=== PATIENT | male | born 1955 | race Caucasian/White ===

== ENCOUNTER 2023-12-18 16:01 | Outpatient (OUT) | payer BC, SELFPAY ==
[2023-12-18 16:22] LABS: Basophils Absolute Auto 0.1 10^3/uL (0.0-0.1); Basophils Percent Auto 0.7 % (0.2-2.0); Eosinophils Absolute Auto 0.1 10^3/uL (0.0-0.7); Eosinophils Percent Auto 1.1 % (0.9-7.0); Hemoglobin 14.2 g/dL (14.0-18.0); Immature Granulocytes Abs Auto 0.03 10^3/uL (0.00-0.03); Immature Granulocytes Pct Auto 0.4 % (0.0-0.5); Lymphocytes Absolute Auto 1.8 10^3/uL (1.2-3.8); Lymphocytes Percent Auto 23.7 % (20.5-60.0); Mean Corpuscular HGB Conc 34.6 g/dL (29.9-35.2); Mean Corpuscular Hemoglobin 31.9 pg (25.9-34.0); Mean Corpuscular Volume 92.1 fL (80.0-94.0); Mean Platelet Volume 8.9 fL (9.5-13.5); Monocytes Absolute Auto 0.9 10^3/uL (0.3-0.8); Monocytes Percent Auto 11.3 % (1.7-12.0); Neutrophils Absolute Auto 4.7 10^3/uL (1.4-6.5); Neutrophils Percent Auto 62.8 % (43.0-75.0); Platelet Count 289 10^3/uL (150-450); Red Blood Count 4.45 10^6/uL (4.70-6.10); Red Cell Distribution Width 12.4 % (11.0-15.0); White Blood Count 7.5 10^3/uL (4.0-11.0)
[2023-12-18 16:54] LABS: Alanine Aminotransferase 43 U/L (16-63); Albumin Globulin Ratio 0.9; Albumin Level 3.9 g/dL (3.4-5.0); Alkaline Phosphatase 53 U/L (46-116); Anion Gap 14.4; Aspartate Amino Transferase 36 U/L (15-37); BUN Creatinine Ratio 13.2; Bilirubin Total 0.5 mg/dL (0.2-1.0); Calcium 9.7 mg/dL (8.5-10.1); Carbon Dioxide 27.1 mmol/L (21.0-32.0); Chloride 95 mmol/L (98-107); Chol HDL Ratio 3.8; Cholesterol 258 mg/dL (<=200); Estimated GFR (African America >60 (>=60); Estimated GFR (Non-African Ame 56 (>=60); Globulin 4.2 g/dL; Glucose 115 mg/dL (74-106); HDL Cholesterol 68 mg/dL (40-60); Potassium 4.5 mmol/L (3.5-5.1); Sodium 132 mmol/L (136-145); Thyroid Stimulating Hormone 20.225 uIU/mL (0.358-3.740); Total Protein 8.1 g/dL (6.4-8.2); Triglycerides 80 mg/dL (<=150)
[2023-12-18 17:01] LABS: Prostate Specific Antigen Scrn 6.78 ng/mL (<=4.00)
== END 2023-12-18 16:02 | disposition home or self-care (01) ==
LOC: LAB 16:03
PROVIDERS: PCP Internal Medicine; Visit Provider Internal Medicine
DX: Z00.00 Encounter for general adult medical examination without abnormal findings (principal)
CPT/HCPCS: 36415; 80053; 80061; 84443; 85025; G0103

== ENCOUNTER 2024-07-08 15:40 | Outpatient (OUT) | payer MEDICARE, SELFPAY ==
--- NOTE | 2024-07-08 16:19 | US_ITS ---
The [address] [address] Patient Name: ROSY TAYLOR MRN: [id number] date: 1955 Sex: M Assigned Patient Location: [place] Current Patient Location: US Accession/Order Number: [id number] Exam Date: 07/08/2024 16:25 Report Date: 07/09/2024 09:54 At the request of: KEISHA BOTELLO Procedure: US carotid duplex BI DUPLEX ULTRASOUND EXAMINATION OF THE CAROTID ARTERIES. COMPARISON: None. HISTORY / INDICATIONS: Visual deficit. TECHNIQUE: Bilateral common carotid arteries, extracranial internal and external carotid arteries are evaluated with perez-scale imaging, color Doppler, and spectral analysis according to a standard protocol. ICA-CCA ratios are calculated with customer success representative peak-systolic velocities and recorded. Vertebral arteries are evaluated in one segment to evaluate for patency and character of flow. Comparison with previous evaluation is performed when available. Unless otherwise specified, all velocities are measured in cm/sec. Carotid stenosis is reported according to validated velocity parameters, similar to NASCET criteria. FINDINGS: Right Carotid: Plaque was noted. Velocity measurements as follows: Internal Carotid Artery 111/34 and 54/22. ICA to CCA ratio: 0.6. Left Carotid: Plaque was noted. Velocity measurements as follows: Internal Carotid Artery 69/20 and 67/22. ICA to CCA ratio: 2. Antegrade flow was seen in both vertebral arteries. CONCLUSION: 1. Less than 50% stenosis of the right ICA. 2. Less than 50% stenosis of the left ICA. 3. Vertebral arteries are patent and demonstrate antegrade flow. Electronically authenticated by: Jc MARTIN Date: 07/09/2024 09:54
[2024-07-08 17:26] LABS: Estimated Average Glucose 108 mg/dL; Glycohemoglobin A1C 5.4 % (4.5-6.2)
[2024-07-10 04:07] LABS: PSA, Free 0.91 ng/mL; Prostate Specific Ag 6.6 ng/mL (0.0-4.0)
== END 2024-07-08 15:41 | disposition home or self-care (01) ==
PROVIDERS: PCP Internal Medicine; Visit Provider Internal Medicine
DX: G45.3 Amaurosis fugax (principal); R97.20 Elevated prostate specific antigen [PSA]; R73.01 Impaired fasting glucose
CPT/HCPCS: 36415; 83036; 84153; 84154; 93880

== ENCOUNTER 2024-07-29 14:41 | Outpatient (OUT) | payer MEDICARE, SELFPAY ==
--- NOTE | 2024-07-29 14:48 | ECG_ITS ---
The [facility] Test Date: 2024-07-29 Pat Name: ROSY TAYLOR Department: Room: - Gender: Male [employer]: : 1955 Requested By: KEISHA BOTELLO Order Number: [id number] Reading MD: KEISHA BOTELLO Measurements Intervals [place] Rate: 83 P: 75 OK: 167 QRS: 152 QRSD: 141 T: 67 QT: 386 QTc: 454 Interpretive Statements SINUS RHYTHM INDETERMINATE AXIS RIGHT BUNDLE BRANCH BLOCK [120+ ms QRS DURATION, UPRIGHT V1, 40+ ms S IN I/aVL/V4/V5/V6] No previous ECG available for comparison Electronically Signed On 07-29-2024 22:59:30 EST by KEISHA BOTELLO
--- OUTSIDE RECORDS SUMMARY | 2024-07-29 15:10 | XMS_ITS | CCD ---
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 Name Role Phone REGAN BOTELLO Admitting Unavailable REGAN BOTELLO Attending Unavailable Regan Botello Unavailable Jeyson MEDINA Attending Unavailable REGAN BOTELLO Referring Unavailable Medications Current Medications Medication Drug Class(es) Dates Sig (Normalized) Sig (Original) amLODIPine 5 mg oral tablet (9 sources) Dihydropyridine Calcium Channel Milli Start: 07-15-2024 take 1 tablet by mouth once daily Amlodipine 5 mg tablet Active 5 MG PO Daily July 15, 2024 3:44pm Start: 03-28-2024 End: 07-15-2024 Amlodipine 5 mg tablet Disco ntinued 0 .ROUTE .COMPLEX March 28, 2024 7:38am July 15, 2024 3:45pm TAKE 1 TABLET EVERY DAY Start: 01-26-2024 End: 03-28-2024 take 1 tablet by mouth once daily Amlodipine 5 mg tablet Discontinued 0 .ROUTE .COMPLEX January 26, 2024 7:37am March 28, 2024 7:39am TAKE 1 TABLET BY MOUTH EVERY DAY Start: 12-24-2023 End: 01-26-2024 take 1 tablet by mouth once daily Amlodipine 5 mg tablet Discontinued 5 MG PO Daily January 14, 2024 7:33am January 26, 2024 7:37am baclofen 20 mg oral tablet (11 sources) gamma-Aminobutyric Acid-ergic Agonist Start: 07-15-2024 take 1 tablet by mouth once daily Baclofen 20 mg tablet Active 20 MG PO Daily July 15, 2024 3:44pm Start: 01-24-2024 End: 07-15-2024 Baclofen 20 mg tablet Discon tinued 0 .ROUTE .COMPLEX June 11, 2024 5:57am July 15, 2024 3:45pm TAKE 1 TABLET AT BEDTIME Start: 10-28-2023 End: 01-24-2024 take 1 tablet by mouth once daily at bedtime Baclofen 20 mg tablet Discontinued 20 MG PO Daily at bedtime January 15, 2024 7:31am January 24, 2024 12:16pm take 1 tablet by deborah th twice daily at mealtime as needed Baclofen 20 MG 1 tablet Administer without regards to meals as needed Orally Twice a day Active benazepril hydrochloride 20 mg oral tablet (8 sources) Angiotensin Converting Enzyme Inhibitor Start: 07-15-2024 take 1 tablet by mouth once daily Benazepril 20 mg tablet Active 20 MG PO Daily July 15, 2024 3:44pm Start: 03-28-2024 End: 07-15-2024 Benazepril 20 mg tablet Disc ontinued 0 .ROUTE .COMPLEX March 28, 2024 7:38am July 15, 2024 3:45pm TAKE 1 TABLET EVERY DAY Start: 12-24-2023 End: 03-28-2024 take 1 tablet by mouth once daily Benazepril 20 mg tablet Discontinued 20 MG PO Daily January 14, 2024 7:33am March 28, 2024 7:39am doxycycline hyclate 100 mg oral capsule (2 sources) Tetracycline-class Drug Start: 10-01-2023 take 1 capsule by mouth twice daily Doxycycline Hyclate 100 MG 1 capsule Orally twice daily for 5 days Sep, Active levothyroxine sodium 0.1 mg oral tablet (8 sources) l-Thyroxine Start: 07-15-2024 take 1 tablet by mouth once daily Levothyroxine 100 mcg tablet Active 100 MCG PO Daily July 15, 2024 3:45pm Start: 03-28-2024 End: 07-15-2024 Levothyroxine 100 mcg tablet Discontinued 0 .ROUTE .COMPLEX March 28, 2024 7:39am July 15, 2024 3:45pm TAKE 1 TABLET EVERY DAY Start: 12-24-2023 End: 03-28-2024 take 1 tablet by mouth once daily Levothyroxine 100 mcg tablet Discontinued 100 MCG PO Daily January 14, 2024 7:33am March 28, 2024 7:39am take 1 tablet by deborah th once daily in the morning Levothyroxine Sodium 100 MCG 1 tablet in the morning on an empty stomach Orally Once a day Active Completed/Discontinued Medications Medication Drug Class(es) Dates Sig (Normalized) Sig (Original) levoFLOXacin 500 mg oral tablet (1 source) Quinolone Antimicrobial Start: 12-27-2023 End: 07-15-2024 take 1 tablet by mouth once daily Levofloxacin 500 mg tablet Discontinued 500 MG PO Daily December 26, 2023 11:00pm July 15, 2024 3:39pm Problems Active Problems Problem Classification Problem Date Documented Da te Episodic/Chronic Chronic kidney disease (2 sources) Chronic kidney disease stage 3; Translations: [Chronic kidney disease, stage 3 unspecified] Onset: 03-20-2019 Chronic Chronic obstructive pulmonary disease and bronchiectasis (14 sources) Mucopurulent chronic bronchitis; Translations: [Mucopurulent chronic bronchitis] Chronic Diabetes mellitus without complication (2 sources) Impaired fasting glycemia; Translations: [Impaired fasting glucose] 12-27-2023 Episodic Disorders of lipid metabolism (15 sources) Hypercholesterolemi a; Translations: [Pure hypercholesterolemi a, unspecified] Onset: 03-20-2019 Chronic Essential hypertension (13 sources) Essential hypertension; Translations: [Essential (primary) hypertension] Chronic Hyperplasia of prostate (10 sources) Lower urinary tract symptoms due to benign prostatic hypertrophy; Translations: [Benign prostatic hyperplasia with lower urinary tract symptoms] Onset: 12-16-2013 12-26-2023 Chronic Hypertension with complications and secondary hypertension (2 sources) Benign hypertensive renal disease; Translations: [Hypertensive chronic kidney disease, benign, with chronic kidney disease stage I through stage IV, or unspecified] Onset: 04-10-2019 Chronic Other nutritional; endocrine; and metabolic disorders (2 sources) Overweight; Translations: [Overweight] Episodic Other screening for suspected conditions (not mental disorders or infectious disease) (9 sources) Screening for malignant neoplasm of respiratory tract; Translations: [Encounter for screening for malignant neoplasm of respiratory organs] 12-26-2023 Episodic Comment on above: PSA: 2.29 - 04/2019, 6.78 - 11/2023, 6.6 - 06/2024 Residual codes; unclassified (5 sources) Tobacco user; Translations: [Tobacco use] Episodic Spondylosis; intervertebral disc disorders; other back problems (11 sources) Lumbar spondylosis with myelopathy; Translations: [Other spondylosis with myelopathy, lumbar region] Onset: 03-20-2019 Chronic Substance-related disorders (14 sources) Nicotine dependence; Translations: [Nicotine dependence, cigarettes, uncomplicated] Onset: 12-02-2015 Chronic Comment on above: Age started 20, PPD1 , Age stopped 68 Systemic lupus erythematosus and connective tissue disorders (2 sources) Autoimmune disease; Translations: [Autoimmune disease, not elsewhere classified] Onset: 03-20-2019 Chronic Thyroid disorders (15 sources) Autoimmune hypothyroidism; Translations: [Hypothyroidism, unspecified] Chronic Transient cerebral ischemia (1 source) Amaurosis fugax of left eye; Translations: [Amaurosis fugax] 12-27-2023 Chronic Past or Other Problems Problem Classification Problem Date Documented Date Episodic/Chronic Acute bronchitis (3 sources) Acute bronchitis; Translations: [Acute bronchitis, unspecified] Onset: 12-16-2013 Episodic Allergic reactions (2 sources) Contact dermatitis; Translations: [Contact dermatitis and other eczema, due to unspecified cause] Onset: 02-07-2016 Episodic Malaise and fatigue (2 sources) Malaise and fatigue; Translations: [Other malaise and fatigue] Onset: 03-20-2019 Episodic Noninfectious gastroenteritis (2 sources) Non-infective enteritis and colitis; Translations: [Noninfective gastroenteritis and colitis, unspecified] Onset: 09-08-2014 Episodic Spondylosis; intervertebral disc disorders; other back problems (2 sources) Low back pain; Translations: [Lumbago] Onset: 01-21-2014 Episodic Viral infection (2 sources) Viremia; Translations: [Unspecified viremia] Onset: 09-08-2014 Episodic Results Test Name Value Interpretation Reference Range Facility Glucose mean value [Mass/vol ume] in Blood Estimated from glycated hemoglobinon 07-08-2024 Average glucose Estimated from glycated hemoglobin (Bld) [Mass/Vol] Glucose mean value [Mass/volume] in Blood Estimated from glycated hemoglobin [facility] - Hematology and Cell countson 07-08-2024 HbA1c (Bld) [Mass fraction] 5.4 % 4.5-6.2 [facility] Comment on above: ADA RECOMMENDED LIMI T 4.0 - 6.0ADA THERAPEUTIC TARGET < 7.0ACTION SUGGESTED> 7.0 No Panel Informationon 07-08 Free Prostate Specific Antigen 0.91 ng/mL N/A [facility] Comment on above: Diane ECLIA methodol ogy. Prostate Specific Antigen Total 6.6 ng/mL Abnormal 0.0-4.0 [facility] Comment on above: Diane ECLIA methodol ogy.According to the [place] [employer], Serum PSAshould decrease and remain at undetectable levels afterradical prostatectomy. The AUA defines biochemicalrecurrence as an initial PSA value 0.2 ng/mL or greaterfollowed by a subsequent confirmatory PSA value 0.2 ng/mLor greater. Values obtained with different assay methods orkits cannot be used interchangeably. Results cannot beinterpreted as absolute evidence of the presence or absenceof malignant disease. Serum or plasma free prostat e specific antigen (PSA)/total PSA ratioon 07-08-2024 Free PSA/Total PSA [Mass fraction] Serum or plasma free prostate specific antigen (PSA)/total PSA ratio . [facility] Comment on above: The table below list s the probability of prostate cancer formen with non-suspicious RAYMOND results and total PSA between4 and 10 ng/mL, by patient age (Baljit et al, ALLY 1998,[id number]:1542). % Free PSA 50-64 yr 65-75 yr 0.00-10.00% 56% 55% 10.01-15.00% 24% 35% 15.01-20.00% 17% 23% 20.01-25.00% 10% 20% >25.00% 5% 9%Please note: Baljit et al did not make specific recommendations regarding the use of percent free PSA for any other population of men.Performed at: [facility] [id number] Director: Warren Combs PhD, Phone: [phone] Basophils Auto (Bld) [#/Vol] on 12-18-2023 Basophils (Bld) [#/Vol] 0.1 10 3/uL 0.0-0.1 [facility] Basophils/100 WBC Auto (Bld) on 12-18-2023 Basophils/100 WBC (Bld) 0.7 % 0.2-2.0 [facility] Cholesterol in LDL Calc [Mas s/Vol]on 12-18-2023 Cholesterol in LDL [Mass/Vol] 174.0 mg/dL [facility] Comment on above: <100 mg/dl [id number] 0-129 mg/dl NEAR OR ABOVE [id number] mg/dl BORDERLINE [id number] mg/dl HIGH>190 mg/dl VERY HIGH Cholesterol in VLDL Calc [Ma ss/Vol]on 12-18-2023 Cholesterol in VLDL [Mass/Vol] 16.0 mg/dL [facility] Eosinophils/100 WBC Auto (Bl d)on 12-18-2023 Eosinophils/100 WBC (Bld) 1.1 % 0.9-7.0 [facility] Erythrocyte distribution wid th Auto (RBC) [Ratio]on 12-18-2023 Erythrocyte distribution width (RBC) [Ratio] 12.4 % 11.0-15.0 [facility] Estimated glomerular filtrat ion rate (GFR) non- Americanon 12-18-2023 GFR/1.73 sq M.predicted among non-blacks MDRD (S/P/Bld) [Vol rate/Area] 56 mL/min/{1.73_m2} >=60 [facility] Globulin Calc (S) [Mass/Vol] on 12-18-2023 Globulin (S) [Mass/Vol] 4.2 g/dL [facility] Hematocrit Auto (Bld) [Volum e fraction]on 12-18-2023 Hematocrit (Bld) [Volume fraction] 41.0 % 42.0-54.0 [facility] Hemoglobin [Mass/volume] in Bloodon 12-18-2023 Hemoglobin (Bld) [Mass/Vol] 14.2 g/dL 14.0-18.0 [facility] Laboratory - Chemistry and C hemistry - challengeon 12-18-2023 Albumin [Mass/Vol] 3.9 g/dL 3.4-5.0 [facility] ALP [Catalytic activity/Vol] 53 U/L 46-116 [facility] ALT [Catalytic activity/Vol] 43 U/L 16-63 [facility] AST [Catalytic activity/Vol] 36 U/L 15-37 [facility] Bilirubin [Mass/Vol] 0.5 mg/dL 0.2-1.0 [facility] Calcium [Mass/Vol] 9.7 mg/dL 8.5-10.1 [facility] Chloride [Moles/Vol] 95 mmol/L 98-107 [facility] Cholesterol [Mass/Vol] 258 mg/dL <=200 [facility] Cholesterol in HDL [Mass/Vol] 68 mg/dL 40-60 [facility] Comment on above: > or =60 mg/dl - LOW CARDIOVASCULAR RISK<40 mg/dl - HIGH CARDIOVASCULAR RISK CO2 [Moles/Vol] 27.1 mmol/L 21.0-32.0 [facility] Creatinine [Mass/Vol] 1.29 mg/dL 0.70-1.30 [facility] GFR/1.73 sq M.predicted MDRD (S/P/Bld) [Vol rate/Area] mL/min/{1.73_m2} >=60 [facility] Glucose [Mass/Vol] 115 mg/dL 74-106 [facility] Potassium [Moles/Vol] 4.5 mmol/L 3.5-5.1 [facility] Protein [Mass/Vol] 8.1 g/dL 6.4-8.2 [facility] Sodium [Moles/Vol] 132 mmol/L 136-145 [facility] Triglyceride [Mass/Vol] 80 mg/dL <=150 [facility] TSH Qn 20.225 m[IU]/L 0.358-3.740 [facility] Urea nitrogen [Mass/Vol] 17.0 mg/dL 7.0-18.0 [facility] Urea nitrogen/Creatinine [Mass ratio] 13.2 mg/mg [facility] - Hematology and Cell countson 12-18-2023 Immature granulocytes/100 WBC (Bld) 0.4 % 0.0-0.5 [facility] Leukocytes [#/volume] correc gilbert for nucleated erythrocytes in Blood by Automated counon 12-18-2023 WBC corrected for nucl RBC Auto (Bld) [#/Vol] 7.5 10 3/uL 4.0-11.0 [facility] Lymphocytes Auto (Bld) [#/Vo l]on 12-18-2023 Lymphocytes (Bld) [#/Vol] 1.8 10 3/uL 1.2-3.8 [facility] Lymphocytes/100 WBC Auto (Bl d)on 12-18-2023 Lymphocytes/100 WBC (Bld) 23.7 % 20.5-60.0 [facility] MCH Auto (RBC) [Entitic mass ]on 12-18-2023 MCH (RBC) [Entitic mass] 31.9 pg 25.9-34.0 [facility] MCHC Auto (RBC) [Mass/Vol]on 12-18-2023 MCHC (RBC) [Mass/Vol] 34.6 g/dL 29.9-35.2 [facility] MCV Auto (RBC) [Entitic vol] on 12-18-2023 MCV (RBC) [Entitic vol] 92.1 fL 80.0-94.0 [facility] Monocytes Auto (Bld) [#/Vol] on 12-18-2023 Monocytes (Bld) [#/Vol] 0.9 10 3/uL 0.3-0.8 [facility] Monocytes/100 WBC Auto (Bld) on 12-18-2023 Monocytes/100 WBC (Bld) 11.3 % 1.7-12.0 [facility] Neutrophils Auto (Bld) [#/Vo l]on 12-18-2023 Neutrophils (Bld) [#/Vol] 4.7 10 3/uL 1.4-6.5 [facility] Neutrophils/100 WBC Auto (Bl d)on 12-18-2023 Neutrophils/100 WBC (Bld) 62.8 % 43.0-75.0 [facility] No Panel Informationon 12-17 Eosinophils # (Auto) 0.1 10 3/uL 0.0-0.7 [facility] Immature Granulocyte # (Auto) 0.03 10 3/uL 0.00-0.03 [facility] Prostate Specific Antigen Screen 6.78 ng/mL <=4.00 [facility] Platelet mean volume Auto (B ld) [Entitic vol]on 12-18-2023 Platelet mean volume (Bld) [Entitic vol] 8.9 fL 9.5-13.5 [facility] Platelets Auto (Bld) [#/Vol] on 12-18-2023 Platelets (Bld) [#/Vol] 289 10 3/uL 150-450 [facility] RBC Auto (Bld) [#/Vol]on RBC (Bld) [#/Vol] 4.45 10 6/uL 4.70-6.10 [facility] Serum or plasma albumin/glob ulin mass ratioon 12-18-2023 Albumin/Globulin [Mass ratio] 0.9 {ratio} [facility] Serum or plasma anion gap de terminationon 12-18-2023 Anion gap [Moles/Vol] 14.4 mmol/L [facility] Serum or plasma total choles terol/high density lipoprotein (HDL) cholesterol mass lien 12-18-2023 Cholesterol.total/C holesterol in HDL [Mass ratio] 3.8 {ratio} [facility] Comment on above: 3.3 - 4.4 LOW RISK4. 4 - 7.1 AVERAGE RISK7.1 - 11.0 MODERATE RISK>11.0 HIGH RISK Vital Signs Date Time Vital Sign Value Performing Clinician Facility 07-15-2024 15:22-0500 Body height 172.72 cm [facility] 07-15-2024 15:22-0500 Body mass index (BMI) [Ratio] 33 kg/m2 [facility] 07-15-2024 15:22-0500 Body weight 98.65 kg [facility] 07-15-2024 15:22-0500 Diastolic blood pressure 81 mm[Hg] [facility] 07-15-2024 15:22-0500 Heart rate 106 /min [facility] 07-15-2024 15:22-0500 Respiratory rate 12 /min [facility] 07-15-2024 15:22-0500 Systolic blood pressure 155 mm[Hg] [facility] 12-27-2023 13:48-0400 Body height 172.72 cm [facility] 12-27-2023 13:48-0400 Body mass index (BMI) [Ratio] 31.5 kg/m2 [facility] 12-27-2023 13:48-0400 Body weight 94 kg [facility] 12-27-2023 13:48-0400 Diastolic blood pressure 75 mm[Hg] [facility] 12-27-2023 13:48-0400 Heart rate 86 /min [facility] 12-27-2023 13:48-0400 Respiratory rate 12 /min [facility] 12-27-2023 13:48-0400 Systolic blood pressure 159 mm[Hg] [facility] 02-27-2023 15:15-0400 Body height 172.72 cm Regan Miki Other [facility] 02-27-2023 15:15-0400 Body mass index (BMI) [Ratio] 29.43 kg/m2 Regan Miki Other [facility] 02-27-2023 15:15-0400 Body weight 87.82 kg Regan Miki Other [facility] 02-27-2023 15:15-0400 Diastolic blood pressure 75 mm[Hg] Regan Miki Other [facility] 02-27-2023 15:15-0400 Respiratory rate 12 /min Regan Miki Other [facility] 02-27-2023 15:15-0400 Systolic blood pressure 135 mm[Hg] Regan Miki Other [facility] Other Encounters Encounter Date Encounter Type Care Provider Facility Start: 08-17-2024 ambulatory [facility] Start: 07-16-2024 ambulatory Jeyson MEDINA Facility :[facility] Start: 07-15-2024 End: 07-15-2024 Patient encounter procedure [facility] Work Phone: Start: 07-15-2024 End: 07-15-2024 ambulatory [facility] Work Phone: Start: 07-15-2024 Telephone encounter Regan ROSS [facility] Start: 07-08-2024 Non-patient / Non-visit [facility] Work Phone: Start: 12-27-2023 End: 12-27-2023 ambulatory [facility] Work Phone: Start: 12-27-2023 End: 12-27-2023 Encounter for general adult medical examination without abnormal findings [facility] Start: 12-27-2023 End: 12-27-2023 Patient encounter procedure [facility] Work Phone: Start: 12-18-2023 Non-patient / Non-visit [facility] Work Phone: Start: 10-28-2023 Non-patient / Non-visit [facility] Work Phone: Start: 10-01-2023 End: 10-01-2023 ambulatory Regan Botello Other [facility] Other Start: 10-01-2023 Office outpatient vi sit 15 minutes Regan Botello [facility] Start: 02-27-2023 End: 02-27-2023 ambulatory Regan Botello Other [facility] Other Start: 02-27-2023 Encounter for genera l adult medical examination without abnormal findings Regan Botello [facility] Start: 02-27-2023 Periodic preventive med est patient 65yrs& older Regan Botello [facility] Start: 06-26-2021 Adult health examination Regan Botello Other [facility] Start: 05-06-2020 Patient encounter procedure REGAN BOTELLO Facility:[facility] Procedures Date Procedure Procedure Detail Performing Clinician Start: 03-20-2019 Screening for malign ant neoplasm of colon Regan Botello Other Start: 03-20-2019 Screening for malign ant neoplasm of prostate Regan Botello Other Start: 12-02-2015 General examination of patient Regan Botello Other Depression screening Shan Botello Other Plan of Treatment Date Care Activity Detail Author [facility] Immunizations Immunization Date Immunization Notes Care Provider Preethi phillip 06-15-2022 influenza, high dose seasonal, preservative-free Regan Botello Other [facility] 06-15-2022 COVID-19 Pfizer (bivalent) Regan Botello Other [facility] 06-15-2022 influenza virus vaccine, unspecified formulation [facility] 12-03-2021 COVID-19 Pfizer Regan Kaminski reena Other [facility] 06-07-2021 influenza virus vaccine, split virus (incl. purified surface antigen) Regan Botello Other [facility] [address] Other 06-07-2021 influenza virus vaccine, unspecified formulation [facility] 05-31-2021 COVID-19 Vaccine Pfi zer - Documentation Purposes Only Regan Miki Other [facility] 11-29-2020 COVID-19 Vaccine Pfi zer - Documentation Purposes Only Regan Miki Other [facility] 11-07-2020 COVID-19 Vaccine Pfi zer - Documentation Purposes Only Regan Miki Other [facility] Payers Date Payer Category Payer Medicare [id number] 1957 Unknown [id number] 1955 Unknown [id number] 1955 Unknown [id number] 1955 Unknown [id number] Medicare A[employer] Medicare Advantage PFFS [id number] Social History Date Type Detail Facility Sex Assigned At [facility] Other Start: 1955 Sex Assigned At Male F [facility] Tobacco smoking stat NHIS Unknown if ever smoked [facility] Work Phone: Start: 07-15-2024 Sex Male (finding) [facility] Evaluation note 10-01-2023 Note Date & Type Note Facility 10-01-2023 Evaluation note Encounter Date Diagnosis Assessment Notes Sep, Acute bronchitis due to other specified organisms (ICD-10 - J20.8) Instructed to use Robitussin or Mucinex for cough, saline or Flonase NS for congestion, Tylenol for pain and fever. Sep, Chronic obstructive pulmonary disease with (acute) exacerbation (ICD-10 - J44.1) Mucolytics and push fluids ER for CP or worsening dyspnea. Call for IP OV if not improving over the next several days as expected. [facility] Other Evaluation note 02-27-2023 Note Date & Type Note Facility 02-27-2023 Evaluation note Encounter Date Diagnosis Assessment Notes Feb, Primary hypertension (ICD-10 - I10) This patient is instructed to consume a healthy, low-fat, low-salt diet. They are also encouraged to continue exercise to achieve/maintain a normal BMI. Feb, Wellness examination (ICD-10 - Z00.00) Healthy diet and exercise. Reviewed age-appropriate preventive testing recommended. Feb, Cigarette nicotine dependence without complication (ICD-10 - F17.210) This patient has been encouraged to quit tobacco use immediately. They are aware of the hazards associated with tobacco use, including but not limited to respiratory infections, vascular disease and cancers. Feb, Elevated cholesterol (ICD-10 - E78.00) Instructed on diet and exercise with continued statin therapy.Discussed the beneficial effects of lowering cholesterol in reducing the risk for cerebrovascular and cardiovascular disease. Feb, Simple chronic bronchitis (ICD-10 - J41.0) Smoking cessation discussed. No ER visits for AECOPD No use of inhalers for symptoms Feb, Other specified hypothyroidism (ICD-10 - E03.8) Euthyroid, yearly TSH Feb, Autoimmune thyroiditis (ICD-10 - E06.3) Feb, Lumbar spondylosis (ICD-10 - M47.816) The patient is instructed to avoid bending, twisting or lifting. They are to use intermittent heat and ice as needed. They may schedule a massage or gentle manipulation. They may safely use Tylenol as needed. [facility] Other Evaluation note Note Date & Type Note Facility Evaluation note Diagnosis Onset Date Benign prostatic hyperplasia with lower urinary tract symptoms acute Cigarette nicotine dependenc e without complication acute Elevated PSA acute Essential (primary) hypertension acute Hypercholesterolemia acute Hypothyroid acute Mucopurulent chronic bronchitis acute Wellness examination noneact [place] [facility] Work Phone: Evaluation note Note Date & Type Note Facility Evaluation note Diagnosis Onset Date Resolution Cigarette nicotine dependence without complication acute July 15, 2024 3:09pm Elevated PSA acute June 3:09pm Essential (primary) hypertension acute July 15, 2024 3:09pm Hypercholesterolemia acute Nov2023 3:09pm Hypothyroid acute June 3:09pm IFG (impaired fasting glucose) acute July 15, 2024 3:09pm Mucopurulent chronic bronchitis acute July 15, 2024 3:09pm [facility] Work Phone: Evaluation note Note Date & Type Note Facility Evaluation note No Information [facility] Other History general Narrative - Reported Note Date & Type Note Facility History general Narrative - Reported Type Medical History Hyperlipidemia type II Medical History Mucopurulent chronic bronchitis Medical History Cigarette nicotine d ependence without complication Medical History Tobacco user Medical History Hypertension Medical History Benign prostatic hyp erplasia with lower urinary tract symptoms Medical History Autoimmune hypothyroidism Medical History Lumbar spondylosis with myelopat hy [facility] Other History general Narrative - Reported Note Date & Type Note Facility History general Narrative - Reported Type Medical History Hyperlipidemia type II Medical History Mucopurulent chronic bronchitis Medical History Cigarette nicotine d ependence without complication Medical History Tobacco user Medical History Hypertension Medical History Benign prostatic hyp erplasia with lower urinary tract symptoms Medical History Autoimmune hypothyroidism Medical History Lumbar spondylosis with myelopat hy Surgical History Problem Title : Non- Contributory Past Surgical History, Problem Status : Active, Surgical History Problem Title : past surgical history reviewed, Problem Description : past surgical history reviewed, Problem Comment : reviewed - no changes required, Problem Status : Resolved, Spime Other Summary Purpose Family History No Family History Records Found Relationship Condition Age at Onset Recorded Date/T mati Not Specified Dementia Unknown Relationship Condition Age at Onset Recorded Date/T mati mother Dementia Unknown Advance Directives No Advanced Directives Records Found Advance Directive Response Recorded Date/ Time Advance Directives No December 27, 2023 1:40pm Advance Directive Response Recorded Date/ Time Advance Directives No December 27, 2023 12:40pm Chief Complaint and Reason for Visit Chief Complaint Amb Documentation wellness Reason for Visit Benign prostatic hyp erplasia with lower urinary tract symptoms Cigarette nicotine dependence without complication Elevated PSA Essential (primary) hypertension Hypercholesterolemia Hypothyroid Mucopurulent chronic bronchitis Wellness examination Chief Complaint Admit Date discuss recent testing results July 15, 2024 3:09pm Reason for Visit Admit Date Cigarette nicotine dependence without co mplication July 15, 2024 3:09pm Elevated PSA July 15, 2024 3:09pm Essential (primary) hypertension Novembe 2023 3:09pm Hypercholesterolemia July 15, 2024 3:09pm Hypothyroid July 15, 2024 3:09pm IFG (impaired fasting glucose) July 15, 2024 3:09pm Mucopurulent chronic bronchitis July 15, 2024 3:09pm Additional Source Comments (unrecognized sect ion and content) No Status Records FoundNo Status Records Found INFORMATION SOURCE (unrecogn ized section and content) DATE CREATED AUTHOR 05/06/2020 [facility] DATE CREATED AUTHOR AUTHOR'S ORGANIZ ATION 07/23/2024 [facility] REASON FOR VISIT (unrecogniz ed section and content) Medications-Check Uppossible sinus infection, testing for covid [id number] Information Care Teams (unrecognized sec tion and content) Team Status: Active Member Role Status Dates Regan Botello DO Primary Care Provider Active Team Status: Active Member Role Status Dates Regan Botello DO Primary Care Provider Active Start: October 28, 2023 LUIS Grover Attending Provider Active Start : October 28, 2023 Team Status: Active Member Role Status Dates Regan Ball , DO Primary Care Provide r, Attending Provider Active Start: December 18, 2023 Team Status: Inactive Member Role Status Dates Regan Botello , DO Primary Care Provide r, Attending Provider Active Start: December 27, 2023 End: December 27, 2023 Team Status: Active Member Role Status Dates Regan Botello , DO Primary Care Provide r, Attending Provider Active Start: July 08, 2024 Team Status: Inactive Member Role Status Dates Regan Botello , DO Primary Care Provide r, Attending Provider Active Start: July 15, 2024 End: July 15, 2024 Goals (unrecognized section and content) Goals may be documented in a n alternate section FOR RECORDS PERTAINING TO PATIENTS WHO ARE OR HAVE BEEN ENROLLED IN A CHEMICAL DEPENDENCY/SUBSTANCEABUSE PROGRAM, SOME INFORMATION MAY BE OMITTED. This clinical summary was aggregated from multiple sources. Caution should be exercised in using it in the provision of clinical care. This summary normalizes information from multiple sources, and as a consequence, information in this document may materially change the coding, format and clinical context of patient data. In addition, data may be omitted in some cases. CLINICAL DECISIONS SHOULD BE BASED ON THE PRIMARY CLINICAL RECORDS. [facility] provides no warranty or guarantee of the accuracy or completeness of information in this document.
[2024-07-29 16:03] LABS: Thyroid Stimulating Hormone 13.234 uIU/mL (0.358-3.740)
== END 2024-07-29 14:42 | disposition home or self-care (01) ==
PROVIDERS: PCP Internal Medicine; Visit Provider Internal Medicine
DX: R00.0 Tachycardia, unspecified (principal); E03.8 Other specified hypothyroidism; E06.3 Autoimmune thyroiditis
CPT/HCPCS: 36415; 84443; 93005

== ENCOUNTER 2024-11-13 14:51 | Outpatient (OUT) | payer MEDICARE, SELFPAY ==
--- NOTE | 2024-11-13 | CT_ITS ---
The [address] [address] Patient Name: ROSY TAYLOR MRN: [id number] date: 1955 Sex: M Assigned Patient Location: CT Current Patient Location: CT Accession/Order Number: [id number] Exam Date: 11/13/2024 15:43 Report Date: 11/13/2024 15:46 At the request of: KEISHA BOTELLO DO Procedure: CT lung screening low-dose CT CHEST WITHOUT CONTRAST, LOW DOSE SCREENING: CLINICAL DATA: A 69-year old former smoker with 48pack year history. COMPARISON: None TECHNIQUE: Noncontrast axial CT scan images of the chest were obtained under the low dose screening CT protocol. Coronal and sagittal reconstructed images were also submitted. FINDINGS: Mediastinum : Suboptimal evaluation due to low-dose technique. Thoracic aorta appears normal in caliber. Pulmonary trunk appears nondilated. No pericardial effusion. No lymphadenopathy. The esophagus is grossly unremarkable. Lungs: No focal consolidation, pneumothorax or pleural effusion. Trachea and distal airways appear patent. Diffuse bronchial wall thickening. No suspicious noncalcified pulmonary nodule or mass. Upper abdomen: No acute findings. Bony thorax and chest wall: Soft tissues surrounding the chest wall demonstrate no acute findings. Osseous structures demonstrate degenerative change. CT/CT lung screening low-dose IMPRESSION: NO SUSPICIOUS PULMONARY NODULE. LUNG - RADS Version 1.0 Assessment: Category 1, Negative (No nodules and definitely benign nodules). Management: Continue annual lung screening with LDCT in 12 months. Impression dictated by: Omkar Brown Jr., D.O.11/13/2024 3:46 PM Dictation Location: [place] [address] Electronically authenticated by: [id number] Y Date: 11/13/2024 15:46
== END 2024-11-13 14:52 | disposition home or self-care (01) ==
LOC: CT 14:51
PROVIDERS: PCP Internal Medicine; Visit Provider Internal Medicine
DX: Z87.891 Personal history of nicotine dependence (principal)
CPT/HCPCS: 71271

== ENCOUNTER 2025-01-07 13:03 | Outpatient (OUT) | payer MEDICARE, SELFPAY ==
[2025-01-07 14:31] LABS: Sodium Urine Random 73 mmol/L (30-90)
[2025-01-08 23:07] LABS: Osmolality, Urine 238 mOsmol/kg (.)
== END 2025-01-07 13:04 | disposition home or self-care (01) ==
LOC: LAB 13:05
PROVIDERS: PCP Internal Medicine; Visit Provider Internal Medicine
DX: E87.1 Hypo-osmolality and hyponatremia (principal); R53.83 Other fatigue
CPT/HCPCS: 36415; 82533; 83930; 83935; 84300; 84550

== ENCOUNTER 2025-01-14 15:41 | Outpatient (OUT) | payer MEDICARE, SELFPAY ==
--- OUTSIDE RECORDS SUMMARY | 2025-01-04 14:48 | XMS_ITS ---
Author Name Auto Generated Organization OH[facility] Care Team Providers Care Head Porter Baggage Name Role Phone NKANSAH-AMANKRA, RENATA Attending Unavail able ARTEAGA, Jeyson Orantes Attending Unavailable ARTEAGA, Jeyson Orantes Attending Unavailable ARTEAGA, Jeyson Orantes Attending Unavailable BALL, REGAN Referring Unavailable ARTEAGA, Jeyson Orantes Attending Unavailable ARTEAGA, Jeyson Orantes Admitting Unavailable ARTEAGA, Jeyson Orantes Attending Unavailable NKANSAH-AMANKRA, RENATA Admitting Unavail able NKANSAH-AMANKRA, RENATA Attending Unavail able NKANSAH-AMANKRA, RENATA Referring Unavail able NKANSAH-AMANKRA, RENATA Admitting Unavail able NKANSAH-AMANKRA, RENATA Attending Unavail able NKANSAH-AMANKRA, RENATA Referring Unavail able Regan [facility] Unavailable Arteaga, Jeyson Attending Unavailable Arteaga, Jeyson Admitting Unavailable PROBLEMS DATE TYPE CONDITION / CODE ATTENDING STATUS [facility] 10/06/2024 Unknown Elevated prostat e specific antigen [PSA] / R97.20(ICD-10) Jeyson Arteaga Active [facility] PROCEDURES No Procedure Records Found RESULTS TSH Collected: 01/04/2025 3:24 PM Status: F Source[facility] TYPE CODE TESTS RESULT OUT OF RANGE REFERENCE UNITS LAB 3016-3(LOINC) THYROTROPIN:A CNC:PT:SER/PL :QN: 14.21 High 0.34-5.60 mcIU/mL Performed By: #### [id number] # ### [facility] [address] [place] [address] EGFR Collected: 3:24 PM Status: F [facility] TYPE CODE TESTS RESULT OUT OF RANGE REFERENCE UNITS LAB 67280978(LOINC) eGFR 73 Normal >=59 mL/min/1 .7 3 m2 Performed By: #### [id number] #### [facility] [address] [place] [address] CBC W/ AUTO DIFF Collected: 01/04/2025 3:24 PM Statu s: F Source[facility] TYPE CODE TESTS RESULT OUT OF RANGE REFERENCE UNITS LAB 59486-4([facility]) LEUKOCYTES^^CO RRECTED FOR NUCLEATED ERYTHROCYTES:N CNC:PT:BLD:QN: AUTOMATED COUNT 5.7 Normal 4.0-11.0 E9/L LAB 789-8([facility]) ERYTHROCYTES:N CNC:PT:BLD:QN: AUTOMATED COUNT 4.5 Normal 4.3-5.9 E12/L LAB 718-7([facility]) HEMOGLOBIN:MCN C:PT:BLD:QN: 14.0 Normal 13.5-17.5 gm/dL LAB 4544-3([facility]) ERYTHROCYTE/BL OOD:VFR:PT:BLD :QN:AUTOMATED COUNT 40.4 Normal 37.7-49.0 % LAB 788-0([facility]) OBSERVATION:DI STWIDTH:PT:RBC :QN:AUTOMATED COUNT 13.2 Normal 10.9-14.2 % LAB 785-6([facility]) HEMOGLOBIN:ENT MASS:PT:RBC:QN :AUTOMATED COUNT 31.4 Normal 27.0-34.0 pg LAB 786-4([facility]) HEMOGLOBIN:ENT MCNC:PT:RBC:QN :AUTOMATED COUNT 34.7 Normal 31.4-36.0 gm/dL LAB 787-2([facility]) OBSERVATION:EN TMEANVOL:PT:RB C:QN:AUTOMATED COUNT 90.5 Normal 80.0-100.0 fL LAB 99109-3([facility]) PLATELET:ENTME ANVOL:PT:BLD:Q N:AUTOMATED COUNT 6.6 Normal 6.4-10.8 fL LAB 777-3([facility]) PLATELETS:NCNC :PT:BLD:QN:AUT OMATED COUNT 338.0 Normal 150.0-500.0 E9/L LAB 54583-7([facility]) NEUTROPHILS/LE UKOCYTES:NFR:P T:BLD:QN: 65.1 Normal 36.0-75.0 % LAB 731-0(LOINC) LYMPHOCYTES:NC NC:PT:BLD:QN:A UTOMATED COUNT 19.8 Normal 14.0-50.0 % LAB 742-7(LOINC) MONOCYTES:NCNC :PT:BLD:QN:AUT OMATED COUNT 0.7 Normal 0.2-1.0 E9/L LAB 713-8(INC) EOSINOPHILS/LE UKOCYTES:NFR:P T:BLD:QN:AUTOM ATED COUNT 2.0 Normal 0.0-8.0 % LAB 704-7(INC) BASOPHILS:NCNC :PT:BLD:QN:AUT OMATED COUNT 1.1 Normal 0.0-2.0 % LAB 751-8(INC) NEUTROPHILS:NC NC:PT:BLD:QN:A UTOMATED COUNT 3.7 Normal 2.0-7.5 E9/L LAB 56889-7([facility]) LYMPHOCYTES:NC NC:PT:BLD:QN: 1.1 Normal 1.0-4.0 E9/L LAB 98676-9([facility]) EOSINOPHILS:NC NC:PT:BLD:QN: 0.1 Normal 0.0-0.5 E9/L LAB 93751-9([facility]) BASOPHILS/LEUK OCYTES:NFR.DF: PT:BLD:QN:AUTO MATED COUNT 0.1 Normal 0.0-0.2 E9/L Performed By: #### [id number] # ### [facility] [address] [place] [address] PT & PTT Collected: 5 3:24 PM Status: F Source[facility] TYPE CODE TESTS RESULT OUT OF RANGE REFERENCE UNITS LAB 5902-2([facility]) COAGULATION TISSUE FACTOR INDUCED:TIME:P T:PPP:QN:COAG 10.5 Normal 9.4-12.5 second(s ) Result Comment: 15 days - 4 weeks 1 - 5 months 6 -11 months 1 ??? 5 years 6 ??? 10 years 11 -17 years Mean: 11.2 (9.5 ??? 12.6) Mean: 11.0 (9.7 ??? 12.8) Mean: 11.0 (9.8 ??? 13.0) Mean: 11.3 (9.9 ??? 13.4) Mean: 11.7 (10.0 ??? 14.6) Mean: 11.8 (10.0 - 14.1) Pediatric Reference ranges were obtained from a study by Jermaine Ramirez et al. prepared from 1437 samples obtained at 7 different centers using the same coagulation reagent and instrumentation as [facility]. Currently there are no coagulation studies available worldwide for children to 14 days, and no normal ranges. LAB 38846-5([facility]) COAGULATION SURFACE INDUCED:TIME:P T:PPP:QN:COAG 32.4 Normal 25.1-36.5 second(s ) Result Comment: Parameter 15 days - 4 weeks 1 - 5 months 6 - 11 months 1 - 5 years 6 - 10 years 11 - 17 years PTT Mean: 35.4 (27.6-45.6) Mean: 33.5 (24.8-40.7) Mean: 32.4 (25.1-40.7) Mean: 31.6 (24.0-39.2) Mean: 31.6 (26.9-38.7) Mean: 31.0 (24.6-38.4) Pediatric Reference ranges were obtained from a study by Jermaine Ramirez et al. prepared from 1437 samples obtained at 7 different centers using the same coagulation reagent and instrumentation as [facility]. Currently there are no coagulation studies available worldwide for children to 14 days, and no normal ranges. Heparin therapeutic range (represented by Anti-Factor Xa activity of 0.2 - 0.4 U/mL) corresponds to PTT of 56.6 - 109.0 sec. LAB 6301-6([facility]) COAGULATION TISSUE FACTOR INDUCED.INR:RE LTIME:PT:PPP:Q N:COAG 0.94 Unknown Result Comment: INR results are specifically intended to assess patients stabilized on long-term Anticoagulation therapy suggested INR???s ???Less Intensive Anticoagulation??? 2.0 ??? 3.0 Conventional Range 3.0 ??? 4.5 Performed By: #### [id number] #### [facility] [address] [place] [address] [facility] Collected: 5 3:24 PM Status: F Source: [facility] TYPE CODE TESTS RESULT OUT OF RANGE REFERENCE UNITS LAB 2345-7([facility]) GLUCOSE:MCNC :PT:SER/PLAS :QN: 122 Normal 55-199 mg/dL LAB 3094-0([facility]) UREA NITROGEN:MCN C:PT:SER/KYLAH S:QN: 9 Normal 5-21 mg/dL LAB 2160-0([facility]) CREATININE:M CNC:PT:SER/P LAS:QN: 1.1 Normal 0.5-1.3 mg/dL LAB 3097-3([facility]) UREA NITROGEN/CRE ATININE:MRTO :PT:SER/PLAS :QN: 8 Low 10-20 No Units LAB 54187-7([facility]) CALCIUM:MCNC :PT:SER/PLAS :QN: 9.4 Normal 8.9-11.1 mg/dL LAB 2951-2([facility]) SODIUM:SCNC: PT:SER/PLAS: QN: 123 Low 135-145 mmol/L LAB 2823-3([facility]) POTASSIUM:SC NC:PT:SER/PL :QN: 4.4 Normal 3.5-5.3 mmol/L LAB 2075-0([facility]) CHLORIDE:SCN C:PT:SER/KYLAH S:QN: 90 Low 101-111 mmol/L LAB 2028-9([facility]) CARBON DIOXIDE:SCNC :PT:SER/PLAS :QN: 26 Normal 21-31 mmol/L LAB 05107-8([facility]) ANION GAP:SCNC:PT: SER/PLAS:QN: CALCULATED 11 Normal 6-16 mEq/L Performed By: #### [id number] # ### [facility] [address] [place] [address] UA WITH CULT RFLX Collected: 5 3:24 PM Status: F Source: [facility] TYPE CODE TESTS RESULT OUT OF RANGE REFERENCE UNITS LAB 9194-2([facility]) CLASS:TYPE:PT :URINE COLLECTION METHOD:NOM:* Clean Catch Normal LAB 89875-6([facility]) OBSERVATION:C OLOR:PT:URINE :NOM:AUTOMATE D Colorless Abnormal Yellow Result Comment: Microscopic readings are only performed on those samples that meet specific criteria set forth by [facility]. LAB 75133-9([facility]) CLARITY:TYPE: PT:URINE:NOM: Clear Normal Clear LAB 5811-5([facility]) OBSERVATION:S PGRAV:PT:URIN E:SEMIQN:TEST STRIP 1.004 Unknown 1.005-1.030 LAB 5803-2([facility]) PH:LSCNC:PT:U RINE:SEMIQN:T EST STRIP 6.5 Unknown 5.0-9.0 LAB 18205-1([facility]) PROTEIN:PRTHR :PT:URINE:ORD :TEST STRIP Negative Normal Negative mg/dL LAB 80527-5([facility]) GLUCOSE:PRTHR :PT:URINE:ORD :TEST STRIP Negative Normal Negative mg/dL LAB 49623-2([facility]) KETONES:PRTHR :PT:URINE:ORD :TEST STRIP.AUTOMAT ED Negative Normal Negative mg/dL LAB 69516-4([facility]) BILIRUBIN:PRT HR:PT:URINE:O RD:TEST STRIP.AUTOMAT ED Negative Normal Negative mg/dL LAB 90622-1([facility]) HEMOGLOBIN:MC NC:PT:URINE:S EMIQN:TEST STRIP.AUTOMAT ED Negative Normal Negative mg/dL LAB 25628-8([facility]) NITRITE:PRTHR :PT:URINE:ORD :TEST STRIP.AUTOMAT ED Negative Normal Negative mg/dL LAB 02751-0([facility]) UROBILINOGEN: MCNC:PT:URINE :SEMIQN:TEST STRIP Negative Normal Negative mg/dL LAB 40974-7([facility]) LEUKOCYTE ESTERASE:PRTH R:PT:URINE:OR D:TEST STRIP.AUTOMAT ED Negative Normal Negative CD:[id number] Performed By: #### [id number] #### [facility] [address] [place] [address] ABO/RH RETYPE Collected: 01/04/2025 3:24 PM Status: F Source: [facility] TYPE CODE TESTS RESULT OUT OF RANGE REFERENCE UNITS LAB 86831941([facility]) ABO/Rh Retype Interp A POS Unknown Performed By: #### [id number] #### [facility] [address] [place] [address] PATIENT EDUCATION Observed: 12/17/2024 2:15 PM Status: F Source: [facility] Patient Education Urology Robot-Assisted Laparoscopic Radical Prostatectomy Robot-assisted laparoscopic radical prostatectomy is surgery done to remove the entire prostate and nearby tissue. This includes the seminal vesicles, which are near the bladder and the prostate. This procedure is done to treat prostate cancer that has not spread (metastasized) to other parts of the body. The goal of the surgery is to remove all cancer cells to help keep the cancer from metastasizing. During this procedure, the surgeon makes several incisions in the abdomen instead of one large incision. A long, thin, lighted tube with a tiny camera on the end (laparoscope) is put into one of the incisions. This allows the surgeon to see inside the abdomen. Other surgical tools are put in through the other incisions and used to take out the prostate and nearby tissues. The surgeon uses robotic arms to control these tools while sitting at a computer near the operating table. Lymph nodes in the pelvis may also be removed. Lymph nodes are part of the body's disease-fighting system (immune system). When prostate cancer spreads, it tends to go to the lymph nodes in the pelvis first. If the pelvic lymph nodes are removed, they will be checked for cancer cells. Tell a health care provider about: ??? Any allergies you have. ??? All medicines you are taking, including vitamins, herbs, eye drops, creams, and ohvc-wpk-nfpbehw medicines. ??? Any problems you or family members have had with anesthetic medicines. ??? Any bleeding problems you have. ??? Any surgeries you have had. ??? Any medical conditions you have. ??? Any prostate infections you have had. What are the risks? Generally, this is a safe procedure. Still, problems may occur, including: ??? Infection. ??? Bleeding. ??? Allergic reactions to medicines. ??? Damage to nearby structures or organs, such as the rectum, ureters, urethra, bladder, or small intestine. ??? Blockage (obstruction) of the large or small intestines. ??? Problems that affect urination or sexual function. These may include: ? Narrowing or scarring of the urethra (stricture), which may block the flow of urine. ? Inability to control when you urinate (incontinence). ? Inability to get or keep an erection (erectile dysfunction). ? Dry ejaculation. This is when no semen comes out during orgasm. ??? The formation of a sac (cyst) in the pelvis that is filled with fluid from the lymph glands (lymphocele). ??? Blood clots in the legs. What happens before the procedure? Staying hydrated Follow instructions from your health care provider about hydration, which may include: ??? Up to 2 hours before the procedure ? you may continue to drink clear liquids, such as water, clear fruit juice, black coffee, and plain tea. Eating and drinking restrictions Follow instructions from your health care provider about eating and drinking, which may include: ??? 8 hours before the procedure ? stop eating heavy meals or foods, such as meat, fried foods, or fatty foods. ??? 6 hours before the procedure ? stop eating light meals or foods, such as toast or cereal. ??? 6 hours before the procedure ? stop drinking milk or drinks that contain milk. ??? 2 hours before the procedure ? stop drinking clear liquids. Medicines ??? Ask your health care provider about: ? Changing or stopping your regular medicines. This is especially important if you are taking diabetes medicines or blood thinners. ? Taking medicines such as aspirin and ibuprofen. These medicines can thin your blood. Do not take these medicines unless your health care provider tells you to take them. ? Taking bqmz-vei-smfitnw medicines, vitamins, herbs, and supplements. ??? Follow your health care provider's instructions about cleaning out your bowels. Surgery safety Ask your health care provider: ??? How your surgery site will be marked. ??? What steps will be taken to help prevent infection. These steps may include: ? Removing hair at the surgery site. ? Washing skin with a germ-killing soap. ? Taking antibiotic medicine. General instructions ??? Do not use any products that contain nicotine or tobacco for at least 4 weeks before the procedure. These products include cigarettes, chewing tobacco, and vaping devices, such as e-cigarettes. If you need help quitting, ask your health care provider. ??? Plan to have a responsible adult take you home from the hospital or clinic. ??? Plan to have a responsible adult care for you for the time you are told after you leave the hospital or clinic. ??? You may have an exam or testing. This may include blood or urine samples, or imaging tests such as a CT scan or an MRI. What happens during the procedure? An IV will be put into a vein in your hand or arm. ??? You may be given: ? A medicine to help you relax (sedative). ? A medicine to make you fall asleep (general anesthetic). ??? A thin, flexible tube (Moore catheter) will be put into your penis through your urethra and into your bladder to drain your urine. ??? Small incisions will be made in your abdomen and near your belly button. ??? The laparoscope and other surgical instruments will be put through the incisions. The surgical tools will be used to cut and remove your prostate, seminal vesicles, and maybe your pelvic lymph nodes. Your surgeon will use a computer and robotic arms to control the surgical instruments. ??? Your urethra will be cut and from your bladder to take out the prostate. Your urethra will then be reconnected to your bladder neck. This is the group of muscles that help push urine through your urethra. ??? A small tube (drain) may be put in one or more of your incisions to help drain extra fluid from your surgical site after surgery. ??? The laparoscope and other surgical instruments will be removed. ??? Your incisions will be closed with stitches (sutures), skin glue, or adhesive strips. ??? Medicine may be applied and bandages (dressings) will be placed over your incisions. The procedure may vary among health care providers and hospitals. What happens after the procedure? Your blood pressure, heart rate, breathing rate, and blood oxygen level will be monitored until you leave the hospital or clinic. ??? You may get fluids and medicines through your IV. You may be given antibiotics and medicines to help relieve pain or nausea. ??? You will be encouraged to walk as soon as possible. You will also use a device or do breathing exercises to keep your lungs clear. ??? The catheter will stay in to drain urine from your bladder. You will be taught how to care for it at home. ??? The drain may stay in to drain fluid from the surgical site. If so, you will be taught how to care for it at home. ??? You may need to wear compression stockings until you are able to get up and walk around. These stockings help prevent blood clots and reduce swelling in your legs. ??? If you were given a sedative during the procedure, it can affect you for several hours. Do not drive or operate machinery until your health care provider says that it is safe. Summary ??? Robot-assisted laparoscopic radical prostatectomy is a surgical procedure to remove the entire prostate and the seminal vesicles. ??? Follow instructions from your health care provider about eating and drinking before your surgery. ??? After your procedure, you may be given fluids and medicines through an IV. You may get antibiotics and medicines to help relieve pain or nausea. ??? After your surgery, you will continue to have a small, thin tube (Moore catheter) draining your urine. You will be taught how to care for it at home. This information is not intended to replace advice given to you by your health care provider. Make sure you discuss any questions you have with your health care provider. Document Revised: 11/08/2021 Document Reviewed: 11/08/2021 [employer] Patient Education ? 2023 [employer] AMBULATORY VISIT SUMMARY Observed: 12/17 1:53 PM Status: F Source: [facility] Ambulatory Visit Summary LENNY TAYLOR :1955 Visit Date:12/17/2024 Ambulatory Visit Instructions Your Diagnosis Prostate cancer BPH with urinary obstruction Your Care Team Attending Physician - RENATA DAVIDSON MD Primary Care Physician - REGAN LIVINGSTON DO This Is Your Medications List Contact prescribing physician if questions or concerns amlodipine aspirin baclofen benazepril levothyroxine Procedures Performed Transrectal biopsy of prostate using ultrasound (US) guidance (11/17/2024). Discharge Vitals Heart Rate (Peripheral) 92 Blood Pressure 171/74 Height 170 cm Height 67 in Weight 100.24 kg Weight 220.991 lb BMI 34.69 What to do next Scheduled Follow-Up Appointments Saturday. 2024 3:30 PM EDT Where: [facility] Saturday 12:15 PM EDT Where: [facility] You Need to Schedule the Following Appointments Follow Up with RENATA DAVIDSON MD, URL When: Where: Medications What How Much When Instructions Unchanged amlodipine 5 Milligram By Mouth Every day Contact prescribing physician if questions or concerns Unchanged aspirin 81 Milligram By Mouth Every day Contact prescribing physician if questions or concerns Unchanged baclofen 20 Milligram Contact prescribing physician if questions or concerns Unchanged benazepril 20 Milligram By Mouth Every day Contact prescribing physician if questions or concerns Unchanged levothyroxine 100 Microgram By Mouth Every day Contact prescribing physician if questions or concerns Allergies No Known Allergies Problems Ongoing - Any problem that you are currently receiving treatment for. At risk for falls BPH with urinary obstruction Elevated PSA Hyperlipidemia Hypertension Hypothyroid Prostate cancer Patient Survey You may receive a survey via text or e-mail asking about your office visit. Please share your experience with us by completing your survey. We appreciate your feedback and thank you for choosing us for your care. Education Materials Robot-Assisted Laparoscopic Radical Prostatectomy Robot-assisted laparoscopic radical prostatectomy is surgery done to remove the entire prostate and nearby tissue. This includes the seminal vesicles, which are near the bladder and the prostate. This procedure is done to treat prostate cancer that has not spread (metastasized) to other parts of the body. The goal of the surgery is to remove all cancer cells to help keep the cancer from metastasizing. During this procedure, the surgeon makes several incisions in the abdomen instead of one large incision. A long, thin, lighted tube with a tiny camera on the end (laparoscope) is put into one of the incisions. This allows the surgeon to see inside the abdomen. Other surgical tools are put in through the other incisions and used to take out the prostate and nearby tissues. The surgeon uses robotic arms to control these tools while sitting at a computer near the operating table. Lymph nodes in the pelvis may also be removed. Lymph nodes are part of the body's disease-fighting system (immune system). When prostate cancer spreads, it tends to go to the lymph nodes in the pelvis first. If the pelvic lymph nodes are removed, they will be checked for cancer cells. Tell a health care provider about: ??? Any allergies you have. ??? All medicines you are taking, including vitamins, herbs, eye drops, creams, and bbwj-rsr-wskyffo medicines. ??? Any problems you or family members have had with anesthetic medicines. ??? Any bleeding problems you have. ??? Any surgeries you have had. ??? Any medical conditions you have. ??? Any prostate infections you have had. What are the risks? Generally, this is a safe procedure. Still, problems may occur, including: ??? Infection. ??? Bleeding. ??? Allergic reactions to medicines. ??? Damage to nearby structures or organs, such as the rectum, ureters, urethra, bladder, or small intestine. ??? Blockage (obstruction) of the large or small intestines. ??? Problems that affect urination or sexual function. These may include: ? Narrowing or scarring of the urethra (stricture), which may block the flow of urine. ? Inability to control when you urinate (incontinence). ? Inability to get or keep an erection (erectile dysfunction). ? Dry ejaculation. This is when no semen comes out during orgasm. ??? The formation of a sac (cyst) in the pelvis that is filled with fluid from the lymph glands (lymphocele). ??? Blood clots in the legs. What happens before the procedure? Staying hydrated Follow instructions from your health care provider about hydration, which may include: ??? Up to 2 hours before the procedure ??? you may continue to drink clear liquids, such as water, clear fruit juice, black coffee, and plain tea. Eating and drinking restrictions Follow instructions from your health care provider about eating and drinking, which may include: ??? 8 hours before the procedure ??? stop eating heavy meals or foods, such as meat, fried foods, or fatty foods. ??? 6 hours before the procedure ??? stop eating light meals or foods, such as toast or cereal. ??? 6 hours before the procedure ??? stop drinking milk or drinks that contain milk. ??? 2 hours before the procedure ??? stop drinking clear liquids. Medicines ??? Ask your health care provider about: ? Changing or stopping your regular medicines. This is especially important if you are taking diabetes medicines or blood thinners. ? Taking medicines such as aspirin and ibuprofen. These medicines can thin your blood. Do not take these medicines unless your health care provider tells you to take them. ? Taking lonf-nwi-pbgzeqb medicines, vitamins, herbs, and supplements. ??? Follow your health care provider's instructions about cleaning out your bowels. Surgery safety Ask your health care provider: ??? How your surgery site will be marked. ??? What steps will be taken to help prevent infection. These steps may include: ? Removing hair at the surgery site. ? Washing skin with a germ-killing soap. ? Taking antibiotic medicine. General instructions ??? Do not use any products that contain nicotine or tobacco for at least 4 weeks before the procedure. These products include cigarettes, chewing tobacco, and vaping devices, such as e-cigarettes. If you need help quitting, ask your health care provider. ??? Plan to have a responsible adult take you home from the hospital or clinic. ??? Plan to have a responsible adult care for you for the time you are told after you leave the hospital or clinic. ??? You may have an exam or testing. This may include blood or urine samples, or imaging tests such as a CT scan or an MRI. What happens during the procedure? An IV will be put into a vein in your hand or arm. ??? You may be given: ? A medicine to help you relax (sedative). ? A medicine to make you fall asleep (general anesthetic). ??? A thin, flexible tube (Moore catheter) will be put into your penis through your urethra and into your bladder to drain your urine. ??? Small incisions will be made in your abdomen and near your belly button. ??? The laparoscope and other surgical instruments will be put through the incisions. The surgical tools will be used to cut and remove your prostate, seminal vesicles, and maybe your pelvic lymph nodes. Your surgeon will use a computer and robotic arms to control the surgical instruments. ??? Your urethra will be cut and from your bladder to take out the prostate. Your urethra will then be reconnected to your bladder neck. This is the group of muscles that help push urine through your urethra. ??? A small tube (drain) may be put in one or more of your incisions to help drain extra fluid from your surgical site after surgery. ??? The laparoscope and other surgical instruments will be removed. ??? Your incisions will be closed with stitches (sutures), skin glue, or adhesive strips. ??? Medicine may be applied and bandages (dressings) will be placed over your incisions. The procedure may vary among health care providers and hospitals. What happens after the procedure? Your blood pressure, heart rate, breathing rate, and blood oxygen level will be monitored until you leave the hospital or clinic. ??? You may get fluids and medicines through your IV. You may be given antibiotics and medicines to help relieve pain or nausea. ??? You will be encouraged to walk as soon as possible. You will also use a device or do breathing exercises to keep your lungs clear. ??? The catheter will stay in to drain urine from your bladder. You will be taught how to care for it at home. ??? The drain may stay in to drain fluid from the surgical site. If so, you will be taught how to care for it at home. ??? You may need to wear compression stockings until you are able to get up and walk around. These stockings help prevent blood clots and reduce swelling in your legs. ??? If you were given a sedative during the procedure, it can affect you for several hours. Do not drive or operate machinery until your health care provider says that it is safe. Summary ??? Robot-assisted laparoscopic radical prostatectomy is a surgical procedure to remove the entire prostate and the seminal vesicles. ??? Follow instructions from your health care provider about eating and drinking before your surgery. ??? After your procedure, you may be given fluids and medicines through an IV. You may get antibiotics and medicines to help relieve pain or nausea. ??? After your surgery, you will continue to have a small, thin tube (Moore catheter) draining your urine. You will be taught how to care for it at home. This information is not intended to replace advice given to you by your health care provider. Make sure you discuss any questions you have with your health care provider. Document Revised: 11/08/2021 Document Reviewed: 11/08/2021 [employer] Patient Education ??? 2023 [employer]. UROLOGY OFFICE/CLINIC NOTE Observed: 1:53 PM Status: F Source: [facility] Urology Office/Clinic Note Chief Complaint Discuss prostatectomy HPI Staff 69 year old male here to discuss prostatectomy Previous DX: prostate cancer and BPH w/LUTS S/P TRUS/BX 11/17/24 IPSS 15 Pt. denies having pain with urination Pt. had some blood leak out last week Pt. denies having abd pain or flank pain History of Present Illness Tests reviewed: reviewed UA I have reviewed the previous health record information and history for this patient from Dr. Arteaga I have reviewed and verified the staff HPI to be accurate for this encounter. There have been no associated fever, chills, flank pain, or blood in the urine. Denies any urinary infections since last encounter. Review of Systems PHQ Score Initial Depression Screen Score: 0 SCORE ROS - Provider Constitutional: denies weight loss, denies hot flashes. Eyes: denies eye problems. Gastrointestinal: denies nausea, denies vomiting. Cardiovascular: denies chest pain or angina. Integumentary: no dryness Musculoskeletal: denies musculoskeletal symptoms. ENMT: denies otolaryngeal symptoms. Respiratory: no shortness of breath. Heme/Lymph: denies easy bleeding tendency, denies easy bruising tendency. Psychiatric: no confusion, no anxiety. Genitourinary: See HPI. Physical Exam Vitals & Measurements HR: 92(Peripheral) BP: 171/74 HT: 67 in HT: 170 cm WT: 100.24 kg WT: 220.991 lb BMI: 34.69 General Appearance: alert, no distress, well nourished, well developed male. Assessment/Plan Dr. Arteaga pt internally referred to discuss RALP. Pt accompanied by son and D-I-L today. Denies ID/stents or CVA. Not on AC. Denies hx of diabetes. DINESH 4 - no current treatment. Portions of this record may have been created with voice recognition artificial intelligence software, specifically [employer], [employer] and or the [employer]. Substitutions may have occurred due to the inherent limitations of voice recognition and artificial intelligence software. 1. Prostate cancer (C61: Malignant neoplasm of prostate) PSA 03/20/19 - 2.29 12/18/23 - 6.78 07/08/24 - 6.60 & 13.8% No fam hx of prostate cancer. RAYMOND 08/17/24 - distant prostate. Prostate MRI 10/06/24 - Neg. Suggestive of prior prostatitis. Prostate volume 53 cc. S/p TRUS/bx 11/17/24 - Leesburg 7 (3+4), GG2 x2 cores. [place] 6 (3+3) x4 cores. 2 ANA cores and 1 suspicious core. Highest percent involvement 37%. Favorable intermediate risk. I discussed the options for treatment of prostate cancer with the patient that include: active surveillance, radiation therapy (both external beam and seed implant), cryotherapy, HIFU and radical prostatectomy (both traditional and robotic). We discussed each treatment and it's appropriateness to his condition. The short-term and long-term outcome, risk, and complications were discussed. Active surveillance involves monitoring the disease with the intention of curative intervention in the future if more concerning findings are seen. This involves PSAs and rectal exams every 6-12 months and surveillance prostate biopsies at regular intervals. He understands the uncertainties with this approach including the risk of understaging, undergrading and therefore under-treatment. However, this option is associated with preserved quality of life due to its avoidance of most treatment related side effects. I discussed radical prostatectomy including robot-assisted laparoscopic and open approaches. I discussed the procedure in detail with the patient, including how the [employer]ov[employer] system operates, setup and positioning, docking, extirpation of the prostate, both seminal vesicles, and regional lymph nodes. We discussed in details the levels of nerve sparing, continence preservation, and the short-term and long-term outcomes for recovery of stress urinary incontinence, and sexual impotency. Other risks of the procedure were discussed, including but not limited to, bleeding requiring transfusion, infection, bowel/rectal injury, DVT/PE, ID, CVA, hernia, lymphocele requiring drainage, positional injury, anastomotic leak and stricture, ileus, positive surgical margin, potential need for secondary therapy in high risk pathology and potential for . We discussed different forms of radiation for prostate cancer including external beam radiation therapy (e.g. conformal radiation, intensity modulated radiation, Cyberknife and Proton therapies) along with brachytherapy (permanent seeds and temporary high-dose brachy). He understood the risks of radiation therapy include but are not limited to bleeding including delayed bleeding (radiation cystitis or radiation proctitis), need for transfusion, pain, infection, injury to the bladder, ureter, urethra, urinary sphincter, surrounding tissues, injury to the bowels, permanent erectile dysfunction, urethral stricture, urinary retention, secondary malignancies (bladder and rectum), need for further treatments and need for further surgeries. Does share that his legs have been weak lately. Upon presentation, pt does lean to the side when he walks. 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 Stressed the importance of walking after surgery. Pt does not like the possible side effects of RT. He understands the risks of RALP however wishes to proceed with surgical treatment. -Will schedule RALP under general anes. Risks as above 2. BPH with urinary obstruction (N40.1: Benign prostatic hyperplasia with lower urinary tract symptoms) No urine sample given today. IPSS 15. Not taking any BPH meds. C/o stream intermittency, weak stream and nocturia. Patient is a 69-year-old male presenting with favorable intermediate prostate adenocarcinoma. We did discuss radiation versus robotic radical prostatectomy and he opted for robotic radical prostatectomy. Risk, benefits, alternatives were discussed in extensive detail with him and he would like to proceed as such. He will follow-up for the aforementioned procedure. I did discuss with him the risk of stress urinary incontinence, erectile dysfunction and, persistent urinary leakage, bladder neck contracture, bowel dysfunction, etc. He communicated full understanding and he will follow-up for the procedure. Follow-up With When Contact Information LETY RICHMOND, AVIS YANEZ Additional Instructions: Schedule RALP Patient Education Robot-Assisted Laparoscopic Radical Prostatectomy IWhit, personally scribed for Dr. Cruz on 12/17/2024 14:30:28. . Documentation recorded by the scribe, Whit Tomas, accurately reflects the services(s) I performed and decisions made by me. Authenticated by Dr. Davidson on 12/17/2024 14:51:05. Problem List/Past Medical History Ongoing At risk for falls BPH with urinary obstruction Elevated PSA Hyperlipidemia Hypertension Hypothyroid Prostate cancer Historical No qualifying data Procedure/Surgical History Transrectal biopsy of prostate using ultrasound (US) guidance (11/17/2024). Medications amlodipine, 5 mg, Oral, Daily aspirin, 81 mg, Oral, Daily baclofen, 20 mg benazepril, 20 mg, Oral, Daily levothyroxine, 100 mcg, Oral, Daily Allergies No Known Allergies Social History Alcohol Never., 08/17/2024 Substance Abuse Never., 08/17/2024 Tobacco Never (less than 100 in lifetime) Tobacco Use:. Never Smokeless Tobacco Use:., 12/17/2024 Family History Dementia: Mother. Immunizations Vaccine Date Status Comments influenza virus vaccine, inactivated 05/28/2024 Recorded influenza virus vaccine, inactivated 07/27/2023 Recorded influenza virus vaccine, inactivated 06/15/2022 Recorded SARS-CoV-2 (COVID-19) [id number] 06/15/2022 Recorded SARSCoV2 mRNA(kcbpjmfnh-jjyf-pdfhiy) vac 12/03/2021 Recorded influenza virus vaccine, inactivated 05/31/2021 Recorded SARS-CoV-2 (COVID-19) mRNA BNT-162b2 vax 05/31/2021 Recorded 2024-08-17: [id number] SARS-CoV-2 (COVID-19) mRNA BNT-162b2 vax 11/29/2020 Recorded SARS-CoV-2 (COVID-19) mRNA BNT-162b2 vax 11/07/2020 Recorded Result Comment: Electronical ly Signed By: RENATA DAVIDSON MD\.br\Date and Time Signed: 12/17/24 14:52 EDT\.br\Electronically Co-Signed By: Whit Tomas\.br\Date and Time Co-Signed: 12/17/24 14:30 EDT PATIENT EDUCATION Observed: 12/07/2024 3:46 PM Status: F Source: [facility] Patient Education Oncology Prostate Cancer The prostate is a small gland that produces fluid that makes up semen (seminal fluid). It is located below the bladder in men, in front of the rectum. Prostate cancer is the abnormal growth of cells in the prostate gland. What are the causes? The exact cause of this condition is not known. What increases the risk? You are more likely to develop this condition if: ??? You are 65 years of age or older. ??? You have a family history of prostate cancer. ??? You have a family history of breast and ovarian cancer. ??? You have genes that are passed from parent to child (inherited), such as BRCA1 and BRCA2. ??? You have Wayne syndrome. men and men of descent are diagnosed with prostate cancer at higher rates than other men. The reasons for this are not well understood and are likely due to a combination of genetic and environmental factors. What are the signs or symptoms? Symptoms of this condition include: ??? Problems with urination. This may include: ? A weak or interrupted flow of urine. ? Trouble starting or stopping urination. ? Trouble emptying the bladder all the way. ? The need to urinate more often, especially at night. ??? Blood in urine or semen. ??? Persistent pain or discomfort in the lower back, lower abdomen, or hips. ??? Trouble getting an erection. ??? Weakness or numbness in the legs or feet. How is this diagnosed? This condition can be diagnosed with: ??? A digital rectal exam. For this exam, a health care provider inserts a gloved finger into the rectum to feel the prostate gland. ??? A blood test called a prostate-specific antigen (PSA) test. ??? A procedure in which a sample of tissue is taken from the prostate and checked under a microscope (prostate biopsy). ??? An imaging test called transrectal ultrasonography. Once the condition is diagnosed, tests will be done to determine how far the cancer has spread. This is called staging the cancer. Staging may involve imaging tests, such as a bone scan, CT scan, PET scan, or MRI. Stages of prostate cancer The stages of prostate cancer are as follows: ??? Stage 1 (I). At this stage, the cancer is found in the prostate only. The cancer is not visible on imaging tests, and it is usually found by accident, such as during prostate surgery. ??? Stage 2 (II). At this stage, the cancer is more advanced than it is in stage 1, but the cancer has not spread outside the prostate. ??? Stage 3 (III). At this stage, the cancer has spread beyond the outer layer of the prostate to nearby tissues. The cancer may be found in the seminal vesicles, which are near the bladder and the prostate. ??? Stage 4 (IV). At this stage, the cancer has spread to other parts of the body, such as the lymph nodes, bones, bladder, rectum, liver, or lungs. Prostate cancer grading Prostate cancer is also graded according to how the cancer cells look under a microscope. This is called the Leesburg score and the total score can range from 6?10, indicating how likely it is that the cancer will spread (metastasize) to other parts of the body. The higher the score, the greater the likelihood that the cancer will spread. ??? [place] 6 or lower: This indicates that the cancer cells look similar to normal prostate cells (well differentiated). ??? [place] 7: This indicates that the cancer cells look somewhat similar to normal prostate cells (moderately differentiated). ??? Dieter 8, 9, or 10: This indicates that the cancer cells look very different than normal prostate cells (poorly differentiated). How is this treated? Treatment for this condition depends on several factors, including the stage of the cancer, your age, personal preferences, and your overall health. Talk with your health care provider about treatment options that are recommended for you. Common treatments include: ??? Observation for early stage prostate cancer (active surveillance). This involves having exams, blood tests, and in some cases, more biopsies. For some men, this is the only treatment needed. ??? Surgery. Types of surgeries include: ? Open surgery (radical prostatectomy). In this surgery, a larger incision is made to remove the prostate. ? A laparoscopic radical prostatectomy. This is a surgery to remove the prostate and lymph nodes through several small incisions. It is often referred to as a minimally invasive surgery. ? A robotic radical prostatectomy. This is laparoscopic surgery to remove the prostate and lymph nodes with the help of robotic arms that are controlled by the surgeon. ? Cryoablation. This is surgery to freeze and destroy cancer cells. ??? Radiation treatment. Types of radiation treatment include: ? External beam radiation. This type aims beams of radiation from outside the body at the prostate to destroy cancerous cells. ? Brachytherapy. This type uses radioactive needles, seeds, wires, or tubes that are implanted into the prostate gland. Like external beam radiation, brachytherapy destroys cancerous cells. An advantage is that this type of radiation limits the damage to surrounding tissue and has fewer side effects. ??? Chemotherapy. This treatment kills cancer cells or stops them from multiplying. It kills both cancer cells and normal cells. ??? Targeted therapy. This treatment uses medicines to kill cancer cells without damaging normal cells. ??? Hormone treatment. This treatment involves taking medicines that act on testosterone, one of the male hormones, by: ? Stopping your body from producing testosterone. ? Blocking testosterone from reaching cancer cells. Follow these instructions at home: Lifestyle ??? Do not use any products that contain nicotine or tobacco. These products include cigarettes, chewing tobacco, and vaping devices, such as e-cigarettes. If you need help quitting, ask your health care provider. ??? Eat a healthy diet. To do this: ? Eat foods that are high in fiber. These include beans, whole grains, and fresh fruits and vegetables. ? Limit foods that are high in fat and sugar. These include fried or sweet foods. ??? Treatment for prostate cancer may affect sexual function. If you have a partner, continue to have intimate moments. This may include touching, holding, hugging, and caressing your partner. ??? Get plenty of sleep. ??? Consider joining a support group for men who have prostate cancer. Meeting with a support group may help you learn to manage the stress of having cancer. General instructions ??? Take jogk-qrx-lesumav and prescription medicines only as told by your health care provider. ??? If you have to go to the hospital, notify your cancer specialist (oncologist). ??? Keep all follow-up visits. This is important. Where to find more information ??? [place] [employer]: www.cancer.org ??? [place] [employer] Clinical Oncology: www.cancer.net ??? National Cancer [place]: www.cancer.gov Contact a health care provider if: ??? You have new or increasing trouble urinating. ??? You have new or increasing blood in your urine. ??? You have new or increasing pain in your hips, back, or chest. Get help right away if: ??? You have weakness or numbness in your legs. ??? You cannot control urination or your bowel movements (incontinence). ??? You have chills or a fever. Summary ??? The prostate is a small gland that is involved in the production of semen. It is located below a man's bladder, in front of the rectum. ??? Prostate cancer is the abnormal growth of cells in the prostate gland. ??? Treatment for this condition depends on the stage of the cancer, your age, personal preferences, and your overall health. Talk with your health care provider about treatment options that are recommended for you. ??? Consider joining a support group for men who have prostate cancer. Meeting with a support group may help you learn to manage the stress of having cancer. This information is not intended to replace advice given to you by your health care provider. Make sure you discuss any questions you have with your health care provider. Document Revised: 11/08/2021 Document Reviewed: 11/08/2021 [employer] Patient Education ? 2023 [employer]. AMBULATORY VISIT SUMMARY Observed: 12/07 2:29 PM Status: F Source: [facility] Ambulatory Visit Summary LENNY TAYLOR :1955 Visit Date:12/07/2024 Ambulatory Visit Instructions Your Diagnosis Prostate cancer BPH with urinary obstruction Your Care Team Attending Physician - CAROL RICHMOND, Jeyson Orantes Primary Care Physician - REGAN LIVINGSTON DO This Is Your Medications List Contact prescribing physician if questions or concerns amlodipine aspirin baclofen benazepril levothyroxine Procedures Performed Transrectal biopsy of prostate using ultrasound (US) guidance (11/17/2024). Discharge Vitals Respiratory Rate 16 Blood Pressure 106/70 Height 170 cm Height 67 in Weight 100.2 kg Weight 220.903 lb BMI 34.67 What to do next Scheduled Follow-Up Appointments 2024 2:00 PM EDT With: RENATA DAVIDSON MD Where: [facility] [address], [address] [place] [address]- You Need to Schedule the Following Appointments Follow Up with LETY RICHMOND, RENATA, URL When: Comments: discuss prostatectomy Where: Medications What How Much When Instructions Unchanged amlodipine 5 Milligram By Mouth Every day Contact prescribing physician if questions or concerns Unchanged aspirin 81 Milligram By Mouth Every day Contact prescribing physician if questions or concerns Unchanged baclofen 20 Milligram Contact prescribing physician if questions or concerns Unchanged benazepril 20 Milligram By Mouth Every day Contact prescribing physician if questions or concerns Unchanged levothyroxine 100 Microgram By Mouth Every day Contact prescribing physician if questions or concerns Allergies No Known Allergies Problems Ongoing - Any problem that you are currently receiving treatment for. At risk for falls BPH with urinary obstruction Elevated PSA Hyperlipidemia Hypertension Hypothyroid Prostate cancer Patient Survey You may receive a survey via text or e-mail asking about your office visit. Please share your experience with us by completing your survey. We appreciate your feedback and thank you for choosing us for your care. Education Materials Prostate Cancer The prostate is a small gland that produces fluid that makes up semen (seminal fluid). It is located below the bladder in men, in front of the rectum. Prostate cancer is the abnormal growth of cells in the prostate gland. What are the causes? The exact cause of this condition is not known. What increases the risk? You are more likely to develop this condition if: ??? You are 65 years of age or older. ??? You have a family history of prostate cancer. ??? You have a family history of breast and ovarian cancer. ??? You have genes that are passed from parent to child (inherited), such as BRCA1 and BRCA2. ??? You have Wayne syndrome. men and men of descent are diagnosed with prostate cancer at higher rates than other men. The reasons for this are not well understood and are likely due to a combination of genetic and environmental factors. What are the signs or symptoms? Symptoms of this condition include: ??? Problems with urination. This may include: ? A weak or interrupted flow of urine. ? Trouble starting or stopping urination. ? Trouble emptying the bladder all the way. ? The need to urinate more often, especially at night. ??? Blood in urine or semen. ??? Persistent pain or discomfort in the lower back, lower abdomen, or hips. ??? Trouble getting an erection. ??? Weakness or numbness in the legs or feet. How is this diagnosed? This condition can be diagnosed with: ??? A digital rectal exam. For this exam, a health care provider inserts a gloved finger into the rectum to feel the prostate gland. ??? A blood test called a prostate-specific antigen (PSA) test. ??? A procedure in which a sample of tissue is taken from the prostate and checked under a microscope (prostate biopsy). ??? An imaging test called transrectal ultrasonography. Once the condition is diagnosed, tests will be done to determine how far the cancer has spread. This is called staging the cancer. Staging may involve imaging tests, such as a bone scan, CT scan, PET scan, or MRI. Stages of prostate cancer The stages of prostate cancer are as follows: ??? Stage 1 (I). At this stage, the cancer is found in the prostate only. The cancer is not visible on imaging tests, and it is usually found by accident, such as during prostate surgery. ??? Stage 2 (II). At this stage, the cancer is more advanced than it is in stage 1, but the cancer has not spread outside the prostate. ??? Stage 3 (III). At this stage, the cancer has spread beyond the outer layer of the prostate to nearby tissues. The cancer may be found in the seminal vesicles, which are near the bladder and the prostate. ??? Stage 4 (IV). At this stage, the cancer has spread to other parts of the body, such as the lymph nodes, bones, bladder, rectum, liver, or lungs. Prostate cancer grading Prostate cancer is also graded according to how the cancer cells look under a microscope. This is called the Dieter score and the total score can range from 6???10, indicating how likely it is that the cancer will spread (metastasize) to other parts of the body. The higher the score, the greater the likelihood that the cancer will spread. ??? Dieter 6 or lower: This indicates that the cancer cells look similar to normal prostate cells (well differentiated). ??? [place] 7: This indicates that the cancer cells look somewhat similar to normal prostate cells (moderately differentiated). ??? Dieter 8, 9, or 10: This indicates that the cancer cells look very different than normal prostate cells (poorly differentiated). How is this treated? Treatment for this condition depends on several factors, including the stage of the cancer, your age, personal preferences, and your overall health. Talk with your health care provider about treatment options that are recommended for you. Common treatments include: ??? Observation for early stage prostate cancer (active surveillance). This involves having exams, blood tests, and in some cases, more biopsies. For some men, this is the only treatment needed. ??? Surgery. Types of surgeries include: ? Open surgery (radical prostatectomy). In this surgery, a larger incision is made to remove the prostate. ? A laparoscopic radical prostatectomy. This is a surgery to remove the prostate and lymph nodes through several small incisions. It is often referred to as a minimally invasive surgery. ? A robotic radical prostatectomy. This is laparoscopic surgery to remove the prostate and lymph nodes with the help of robotic arms that are controlled by the surgeon. ? Cryoablation. This is surgery to freeze and destroy cancer cells. ??? Radiation treatment. Types of radiation treatment include: ? External beam radiation. This type aims beams of radiation from outside the body at the prostate to destroy cancerous cells. ? Brachytherapy. This type uses radioactive needles, seeds, wires, or tubes that are implanted into the prostate gland. Like external beam radiation, brachytherapy destroys cancerous cells. An advantage is that this type of radiation limits the damage to surrounding tissue and has fewer side effects. ??? Chemotherapy. This treatment kills cancer cells or stops them from multiplying. It kills both cancer cells and normal cells. ??? Targeted therapy. This treatment uses medicines to kill cancer cells without damaging normal cells. ??? Hormone treatment. This treatment involves taking medicines that act on testosterone, one of the male hormones, by: ? Stopping your body from producing testosterone. ? Blocking testosterone from reaching cancer cells. Follow these instructions at home: Lifestyle ??? Do not use any products that contain nicotine or tobacco. These products include cigarettes, chewing tobacco, and vaping devices, such as e-cigarettes. If you need help quitting, ask your health care provider. ??? Eat a healthy diet. To do this: ? Eat foods that are high in fiber. These include beans, whole grains, and fresh fruits and vegetables. ? Limit foods that are high in fat and sugar. These include fried or sweet foods. ??? Treatment for prostate cancer may affect sexual function. If you have a partner, continue to have intimate moments. This may include touching, holding, hugging, and caressing your partner. ??? Get plenty of sleep. ??? Consider joining a support group for men who have prostate cancer. Meeting with a support group may help you learn to manage the stress of having cancer. General instructions ??? Take bpwn-ift-onntkvr and prescription medicines only as told by your health care provider. ??? If you have to go to the hospital, notify your cancer specialist (oncologist). ??? Keep all follow-up visits. This is important. Where to find more information ??? [place] [employer]: www.cancer.org ??? [place] Society of Clinical Oncology: www.cancer.net ??? National Cancer [place]: www.cancer.gov Contact a health care provider if: ??? You have new or increasing trouble urinating. ??? You have new or increasing blood in your urine. ??? You have new or increasing pain in your hips, back, or chest. Get help right away if: ??? You have weakness or numbness in your legs. ??? You cannot control urination or your bowel movements (incontinence). ??? You have chills or a fever. Summary ??? The prostate is a small gland that is involved in the production of semen. It is located below a man's bladder, in front of the rectum. ??? Prostate cancer is the abnormal growth of cells in the prostate gland. ??? Treatment for this condition depends on the stage of the cancer, your age, personal preferences, and your overall health. Talk with your health care provider about treatment options that are recommended for you. ??? Consider joining a support group for men who have prostate cancer. Meeting with a support group may help you learn to manage the stress of having cancer. This information is not intended to replace advice given to you by your health care provider. Make sure you discuss any questions you have with your health care provider. Document Revised: 11/08/2021 Document Reviewed: 11/08/2021 [employer] Patient Education ??? 2023 [email or web address]. AMBULATORY VISIT SUMMARY Observed: 12/07 2:29 PM Status: F Source: [facility] Ambulatory Visit Summary LENNY TAYLOR :1955 Visit Date:12/07/2024 Ambulatory Visit Instructions Your Diagnosis Prostate cancer BPH with urinary obstruction Your Care Team Attending Physician - Jeyson ARTEAGA MD Primary Care Physician - REGAN LIVINGSTON DO This Is Your Medications List Contact prescribing physician if questions or concerns amlodipine aspirin baclofen benazepril levothyroxine Procedures Performed Transrectal biopsy of prostate using ultrasound (US) guidance (11/17/2024). Discharge Vitals Respiratory Rate 16 Blood Pressure 106/70 Height 170 cm Height 67 in Weight 100.2 kg Weight 220.903 lb BMI 34.67 What to do next Scheduled Follow-Up Appointments 2024 2:00 PM EDT With: RENATA DAVIDSON MD Where: [facility] [address], [address] [place] [address]- You Need to Schedule the Following Appointments Follow Up with RENATA DAVIDSON MD, URL When: Comments: discuss prostatectomy Where: Medications What How Much When Instructions Unchanged amlodipine 5 Milligram By Mouth Every day Contact prescribing physician if questions or concerns Unchanged aspirin 81 Milligram By Mouth Every day Contact prescribing physician if questions or concerns Unchanged baclofen 20 Milligram Contact prescribing physician if questions or concerns Unchanged benazepril 20 Milligram By Mouth Every day Contact prescribing physician if questions or concerns Unchanged levothyroxine 100 Microgram By Mouth Every day Contact prescribing physician if questions or concerns Allergies No Known Allergies Problems Ongoing - Any problem that you are currently receiving treatment for. At risk for falls BPH with urinary obstruction Elevated PSA Hyperlipidemia Hypertension Hypothyroid Prostate cancer Patient Survey You may receive a survey via text or e-mail asking about your office visit. Please share your experience with us by completing your survey. We appreciate your feedback and thank you for choosing us for your care. Education Materials Prostate Cancer The prostate is a small gland that produces fluid that makes up semen (seminal fluid). It is located below the bladder in men, in front of the rectum. Prostate cancer is the abnormal growth of cells in the prostate gland. What are the causes? The exact cause of this condition is not known. What increases the risk? You are more likely to develop this condition if: ??? You are 65 years of age or older. ??? You have a family history of prostate cancer. ??? You have a family history of breast and ovarian cancer. ??? You have genes that are passed from parent to child (inherited), such as BRCA1 and BRCA2. ??? You have Wayne syndrome. men and men of descent are diagnosed with prostate cancer at higher rates than other men. The reasons for this are not well understood and are likely due to a combination of genetic and environmental factors. What are the signs or symptoms? Symptoms of this condition include: ??? Problems with urination. This may include: ? A weak or interrupted flow of urine. ? Trouble starting or stopping urination. ? Trouble emptying the bladder all the way. ? The need to urinate more often, especially at night. ??? Blood in urine or semen. ??? Persistent pain or discomfort in the lower back, lower abdomen, or hips. ??? Trouble getting an erection. ??? Weakness or numbness in the legs or feet. How is this diagnosed? This condition can be diagnosed with: ??? A digital rectal exam. For this exam, a health care provider inserts a gloved finger into the rectum to feel the prostate gland. ??? A blood test called a prostate-specific antigen (PSA) test. ??? A procedure in which a sample of tissue is taken from the prostate and checked under a microscope (prostate biopsy). ??? An imaging test called transrectal ultrasonography. Once the condition is diagnosed, tests will be done to determine how far the cancer has spread. This is called staging the cancer. Staging may involve imaging tests, such as a bone scan, CT scan, PET scan, or MRI. Stages of prostate cancer The stages of prostate cancer are as follows: ??? Stage 1 (I). At this stage, the cancer is found in the prostate only. The cancer is not visible on imaging tests, and it is usually found by accident, such as during prostate surgery. ??? Stage 2 (II). At this stage, the cancer is more advanced than it is in stage 1, but the cancer has not spread outside the prostate. ??? Stage 3 (III). At this stage, the cancer has spread beyond the outer layer of the prostate to nearby tissues. The cancer may be found in the seminal vesicles, which are near the bladder and the prostate. ??? Stage 4 (IV). At this stage, the cancer has spread to other parts of the body, such as the lymph nodes, bones, bladder, rectum, liver, or lungs. Prostate cancer grading Prostate cancer is also graded according to how the cancer cells look under a microscope. This is called the [place] score and the total score can range from 6???10, indicating how likely it is that the cancer will spread (metastasize) to other parts of the body. The higher the score, the greater the likelihood that the cancer will spread. ??? [place] 6 or lower: This indicates that the cancer cells look similar to normal prostate cells (well differentiated). ??? Dieter 7: This indicates that the cancer cells look somewhat similar to normal prostate cells (moderately differentiated). ??? [place] 8, 9, or 10: This indicates that the cancer cells look very different than normal prostate cells (poorly differentiated). How is this treated? Treatment for this condition depends on several factors, including the stage of the cancer, your age, personal preferences, and your overall health. Talk with your health care provider about treatment options that are recommended for you. Common treatments include: ??? Observation for early stage prostate cancer (active surveillance). This involves having exams, blood tests, and in some cases, more biopsies. For some men, this is the only treatment needed. ??? Surgery. Types of surgeries include: ? Open surgery (radical prostatectomy). In this surgery, a larger incision is made to remove the prostate. ? A laparoscopic radical prostatectomy. This is a surgery to remove the prostate and lymph nodes through several small incisions. It is often referred to as a minimally invasive surgery. ? A robotic radical prostatectomy. This is laparoscopic surgery to remove the prostate and lymph nodes with the help of robotic arms that are controlled by the surgeon. ? Cryoablation. This is surgery to freeze and destroy cancer cells. ??? Radiation treatment. Types of radiation treatment include: ? External beam radiation. This type aims beams of radiation from outside the body at the prostate to destroy cancerous cells. ? Brachytherapy. This type uses radioactive needles, seeds, wires, or tubes that are implanted into the prostate gland. Like external beam radiation, brachytherapy destroys cancerous cells. An advantage is that this type of radiation limits the damage to surrounding tissue and has fewer side effects. ??? Chemotherapy. This treatment kills cancer cells or stops them from multiplying. It kills both cancer cells and normal cells. ??? Targeted therapy. This treatment uses medicines to kill cancer cells without damaging normal cells. ??? Hormone treatment. This treatment involves taking medicines that act on testosterone, one of the male hormones, by: ? Stopping your body from producing testosterone. ? Blocking testosterone from reaching cancer cells. Follow these instructions at home: Lifestyle ??? Do not use any products that contain nicotine or tobacco. These products include cigarettes, chewing tobacco, and vaping devices, such as e-cigarettes. If you need help quitting, ask your health care provider. ??? Eat a healthy diet. To do this: ? Eat foods that are high in fiber. These include beans, whole grains, and fresh fruits and vegetables. ? Limit foods that are high in fat and sugar. These include fried or sweet foods. ??? Treatment for prostate cancer may affect sexual function. If you have a partner, continue to have intimate moments. This may include touching, holding, hugging, and caressing your partner. ??? Get plenty of sleep. ??? Consider joining a support group for men who have prostate cancer. Meeting with a support group may help you learn to manage the stress of having cancer. General instructions ??? Take rbkt-olf-aeyyudd and prescription medicines only as told by your health care provider. ??? If you have to go to the hospital, notify your cancer specialist (oncologist). ??? Keep all follow-up visits. This is important. Where to find more information ??? [place] Cancer [employer]: www.cancer.org ??? [place] Society of Clinical Oncology: www.cancer.net ??? National Cancer [place]: www.cancer.gov Contact a health care provider if: ??? You have new or increasing trouble urinating. ??? You have new or increasing blood in your urine. ??? You have new or increasing pain in your hips, back, or chest. Get help right away if: ??? You have weakness or numbness in your legs. ??? You cannot control urination or your bowel movements (incontinence). ??? You have chills or a fever. Summary ??? The prostate is a small gland that is involved in the production of semen. It is located below a man's bladder, in front of the rectum. ??? Prostate cancer is the abnormal growth of cells in the prostate gland. ??? Treatment for this condition depends on the stage of the cancer, your age, personal preferences, and your overall health. Talk with your health care provider about treatment options that are recommended for you. ??? Consider joining a support group for men who have prostate cancer. Meeting with a support group may help you learn to manage the stress of having cancer. This information is not intended to replace advice given to you by your health care provider. Make sure you discuss any questions you have with your health care provider. Document Revised: 11/08/2021 Document Reviewed: 11/08/2021 [employer] Patient Education ??? 2023 [employer]. UROLOGY OFFICE/CLINIC NOTE Observed: 2:29 PM Status: F Source: [facility] Urology Office/Clinic Note Chief Complaint Discuss path HPI Staff F/u to TRUS Bx done 11/17/24 to review pathology. Dx: elevated PSA and BPH with urinary obstruction Denies any urological issues. 10 days after the procedure pt had sexual intercourse. Semen a lot of blood in it. History of Present Illness Tests reviewed: reviewed UA, operative note, path report I have reviewed the previous health record information and history for this patient from Dr. Arteaga. I have reviewed and verified the staff HPI to be accurate for this encounter. Review of Systems PHQ Score Initial Depression Screen Score: 0 SCORE ROS - Provider Constitutional: denies weight loss, denies hot flashes. Eyes: denies eye problems. Gastrointestinal: denies nausea, denies vomiting. Cardiovascular: denies chest pain or angina. Integumentary: no dryness Musculoskeletal: denies musculoskeletal symptoms. ENMT: denies otolaryngeal symptoms. Respiratory: no shortness of breath. Heme/Lymph: denies easy bleeding tendency, denies easy bruising tendency. Psychiatric: no confusion, no anxiety. Genitourinary: See HPI. Physical Exam Vitals & Measurements RR: 16 BP: 106/70 HT: 170 cm HT: 67 in WT: 100.2 kg WT: 220.903 lb BMI: 34.67 General Appearance: alert, no distress, well nourished, well developed male. Assessment/Plan 1. Prostate cancer (C61: Malignant neoplasm of prostate) PSA: 03/20/19 - 2.29 12/18/23 - 6.78 07/08/24 - 6.60 & 13.8% No fam hx of prostate cancer. RAYMOND 08/17/24 - distant prostate. Prostate MRI 10/06/24 - Neg. Suggestive of prior prostatitis. Prostate volume 53 cc. TRUS/bx 11/17/24 - [place] 7 (3+4), GG2 x2 cores. [place] 6 (3+3) x4 cores. 2 ANA cores and 1 suspicious core. Highest percent involvement 37%. The pathology report, which shows the presence of prostate cancer, was disclosed to the patient in detail today. I discussed with the patient all the treatment options, including prostatectomy, brachytherapy, EBRT, SBRT, ADT, combination of therapy options. I went over the pros and cons of each therapy today, and the [place] prostate cancer book was provided. Advised pt he to proceed with treatment. Recommended prostatectomy given longer life expectancy. Explained possible SEs of prostatectomy vs radiation. Discussed possible referral to [facility] to discuss treatment options. Pt does not feel he would able to accommodate traveling to [place]. Prefers to stay local if possible. -F/u w/ [facility] to discuss prostatectomy 2. BPH with urinary obstruction (N40.1: Benign prostatic hyperplasia with lower urinary tract symptoms) No BPH meds. UA today shows trace-intact blood (clinically neg), neg for infection. Follow-up With When Contact Information LETY RICHMOND, AVIS YANEZ Additional Instructions: discuss prostatectomy Patient Education Prostate Cancer I, Wanda Archuleta, personally scribed for Dr. Arteaga on 12/07/2024 15:56:29. . Documentation recorded by the scribe, Wanda Archuleta, accurately reflects the services(s) I performed and decisions made by me. Authenticated by Dr. Arteaga on 12/07/2024 16:12:28. Problem List/Past Medical History Ongoing At risk for falls BPH with urinary obstruction Elevated PSA Hyperlipidemia Hypertension Hypothyroid Prostate cancer Historical No qualifying data Procedure/Surgical History Transrectal biopsy of prostate using ultrasound (US) guidance (11/17/2024). Medications amlodipine, 5 mg, Oral, Daily aspirin, 81 mg, Oral, Daily baclofen, 20 mg benazepril, 20 mg, Oral, Daily levothyroxine, 100 mcg, Oral, Daily Allergies No Known Allergies Social History Alcohol Never., 08/17/2024 Substance Abuse Never., 08/17/2024 Tobacco Never (less than 100 in lifetime) Tobacco Use:. Never Smokeless Tobacco Use:., 12/07/2024 Family History Dementia: Mother. Immunizations Vaccine Date Status Comments influenza virus vaccine, inactivated 05/28/2024 Recorded influenza virus vaccine, inactivated 07/27/2023 Recorded influenza virus vaccine, inactivated 06/15/2022 Recorded SARS-CoV-2 (COVID-19) [id number].[id number] 06/15/2022 Recorded SARSCoV2 mRNA(wcnflvshz-thns-yszams) vac 12/03/2021 Recorded influenza virus vaccine, inactivated 05/31/2021 Recorded SARS-CoV-2 (COVID-19) mRNA BNT-162b2 vax 05/31/2021 Recorded 2024-08-17: [id number] SARS-CoV-2 (COVID-19) mRNA BNT-162b2 vax 11/29/2020 Recorded SARS-CoV-2 (COVID-19) mRNA BNT-162b2 vax 11/07/2020 Recorded Lab Results Ambulatory Point of Care Results Bilirubin Urine Dipstick: Negative (12/07/24 14:51:00) Blood Urine Dipstick: Trace-intact (12/07/24 14:51:00) Glucose Urine Dipstick: Negative (12/07/24 14:51:00) Ketones Urine Dipstick: Negative (12/07/24 14:51:00) Leukocytes Urine Dipstick: Negative (12/07/24 14:51:00) Nitrite Urine Dipstick: Negative (12/07/24 14:51:00) Protein Urine Dipstick: Negative (12/07/24 14:51:00) Specific [place] Urine Dipstick: <=1.005 (12/07/24 14:51:00) Urine Appearance Urine Dipstick: Clear (12/07/24 14:51:00) Urine Color Urine Dipstick: Yellow (12/07/24 14:51:00) Urobilinogen Urine Dipstick: Normal 0.2-1 EU/dl (12/07/24 14:51:00) pH Urine Dipstick: 5.5 (12/07/24 14:51:00) Result Comment: Electronical ly Signed By: Jeyson ARTEAGA MD\.br\Date and Time Signed: 12/07/24 16:12 EDT\.br\Electronically Co-Signed By: Wanda Archuleta\.br\Date and Time Co-Signed: 12/07/24 15:57 EDT PROSTATE HISTOLOGY ([facility] LAB[facility]) Collected: 11/17/2024 4:19 PM Status: F Source: [facility] TYPE CODE TESTS RESULT OUT OF RANGE REFERENCE UNITS LAB CD:[id number]( [facility]) Prostate Histology Diagnosis Info Unknown Result Comment: A :Prostate, Left Lateral Base:Needle Biopsy Interpretation - - Acinar adenocarcinoma of prostate; [place] score 6(3+3); Tumor measures 0.32 cm in length; 26% of the core involved by tumor; 1 of 1 core involved. MicroScopic Description - A :Prostate,Left Base:Needle Biopsy Interpretation - - Acinar adenocarcinoma of prostate; Dieter score 6(3+3); Tumor measures 0.5 cm in length; 28% of the core involved by tumor; 1 of 1 core involved. MicroScopic Description - A :Prostate,Left Lateral Mid:Needle Biopsy Interpretation - - Acinar adenocarcinoma of prostate; [place] score 6(3+3); Tumor measures 0.83 cm in length; 37% of the core involved by tumor; 1 of 1 core involved. MicroScopic Description - A :Prostate,Left Mid:Needle Biopsy Interpretation - - Acinar adenocarcinoma of prostate; Dieter score 7(3+4); Tumor measures 0.55 cm in length; 26% of the core involved by tumor; 1 of 1 core involved. MicroScopic Description - A :Prostate,Left Lateral [place]:Needle Biopsy Interpretation - - Atypical glands suspicious but not diagnostic for adenocarcinoma. MicroScopic Description - A :Prostate,Left [place]:Needle Biopsy Interpretation - - Atypical small acinar glands. MicroScopic Description - A :Prostate,Right Base:Needle Biopsy Interpretation - - Benign prostatic tissue. MicroScopic Description - A :Prostate,Right Lateral Base:Needle Biopsy Interpretation - - Benign prostatic tissue. MicroScopic Description - A :Prostate,Right Mid:Needle Biopsy Interpretation - - Atypical small acinar glands. MicroScopic Description - A :Prostate,Right Lateral Mid:Needle Biopsy Interpretation - - Benign prostatic tissue. MicroScopic Description - A :Prostate,Right [place]:Needle Biopsy Interpretation - - Acinar adenocarcinoma of prostate; [place] score 7(3+4); Tumor measures 0.62 cm in length; 30% of the core involved by tumor; 1 of 1 core involved. MicroScopic Description - A :Prostate,Right Lateral [place]:Needle Biopsy Interpretation - - Acinar adenocarcinoma of prostate; [place] score 6(3+3); Tumor measures 0.5 cm in length; 25% of the core involved by tumor; 1 of 1 core involved. MicroScopic Description - Gross Description Site ID:A color becerra-white fixative Formalin cores 1 units cm Received in raoul 1 of 6 of formalin biopsy board with the patient???s name labeled Left Lateral Base consists of a cylindrical fragment of becerra-white soft tissue measuring 1.22 cm. Totally submitted in Left Bx Chip raoul 1 from the arrow outward in alphabetical order.. Site ID:B color becerra-white fixative Formalin cores 1 units cm Received in raoul 2 of 6 of formalin biopsy board with the patient???s name labeled Left Base consists of a cylindrical fragment of becerra-white soft tissue measuring 1.77 cm. Totally submitted in Left Bx Chip raoul 2 from the arrow outward in alphabetical order.. Site ID:C color becerra-white fixative Formalin cores 1 units cm Received in raoul 3 of 6 of formalin biopsy board with the patient???s name labeled Left Lateral Mid consists of a cylindrical fragment of becerra-white soft tissue measuring 2.22 cm. Totally submitted in Left Bx Chip raoul 3 from the arrow outward in alphabetical order.. Site ID:D color becerra-white fixative Formalin cores 1 units cm Received in raoul 4 of 6 of formalin biopsy board with the patient???s name labeled Left Mid consists of a cylindrical fragment of becerra-white soft tissue measuring 2.07 cm. Totally submitted in Left Bx Chip raoul 4 from the arrow outward in alphabetical order.. Site ID:E color becerra-white fixative Formalin cores 1 units cm Received in raoul 5 of 6 of formalin biopsy board with the patient???s name labeled Left Lateral [place] consists of a cylindrical fragment of becerra-white soft tissue measuring 1.35 cm. Totally submitted in Left Bx Chip raoul 5 from the arrow outward in alphabetical order.. Site ID:F color becerra-white fixative Formalin cores 1 units cm Received in raoul 6 of 6 of formalin biopsy board with the patient???s name labeled Left [place] consists of a cylindrical fragment of becerra-white soft tissue measuring 1.43 cm. Totally submitted in Left Bx Chip raoul 6 from the arrow outward in alphabetical order.. Site ID:G color becerra-white fixative Formalin cores 1 units cm Received in raoul 1 of 6 of formalin biopsy board with the patient???s name labeled Right Base consists of a cylindrical fragment of becerra-white soft tissue measuring 1.34 cm. Totally submitted in Right Bx Chip raoul 1 from the arrow outward in alphabetical order.. Site ID:H color becerra-white fixative Formalin cores 1 units cm Received in raoul 2 of 6 of formalin biopsy board with the patient???s name labeled Right Lateral Base consists of a cylindrical fragment of becerra-white soft tissue measuring 1.4 cm. Totally submitted in Right Bx Chip raoul 2 from the arrow outward in alphabetical order.. Site ID:I color becerra-white fixative Formalin cores 1 units cm Received in raoul 3 of 6 of formalin biopsy board with the patient???s name labeled Right Mid consists of a cylindrical fragment of becerra-white soft tissue measuring 1.75 cm. Totally submitted in Right Bx Chip raoul 3 from the arrow outward in alphabetical order.. Site ID:J color becerra-white fixative Formalin cores 1 units cm Received in raoul 4 of 6 of formalin biopsy board with the patient???s name labeled Right Lateral Mid consists of a cylindrical fragment of becerra-white soft tissue measuring 1.43 cm. Totally submitted in Right Bx Chip raoul 4 from the arrow outward in alphabetical order.. Site ID:K color becerra-white fixative Formalin cores 1 units cm Received in raoul 5 of 6 of formalin biopsy board with the patient???s name labeled Right [place] consists of a cylindrical fragment of becerra-white soft tissue measuring 2.05 cm. Totally submitted in Right Bx Chip raoul 5 from the arrow outward in alphabetical order.. Site ID:L color becerra-white fixative Formalin cores 1 units cm Received in raoul 6 of 6 of formalin biopsy board with the patient???s name labeled Right Lateral [place] consists of a cylindrical fragment of becerra-white soft tissue measuring 1.93 cm. Totally submitted in Right Bx Chip raoul 6 from the arrow outward in alphabetical order.. Highest grade group: Dieter score 3+4=7, grade group 2. Highest percentage of core involvement: 37% Cribriform pattern 4: Not identified Highest percentage of Dieter pattern 4: Approximately <5% CPT: 62821 x 12 Electronically signed by : on: 11/25/2024 13:03:31 LAB CD:[id number]( [facility]) PH Type of Service Technical Only Normal LAB CD:[id number]( [facility]) PH Method of Extraction Needle Biopsy Normal LAB CD:[id number]( [facility]) PH Number of Jars 2 Unknown LAB CD:[id number]( [facility]) PH Specimen 1 R Base Prostate Normal LAB CD:[id number]( [facility]) PH Specimen 2 R Lat Bse Prost Normal LAB CD:[id number]( [facility]) PH Specimen 3 R Mid Prostate Normal LAB CD:[id number]( [facility]) PH Specimen 4 R Lat Mid Prost Normal LAB CD:[id number]( [facility]) PH Specimen 5 R Apx Prostate Normal LAB CD:[id number]( [facility]) PH Specimen 6 R Lat Apx Prost Normal LAB CD:[id number]( [facility]) PH Specimen 7 L Base Prostate Normal LAB CD:[id number]( [facility]) PH Specimen 8 L Lat Bse Prost Normal LAB CD:[id number]( [facility]) PH Specimen 9 L Mid Prostate Normal LAB CD:[id number]( [facility]) PH Specimen 10 L Lat Mid Prost Normal LAB CD:[id number]( [facility]) PH Specimen 11 L Apx Prostate Normal LAB CD:[id number]( [facility]) PH Specimen 12 L Lat Apx Prost Normal Performed By: #### [id number] #### [facility] [address] [place] [address] PATIENT EDUCATION Observed: 11/17/2024 3:21 PM Status: F [facility] Patient Education Oncology Transrectal Ultrasound-Guided Prostate Biopsy, Care After The following information offers guidance on how to care for yourself after your procedure. Your health care provider may also give you more specific instructions. If you have problems or questions, contact your health care provider. What can I expect after the procedure? After the procedure, it is common to have: ??? Pain and discomfort near your rectum, especially while sitting. ??? Frederickson-colored urine due to small amounts of blood in your urine. ??? A burning feeling while urinating. ??? Blood in your stool (feces) or bleeding from your rectum. ??? Blood in your semen. Follow these instructions at home: Medicines ??? Take znzw-van-slfactz and prescription medicines only as told by your health care provider. ??? If you were given a sedative during your procedure, it can affect you for several hours. Do not drive or operate machinery until your health care provider says that it is safe. ??? If you were prescribed an antibiotic medicine, take it as told by your health care provider. Do not stop using the antibiotic even if you start to feel better. Activity ??? Return to your normal activities as told by your health care provider. Ask your health care provider what activities are safe for you. ??? Ask your health care provider when it is okay for you to resume sexual activity. ??? You may have to avoid lifting. Ask your health care provider how much you can safely lift. General instructions ??? Drink enough fluid to keep your urine pale yellow. ??? Watch your urine, stool, and semen for new or increased bleeding. ??? Keep all follow-up visits. This is important. Contact a health care provider if: ??? You have any of the following: ? Blood clots in your urine or stool. ? Blood in your urine more than 2 weeks after the procedure. ? Blood in your semen more than 2 months after the procedure. ? New or increased bleeding in your urine, stool, or semen. ? Severe pain in your abdomen. ??? Your urine smells bad or unusual. ??? You have trouble urinating. ??? Your lower abdomen feels firm. ??? You have problems getting an erection. ??? You have nausea or you vomit. Get help right away if: ??? You have a fever or chills. This could be a sign of infection. ??? You have bright red urine. ??? You have severe pain that does not get better with medicine. ??? You cannot urinate. Summary ??? After this procedure, it is common to have pain and discomfort around your rectum, especially while sitting. ??? You may have blood in your urine and stool after the procedure. ??? It is common to have blood in your semen after this procedure. ??? Get help right away if you have a fever or chills. This could be a sign of infection. This information is not intended to replace advice given to you by your health care provider. Make sure you discuss any questions you have with your health care provider. Document Revised: 02/05/2022 Document Reviewed: 02/05/2022 [employer] Patient Education ? 2023 [employer]. UROLOGY OFFICE/CLINIC NOTE Observed: 1:42 PM Status: F [facility] Urology Office/Clinic Note Chief Complaint TRUS/BX HPI Staff Trus/bx ABX TAKEN History of Present Illness Tests reviewed: MRI I have reviewed the previous health record information and history for this patient from Dr. Arteaga. I have reviewed and verified the staff HPI to be accurate for this encounter. Review of Systems PHQ Score Initial Depression Screen Score: 0 SCORE ROS - Provider Constitutional: denies weight loss, denies hot flashes. Eyes: denies eye problems. Gastrointestinal: denies nausea, denies vomiting. Cardiovascular: denies chest pain or angina. Integumentary: no dryness Musculoskeletal: denies musculoskeletal symptoms. ENMT: denies otolaryngeal symptoms. Respiratory: no shortness of breath. Heme/Lymph: denies easy bleeding tendency, denies easy bruising tendency. Psychiatric: no confusion, no anxiety. Genitourinary: See HPI. Physical Exam Vitals & Measurements HT: 170 cm HT: 67 in WT: 100.2 kg WT: 220.903 lb BMI: 34.67 General Appearance: alert, no distress, well nourished, well developed male. Procedure Operative Information Anesthesia Type: Local Procedure: Transrectal Ultrasound and Transrectal Ultrasound-Guided Biopsy of the Prostate Complications: None Surgical risks, benefits, details of the procedure have been explained to the patient. Full informed consent has been obtained. Intraoperative Information Prepped: The patient was brought into the office suite and placed in the modified left lateral Kramer position. The patient was draped appropriately. 80 mg Gentamicin IM injection administered. Procedure: Then 2% Xylocaine jelly was used for intrarectal anesthesia. After waiting several minutes, a well lubricated ultrasound probe was introduced per rectum. The prostate was carefully evaluated in the AP and Sagittal views. Specimens Removed: A total of 12 mapped biopsies were taken, 6 from each side, and sent to pathology. Radiology Report Procedure: Transrectal US guided needle biopsy of the prostate Narrative: Ultrasound probe is introduced and performed in the longitudinal and transverse plains. The prostatic capsule and seminal vesicles appear to be within normal limits. Ultrasound guidance was then utilized to obtain 12 biopsies. These were sent to pathology for evaluation. The gland measures: _ mm length, _ mm Width (transverse), _ mm depth (AP), with a calculated volume of _ cc. The peripheral zone demonstrates: No abnormalities Rest of the prostate demonstrates: No abnormalities Postoperative Information The patient tolerated the procedure well and was discharged home in satisfactory condition. The patient was instructed to finish antibiotics, avoid strenuous activity, and go to the emergency room for gross bleeding, fever, or chills. Assessment/Plan 1. Elevated PSA (R97.20: Elevated prostate specific antigen [PSA]) PSA: 03/20/19 - 2.29 12/18/23 - 6.78 07/08/24 - 6.60 & 13.8% No fam hx of prostate cancer. RAYMOND 08/17/24 - distant prostate. Prostate MRI 10/06/24 - Neg. Suggestive of prior prostatitis. Prostate volume 53 cc. Pt had IO TRUS/bx today wo complications. Follow up as scheduled to review path or sooner if needed. Pt understands and agrees with plan. 2. BPH with urinary obstruction (N40.1: Benign prostatic hyperplasia with lower urinary tract symptoms) No BPH meds. Follow-up With When Contact Information CAROL RICHMOND, Jeyson Orantes, URL [facility] [address], [place] [address]- Additional Instructions: Follow up as scheduled to review path Patient Education Transrectal Ultrasound-Guided Prostate Biopsy, Care After I, Eneida Reyes, personally scribed for Dr. Arteaga on 11/17/2024 15:26:54. . Documentation recorded by the scribe, Eneida Reyes, accurately reflects the services(s) I performed and decisions made by me. Authenticated by Dr. Arteaga on 11/17/2024 15:43:56. Problem List/Past Medical History Ongoing At risk for falls BPH with urinary obstruction Elevated PSA Hyperlipidemia Hypertension Hypothyroid Historical No qualifying data Procedure/Surgical History Transrectal biopsy of prostate using ultrasound (US) guidance (11/17/2024). Medications amlodipine, 5 mg, Oral, Daily aspirin, 81 mg, Oral, Daily baclofen, 20 mg, Not taking benazepril, 20 mg, Oral, Daily levothyroxine, 100 mcg, Oral, Daily Allergies No Known Allergies Social History Alcohol Never., 08/17/2024 Substance Abuse Never., 08/17/2024 Tobacco Never (less than 100 in lifetime) Tobacco Use:. Never Smokeless Tobacco Use:., 11/17/2024 Family History Dementia: Mother. Immunizations Vaccine Date Status Comments influenza virus vaccine, inactivated 05/28/2024 Recorded influenza virus vaccine, inactivated 07/27/2023 Recorded influenza virus vaccine, inactivated 06/15/2022 Recorded SARS-CoV-2 (COVID-19) mRNAMUL.[id number] 06/15/2022 Recorded SARSCoV2 mRNA(bswzmrszc-itng-xzwgdt) vac 12/03/2021 Recorded influenza virus vaccine, inactivated 05/31/2021 Recorded SARS-CoV-2 (COVID-19) mRNA BNT-162b2 vax 05/31/2021 Recorded 2024-08-17: [id number] SARS-CoV-2 (COVID-19) mRNA BNT-162b2 vax 11/29/2020 Recorded SARS-CoV-2 (COVID-19) mRNA BNT-162b2 vax 11/07/2020 Recorded Result Comment: Electronical ly Signed By: Jeyson ARTEAGA MD\.br\Date and Time Signed: 11/17/24 15:44 EDT\.br\Electronically Co-Signed By: Eneida Reyes\.br\Date and Time Co-Signed: 11/17/24 15:42 EDT AMBULATORY VISIT SUMMARY Observed: 11/17 1:42 PM Status: F [facility] Ambulatory Visit Summary LENNY TAYLOR :1955 Visit Date:11/17/2024 Ambulatory Visit Instructions Your Diagnosis Elevated PSA BPH with urinary obstruction Your Care Team Attending Physician - Jeyson ARTEAGA MD Primary Care Physician - REGAN LIVINGSTON DO This Is Your Medications List Contact prescribing physician if questions or concerns amlodipine aspirin baclofen benazepril levothyroxine Procedures Performed Transrectal biopsy of prostate using ultrasound (US) guidance (11/17/2024). Discharge Vitals Height 170 cm Height 67 in Weight 100.2 kg Weight 220.903 lb BMI 34.67 What to do next Scheduled Follow-Up Appointments Saturday 2:45 PM EDT With: Jeyson ARTEAGA MD Where: [facility] [address] [address]- You Need to Schedule the Following Appointments Follow Up with Jeyson ARTEAGA MD, URL When: Where: [facility] [address] [place] [address]- Medications What How Much When Instructions Unchanged amlodipine 5 Milligram By Mouth Every day Contact prescribing physician if questions or concerns Unchanged aspirin 81 Milligram By Mouth Every day Contact prescribing physician if questions or concerns Unchanged baclofen 20 Milligram Contact prescribing physician if questions or concerns Unchanged benazepril 20 Milligram By Mouth Every day Contact prescribing physician if questions or concerns Unchanged levothyroxine 100 Microgram By Mouth Every day Contact prescribing physician if questions or concerns Medications and Immunizations Administered Given gentamicin 40 mg/mL Inj, 80 mg, IntraMuscular. For: Elevated PSA lidocaine 2% Inj 20 mL, 10 mL, Misc. For: Elevated PSA lidocaine Top 2% Gel w/Appl 11 mL, 22 mL, Topical. For: Elevated PSA Allergies No Known Allergies Problems Ongoing - Any problem that you are currently receiving treatment for. At risk for falls BPH with urinary obstruction Elevated PSA Hyperlipidemia Hypertension Hypothyroid Patient Survey You may receive a survey via text or e-mail asking about your office visit. Please share your experience with us by completing your survey. We appreciate your feedback and thank you for choosing us for your care. Education Materials Transrectal Ultrasound-Guided Prostate Biopsy, Care After The following information offers guidance on how to care for yourself after your procedure. Your health care provider may also give you more specific instructions. If you have problems or questions, contact your health care provider. What can I expect after the procedure? After the procedure, it is common to have: ??? Pain and discomfort near your rectum, especially while sitting. ??? Frederickson-colored urine due to small amounts of blood in your urine. ??? A burning feeling while urinating. ??? Blood in your stool (feces) or bleeding from your rectum. ??? Blood in your semen. Follow these instructions at home: Medicines ??? Take lsqs-rxh-ptdlaso and prescription medicines only as told by your health care provider. ??? If you were given a sedative during your procedure, it can affect you for several hours. Do not drive or operate machinery until your health care provider says that it is safe. ??? If you were prescribed an antibiotic medicine, take it as told by your health care provider. Do not stop using the antibiotic even if you start to feel better. Activity ??? Return to your normal activities as told by your health care provider. Ask your health care provider what activities are safe for you. ??? Ask your health care provider when it is okay for you to resume sexual activity. ??? You may have to avoid lifting. Ask your health care provider how much you can safely lift. General instructions ??? Drink enough fluid to keep your urine pale yellow. ??? Watch your urine, stool, and semen for new or increased bleeding. ??? Keep all follow-up visits. This is important. Contact a health care provider if: ??? You have any of the following: ? Blood clots in your urine or stool. ? Blood in your urine more than 2 weeks after the procedure. ? Blood in your semen more than 2 months after the procedure. ? New or increased bleeding in your urine, stool, or semen. ? Severe pain in your abdomen. ??? Your urine smells bad or unusual. ??? You have trouble urinating. ??? Your lower abdomen feels firm. ??? You have problems getting an erection. ??? You have nausea or you vomit. Get help right away if: ??? You have a fever or chills. This could be a sign of infection. ??? You have bright red urine. ??? You have severe pain that does not get better with medicine. ??? You cannot urinate. Summary ??? After this procedure, it is common to have pain and discomfort around your rectum, especially while sitting. ??? You may have blood in your urine and stool after the procedure. ??? It is common to have blood in your semen after this procedure. ??? Get help right away if you have a fever or chills. This could be a sign of infection. This information is not intended to replace advice given to you by your health care provider. Make sure you discuss any questions you have with your health care provider. Document Revised: 02/05/2022 Document Reviewed: 02/05/2022 [employer] Patient Education ??? 2023 [employer]. PROSTATE WO/W CON Observed: 5 9:44 AM Status: COMPLETED Source: [facility] [place] [address] MRI Report Signed Patient: Lenny Taylor MR#: [id number] : 1955 Acct:[id number] Age/Sex: 69 / M ADM Date: 09/16/24 Loc: MR Room: Type: PRE CLI Attending Dr: Jeyson Arteaga MD Copies to: Jeyson Arteaga MD Ordering Provider: Jeyson Arteaga MD Date of Service: 10/06/24 MR/MR prostate wo/w con: R97.20 EXAMINATION: MR prostate wo/w con HISTORY: Elevated PSA COMPARISON: NONE TECHNIQUE: Multiparametric imaging of the prostate gland was performed with IV contrast. FINDINGS: Prostate Dimensions: 5.1 x 4.4 x 4.5 cm Prostate Volume: 53 mL Peripheral Zone: Diffusely T2 hypointense without focal abnormality. Central/Transitional Zone: BPH changes. Seminal Vesicles: Unremarkable Neurovascular bundles: Unremarkable. Lymphadenopathy: No evidence of lymphadenopathy. Bladder: No focal lesion. Bowel: The visualized bowel is without acute abnormality. Peritoneal Cavity: No free fluid. Bones: No suspicious bony lesion. MR/MR prostate wo/w con IMPRESSION: 1. No MRI evidence of clinically significant prostate cancer. 2. The peripheral zone is diffusely T2 hypointense likely related to prostatitis. 3. BPH changes. Impression dictated by: Omkar Brown Jr., D.O.10/07/2024 9:46 AM Dictation Location: [place] [address] Transcribed By: [facility] 10/07/24945 Dictated By: Omkar Brown Jr, DO 10/07/2444 Signed By: <Electronically signed by Omkar Brown Jr, DO in OV> 10/07/24945 ISTAT XRAY CRE Collected: 10/06/2024 5:34 PM Status: F Source: [facility] TYPE CODE TESTS RESULT OUT OF RANGE REFERENCE UNITS LAB ISCREAT ISTAT Creatinine Level 1.4 High 0.6-1.3 mg/dL Result Comment: ER/ESD physi adriana is notified/shown all ISTAT results. Critical values may be confirmed by laboratory testing if deemed necessary by ER attending doctor. LAB ISTATGFRNR ISTAT GFR 55.088 Result Comment: PERFORMED BY : [place] [address] PATHOLOGIST [employer]IST ABEL SAM M.D. Performed By: #### ISCRE ### [address] AMBULATORY VISIT SUMMARY Observed: 08/17 3:48 PM Status: F Source: [facility] Ambulatory Visit Summary LENNY TAYLOR :1955 Visit Date:08/17/2024 Ambulatory Visit Instructions Your Diagnosis Elevated PSA BPH with urinary obstruction Tests Performed MRI Pelvis (Soft Tissue) w/ + w/o contrast -- Results Pending -- Please visit your patient portal for your results or contact your primary care physician. Your Care Team Attending Physician - Jeyson ARTEAGA MD Primary Care Physician - REGAN LIVINGSTON DO Referring Physician - REGAN LIVINGSTON DO This Is Your Medications List Contact prescribing physician if questions or concerns amlodipine aspirin baclofen benazepril levothyroxine Discharge Vitals Temperature (Oral) 37 ???C Heart Rate (Peripheral) 87 Respiratory Rate 18 Blood Pressure 138/84 Height 170 cm Height 67 in Weight 100.2 kg Weight 220.903 lb BMI 34.67 What to do next You Need to Schedule the Following Appointments Follow Up with Jeyson ARTEAGA MD, URL When: Where: [facility] [address] [place] [phone] Medications What How Much When Instructions Unchanged amlodipine 5 Milligram By Mouth Every day Contact prescribing physician if questions or concerns Unchanged aspirin 81 Milligram By Mouth Every day Contact prescribing physician if questions or concerns Unchanged baclofen 20 Milligram Contact prescribing physician if questions or concerns Unchanged benazepril 20 Milligram By Mouth Every day Contact prescribing physician if questions or concerns Unchanged levothyroxine 100 Microgram By Mouth Every day Contact prescribing physician if questions or concerns Allergies No Known Allergies Problems Ongoing - Any problem that you are currently receiving treatment for. BPH with urinary obstruction Elevated PSA Hyperlipidemia Hypertension Hypothyroid Patient Survey You may receive a survey via text or e-mail asking about your office visit. Please share your experience with us by completing your survey. We appreciate your feedback and thank you for choosing us for your care. Education Materials Transrectal Ultrasound-Guided Prostate Biopsy A transrectal ultrasound-guided prostate biopsy is a procedure to remove samples of prostate tissue for testing. The prostate is a walnut-sized gland that is located below the bladder and in front of the rectum. During this procedure, a small device (probe) is lubricated and put inside the rectum. The probe sends out sound waves that make a picture of the prostate and surrounding tissues (transrectal ultrasound). The images are used to help guide the process of removing the samples. The samples are taken to a lab to be checked for prostate cancer. This procedure is usually done to evaluate the prostate gland of men who have raised (elevated) levels of prostate-specific antigen (PSA), which can be a sign of prostate cancer or prostate enlargement related to aging (benign prostatic hyperplasia, or BPH). Tell a health care provider about: ??? Any allergies you have. ??? All medicines you are taking, including vitamins, herbs, eye drops, creams, and moad-xks-rearpaz medicines. ??? Any problems you or family members have had with anesthetic medicines. ??? Any bleeding problems you have. ??? Any surgeries you have had. ??? Any medical conditions you have. ??? Any prostate infections you have had. What are the risks? Generally, this is a safe procedure. However, problems may occur, including: ??? Prostate infection. ??? Bleeding from the rectum. ??? Blood in the urine. ??? Allergic reactions to medicines. ??? Damage to surrounding structures such as blood vessels, organs, or muscles. ??? Difficulty passing urine. ??? Nerve damage. This is usually temporary. What happens before the procedure? Medicines Ask your health care provider about: ??? Changing or stopping your regular medicines. This is especially important if you are taking diabetes medicines or blood thinners. ??? Taking medicines such as aspirin and ibuprofen. These medicines can thin your blood. Do not take these medicines unless your health care provider tells you to take them. ??? Taking ovlq-sbi-hlqghnv medicines, vitamins, herbs, and supplements. General instructions ??? Follow instructions from your health care provider about eating and drinking. In most instances, you will not need to stop eating and drinking completely before the procedure. ??? You will be given an enema. During an enema, a liquid is injected into your rectum to clear out waste. ??? You may have a blood or urine sample taken. ??? Ask your health care provider what steps will be taken to help prevent infection. These steps may include: ? Washing skin with a germ-killing soap. ? Taking antibiotic medicine. ??? If you will be going home right after the procedure, plan to have a responsible adult: ? Take you home from the hospital or clinic. You will not be allowed to drive. ? Care for you for the time you are told. What happens during the procedure? An IV will be inserted into one of your veins. ??? You will be given one or both of the following: ? A medicine to help you relax (sedative). ? A medicine to numb the area (local anesthetic). ??? You will be placed on your left side, and your knees will be bent toward your chest. ??? A probe with lubricated gel will be placed into your rectum, and images will be taken of your prostate and surrounding structures. ??? Numbing medicine will be injected into your prostate. ??? A biopsy needle will be inserted through your rectum or perineum and guided to your prostate using the ultrasound images. ??? Prostate tissue samples will be removed, and the needle and probe will then be removed. ??? The biopsy samples will be sent to a lab to be tested. The procedure may vary among health care providers and hospitals. What happens after the procedure? Your blood pressure, heart rate, breathing rate, and blood oxygen level will be monitored until you leave the hospital or clinic. ??? You may have some discomfort in the rectal area. You will be given pain medicine as needed. ??? If you were given a sedative during the procedure, it can affect you for several hours. Do not drive or operate machinery until your health care provider says that it is safe. ??? It is up to you to get the results of your procedure. Ask your health care provider, or the department that is doing the procedure, when your results will be ready. ??? Keep all follow-up visits. This is important. Summary ??? A transrectal ultrasound-guided biopsy removes samples of tissue from your prostate using ultrasound-guided sound waves to help guide the process. ??? This procedure is usually done to evaluate the prostate gland of men who have raised (elevated) levels of prostate-specific antigen (PSA), which can be a sign of prostate cancer or prostate enlargement related to aging. ??? After your procedure, you may feel some discomfort in the rectal area. ??? Plan to have a responsible adult take you home from the hospital or clinic, and follow up with your health care provider for your results. This information is not intended to replace advice given to you by your health care provider. Make sure you discuss any questions you have with your health care provider. Document Revised: 02/05/2022 Document Reviewed: 02/05/2022 [employer] Patient Education ??? 2023 [employer]. Prostate Cancer Screening Prostate cancer screening is testing that is done to check for the presence of prostate cancer in men. The prostate gland is a walnut-sized gland that is located below the bladder and in front of the rectum in males. The function of the prostate is to add fluid to semen during ejaculation. Prostate cancer is one of the most common types of cancer in men. Who should have prostate cancer screening? Screening recommendations vary based on age and other risk factors, as well as between the professional organizations who make the recommendations. In general, screening is recommended if: ??? You are age 50 to 70 and have an average risk for prostate cancer. You should talk with your health care provider about your need for screening and how often screening should be done. Because most prostate cancers are slow growing and will not cause , screening in this age group is generally reserved for men who have a 10- to 15-year life expectancy. ??? You are younger than age 50, and you have these risk factors: ? Having a father, brother, or uncle who has been diagnosed with prostate cancer. The risk is higher if your family member's cancer occurred at an early age or if you have multiple family members with prostate cancer at an early age. ? Being a male who is Black or is of [place] or sub-Saharan descent. In general, screening is not recommended if: ??? You are younger than age 40. ??? You are between the ages of 40 and 49 and you have no risk factors. ??? You are 70 years of age or older. At this age, the risks that screening can cause are greater than the benefits that it may provide. If you are at high risk for prostate cancer, your health care provider may recommend that you have screenings more often or that you start screening at a younger age. How is screening for prostate cancer done? The recommended prostate cancer screening test is a blood test called the prostate-specific antigen (PSA) test. PSA is a protein that is made in the prostate. As you age, your prostate naturally produces more PSA. Abnormally high PSA levels may be caused by: ??? Prostate cancer. ??? An enlarged prostate that is not caused by cancer (benign prostatic hyperplasia, or BPH). This condition is very common in older men. ??? A prostate gland infection (prostatitis) or urinary tract infection. ??? Certain medicines such as male hormones (like testosterone) or other medicines that raise testosterone levels. A rectal exam may be done as part of prostate cancer screening to help provide information about the size of your prostate gland. When a rectal exam is performed, it should be done after the PSA level is drawn to avoid any effect on the results. Depending on the PSA results, you may need more tests, such as: ??? A physical exam to check the size of your prostate gland, if not done as part of screening. ??? Blood and imaging tests. ??? A procedure to remove tissue samples from your prostate gland for testing (biopsy). This is the only way to know for certain if you have prostate cancer. What are the benefits of prostate cancer screening? Screening can help to identify cancer at an early stage, before symptoms start and when the cancer can be treated more easily. ??? There is a small chance that screening may lower your risk of dying from prostate cancer. The chance is small because prostate cancer is a slow-growing cancer, and most men with prostate cancer from a different cause. What are the risks of prostate cancer screening? The main risk of prostate cancer screening is diagnosing and treating prostate cancer that would never have caused any symptoms or problems. This is called overdiagnosisand overtreatment. PSA screening cannot tell you if your PSA is high due to cancer or a different cause. A prostate biopsy is the only procedure to diagnose prostate cancer. Even the results of a biopsy may not tell you if your cancer needs to be treated. Slow-growing prostate cancer may not need any treatment other than monitoring, so diagnosing and treating it may cause unnecessary stress or other side effects. Questions to ask your health care provider ??? When should I start prostate cancer screening? What is my risk for prostate cancer? How often do I need screening? What type of screening tests do I need? How do I get my test results? What do my results mean? Do I need treatment? Where to find more information ??? [employer] [place] [employer]: www.cancer.org ??? [place] [employer]: www.auanet.org Contact a health care provider if: ??? You have difficulty urinating. ??? You have pain when you urinate or ejaculate. ??? You have blood in your urine or semen. ??? You have pain in your back or in the area of your prostate. Summary ??? Prostate cancer is a common type of cancer in men. The prostate gland is located below the bladder and in front of the rectum. This gland adds fluid to semen during ejaculation. ??? Prostate cancer screening may identify cancer at an early stage, when the cancer can be treated more easily and is less likely to have spread to other areas of the body. ??? The prostate-specific antigen (PSA) test is the recommended screening test for prostate cancer, but it has associated risks. ??? Discuss the risks and benefits of prostate cancer screening with your health care provider. If you are age 70 or older, the risks that screening can cause are greater than the benefits that it may provide. This information is not intended to replace advice given to you by your health care provider. Make sure you discuss any questions you have with your health care provider. Document Revised: 02/05/2022 Document Reviewed: 02/05/2022 [employer] Patient Education ??? 2023 [email or web address]. UROLOGY OFFICE/CLINIC NOTE Observed: 3:46 PM Status: F Source: [facility] Urology Office/Clinic Note Chief Complaint referral HPI Staff Referral for elevated PSA. No immediate concerns today. PSA: 02/2019 - 2.29 11/2023 - 6.78 06/2024 - 6.6 & 13.8% Dysuria: denies Incomplete bladder emptying: rarely Hematuria: denies Frequency: about every 2-3hrs Urgency: denies Nocturia: 2-3x per night Stream: varies - sometimes good, sometimes weak Leaking: denies Post void dripping: sometimes, not often Wearing pads/ Depends: denies Urge incontinence: denies Stress incontinence: denies Incontinence without Sensory Awareness: denies Abdominal pain: denies Flank pain: denies Sexual complaints: denies History of Present Illness Tests reviewed: reviewed UA, referral records, PSAs I have reviewed the previous health record information and history for this patient from external providers. I have reviewed and verified the staff HPI to be accurate for this encounter. Review of Systems PHQ Score Initial Depression Screen Score: 0 SCORE ROS - Provider Constitutional: denies weight loss, denies hot flashes. Eyes: denies eye problems. Gastrointestinal: denies nausea, denies vomiting. Cardiovascular: denies chest pain or angina. Integumentary: no dryness Musculoskeletal: denies musculoskeletal symptoms. ENMT: denies otolaryngeal symptoms. Respiratory: no shortness of breath. Heme/Lymph: denies easy bleeding tendency, denies easy bruising tendency. Psychiatric: no confusion, no anxiety. Genitourinary: See HPI. Physical Exam Vitals & Measurements T: 37 ???C(Oral) HR: 87(Peripheral) RR: 18 BP: 138/84 HT: 67 in HT: 170 cm WT: 100.2 kg WT: 220.903 lb BMI: 34.67 General Appearance: alert, no distress, well nourished, well developed male. Head: normocephalic . Eyes: normal orbit and globe. ENMT: normal examination of external ears. Chest: Lungs CTA, respirations non labored. Cardiovascular: regular rate and rhythm. Abdomen: soft, non distended, no tenderness, no mass or organomegaly, no hernia. Genitourinary: normal scrotum, normal testes, normal urethra, normal epididymis, normal vas deferens/spermatic cord. Flank Pain: none. Bladder: nonpalpable. Penis: normal shaft, normal glans. Prostate: distant prostate. Lymph Nodes: unremarkable palpation of the cervical area. Skin: warm, dry, no bruising. Psychiatric: cooperative, affect appropriate for age, normal judgement, euthymic mood. Assessment/Plan Lenny is a 69 yo male new pt referred by Dr. Regan Livingston for elevated PSA. DINESH 3. 1. Elevated PSA (R97.20: Elevated prostate specific antigen [PSA]) PSA: 03/20/19 - 2.29 12/18/23 - 6.78 07/08/24 - 6.6 & 13.8% RAYMOND: distant prostate Denies hx of UTIs. Denies discomfort with urination. UA today negative for blood and infection. No fam hx of prostate cancer. Advised pt an elevated PSA could indicate prostate cancer, prostate infection, prostate inflammation without infection, prostate manipulation, or benign prostate enlargement (BPH). Discussed the importance of the rate of PSA rise. The options for management have been discussed, including close monitoring of the PSA over time vs prostate MRI and a biopsy vs prostate biopsy. Pt wishes to proceed with MRI and biopsy. -Schedule prostate MRI -Will schedule TRUS/bx +/- MRI fusion. Risks of the procedure were discussed to include but not be limited to bleeding, pain, infection, difficulties with urination, injury to the urethra, prostate or bladder or surrounding tissues, injury from positioning on the table, swelling and bruising of the skin, and need for further procedures. Will order Local anesthesia. 2. 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 Not taking any prostate meds. Reports he sits to void so urine does not splash out of toilet. Feels he empties. Admits stream has weakened with age, as expected. Educated pt on pathophysiology of BPH. -Cont sx monitoring Follow-up With When Contact Information CAROL RICHMOND, Jeyson Orantes, [facility] [address], [place] [address]- [phone] Additional Instructions: sched MRI and TRUS/bx Patient Education Transrectal Ultrasound-Guided Prostate Biopsy Prostate Cancer Screening I, Wanda Archuleta, personally scribed for Dr. Arteaga on 08/17/2024 15:47:12. . Documentation recorded by the scribe, Wanda Archuleta, accurately reflects the services(s) I performed and decisions made by me. Authenticated by Dr. Arteaga on 08/17/2024 15:49:23. Problem List/Past Medical History Ongoing BPH with urinary obstruction Elevated PSA Hyperlipidemia Hypertension Hypothyroid Historical No qualifying data Medications amlodipine, 5 mg, Oral, Daily aspirin, 81 mg, Oral, Daily baclofen, 20 mg, Not taking benazepril, 20 mg, Oral, Daily levothyroxine, 100 mcg, Oral, Daily Allergies No Known Allergies Social History Alcohol Never., 08/17/2024 Substance Abuse Never., 08/17/2024 Tobacco Never (less than 100 in lifetime) Tobacco Use:. Never Smokeless Tobacco Use:., 08/17/2024 Family History Dementia: Mother. Immunizations Vaccine Date Status Comments influenza virus vaccine, inactivated 05/28/2024 Recorded influenza virus vaccine, inactivated 07/27/2023 Recorded influenza virus vaccine, inactivated 06/15/2022 Recorded SARS-CoV-2 (COVID-19) [id number] 06/15/2022 Recorded SARSCoV2 mRNA(uqfelnsfz-tsdc-xmgrln) vac 12/03/2021 Recorded influenza virus vaccine, inactivated 05/31/2021 Recorded SARS-CoV-2 (COVID-19) mRNA BNT-162b2 vax 05/31/2021 Recorded 2024-08-17: [id number] SARS-CoV-2 (COVID-19) mRNA BNT-162b2 vax 11/29/2020 Recorded SARS-CoV-2 (COVID-19) mRNA BNT-162b2 vax 11/07/2020 Recorded Lab Results Ambulatory Point of Care Results Bilirubin Urine Dipstick: Negative (08/17/24 14:30:00) Blood Urine Dipstick: Negative (08/17/24 14:30:00) Glucose Urine Dipstick: Negative (08/17/24 14:30:00) Ketones Urine Dipstick: Negative (08/17/24 14:30:00) Leukocytes Urine Dipstick: Negative (08/17/24 14:30:00) Nitrite Urine Dipstick: Negative (08/17/24 14:30:00) Protein Urine Dipstick: Negative (08/17/24 14:30:00) Specific [place] Urine Dipstick: <=1.005 (08/17/24 14:30:00) Urine Appearance Urine Dipstick: Clear (08/17/24 14:30:00) Urine Color Urine Dipstick: Light yellow (08/17/24 14:30:00) Urobilinogen Urine Dipstick: Normal 0.2-1 EU/dl (08/17/24 14:30:00) pH Urine Dipstick: 6 (08/17/24 14:30:00) Result Comment: Electronical ly Signed By: Jeyson ARTEAGA MD\.br\Date and Time Signed: 08/17/24 15:49 EST\.br\Electronically Co-Signed By: Wanda Archuleta\.br\Date and Time Co-Signed: 08/17/24 15:47 EST PATIENT EDUCATION Observed: 08/17/2024 3:45 PM Status: C Source: [facility] Patient Education Oncology Transrectal Ultrasound-Guided Prostate Biopsy A transrectal ultrasound-guided prostate biopsy is a procedure to remove samples of prostate tissue for testing. The prostate is a walnut-sized gland that is located below the bladder and in front of the rectum. During this procedure, a small device (probe) is lubricated and put inside the rectum. The probe sends out sound waves that make a picture of the prostate and surrounding tissues (transrectal ultrasound). The images are used to help guide the process of removing the samples. The samples are taken to a lab to be checked for prostate cancer. This procedure is usually done to evaluate the prostate gland of men who have raised (elevated) levels of prostate-specific antigen (PSA), which can be a sign of prostate cancer or prostate enlargement related to aging (benign prostatic hyperplasia, or BPH). Tell a health care provider about: ??? Any allergies you have. ??? All medicines you are taking, including vitamins, herbs, eye drops, creams, and aqwd-blj-qwxqgfl medicines. ??? Any problems you or family members have had with anesthetic medicines. ??? Any bleeding problems you have. ??? Any surgeries you have had. ??? Any medical conditions you have. ??? Any prostate infections you have had. What are the risks? Generally, this is a safe procedure. However, problems may occur, including: ??? Prostate infection. ??? Bleeding from the rectum. ??? Blood in the urine. ??? Allergic reactions to medicines. ??? Damage to surrounding structures such as blood vessels, organs, or muscles. ??? Difficulty passing urine. ??? Nerve damage. This is usually temporary. What happens before the procedure? Medicines Ask your health care provider about: ??? Changing or stopping your regular medicines. This is especially important if you are taking diabetes medicines or blood thinners. ??? Taking medicines such as aspirin and ibuprofen. These medicines can thin your blood. Do not take these medicines unless your health care provider tells you to take them. ??? Taking gxpf-llk-mznzizz medicines, vitamins, herbs, and supplements. General instructions ??? Follow instructions from your health care provider about eating and drinking. In most instances, you will not need to stop eating and drinking completely before the procedure. ??? You will be given an enema. During an enema, a liquid is injected into your rectum to clear out waste. ??? You may have a blood or urine sample taken. ??? Ask your health care provider what steps will be taken to help prevent infection. These steps may include: ? Washing skin with a germ-killing soap. ? Taking antibiotic medicine. ??? If you will be going home right after the procedure, plan to have a responsible adult: ? Take you home from the hospital or clinic. You will not be allowed to drive. ? Care for you for the time you are told. What happens during the procedure? An IV will be inserted into one of your veins. ??? You will be given one or both of the following: ? A medicine to help you relax (sedative). ? A medicine to numb the area (local anesthetic). ??? You will be placed on your left side, and your knees will be bent toward your chest. ??? A probe with lubricated gel will be placed into your rectum, and images will be taken of your prostate and surrounding structures. ??? Numbing medicine will be injected into your prostate. ??? A biopsy needle will be inserted through your rectum or perineum and guided to your prostate using the ultrasound images. ??? Prostate tissue samples will be removed, and the needle and probe will then be removed. ??? The biopsy samples will be sent to a lab to be tested. The procedure may vary among health care providers and hospitals. What happens after the procedure? Your blood pressure, heart rate, breathing rate, and blood oxygen level will be monitored until you leave the hospital or clinic. ??? You may have some discomfort in the rectal area. You will be given pain medicine as needed. ??? If you were given a sedative during the procedure, it can affect you for several hours. Do not drive or operate machinery until your health care provider says that it is safe. ??? It is up to you to get the results of your procedure. Ask your health care provider, or the department that is doing the procedure, when your results will be ready. ??? Keep all follow-up visits. This is important. Summary ??? A transrectal ultrasound-guided biopsy removes samples of tissue from your prostate using ultrasound-guided sound waves to help guide the process. ??? This procedure is usually done to evaluate the prostate gland of men who have raised (elevated) levels of prostate-specific antigen (PSA), which can be a sign of prostate cancer or prostate enlargement related to aging. ??? After your procedure, you may feel some discomfort in the rectal area. ??? Plan to have a responsible adult take you home from the hospital or clinic, and follow up with your health care provider for your results. This information is not intended to replace advice given to you by your health care provider. Make sure you discuss any questions you have with your health care provider. Document Revised: 02/05/2022 Document Reviewed: 02/05/2022 [employer] Patient Education ? 2023 [employer].Prostate Cancer Screening Prostate cancer screening is testing that is done to check for the presence of prostate cancer in men. The prostate gland is a walnut-sized gland that is located below the bladder and in front of the rectum in males. The function of the prostate is to add fluid to semen during ejaculation. Prostate cancer is one of the most common types of cancer in men. Who should have prostate cancer screening? Screening recommendations vary based on age and other risk factors, as well as between the professional organizations who make the recommendations. In general, screening is recommended if: ??? You are age 50 to 70 and have an average risk for prostate cancer. You should talk with your health care provider about your need for screening and how often screening should be done. Because most prostate cancers are slow growing and will not cause , screening in this age group is generally reserved for men who have a 10- to 15-year life expectancy. ??? You are younger than age 50, and you have these risk factors: ? Having a father, brother, or uncle who has been diagnosed with prostate cancer. The risk is higher if your family member's cancer occurred at an early age or if you have multiple family members with prostate cancer at an early age. ? Being a male who is Black or is of [place] or sub-Saharan descent. In general, screening is not recommended if: ??? You are younger than age 40. ??? You are between the ages of 40 and 49 and you have no risk factors. ??? You are 70 years of age or older. At this age, the risks that screening can cause are greater than the benefits that it may provide. If you are at high risk for prostate cancer, your health care provider may recommend that you have screenings more often or that you start screening at a younger age. How is screening for prostate cancer done? The recommended prostate cancer screening test is a blood test called the prostate-specific antigen (PSA) test. PSA is a protein that is made in the prostate. As you age, your prostate naturally produces more PSA. Abnormally high PSA levels may be caused by: ??? Prostate cancer. ??? An enlarged prostate that is not caused by cancer (benign prostatic hyperplasia, or BPH). This condition is very common in older men. ??? A prostate gland infection (prostatitis) or urinary tract infection. ??? Certain medicines such as male hormones (like testosterone) or other medicines that raise testosterone levels. A rectal exam may be done as part of prostate cancer screening to help provide information about the size of your prostate gland. When a rectal exam is performed, it should be done after the PSA level is drawn to avoid any effect on the results. Depending on the PSA results, you may need more tests, such as: ??? A physical exam to check the size of your prostate gland, if not done as part of screening. ??? Blood and imaging tests. ??? A procedure to remove tissue samples from your prostate gland for testing (biopsy). This is the only way to know for certain if you have prostate cancer. What are the benefits of prostate cancer screening? Screening can help to identify cancer at an early stage, before symptoms start and when the cancer can be treated more easily. ??? There is a small chance that screening may lower your risk of dying from prostate cancer. The chance is small because prostate cancer is a slow-growing cancer, and most men with prostate cancer from a different cause. What are the risks of prostate cancer screening? The main risk of prostate cancer screening is diagnosing and treating prostate cancer that would never have caused any symptoms or problems. This is called overdiagnosisand overtreatment. PSA screening cannot tell you if your PSA is high due to cancer or a different cause. A prostate biopsy is the only procedure to diagnose prostate cancer. Even the results of a biopsy may not tell you if your cancer needs to be treated. Slow-growing prostate cancer may not need any treatment other than monitoring, so diagnosing and treating it may cause unnecessary stress or other side effects. Questions to ask your health care provider ??? When should I start prostate cancer screening? What is my risk for prostate cancer? How often do I need screening? What type of screening tests do I need? How do I get my test results? What do my results mean? Do I need treatment? Where to find more information ??? The [place] [employer]: www.cancer.org ??? [place] [employer]: www.auanet.org Contact a health care provider if: ??? You have difficulty urinating. ??? You have pain when you urinate or ejaculate. ??? You have blood in your urine or semen. ??? You have pain in your back or in the area of your prostate. Summary ??? Prostate cancer is a common type of cancer in men. The prostate gland is located below the bladder and in front of the rectum. This gland adds fluid to semen during ejaculation. ??? Prostate cancer screening may identify cancer at an early stage, when the cancer can be treated more easily and is less likely to have spread to other areas of the body. ??? The prostate-specific antigen (PSA) test is the recommended screening test for prostate cancer, but it has associated risks. ??? Discuss the risks and benefits of prostate cancer screening with your health care provider. If you are age 70 or older, the risks that screening can cause are greater than the benefits that it may provide. This information is not intended to replace advice given to you by your health care provider. Make sure you discuss any questions you have with your health care provider. Document Revised: 02/05/2022 Document Reviewed: 02/05/2022 [employer] Patient Education ? 2023 [employer] ALLERGIES DATE TYPE / CODE NAME / CODE REACTION SEVERITY SOURCE 07/15/2024 Drug Allergy/24716529 2(SNOMED CT) No Known Allergies/L523931842 (RXNORM) [facility] /517298050(SNO MED CT) No Known Allergies [facility] ENCOUNTERS ADMIT/DISCHARGE ACCOUNT NUMBER ADMITTING ENCOUNTER CLASS LOCATION SOURCE 01/04/2025 [id number] RENATA CLEMENS RA Ambulatory FTBuilding: [facility] 01/04/2025/01/05/20 [id number] RENATA CLEMENS RA Ambulatory FTBuilding: [facility] 12/17/2024/12/18/19 [id number] [place] Exam 3 [facility] 12/07/2024/12/08/19 [id number] [place] 1 [facility] 11/17/2024/11/19/19 [id number] Jeyson ARTEAGA Ambulatory FTMCBuilding: FT LAB [facility] 11/17/2024/11/18/19 [id number] [place] Ex[place] 2 [facility] 11/03/2024 [id number] [place] [facility] 10/06/2024/10/06/19 [id number] [facility] 08/17/2024/08/17/20 [id number] [place] Exam 1 [facility] 07/16/2024 [id number] [place]ulatory [place] [facility] PAYERS ENCOUNTER GUARANTOR PAYER SUBSCRIBER SOURCE 01/04/2025 LENNY DENNISITEDOB: [id number] CRD 34Tel: ~ ~(41 (HP) Primary Insurance:MEDICAREPo licy Number: [id number] Date:4490-90-60RL [address] [address], [place] [address]QJ: [facility] 01/04/2025 Secondary Insurance:AARPPolicy Number: [id number] Date:2956-31-06WS [address], [place] [address]SU: [facility] 12/17/2024 LENNY DENNISITEDOB: [id number] CRD 34Tel: ~ ~(41 (HP) Primary Insurance:MEDICAREPo licy Number: [id number] Date:4801-16-82HS [address] [address] [address]UM: LENNY [facility] 12/17/2024 Secondary Insurance:AARPPolicy Number: [id number] Date:2362-06-70GT [address], [place] [address]FX: LENNY [facility] 12/07/2024 LENNY DENNISITEDOB: [id number] CRD 34Tel: ~ ~(41 (HP) Primary Insurance:MEDICAREPo licy Number: [id number] Date:6149-80-06PQ [address] [address] [address]LH: LENNY [facility] 12/07/2024 Secondary Insurance:AARPPolicy Number: [id number] Date:9994-79-14TH [address] [address]DV: LENNY [facility] 11/17/2024 LENNY GOODSITEDOB: [id number] [facility] 34Tel: (HP) Primary Insurance:MEDICAREPo licy Number: [id number] Date:9909-69-50QV [address] [address] [address]OE: LENNY [facility] 11/17/2024 Secondary Insurance:AARPPolicy Number: [id number] Date:3914-01-10PR [address] [place] [address]RY: [facility] 11/17/2024 LENNY GOODSITEDOB: [id number] [facility] 34Tel: (HP) Primary Insurance:MEDICAREPo licy Number: [id number] Date:3276-42-42MJ [address] [address] [address]OV: [facility] Secondary Insurance:AARPPolicy Number: [id number] Date:3051-95-93MQ[address] [address]US: [facility]/2024 LENNY DENNISITEDOB: [id number] [facility] 34Tel: ~~(41 (HP) Primary Insurance:MEDICAREPo licy Number: [id number] Date:4637-76-07PK [address] [place] [address]XV: LENNY [facility] 11/03/2024 Secondary Insurance:AARPPolicy Number: [id number] Date:2691-49-31DE [address] [address]UZ: [facility] 10/06/[address] [place], [place] [address]36Tel: (HP) Primary Insurance:MedicarePo licy Number: [id number] Date:2024-08-27 Lenny DennisiteDOB: [id number] [place] [id number]: (HP) [facility] 10/06/2024 Secondary Insurance:AARP Health ClaimsPolicy Number: [id number] Date:2024-08-27 Lenny DennisiteDOB: [id number] [place] [id number]: (HP) [facility] 10/06/2024 Tertiary Insurance:Self PayPolicy Number: Effective Date:2024-09-16 [facility]/2024 LENNY DENNISITEDOB: [id number] [facility] 34Tel: ~~(41 (HP) Primary Insurance:HUMANAPoli cy Number: [id number] Date:9971-86-22DE [address] [address]DD[place]GQXSS, [place] [address]PR: [facility] 08/17/2024 Secondary Insurance:AARPPolicy Number: [id number] Date:6806-74-66GP [address], [place] [address]CC: [facility] 07/16/2024 [facility]: [id number] COUNTS INCLUDE [address] [facility] 34Tel: () Primary Insurance:MEDICAREPo licy Number: [id number] Date:2023-08-26 [facility]
--- OUTSIDE RECORDS SUMMARY | 2025-01-04 23:59 | XMS_ITS | Continuity of Care Document ---
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 Role Phone KEISHA BOTELLO Primary Care Physician [phone] Encounter FT_FIN [id number] Date(s): 01/04/25 - 01/04/[address] [place], [place] [address] Discharge Disposition: Home (Routine DC) Attending Physician: RENATA DAVIDSON MD Admitting Physician: RENATA DAVIDSON MD Referring Physician: RENATA DAVIDSON MD Encounter Type: Outpatient Allergies, Adverse Reactions, Alerts No Known Allergies Assessment and Plan Future Appointments Appointment Date:01/12/2025 12:15:00 PM Scheduled Provider: Location:[facility] Surgical Services Appointment Type:Surgery FT Functional Status 01/04/25 Hx of Positive TB Skin Test No MRSA/VRE/Other Active-Hx No C-Diff Active/Hx No Symptomatic After Exposure to Contagion No Symptomatic After Travel High-Risk Area No Droplet, Contact Isolation Verification N/A Airborne,Contact Isolation Verification N/A Immunizations Given and Recorded Vaccine Date Status Refusal Reason influenza virus vaccine, inactivated 05/28/24 Vadim rded influenza virus vaccine, inactivated 07/27/23 Vadim rded influenza virus vaccine, inactivated 06/15/22 Vadim rded influenza virus vaccine, inactivated 05/31/21 Vadim rded SARS-CoV-2 (COVID-19) [id number] 06/15/22 Recorded SARSCoV2 mRNA(eezvlwvlm-jjtm-ijgfmn) vac 12/03/21 Recorded SARS-CoV-2 (COVID-19) mRNA BNT-162b2 vax 1 05/31/21 Recorded SARS-CoV-2 (COVID-19) mRNA BNT-162b2 vax 11/29/20 Recorded SARS-CoV-2 (COVID-19) mRNA BNT-162b2 vax 11/07/20 Recorded 1Result Comment: 2024-08-17: [id number] Medications amlodipine 5 mg, Oral, Daily, Refills(s) 0 Start Date: 08/17/24 Status: Ordered Repeat number: 1 aspirin 81 mg, Oral, Bedtime, Refills(s) 0 Start Date: 08/17/24 Status: Ordered Repeat number: 1 benazepril 20 mg, Oral, Daily, Refills(s) 0 Start Date: 08/17/24 Status: Ordered Repeat number: 1 levothyroxine 100 mcg, Oral, Bedtime, Refills(s) 0 Start Date: 08/17/24 Status: Ordered Repeat number: 1 Problem List Condition Confirmation Course Effective Dates Status H ealth Status Informant BPH with urinary obstruction Confirmed Active Hyperlipidemia Confirmed Active Hypertension Confirmed Active Hypothyroid Confirmed Active Prostate cancer Confirmed Active Elevated PSA Confirmed Active Procedures Procedure Date Related Diagnosis Body Site Status Transrectal biopsy of prosta te using ultrasound (US) guidance 11/17/24 [facility] ed LASIK - laser assisted in si tu keratomileusis Completed Results Laboratory List Name Date ABO/Rh Retype (Type Verification) 5 Basic Metabolic Panel (BMP) 01/04/25 CBC w/ Auto Diff 01/04/25 PT & PTT 01/04/25 Thyroid Stimulating Hormone 01/04/25 UA with Cult Rflx 01/04/25 eGFR 01/04/25 Most recent to oldest [Reference Range]: 1 ABO/Rh Retype Interp A POS *Unknown* (01/04/25 3:24 PM) UA Bili [Negative mg/dL] Negative mg/dL (01/04/25 3:24 PM) UA Color [Yellow] Colorless 1 *ABN* (01/04/25 3:24 PM) UA Glucose [Negative mg/dL] Negative mg/ dL (01/04/25 3:24 PM) UA Ketones [Negative mg/dL] Negative mg/ dL (01/04/25 3:24 PM) UA Leuk Est [Negative Clover/uL] Negative L eu/uL (01/04/25 3:24 PM) UA Nitrite [Negative mg/dL] Negative mg/ dL (01/04/25 3:24 PM) UA Protein [Negative mg/dL] Negative mg/ dL (01/04/25 3:24 PM) UA Urobilinogen [Negative mg/dL] Negativ e mg/dL (01/04/25 3:24 PM) UA Spec Desc Clean Catch (01/04/25 3:24 PM) UA Blood [Negative mg/dL] Negative mg/dL (01/04/25 3:24 PM) UA Clarity [Clear] Clear (01/04/25 3:24 PM) INR 0.94 2 *NA* (01/04/25 3:24 PM) BUN/Creat Ratio [10-20] 8 *LOW* (01/04/25 3:24 PM) AGAP [6-16 mEq/L] 11 mEq/L (01/04/25 3:24 PM) Basophil Auto [0.0-2.0 %] 1.1 % (01/04/25 3:24 PM) CO2 [21-31 mmol/L] 26 mmol/L (01/04/25 3:24 PM) Eos Auto [0.0-8.0 %] 2.0 % (01/04/25 3:24 PM) Glucose Lvl [55-199 mg/dL] 122 mg/dL (01/04/25 3:24 PM) Hct [37.7-49.0 %] 40.4 % (01/04/25 3:24 PM) Hgb [13.5-17.5 gm/dL] 14.0 gm/dL (01/04/25 3:24 PM) Lymph Auto [14.0-50.0 %] 19.8 % (01/04/25 3:24 PM) PT [9.4-12.5 second(s)] 10.5 second(s) 3 (01/04/25 3:24 PM) PTT [25.1-36.5 second(s)] 32.4 second(s) 4 (01/04/25 3:24 PM) RBC [4.3-5.9 E12/L] 4.5 E12/L (01/04/25 3:24 PM) RDW [10.9-14.2 %] 13.2 % (01/04/25 3:24 PM) Sodium Lvl [135-145 mmol/L] 123 mmol/L *LOW* (01/04/25 3:24 PM) TSH [0.34-5.60 mcIU/mL] 14.21 mcIU/mL *HI* (01/04/25 3:24 PM) MCH [27.0-34.0 pg] 31.4 pg (01/04/25 3:24 PM) MCHC [31.4-36.0 gm/dL] 34.7 gm/dL (01/04/25 3:24 PM) MCV [80.0-100.0 fL] 90.5 fL (01/04/25 3:24 PM) Liberty Auto [4.0-14.0 %] 12.0 % (01/04/25 3:24 PM) MPV [6.4-10.8 fL] 6.6 fL (01/04/25 3:24 PM) Neutro Auto [36.0-75.0 %] 65.1 % (01/04/25 3:24 PM) UA pH [5.0-9.0] 6.5 *NA* (01/04/25 3:24 PM) BUN [5-21 mg/dL] 9 mg/dL (01/04/25 3:24 PM) Calcium Lvl [8.9-11.1 mg/dL] 9.4 mg/dL (01/04/25 3:24 PM) Platelet [150.0-500.0 E9/L] 338.0 E9/L (01/04/25 3:24 PM) Potassium Lvl [3.5-5.3 mmol/L] 4.4 mmol/ L (01/04/25 3:24 PM) UA Spec Grav [1.005-1.030] 1.004 *NA* (01/04/25 3:24 PM) WBC [4.0-11.0 E9/L] 5.7 E9/L (01/04/25 3:24 PM) Chloride [101-111 mmol/L] 90 mmol/L *LOW* (01/04/25 3:24 PM) Liberty Absolute [0.2-1.0 E9/L] 0.7 E9/L (01/04/25 3:24 PM) Eos Absolute [0.0-0.5 E9/L] 0.1 E9/L (01/04/25 3:24 PM) Basophil Absolute [0.0-0.2 E9/L] 0.1 E9/ L (01/04/25 3:24 PM) Neutro Absolute [2.0-7.5 E9/L] 3.7 E9/L (01/04/25 3:24 PM) Lymph Absolute [1.0-4.0 E9/L] 1.1 E9/L (01/04/25 3:24 PM) eGFR [>=59 mL/min/1.73 m2] 73 mL/min/1.7 3 m2 (01/04/25 3:24 PM) Creatinine [0.5-1.3 mg/dL] 1.1 mg/dL (01/04/25 3:24 PM) 1Interpretive Data: Microscopic readings are only performed on those samples that meet specific criteria set forth by [facility]. 2Interpretive Data: INR results are specifically intended to assess patients stabilized on long-term Anticoagulation therapy suggested INR???s ???Less Intensive Anticoagulation?? 2.0 ??? 3.0 Conventional Range 3.0 ??? 4.5 3Interpretive Data: 15 days - 4 weeks 1 - 5 months 6 -11 months 1 ??? 5 years 6 ??? 10 years 11 -17 years Mean: 11.2?? (9.5 ??? 12.6) Mean: 11.0?? (9.7 ??? 12.8) Mean: 11.0 (9.8 ??? 13.0) Mean: 11.3 (9.9 ??? 13.4) Mean: 11.7 (10.0 ??? 14.6) Mean: 11.8? (10.0 - 14.1) Pediatric Reference ranges were obtained from a study by Jermaine Ramirez et al. prepared from 1437 samples obtained at 7 different centers using the same coagulation reagent and instrumentation as [facility]. Currently there are no coagulation studies available worldwide for children to 14 days, andno normal ranges. 4Interpretive Data: Parameter 15 days -? 4 weeks 1 - 5 months 6 [...] the same coagulation reagent and instrumentation as [facility]. Currently there are no coagulation studies available worldwide for children to 14 days, andno normal ranges. Heparin therapeutic range (represented by Anti-Factor Xa activity of 0.2 - 0.4 U/mL) corresponds to PTT of 56.6 - 109.0 sec. Vital Signs Most recent to oldest [Reference Range]: 1 2 Heart Rate Monitored [60-100 bpm] 82 bpm (01/04/25 3:20 PM) 83 bpm (01/04/25 3:19 PM) Blood Pressure [89-139/59-89 mmHg] 148/7 6mmHg *HI* (01/04/25 3:20 PM) 150/67mmHg *HI* (01/04/25 3:19 PM) Mean Arterial Pressure, Monitered 100 mm Hg (01/04/25 3:20 PM) 95 mmHg (01/04/25 3:19 PM) SpO2 [89 %] 95 % (01/04/25 3:19 PM) Social History Social History Type Response Smoking Status Never (less than 100 in lifetime);Never entered on: 12/17/24 Sex Male Sex Representation Male (finding) Patient Care team information Care Team Personnel Name: KEISHA BOTELLO DO Position: FT Physician Member Role: Primary Care Physician Address: [address] [place] [address] Telecom: Care Team Related Persons Name: JENNY TAYLOR Name: JENNY TAYLOR Name: JENNY TAYLOR Insurance Providers Guarantor name: ROSY [employer]os[employer] Health Plan Information #: 1 Payer: MEDICARE Member Number: [id number] Policy Number: NA Group Number: [employer] Plan Information #: 2 Payer: [facility] Member Number: [id number] Policy Number: NA Group Number: MARIBELL Rodriguez
--- OUTSIDE RECORDS SUMMARY | 2025-01-09 04:21 | XMS_ITS | Continuity of Care Document ---
Author Organization [facility] Address [address] [place] [address] Phone Support Name Relationship Address Phone Génesis Negro Emergency Contact Unknown Regan Livingston DO Personal Relationship [address] [place] [address] Care Teams Patient Care Team Team Status: Active Member Role Status Ezequiel Livingston DO Primary Care Provider Active Patient Care Team Team Status: Active Member Role Status Ezequiel Livingston DO Primary Care Provide r, Attending Provider Active Start: January 04, 2025 Patient Care Team Team Status: Inactive Member Role Status Dates Regan Livingston DO Primary Care Provide r, Attending Provider Active Start: January 05, 2025 End: January 05, 2025 Chief Complaint and Reason for Visit Chief Complaint Admit Date pre surgical clearance January 05, 2025 2: 11pm Reason for Visit Admit Date Essential (primary) hypertension December 2:11pm Hypercholesterolemia January 05, 2025 2:11 pm IFG (impaired fasting glucose) January 05, 2025 2:11pm Mucopurulent chronic bronchitis December 2:11pm Nicotine addiction January 05, 2025 2:11p m Prostate cancer January 05, 2025 2:11p m Preop exam for internal medicine December 2:11pm Allergies, Adverse Reactions, Alerts No known allergies Social History Smoking Status Unknown if ever smoked Observation Status Observation Response Date of Response Patient Sex Male January 05, 2025 3 :07pm Assigned Sex Male January 28 Family History Relationship Condition Age at Onset Recorded Date/T mati mother Dementia Unknown Problems Active Problems Medical Problem Onset Date Status Comments Nicotine addiction Active Age start ed 20, PPD1, Age stopped 68.LDCT: w/o suspicious nodules - 10/2024 Screening PSA (prostate spec ific antigen) Active PSA: 2.29 - 04/2019, 6.78 - 11/2023, 6.6 - 06/2024 Screening for colon cancer Active Mucopurulent chronic bronchitis Active Prostate cancer Active MRI: no nodu les - 09/2024,TRUS/bx: [place] 3+4, grp II - 10/2024,Prostatectomy: Hypercholesterolemia Active Hyponatremia Active Hypothyroid Active IFG (impaired fasting glucose) Active Essential (primary) hypertension Active Carotid US: <50% B/L - 06/2024 Benign prostatic hyperplasia with lower urinary tract symptoms Active Medications Medication Status Dose Units Route Directions Qty Days St art Date Stop Date End Date Instructions Amlodipine 5 mg tablet Discont inued 5 MG PO Daily January 14, 2024 8:33am January 26, 2024 8:37a m Benazepril 20 mg tablet Discont inued 20 MG PO Daily January 14, 2024 8:33am 2023 8:39a m Levothyroxin e 100 mcg tablet Discont inued 100 MCG PO Daily January 14, 2024 8:33am 2023 8:39a m Baclofen 20 mg tablet Discont inued 20 MG PO Daily at bedtime January 15, 2024 8:31am January 24, 2024 1:16p m Baclofen 20 mg tablet Discont inued 0 .ROUTE .COMPLEX January 24, 2024 1:16pm Octob er 2023 6:57a m TAKE 1 TABLET BY MOUTH EVERYDAY AT BEDTIME Amlodipine 5 mg tablet Discont inued 0 .ROUTE .COMPLEX January 26, 2024 8:37am 2023 8:39a m TAKE 1 TABLET BY MOUTH EVERY DAY Amlodipine 5 mg tablet Discont inued 0 .ROUTE .COMPLEX March 28, 2024 8:38am 2023 4:45p m TAKE 1 TABLET EVERY DAY Benazepril 20 mg tablet Discont inued 0 .ROUTE .COMPLEX March 28, 2024 8:38am 2023 4:45p m TAKE 1 TABLET EVERY DAY Levothyroxin e 100 mcg tablet Discont inued 0 .ROUTE .COMPLEX March 28, 2024 8:39am 2023 4:45p m TAKE 1 TABLET EVERY DAY Baclofen 20 mg tablet Discont inued 0 .ROUTE .COMPLEX 90 Octobe r 2023 6:57am Novem lisa 2023 4:45p m TAKE 1 TABLET AT BEDTIME Levothyroxin e 112 mcg tablet Discont inued 112 MCG PO Daily 90 90 Decemb er 2023 3:15pm Decem lisa 2023 10:23 am Levothyroxin e 112 mcg tablet Discont inued 112 MCG PO Daily 90 90 Decemb er 2023 10:22a m Febru kelly 2024 12:09 am Benazepril 20 mg tablet Discont inued 20 MG PO Daily 90 Decemb er 2023 1:40pm Febru kelly 2024 12:09 am Benazepril 20 mg tablet Discont inued 20 MG PO Daily 90 90 Februa ry 2024 12:07a m January 05, 2025 2:42p m Levothyroxin e 112 mcg tablet Discont inued 112 MCG PO Daily Februa ry 2024 12:08a m January 05, 2025 2:42p m Amlodipine 5 mg tablet Discont inued 5 MG PO Daily Februa ry 2024 12:08a m January 05, 2025 2:42p m Baclofen 20 mg tablet Discont inued 20 MG PO Daily at bedtime October 28, 2023 1:00am October 28, 2023 2:05p m Baclofen 20 mg tablet Discont inued 20 MG PO Daily at bedtime 90 90 October 28, 2023 2:04pm January 15, 2024 8:31a m Amlodipine 5 mg tablet Discont inued 5 MG PO Daily December 24, 2023 12:00a m January 14, 2024 8:34a m Benazepril 20 mg tablet Discont inued 20 MG PO Daily December 24, 2023 12:00a m January 14, 2024 8:34a m Levothyroxin e 100 mcg tablet Discont inued 100 MCG PO Daily December 24, 2023 12:00a m January 14, 2024 8:34a m Levofloxacin 500 mg tablet Discont inued 500 MG PO Daily December 27, 2023 12:00a m Novem lisa 2023 4:39p m Amlodipine 5 mg tablet Discont inued 5 MG PO Daily Novemb er 2023 4:44pm Febru kelly 2024 12:09 am Baclofen 20 mg tablet Active 20 MG PO Daily Novemb er 2023 4:44pm Benazepril 20 mg tablet Discont inued 20 MG PO Daily Novemb er 2023 4:44pm Decem lisa 2023 1:40p m Levothyroxin e 100 mcg tablet Discont inued 100 MCG PO Daily Novemb er 2023 4:45pm Decem lisa 2023 3:15p m Amlodipine 5 mg tablet Discont inued 5 MG PO Daily January 05, 2025 2:40pm January 05, 2025 3:03p m Benazepril 20 mg tablet Discont inued 20 MG PO Daily 90 January 05, 2025 2:41pm January 05, 2025 3:03p m Levothyroxin e 125 mcg tablet Discont inued 125 MCG PO Daily January 05, 2025 2:41pm January 05, 2025 3:03p m Amlodipine 5 mg tablet Active 5 MG PO Daily 90 January 05, 2025 2:44pm Benazepril 20 mg tablet Active 20 MG PO Daily January 05, 2025 2:44pm Levothyroxin e 125 mcg tablet Active 125 MCG PO Daily 90 January 05, 2025 2:45pm Immunizations Immunization Event Date Not Given Reason Dose Number [employer] Lot Number Vaccine Information Statement (VIS) Detail COVID-19 mRNA, Comirnaty ([employer]) November 07, 2020 COVID-19 mRNA, Comirnaty ([employer]) November 29, 2020 COVID-19 mRNA, Comirnaty ([employer]) May 31, 2021 COVID-19 Comirnaty ([employer]) Tri-Sucrose + December 03, 2021 COVID-19 mRNA Bivalent Booster ([employer]) June 15, 2022 influenza, unspecified formulation June 07, 2021 influenza, unspecified formulation June 15, 2022 Relevant Diagnostic Tests and/or Laboratory Data Laboratory Results Test Date/Time Result Interpretation Reference Range Result Comment Performing Site Thyroid Stimulating Hormone January 04, 2025 3:24pm 14.21 mcIU/mL Above high normal 0.34-5.60 Vital Signs Vital Reading Result Reference Range Collection Date/Time Height 67 [in_i] January 05, 2025 2:17pm Weight 123.37 kg January 05, 2025 2:17pm Heart Rate 86 /min 60-100 January 05, 2025 2:17pm Respiratory rate 12 /min 12-24 January 05, 2 025 2:17pm BP Systolic 142 mm[Hg] 100-140 January 05, 2025 2:17pm BP Diastolic 78 mm[Hg] 60-100 January 05, 2025 2:17pm BMI (Body Mass Index) 42.5 kg/m2 January 052024 2:17pm Advance Directives Advance Directive Response Recorded Date/ Time Advance Directives No December 27, 2023 1:40pm Insurance Providers Guarantor Lenny Negro Address [address] [place] [address] Contact Info. Home Phone: Payer Policy Id Coverage Id Subscriber's Name Subscriber Id Effective Date Expiration Date Magdalene ROONEY [id number] Lenny Sonnyjuan carlos [id number] Medicare [id number] Lenny Goodsite [id number] [employer] [facility] PFFS [id number] Lenny Goodsite [id number] [facility] Medicare Advantage PFFS [id number] Lenny Dennisite [id number] [facility] Health Claims [id number] Lenny Sonnyite [id number] Encounters Encounter Location(s) Arrival/Admit Date Discharge/Depart Date Provider(s) Non[facility] January 04, 2025 3:24pm Regan Livingston DO Departed Physician/Prov ider Office [facility] January 05, 2025 2:11pm January 05, 2025 3:07pm Regan Livingston DO Recent Diagnosis Onset Date Admit Date Essential (primary) hypertension January 05, 2025 2:11pm Hypercholesterolemia January 05, 2 025 2:11pm IFG (impaired fasting glucose) M ay 2024 2:11pm Mucopurulent chronic bronchitis January 05, 2025 2:11pm Nicotine addiction January 05 2:11pm Prostate cancer January 05, 2025 2 :11pm Preop exam for internal medicine January 05, 2025 2:11pm Assessments Diagnosis Onset Date Resolution Status Admit Date Essential (primary) hypertension acu te January 05, 2025 2:11pm Hypercholesterolemia acute January 05, 2025 2:11pm IFG (impaired fasting glucose) acute January 05, 2025 2:11pm Mucopurulent chronic bronchitis acut e January 05, 2025 2:11pm Nicotine addiction acute January 052024 2:11pm Prostate cancer acute January 05, 2025 2:11pm Preop exam for internal medicine non eactive January 05, 2025 2:11pm Plan of Treatment Author Regan Livingston [facility] Authored January 05, 2025 2:54p m Planned radical prostatectom y Quit tobacco use last year. age started 20 ppd 1 1/2 age quit 67 Instructed on IS and cough/deep breathing exercises Stable, continue healthy diet Stable, continue low fat diet Stable, continue Benazepril and Amlodipine w/o interruption Stable, quit tobacco use last year. Instructed on IS and cough/deep breathing exercises I have seen and examined Mr. Negro for his preoperative evaluation. I have reviewed his perioperative medication management. - instructed to avoid ASA or any NSAIDs 7 days prior to surgery - instructed to continue Benazepril, despite increased risk of perioperative hypotension Future Tests Future scheduled test information is unavailable Pending Tests Pending diagnostic test information is unavailable Future Visits Future appointment information is unavailable Referrals to Other Providers Referral information is unavailable Future Procedures Procedure Name Ordered Date Scheduled Date Cortisol January 05, 2025 3:01pm Osmolality January 05, 2025 2:57pm Uric Acid January 05, 2025 2:57pm Osmolality, Urine January 05, 2025 2:57pm Future Medications Future medication information is unavailable Patient Instructions Patient instructions are unavailable
[2025-01-14 16:26] LABS: Anion Gap 13.7; BUN Creatinine Ratio 7.7; Calcium 9.2 mg/dL (8.5-10.1); Carbon Dioxide 25.7 mmol/L (21.0-32.0); Chloride 98 mmol/L (98-107); Estimated GFR (African America >60 (>=60 mL/min/1.73m^2); Estimated GFR (Non-African Ame >60 (>=60 mL/min/1.73m^2); Glucose 103 mg/dL (74-106); Potassium 4.4 mmol/L (3.5-5.1); Sodium 133 mmol/L (136-145)
== END 2025-01-14 15:42 | disposition home or self-care (01) ==
LOC: LAB 15:42
PROVIDERS: PCP Internal Medicine; Visit Provider Internal Medicine
DX: E87.1 Hypo-osmolality and hyponatremia (principal)
CPT/HCPCS: 36415; 80048

== ENCOUNTER 2025-01-28 15:07 | Outpatient (OUT) | payer MEDICARE, SELFPAY ==
[2025-01-28 16:13] LABS: Anion Gap 11.9; BUN Creatinine Ratio 8.4; Calcium 9.5 mg/dL (8.5-10.1); Carbon Dioxide 26.7 mmol/L (21.0-32.0); Chloride 95 mmol/L (98-107); Estimated GFR (African America >60 (>=60 mL/min/1.73m^2); Estimated GFR (Non-African Ame >60 (>=60 mL/min/1.73m^2); Glucose 121 mg/dL (74-106); Potassium 4.6 mmol/L (3.5-5.1); Sodium 129 mmol/L (136-145); Thyroid Stimulating Hormone 4.413 uIU/mL (0.358-3.740)
== END 2025-01-28 15:08 | disposition home or self-care (01) ==
LOC: LAB 15:11
PROVIDERS: PCP Internal Medicine; Visit Provider Internal Medicine
DX: E87.1 Hypo-osmolality and hyponatremia (principal); E03.8 Other specified hypothyroidism; E06.3 Autoimmune thyroiditis
CPT/HCPCS: 36415; 80048; 84443

== ENCOUNTER 2025-03-17 15:12 | Outpatient (OUT) | payer MEDICARE, SELFPAY ==
[2025-03-17 15:30] LABS: Hematocrit 40.5 % (42.0-54.0); Hemoglobin 13.9 g/dL (14.0-18.0); Immature Granulocytes Abs Auto 0.03 10^3/uL (0.00-0.03); Immature Granulocytes Pct Auto 0.5 % (0.0-0.5); Lymphocytes Absolute Auto 1.8 10^3/uL (1.2-3.8); Mean Corpuscular HGB Conc 34.3 g/dL (29.9-35.2); Mean Corpuscular Hemoglobin 31.1 pg (25.9-34.0); Mean Corpuscular Volume 90.6 fL (80.0-94.0); Platelet Count 354 10^3/uL (150-450); Red Blood Count 4.47 10^6/uL (4.70-6.10); White Blood Count 6.3 10^3/uL (4.0-11.0)
[2025-03-17 15:57] LABS: Anion Gap 16.3; Blood Urea Nitrogen 16.0 mg/dL (7.0-18.0); Calcium 9.3 mg/dL (8.5-10.1); Carbon Dioxide 23.4 mmol/L (21.0-32.0); Chloride 97 mmol/L (98-107); Estimated GFR (African America >60 (>=60 mL/min/1.73m^2); Estimated GFR (Non-African Ame 50 (>=60 mL/min/1.73m^2); Glucose 103 mg/dL (74-106); Potassium 4.7 mmol/L (3.5-5.1); Sodium 132 mmol/L (136-145); Thyroid Stimulating Hormone 5.736 uIU/mL (0.358-3.740)
== END 2025-03-17 15:13 | disposition home or self-care (01) ==
LOC: LAB 15:14
PROVIDERS: PCP Internal Medicine; Visit Provider Internal Medicine
DX: D62 Acute posthemorrhagic anemia (principal); E03.8 Other specified hypothyroidism; E06.3 Autoimmune thyroiditis; E87.1 Hypo-osmolality and hyponatremia
CPT/HCPCS: 36415; 80048; 84443; 85025

== ENCOUNTER 2025-06-23 15:44 | Outpatient (OUT) | payer MEDICARE, SELFPAY ==
--- OUTSIDE RECORDS SUMMARY | 2025-06-23 15:50 | XMS_ITS | CCD ---
Author Organization [facility] Care Team Providers Care Biomass Facilitator Name Role Phone REGAN BOTELLO Admitting Unavailable REGAN BOTELLO Attending Unavailable Regan Botello Unavailable REGAN BOTELLO Primary Care Physician Jeyson MEDINA Attending Unavailable REGAN BOTELLO Referring Unavailable Regan Botello DO Primary Care Provider Jeyson Medina MD Attending Provider Jeyson MEDINA Admitting Unavailable Jeyson MEDINA Attending Unavailable Jeyson MEDINA Attending Unavailable Jeyson MEDINA Attending Unavailable Jeyson MEDINA Attending Unavailable MD RENATA HAMILTON Attending Unav ailable MD RENATA HAMILTON Referring Unav ailable MD RENATA HAMILTON Admitting Unav ailable MD RENATA HAMILTON Attending Unav ailable JEYSONAMRENATA LOPEZ Referring Unavail able RENATA HAMILTON Attending Unavail able RENATA HAMILTON Admitting Unavail able MD RENATA HAMILTON Referring Unav ailable MD RENATA HAMILTON Attending Unav ailable SY-MD RENATA ORELLANA Admitting Unav ailable Ita Vera Attending Unavailable NKANSSUREKHA-AMANK, RENATA Referring Unavail able NKANSAH-AMANKRA, RENATA Admitting Unavail able NKANSSUREKHA-AMANK, RENATA Attending Unavail able NKZAYDA-AMRENATA LOPEZ Attending Unavail able Regan Botello Primary Care Unavailable Jeyson Medina Admitting Unavailable Jeyson Medina Attending Unavailable Regan Botello Primary Care Unavailable Nkzayda-AmankRenata kang Admitting Unavail Renata Khan Attending Unavail able Regan Botello DO Primary Care Provider [phone] Regan Botello DO Attending Provider Caterina Fajardo CMA Attending Provider Renata Smith MD Attending Provider MD RENATA HAMILTON Attending Unav ailable MD RENATA HAMILTON Attending Unav ailable MD RENATA HAMILTON Admitting Unav ailable MD RENATA HAMILTON Referring Unav ailable MD RENATA HAMILTON Attending Unav ailable MD RENATA HAMILTON Attending Unav ailable Medications Current Medications MedicationDrug Class(es)DatesSig (Normalized)Sig (Original)amLODIPine 5 mg oral tablet (20 sources)Dihydropyridine Calcium Channel BlockerStart: 07-15-2024 End: 30-93-4014lvtg 5 mg by mouth once dailyamlodipine 5 mg, Oral, Daily, Refills(s) 0 Start Date: 08/17/24 Status: Ordered Repeat number: 1Start: 03-28-2024 End: 36-61-9905Fbxxucndfy 5 mg tablet Discontinued 0 .ROUTE .COMPLEX March 28, 2024 8:38am July 15, 2024 4:45pm TAKE 1 TABLET EVERY DAYStart: 03-28-2024 End: 57-61-2083Zaciwgjdci 5 mg tablet Discontinued 0 .ROUTE .COMPLEX March 28, 2024 7:38am July 15, 2024 3:45pm TAKE 1 TABLET EVERY DAYStart: 01-26-2024 End: 54-47-3056Yrvosqmpca 5 mg tablet Discontinued 0 .ROUTE .COMPLEX March 28, 2024 8:38am July 15, 2024 4:45pm TAKE 1 TABLET EVERY DAYStart: 12-24-2023 End: 37-74-6813qxvj 1 tablet by mouth once dailyAmlodipine 5 mg tablet Discontinued 5 MG PO Daily January 14, 2024 8:33am January 26, 2024 8:37am aspirin 81 mg oral tablet (10 sources)Platelet Aggregation Inhibitor, Nonsteroidal Anti-inflammatory Drug Start: 00-75-5912pfmw 81 mg by mouth at bedtimeaspirin 81 mg, Oral, Bedtime, Refills(s) 0 Start Date: 08/17/24 Status: Ordered Repeat number: 1Baclofen (20 sources)gamma-Aminobutyric Acid-ergic AgonistStart: 19-48-2583eebhqbcz 20 mg, Refills(s) 0 Start Date: 08/17/24 Status: Ordered Repeat number: 1Start: 33-78-7806nbxtoaos 20 mg, Refills(s) 0 Start Date: 08/17/24 Status: Ordered Start: 46-47-3008cxar 1 tablet by mouth once dailyBaclofen 20 mg tablet Active 20 MG PO Daily July 15, 2024 4:44pm Complies with drug therapyStart: 01-24-2024 End: 47-53-1614Neuzfvbo 20 mg tablet Discontinued 0 .ROUTE .COMPLEX June 11, 2024 6:57am July 15, 2024 4:45pm TAKE 1 TABLET AT BEDTIMEStart: 10-28-2023 End: 65-78-9359cths 1 tablet by mouth once daily at bedtimeBaclofen 20 mg tablet Discontinued 20 MG PO Daily at bedtime October 28, 2023 2:04pm January 15, 2024 8:31amtake 1 tablet by mouth twice daily at mealtime as neededBaclofen 20 MG 1 tablet Administer without regards to meals as needed Orally Twice a day Activebenazepril hydrochloride 20 mg oral tablet (20 sources)Angiotensin Converting Enzyme InhibitorStart: 07-15-2024 End: 35-91-4993cnec 20 mg by mouth once dailybenazepril 20 mg, Oral, Daily, Refills(s) 0 Start Date: 08/17/24 Status: Ordered Repeat number: 1Start: 03-28-2024 End: 49-47-7785Nsyfftsafq 20 mg tablet Discontinued 0 .ROUTE .COMPLEX March 28, 2024 8:38am July 15, 2024 4:45pm TAKE 1 TABLET EVERY DAYStart: 12-24-2023 End: 58-29-2555ztbv 1 tablet by mouth once dailyBenazepril 20 mg tablet Discontinued 20 MG PO Daily January 14, 2024 8:33am [place] 3rd, 2024 8:39am cephalexin 500 mg oral capsule (5 sources)Cephalosporin AntibacterialStart: 61-68-1908vjgb 1 capsule by mouth once dailyKeflex 500 mg Cap 500 mg = 1 cap(s), Oral, Daily, # 7 cap(s), Refills(s) 0, Pharmacy: [facility]/pharmacy #[id number], 170, cm, 02/16/25 10:37:00 EDT, Height/Length Dosing, 90.3, kg, 02/16/25 10:37:00 EDT, WeightDosing Start Date: 02/16/25 Status: Ordered Quantity: 7.0 Unit: cap(s) Repeat number: 1Start: 02-04-2025 End: 01-17-0665qkax 1 capsule by mouth twice dailyCephalexin 500 mg capsule Active 500 MG PO Twice daily February 10, 2025 12:00am Complies with drug therapy ciprofloxacin 500 mg oral tablet (1 source)Quinolone AntimicrobialStart: 08-17-2024 End: 37-06-6456Eoxcs 500 mg Tab 500 mg = 1 tab(s), Oral, BID, start 3 days prior to procedure, X 7 day(s), # 14 tab(s), Refills(s) 0, Pharmacy: [facility]/pharmacy #[id number], 170, cm, 08/17/24 14:45:00 EST, Height/Length Dosing, 100.2, kg, 08/17/24 14:45:00 EST, Weight Dosing Start Date: 08/17/24 Stop Date: 08/24/24 Status: Ordereddocusate sodium 100 mg oral capsule (5 sources)Start: 56-05-6997jftc 1 capsule by mouth twice daily as needed Docusate Sodium 100 mg capsule Active 100 MG PO Twice daily as needed February 10, 2025 12:00am Complies with drug therapydoxycycline hyclate 100 mg oral capsule (2 sources)Tetracycline-class DrugStart: 46-12-1465audz 1 capsule by mouth twice dailyDoxycycline Hyclate 100 MG 1 capsule Orally twice daily for 5 days Sep, Activehyoscyamine sulfate 0.125 mg oral tablet (3 sources)Start: 88-39-4113Fgzmgqhgjci Sulfate 0.125 mg tablet Active 0.125 MG PO 2-4 TIMES PER DAY as needed February 10, 2025 12:00am Complies with drug therapyStart: 19-73-1303vptp 1 tablet by mouth twice daily as needed for muscle spasmsLevsin 0.125 mg SL Tab 0.125 mg = 1 tab(s), Oral, BID, PRN for spasm, # 40 tab(s), Refills(s) 0, Pharmacy: [facility]/pharmacy #[id number], 170, cm, 01/27/25 8:15:00 EDT, Height/Length Dosing, 97, kg, 01/27/25 8:15:00 EDT, Weight Dosing Start Date: 02/04/25 Status: Ordered Quantity: 40.0 Unit: tab(s) Repeat number: 1 levothyroxine sodium 0.125 mg oral tablet (20 sources)l-ThyroxineStart: 03-18-2025 End: 82-67-1220xfvo 1 tablet by mouth once dailyLevothyroxine 125 mcg tablet Active 125 MCG PO Daily 90 90 March 23, 2025 2:48pm Complies with drug therapy Start: 02-10-2025 End: 31-27-7726Pttanbutcjetw 125 mcg tablet Discontinued 100 MCG PO Daily February 10, 2025 3:08pm March 18, 2025 4:39pmStart: 01-05-2025 End: 08-08-8357cjvo 1 tablet by mouth once dailyLevothyroxine 125 mcg tablet Discontinued 125 MCG PO Daily 90 90 January 05, 2025 3:08pm February 10, 2025 3:11pm Start: 96-51-4727cdjv 100 ug by mouth at bedtimelevothyroxine 100 mcg, Oral, Bedtime, Refills(s) 0 Start Date: 08/17/24 Status: Ordered Repeat number: 1 Start: 03-96-0975thau 100 ug by mouth once dailylevothyroxine 100 mcg, Oral, Daily, Refills(s) 0 Start Date: 08/17/24 Status: Ordered Repeat number: 1Start: 41-98-4065nhpt 100 ug by mouth once dailylevothyroxine 100 mcg, Oral, Daily, Refills(s) 0 Start Date: 08/17/24 Status: OrderedStart: 07-30-2024 End: 78-78-9043bwas 1 tablet by mouth once dailyLevothyroxine 112 mcg tablet Discontinued 112 MCG PO Daily October 13, 2024 12:08am January 05, 2025 2:42pmStart: 07-15-2024 End: 11-09-9240bxvl 1 tablet by mouth once dailyLevothyroxine 100 mcg tablet Discontinued 100 MCG PO Daily July 15, 2024 4:45pm July 3:15pmStart: 03-28-2024 End: 48-02-8956Whwwnydvfshup 100 mcg tablet Discontinued 0 .ROUTE .COMPLEX March 28, 2024 8:39am July 15, 2024 4:45pm TAKE 1 TABLET EVERY DAYStart: 12-24-2023 End: 88-30-2999fsnp 1 tablet by mouth once dailyLevothyroxine 100 mcg tablet Discontinued 100 MCG PO Daily January 14, 2024 8:33am March 28, 2024 8:39amtake 1 tablet by mouth once daily in the morningLevothyroxine Sodium 100 MCG 1 tablet in the morning on an empty stomach Orally Once a day ActiveSodium Chloride (9 sources)Start: 66-30-8963pyfq 1 tablet by mouth once dailySodium Chloride 1 g oral tablet 1 tab, Oral, Daily, Refills(s) 0 Start Date: 02/03/25 Status: Ordered Repeat number: 1Start: 96-29-4213iebp 1 tablet by mouth once dailySodium Chloride 1,000 mg tablet,soluble Active 1000 MG PO Daily January 29, 2025 2:43pm Complies with drug therapyStart: 01-10-2025 End: 93-21-5224Niufhr Chloride 1,000 mg tablet,soluble Discontinued 1000 MG PO 1 to 4 times daily as needed for electrolyte replenishment January 15, 2025 12:29pm January 29, 2025 2:43pmtadalafil 10 mg oral tablet (1 source)Phosphodiesterase 5 InhibitorStart: 54-76-0860Comedz 10 mg Tab 10 mg = 1 tab(s), Oral, As Directed, PRN for erectile dysfunction, Do not exceed 20 mg within 24 hours., # 30 tab(s), Refills(s) 3, Pharmacy: [facility]/pharmacy #[id number], 170, cm, 03/25/25 14:19:00 EDT, Height/Length Dosing, 91.3, kg, 03/25/25 14:19:00 EDT, Weight Dosing Start Date: 03/25/25Status: Ordered Quantity: 30.0 Unit: tab(s) Repeat number: 4 Completed/Discontinued Medications MedicationDrug Class(es)DatesSig (Normalized)Sig (Original)levoFLOXacin 500 mg oral tablet (4 sources)Quinolone AntimicrobialStart: 12-27-2023 End: 42-59-0114pdxe 1 tablet by mouth once dailyLevofloxacin 500 mg tablet Discontinued 500 MG PO Daily December 27, 2023 12:00am July 15, 2024 4:39pmoxyCODONE hydrochloride 5 mg oral capsule (3 sources)Opioid AgonistStart: 02-04-2025 End: 63-45-9886bxmt 1 capsule by mouth every six hours as neededOxycodone 5 mg capsule Discontinued 5 MG PO Every 6 hours as needed February 10, 2025 12:00am February 10, 2025 3:45pm Problems Active Problems Problem ClassificationProblemDateDocumented DateEpisodic/ChronicAcute posthemorrhagic anemia (1 source)Acute posthemorrhagic anemia; Translations: [Acute posthemorrhagic anemia]08-95-9999JkknzugcThgzsk of prostate (17 sources)Malignant tumor of prostate; Translations: [Malignant neoplasm of prostate]Onset: [id number] on above:MRI: no nodules - 09/2024,TRUS/bx: [place] 3+4, grp II - 10/2024,Prostatectomy:MRI: no nodules - 09/2024,TRUS/bx: [place] 3+4, grp II - 10/2024,Prostatectomy: 02/03/25Cardiac dysrhythmias (1 source)Tachycardia; Translations: [Tachycardia, unspecified]07-15-2024 EpisodicChronic kidney disease (2 sources)Chronic kidney disease stage 3; Translations: [Chronic kidney disease, stage 3 unspecified]Onset: 72-13-2990ExvhwvwZgvdezh obstructive pulmonary disease and bronchiectasis (20 sources)Mucopurulent chronic bronchitis; Translations: [Mucopurulent chronic bronchitis]ChronicComplications of surgical procedures or medical care (1 source)Postoperative complication; Translations: [Other postprocedural complications of skin and subcutaneous tissue]Onset: 94-14-4877GplbuozlKtylzfsh mellitus without complication (10 sources)Impaired fasting glycemia; Translations: [Impaired fasting glucose] 51-56-3418GukxtbfuXbscwrkln of lipid metabolism (20 sources)Hypercholesterolemia; Translations: [Pure hypercholesterolemia, unspecified]Onset: 41-01-0627MqdbcbeHakhbfbun hypertension (20 sources)Essential hypertension; Translations: [Essential (primary) hypertension]Onset: 18-37-9543BxrmbogJwmitmu on above:Carotid US: <50% B/L - 06/2024Fluid and electrolyte disorders (6 sources)Hyponatremia; Translations: [Hypo-osmolality and hyponatremia]Onset: 767647-22-2465UgwdjxvkUlfmbqgstudvw symptoms and ill-defined conditions (1 source)Blood in urine; Translations: [Hematuria, unspecified]Onset: 64-67-9722JpyunqfuEdxaovycvtk of prostate (20 sources)Lower urinary tract symptoms due to benign prostatic hypertrophy; Translations: [Benign prostatic hyperplasia with lower urinary tract symptoms] Onset: 924640-18-0391UjlvzrhLaepgkrlavwv with complications and secondary hypertension (2 sources)Benign hypertensive renal disease; Translations: [Hypertensive chronic kidney disease, benign, withchronic kidney disease stage I through stage IV, or unspecified]Onset: 12-98-7687YspxcitHutqf male genital disorders (2 sources)Male erectile dysfunction, unspecified; Translations: [Erectile dysfunction]Onset: 61-23-0299SkglzptQvagk nutritional; endocrine; and metabolic disorders (1 source)Obesity; Translations: [Obesity, unspecified]Onset: 24-98-1855Lrnoffw Other nutritional; endocrine; and metabolic disorders (2 sources)Overweight; Translations: [Overweight]EpisodicOther screening for suspected conditions (not mental disorders or infectious disease) (20 sources)Screening for malignant neoplasm of respiratory tract; Translations: [Encounter for screening for malignant neoplasm of respiratory organs]Onset: [id number] on above:PSA: 2.29 - 04/2019, 6.78 - 11/2023, 6.6 - 4Residual codes; unclassified (5 sources)Tobacco user; Translations: [Tobacco use]EpisodicResidual codes; unclassified (1 source)Pelvic organ finding; Translations: [Acquired absence of other genital organ(s)]Onset: 12-19-3904JvfzyeyoXichewqg codes; unclassified (1 source)Acquired absence of other genital organ(s); Translations: [Acquired absence of other genital organ(s)]Onset: 69-11-8320SktrxzruQjhhnmdp codes; unclassified (2 sources)Urinary catheter in situ; Translations: [Presence of other specified devices]09-52-9293WqnjlsuaHosivoie codes; unclassified (1 source)Localized edema; Translations: [Localized edema]Onset: 03-25-2025 EpisodicResidual codes; unclassified (1 source)Edema of lower uakvyimaq03-95-2028CuksxlpcKjpmcnqzonk; intervertebral disc disorders; other back problems (11 sources)Lumbar spondylosis with myelopathy; Translations: [Other spondylosis with myelopathy, lumbar region]Onset: 79-94-7627CzxhoimPdrhbfojy-related disorders (20 sources)Nicotine dependence; Translations: [Nicotine dependence, cigarettes, uncomplicated]Onset: 82-13-0546QcqskbfCaoxtcl on above:Age started 20, PPD1, Age stopped 68Age started 20, PPD1, Age stopped 68.LDCT: w/o suspicious nodules 10/2024Systemic lupus erythematosus and connective tissue disorders (2 sources)Autoimmune disease; Translations: [Autoimmune disease, not elsewhere classified]Onset: 25-06-5503NmpuqubSgwlmpx disorders (20 sources)Autoimmune hypothyroidism; Translations: [Hypothyroidism, unspecified]Onset: 69-14-0872RihoukcXwpipqkmx cerebral ischemia (1 source)Amaurosis fugax of left eye; Translations: [Amaurosis fugax]12-27-2023 Chronic Past or Other Problems Problem ClassificationProblemDateDocumented DateEpisodic/ChronicAcute bronchitis (3 sources)Acute bronchitis; Translations: [Acute bronchitis, unspecified]Onset: 75-33-9392JeibducvLuycvsoe reactions (2 sources)Contact dermatitis; Translations: [Contact dermatitis and other eczema, due to unspecified cause]Onset: 00-76-0280BdmtpaijKuwtgrr and fatigue (2 sources)Malaise and fatigue; Translations: [Other malaise and fatigue]Onset: 17-67-0365BzpliaadZnclajbqjzddf gastroenteritis (2 sources)Non-infective enteritis and colitis; Translations: [Noninfective gastroenteritis and colitis, unspecified]Onset: 49-75-0228QqhgqubxBwxwgzjierx; intervertebral disc disorders; other back problems (2 sources)Low back pain; Translations: [Lumbago]Onset: 99-59-1847GtkomuleUjzud infection (2 sources)Viremia; Translations: [Unspecified viremia]Onset: 82-87-3721Epqgvmzj Results Test NameValueInterpretationReference RangeFacilityAmbulatory Visit Summaryon 82-37-2755Feizignjdc Visit SummaryAmbulatory Visit Summary ROSY TAYLOR :1955 Visit Date:03/25/2025 Ambulatory Visit Instructions Your Diagnosis Prostate cancer Lower extremity edema Erectile dysfunction Your Care Team Attending Physician - RENATA HAMILTON MD Primary Care Physician - REGAN BOTELLO DO This Is Your Medications List tadalafil (Cialis 10 mg Tab) Contact prescribing physician if questions or concerns amlodipine aspirin benazepril levothyroxine sodium chloride (Sodium Chloride 1 g oral tablet) [Image Removed: STOP]Stop taking these medications cephalexin (Keflex 500 mg Cap) docusate (Colace 100 mg Cap) Procedures Performed Prostatectomy (02/03/2025), Transrectal biopsy of prostate using ultrasound (US) guidance (11/17/2024), LASIK - laser assisted in situ keratomileusis. Discharge Vitals Heart Rate (Peripheral) 84 Blood Pressure 120/92 Height 170 cm Height 67 in Weight 91.3 kg Weight 201.282 lb BMI 31.59 What to do next Scheduled Follow-Up Appointments Saturday 10:15 AM EDT With: RENATA HAMILTON MD Where: [facility] [address] [address]- You Need to Schedule the Following Appointments Follow Up with RENATA HAMILTON MD, AV[place] When: Where: Medications What How Much When Instructions New tadalafil (Cialis 10 mg Tab) 1 Tablets By Mouth As Directed as needed for for erectile dysfunction Refills: 3 Do not exceed 20 mg within 24 hours. Pickup at [facility]/pharmacy #[id number] Unchanged amlodipine 5 Milligram By Mouth Every day Contact prescribing physician if questions or concerns Unchanged aspirin 81 Milligram By Mouth At bedtime Contact prescribing physician if questions or concerns Unchanged benazepril 20 Milligram By Mouth Every day Contact prescribing physician if questions or concerns Unchanged levothyroxine 100 Microgram By Mouth At bedtime Contact prescribing physician if questions or concerns Unchanged sodium chloride (Sodium Chloride 1 g oral tablet) 1 tab By Mouth Every day Contact prescribing physician if questions or concerns Pharmacy Information [facility]/pharmacy #[id number]: [address], [place] [id number] [phone] What How Much When Comments Stop Taking cephalexin (Keflex 500 mg Cap) 1 Capsules By Mouth Every day Stop Taking docusate (Colace 100 mg Cap) 1 Capsules By Mouth 2 times a day as needed for for constipation Allergies No Known Allergies Problems Ongoing - Any problem that you are currently receiving treatment for. At risk for falls BPH with urinary obstruction Elevated PSA Erectile dysfunction Hyperlipidemia Hypertension Hypothyroid Lower extremity edema Prostate cancer Patient Survey You may receive a survey via text or e-mail asking about your office visit. Please share your experience with us by completing your survey. We appreciate your feedback and thank you for choosing us for your care. Education Materials Edema Edema is an abnormal buildup of fluids in the body tissues and under the skin. Swelling of the legs, feet, and ankles is a common symptom that becomes more likely as you get older. Swelling is also common in looser tissues, such as around the eyes. Pressing on the area may make a temporary dent in your skin (pitting edema). This fluid may also accumulate in your lungs (pulmonary edema). There are many possible causes of edema. Eating too much salt (sodium) and being on your feet or sitting for a long time can cause edema in your legs, feet, and ankles. Common causes of edema include: ??? Certain medical conditions, such as heart failure, liver or kidney disease, and cancer. ??? Weak leg blood vessels. ??? An injury. ??? . ??? Medicines. ??? Being obese. ??? Low protein levels in the blood. Hot weather may make edema worse. Edema is usually painless. Your skin may look swollen or shiny. Follow these instructions at home: Medicines ??? Take jaib-vrh-tlqftyq and prescription medicines only as told by your health care provider. ??? Your health care provider may prescribe a medicine to help your body get rid of extra water (diuretic). Take this medicine if you are told to take it. Eating and drinking ??? Eat a low-salt (low-sodium) diet to reduce fluid as told by your health care provider. Sometimes, eating less salt may reduce swelling. ??? Depending on the cause of your swelling, you may need to limit how much fluid you drink (fluid restriction). General instructions ??? Raise (elevate) the injured area above the level of your heart while you are sitting or lying down. ??? Do not sit still or stand for long periods of time. ??? Do not wear tight clothing. Do not wear garters on your upper legs. ??? Exercise your legs to get your circulation going. This helps to move the fluid back into y (more content not included)...[facility]rem[facility] Duplex Bilateralon [id number] Lower Extremity Venous Duplex BilateralExam Date/Time: 03/25/2025 15:42 EDT Reason for Exam: Lower extremity edema, s/p prostatectomy;Edema Report IMPRESSION: NO DVT OF EITHER LOWER EXTREMITY IDENTIFIED. 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 EXAM: US Lower Extremity Venous Duplex Bilateral DATE: 03/25/2025 3:03 PM CLINICAL HISTORY: Edema, Lower extremity edema, s/p prostatectomy. Technologist Comments: Bilat leg pain. Pt complains of severe claudication COMPARISON: None available. TECHNIQUE: Rosenthal scale, compression, color and waveform Doppler analysis of the deep and superficial venous systems of both lower extremities was performed with augmentation. Spectral Doppler waveforms were evaluated for spontaneity, phasicity and appropriate augmentation. FINDINGS: There is no venous thrombus, abnormal masses, organized fluid collections, or other findings of concern identified within either lower extremity. Moderately extensive atherosclerotic disease with occlusion of the right superficial femoral artery is noted, with parvus tardus reconstitution of the right popliteal artery. Ordering Provider: RENATA HAMILTON FINAL REPORT Dictated: 03/25/2025 3:46 pm Alvarez Mcclendon MD Signed (Electronic Signature): 03/25/2025 3:46 pm Signed by: Alvarez Mcclendon MD Transcribed by: JULIET Technologist: [facility]/Clinic Noteon [id number] Office/Clinic NoteUrology Office/Clinic Note Chief Complaint fu HPI Staff 70 year old male here for 1 month F/U Previous DX: prostate cancer, BPH w/LUTS S/p RALP, PLND 02/03/25. Patient denies any dysuria or gross hematuria. Denies any flank or abdomen pain. burning, leaking alittle bit History of Present Illness Tests reviewed: reviewed UA. I have reviewed the previous health record information and history for this patient from Dr. Cruz I have reviewed and verified the staff [...] HPI. Physical Exam Vitals & Measurements HR: 84(Peripheral) BP: 120/92 HT: 170 cm HT: 67 in WT: 91.3 kg WT: 201.282 lb BMI: 31.59 General Appearance: alert, no distress, well nourished, well developed male. Assessment/Plan Prior Dr. Medina pt internally referred to discuss RALP here for f/up to RALP. Denies MT/stents or CVA. Not on AC. Denies hx of diabetes. Portions of this record may have been created with voice recognition artificial intelligence software, specifically Jambo, [employer] and or Dragon Ambient Experience. Substitutions may have occurred due to the inherent limitations of voice recognition and artificial intelligence software. 1. Prostate cancer (C61: Malignant neoplasm of prostate) PSA 03/20/19 - 2.29 12/18/23 - 6.78 07/08/24 - 6.60 & 13.8% No fam hx of prostate cancer. RAYMOND 08/17/24 - distant prostate. Prostate MRI 10/06/24 - Neg. Suggestive of prior prostatitis. Prostate volume 53 cc. S/p TRUS/bx 11/17/[address] Medina - [place] 7 (3+4), GG2 x2 cores. [place] 6 (3+3) x4 cores. 2 ANA cores and 1 suspicious core. Highest percent involvement 37%. Favorable intermediate risk. S/p RALP, PLND 02/03/25. Denies post op complications. Passing flatus and having bowel movements. Doing well with walking. Incisions healing well per physical exam. No signs of infection. Path ~[place] 7 (3+4), Grade Group 2. Bilateral lobe involved by tumor, 20-30%. Margins uninvolved by invasive carcinoma. Perineural invasion identified. PT2. Results discussed with pt. [facility] 02/07/25 with drainage from drain site and gross hematuria. XR cystogram 02/15/25 [facility] - contrast fills the bladder with relatively brisk leakage of contrast at the junction of the bladder and urethra into the prostate bed. Moore removed in office today without difficulty. Will extend ATB course to avoid infection. Moore removed IO 02/16/25. Referred to [facility] PFPT. UA today shows small leuks. IPSS 16 (15) Reports mild dysuria. Has been practicing Kegel exercises which have been helping. Not wearing depends or pads but puts a rag in his underwear. States incontinence has been improving. -Gradually increase activity -F/up in 3 mos w/ PSA 2. Lower extremity edema (R60.0: Localized edema) Bilateral lower extremity edema. Pt states his skin feels tight after he walks, has to sit to relieve the tightness. -Schedule STAT lower extremity US at [facility] 3. Erectile dysfunction (N52.9: Male erectile dysfunction, unspecified) DINESH 0 (4) Worsened s/p RALP which is expected. Discussed starting PDE5i. He is interested. Counseled pt on possible SEs. -Start Cialis 10 mg prn, do not exceed 20 mg within 24 hours Patient is status post robotic assisted laparoscopic radical prostatectomy approximately 1-1/2 months ago. Patient is doing well. He states that he is dry and is no longer wearing diapers. Denies having any erections. Will start patient on Cialis 10 mg as needed. Patient is also today complaining of calf tenderness. He will follow-up in 3 months with PSA before hand. We will also order a stat duplex ultrasound of his legs to rule out any DVT. Follow-up With When Contact Information RENATA HAMILTON MD, URL Additional Instructions: 3 mos w/ PSA Patient Education Edema I, Whit Tomas, personally scribed for Dr. Cruz on 03/25/2025 14:44:59. . Documentation recorded by the scribe, Whit Tomas, accurately reflects the services(s) I performed and decisions made by me. Authenticated by Dr. Jeyson Orellana on 03/25/2025 15:07:43. Problem List/Past Medical History Ongoing At risk for falls BPH with urinary obstruction Elevated PSA Erectile dysfunction H (more content not included)...[facility] HospitalComment on above:Result Comment: Electronically Signed By: RENATA HAMILTON MD\.br\Date and Time Signed: 03/25/25 15:09 EDT\.br\Electronically Co- Signed By: Whit Tomas\.br\Date and Time Co-Signed: 03/25/25 14:45 EDT Basophils Auto (Bld) [#/Vol]Ordered By: Regan Botello on 02-80-3765Brwiphnzl (Bld) [#/Vol]0.0 10 3/uL0.0-0.1FGalion Community HospitalBasophils/100 WBC Auto (Bld)Ordered By: Regan Botello on 14-65-1114Qsrznqqsy/100 WBC (Bld)0.6 %0.2-2.0[facility] FoundationEosinophils/100 WBC Auto (Bld)Ordered By: Regan Botello on 38-65-6424Xqapebguiay/100 WBC (Bld)2.2 %0.9-7.0[facility] FoundationErythrocyte distribution width Auto (RBC) [Ratio]Ordered By: Regan Botello on 96-38-7327Rpizqawnaid distribution width (RBC) [Ratio]11.9 %11.0-15.0[facility] FoundationEstimated glomerular filtration rate (GFR) non- AmericanOrdered By: Regan Botello on 44-80-1920EYN/1.73 sq M.predicted among non-blacks MDRD (S/P/Bld) [Vol rate/Area]50 mL/min/{1.73_m2} Low>=60 mL/min/1.73m [address] [place], [place] [address]Hematocrit Auto (Bld) [Volume fraction]Ordered By: Regan Botello on 47-01-3481Wnfemkhuii (Bld) [Volume fraction]40.5 %Low42.0-54.0[facility] FoundationHemoglobin [Mass/volume] in BloodOrdered By: Regan Botello on 50-30-5678Luyhbkarml (Bld) [Mass/Vol]13.9 g/dLLow14.0-18.0[facility] FoundationLaboratory - Chemistry and Chemistry - challengeOrdered By: Regan Botello on 03-17-2025 Calcium [Mass/Vol]9.3 mg/dL8.5-10.1FGalion Community HospitalChloride [Moles/Vol]97 mmol/BMoq08-975BlckmctmzCleveland Clinic FoundationCO2 [Moles/Vol] 23.4 mmol/L21.0-32.0[facility] FoundationCreatinine [Mass/Vol]1.42 mg/dLHigh0.70-1.30[facility] FoundationGFR/1.73 sq M.predicted MDRD (S/P/Bld) [Vol rate/Area]mL/min/{1.73_m2}>=60 mL/min/1.73m [address] [place], [place] [address]Glucose [Mass/Vol]103 mg/zY24-687VfoctvkiqCleveland Clinic Foundation Potassium [Moles/Vol]4.7 mmol/L3.5-5.1FCleveland Clinic Union Hospitalodium [Moles/Vol]132 mmol/YMcd167-861NoxqpbotgCleveland Clinic FoundationTSH Qn5.736 m[IU]/LHigh0.358-3.740[facility] FoundationUrea nitrogen [Mass/Vol] 16.0 mg/dL7.0-18.0[facility] FoundationUrea nitrogen/Creatinine [Mass ratio]11.3 mg/mgCleveland Clinic FoundationLaboratory - Hematology and Cell countsOrdered By: Regan Botello on 41-88-8045Mrcrhpuj granulocytes/100 WBC (Bld)0.5 %0.0-0.5FGalion Community HospitalLeukocytes [#/volume] corrected for nucleated erythrocytes in Blood by Automated counOrdered By: Regan Botello on 60-25-1270YEZ corrected for nucl RBC Auto (Bld) [#/Vol]6.3 10 3/uL4.0-11.0[facility] FoundationLymphocytes Auto (Bld) [#/Vol] Ordered By: Regan Botello on 17-17-5626Svqcxiabhox (Bld) [#/Vol]1.8 10 3/uL 1.2-3.8[facility] FoundationLymphocytes/100 WBC Auto (Bld)Ordered By: Regan Botello on 23-53-1837Hcuwixzpaqy/100 WBC (Bld)27.6 %20.5-60.0[facility] Auto (RBC) [Entitic mass]Ordered By: Regan Botello on 32-51-3244BVJ (RBC) [Entitic mass]31.1 pg25.9-34.0[facility] FoundationMCHC Auto (RBC) [Mass/Vol]Ordered By: Regan Botello on 34-28-1763OXIY (RBC) [Mass/Vol]34.3 g/dL29.9-35.2FGalion Community HospitalMCV Auto (RBC) [Entitic vol]Ordered By: Regan Botello on 69-45-3568NTA (RBC) [Entitic vol]90.6 fL80.0-94.0[facility] FoundationMonocytes Auto (Bld) [#/Vol]Ordered By: Regan Botello on 14-56-7473Fvxniepyh (Bld) [#/Vol]0.9 10 3/uL High0.3-0.8[facility] FoundationMonocytes/100 WBC Auto (Bld)Ordered By: Regan Botello on 26-12-6824Ysdjmcpfb/100 WBC (Bld)13.6 %High1.7-12.0 [facility] FoundationNeutrophils Auto (Bld) [#/Vol]Ordered By: Regan Botello on 41-01-2933Mgrmnrugsnb (Bld) [#/Vol]3.5 10 3/uL1.4-6.5FGalion Community HospitalNeutrophils/100 WBC Auto (Bld)Ordered By: Regan Botello on 53-35-2548Nmpvmbrucwi/100 WBC (Bld)55.5 %43.0-75.0[facility] FoundationNo Panel InformationOrdered By: Regan Botello on 38-98-7491Piisslhomrd # (Auto)0.1 10 3/uL0.0-0.7FGalion Community HospitalImmature Granulocyte # (Auto)0.03 10 3/uL0.00-0.03[facility] FoundationPlatelet mean volume Auto (Bld) [Entitic vol]Ordered By: Regan Botello on 20-71-0190Rurincnx mean volume (Bld) [Entitic vol]8.5 fLLow9.5-13.5FGalion Community Hospital Platelets Auto (Bld) [#/Vol]Ordered By: Regan Botello on 43-14-9635Hbvwoonap (Bld) [#/Vol]354 10 3/oD550-699FutcgezjaCleveland Clinic FoundationRBC Auto (Bld) [#/Vol]Ordered By: Regan Botello on 30-74-5179VPH (Bld) [#/Vol]4.47 10 6/uLLow 4.70-6.10Access Hospital Daytonerum or plasma anion gap determinationOrdered By: Regan Botello on 61-06-1986Xazef gap [Moles/Vol]16.3 mmol/LFGalion Community HospitalAmbulatory Visit Summaryon 02-16-2025 Ambulatory Visit SummaryAmbulatory Visit Summary ROSY TAYLOR :1955 Visit Date:02/16/2025 Ambulatory Visit Instructions Your Diagnosis Prostate cancer BPH with urinary obstruction Your Care Team Attending Physician - LETY RICHMOND, RENATA Primary Care Physician - REGAN BOTELLO DO This Is Your Medications List docusate (Colace 100 mg Cap) hyoscyamine (Levsin 0.125 mg SL Tab) Contact prescribing physician if questions or concerns amlodipine aspirin benazepril levothyroxine sodium chloride (Sodium Chloride 1 g oral tablet) Procedures Performed Prostatectomy (02/03/2025), Transrectal biopsy of prostate using ultrasound (US) guidance (11/17/2024), LASIK - laser assisted in situ keratomileusis. Discharge Vitals Heart Rate (Peripheral) 89 Blood Pressure 165/78 Height 170 cm Height 67 in Weight 90.3 kg Weight 199.077 lb BMI 31.25 What to do next You Need to Schedule the Following Appointments Follow Up with LETY RICHMOND, AVIS YANEZ When: Where: Someone Will Contact You Regarding These Appointments [facility] External Ambulatory Referral, Physical Therapy, PFPT at [facility], 02/16/25 10:54:00 EDT, Prostate cancer Medications What How Much When Instructions Unchanged docusate (Colace 100 mg Cap) 1 Capsules By Mouth 2 times a day as needed for for constipation Unchanged hyoscyamine (Levsin 0.125 mg SL Tab) 1 Tablets By Mouth 2 times a day as needed for for spasm Unchanged amlodipine 5 Milligram By Mouth Every day Contact prescribing physician if questions or concerns Unchanged aspirin 81 Milligram By Mouth At bedtime Contact prescribing physician if questions or concerns Unchanged benazepril 20 Milligram By Mouth Every day Contact prescribing physician if questions or concerns Unchanged levothyroxine 100 Microgram By Mouth At bedtime Contact prescribing physician if questions or concerns Unchanged sodium chloride (Sodium Chloride 1 g oral tablet) 1 tab By Mouth Every day Contact prescribing physician [...] choosing us for your care. Education Materials Kegel Exercises Kegel exercises can help strengthen your pelvic floor muscles. The pelvic floor is a group of muscles that support your rectum, small intestine, and bladder. In females, pelvic floor muscles also help support the uterus. These muscles help you control the flow of urine and stool (feces). Kegel exercises are painless and simple. They do not require any equipment. Your provider may suggest Kegel exercises to: ??? Improve bladder and bowel control. ??? Improve sexual response. ??? Improve weak pelvic floor muscles after surgery to remove the uterus (hysterectomy) or after , in females. ??? Improve weak pelvic floor muscles after prostate gland removal or surgery, in males. Kegel exercises involve squeezing your pelvic floor muscles. These are the same muscles you squeezewhen you try to stop the flow of urine or keep from passing gas. The exercises can be done while sitting, standing, or lying down, but it is best to vary your position. Ask your health care provider which exercises are safe for you. Do exercises exactly as told by your health care provider and adjust them as directed. Do not begin these exercises until told by your health care provider. Exercises How to do Kegel exercises: 1. Squeeze your pelvic floor muscles tight. You should feel a tight lift in your rectal area. If you are a female, you should also feel a tightness in your vaginal area. Keep your stomach, buttocks, andlegs relaxed. 2. Hold the muscles tight for up to 10 seconds. 3. Breathe normally. 4. Relax your muscles for up to 10 seconds. 5. Repeat as told by your health care provider. Repeat this exercise daily as told by your health care provider. Continue to do this exercise for at least 4???6 weeks, or for as long as told by your health care provider. You may be referred to a physical therapist who can help you learn more about how to do Kegel exercises. Depending on your condition, your health care provider may recommend: ??? Varying how long you squeeze your muscles. ??? Doing several sets of exercises every day. ??? Doing exercises for several weeks. ??? Making Kegel exercises a part of your regular exercise routine. This information is not intended to replace advice given to you by your health care provider. Make sure you discuss any questions you have with your health care provid (more content not included)...[facility] Office/Clinic Noteon [id number] Office/Clinic NoteUrology Office/Clinic Note Chief Complaint fu HPI Staff 70 year old male here for F/U to RALP 02/03/25 Previous DX: prostate cancer, BPH w/LUTS Prostate MRI 10/06/24 S/p TRUS/bx 11/17/24 Denies post op complications. Still has Moore. History of Present Illness Tests reviewed: reviewed path and XR cystogram. I have reviewed the previous health record information and history for this patient from Dr. Cruz I have reviewed and verified the staff [...] HPI. Physical Exam Vitals & Measurements HR: 89(Peripheral) BP: 165/78 HT: 67 in HT: 170 cm WT: 90.3 kg WT: 199.077 lb BMI: 31.25 General Appearance: alert, no distress, well nourished, well developed male. Assessment/Plan Prior Dr. Medina pt internally referred to discuss RALP. Pt accompanied by daughter in law. Denies MT/stents or CVA. Not on AC. Denies hx of diabetes. Prior DINESH 4 - no current treatment. Portions of this record may have been created with voice recognition artificial intelligence software, specifically [employer], [employer] and or [employer]. Substitutions may have occurred due to the inherent limitations of voice recognition and artificial intelligence software. 1. Prostate cancer (C61: Malignant neoplasm of prostate) PSA 03/20/19 - 2.29 12/18/23 - 6.78 07/08/24 - 6.60 & 13.8% No fam hx of prostate cancer. RAYMOND 08/17/24 - distant prostate. Prostate MRI 10/06/24 - Neg. Suggestive of prior prostatitis. Prostate volume 53 cc. S/p TRUS/bx 11/17/[address] Medina - Dieter 7 (3+4), GG2 x2 cores. Dieter 6 (3+3) x4 cores. 2 ANA cores and 1 suspicious core. Highest percent involvement 37%. Favorable intermediate risk. S/p RALP, PLND 02/03/25. Denies post op complications. Passing flatus and having bowel movements. Doing well with walking. Incisions healing well per physical exam. No signs of infection. Path ~[place] 7 (3+4), Grade Group 2. Bilateral lobe involved by tumor, 20-30%. Margins uninvolved by invasive carcinoma. Perineural invasion identified. PT2. Results discussed with pt. [facility] ER 02/07/25 with drainage from drain site and gross hematuria. XR cystogram 02/15/25 [facility] - contrast fills the bladder with relatively brisk leakage of contrast at the junction of the bladder and urethra into the prostate bed. Moore removed in office today without difficulty. Will extend ATB course to avoid infection. Stressed the importance of kegel exercises. Recommended referral to PFPT, pt favors [facility]. -Refer to [facility] PFPT, start Kegel exercises now -Start Keflex 500 mg qd x 7 days -Cont weight restrictions -PSA in 3 mos, order placed today -F/up in 1 month or sooner if needed 2. BPH with urinary obstruction (N40.1: Benign prostatic hyperplasia with lower urinary tract symptoms) No urine sample given today. IPSS 15. Not taking any BPH meds. C/o stream intermittency, weak stream and nocturia Status post. Patient is doing well, passing flatus, ambulating, pain is well- controlled. Moore catheter was removed today as no significant leakage noted on cystogram. We did discuss that we will follow-up with the patient in 1 month. Risk, benefits, alternatives were discussed with him. He referral to pelvic floor physical therapy was sent as well 2. Follow-up With When Contact Information LETY RICHMOND, RENATA, URL Additional Instructions: 1 mos Patient Education Kegel Exercises Tasha, Whit Tomas, personally scribed for Dr. Cruz on 02/16/2025 11:02:24. . Documentation recorded by the Whit montero, accurately reflects the services(s) I performed and decisions made by me. Authenticated by Dr. Jeyson Orellana on 02/16/2025 12:14:07. Problem List/Past Medical History Ongoing At risk for falls BPH with urinary obstruction Elevated PSA Hyperlipidemia Hypertension Hypothyroid Prostate cancer Historical No qualifying data Procedure/Surgical History Prostatectomy (02/03/2025), Transrectal biopsy of prostate using ultrasound (US) guidance (11/17/2024), LASIK - laser assisted in situ keratomileusis. Medications amlodipine, 5 mg, Oral, Daily aspirin, 81 mg, Oral, Bedtime benazepril, 20 mg, Oral, Daily C (more content not included)...[facility] HospitalComment on above:Result Comment: Electronically Signed By: RENATA HAMILTON MD\.br\Date and Time Signed: 02/16/25 12:14 EDT\.br\Electronically Co- Signed By: Whit Tomas\.br\Date and Time Co-Signed: 02/16/25 11:02 EDT [place] cystogramon [id number] [facility]MEM[facility] [place] [address] Fluoroscopy Report Signed Patient: Rosy Taylor MR#: [id number] : 1955 Acct:[id number] Age/Sex: 70 / M ADM Date: 02/15/25 Loc: XD Room: Type: [facility] Attending Dr: Renata Hamilton MD Copies to: Renata Hamilton MD Ordering Provider: Renata Hamilton MD Date of Service: 02/15/25 FL/FL cystogram: Z90.79 [place] cystogram 02/15/2025 8:37 AM SIGNS AND SYMPTOMS: Prostatectomy, evaluate for leak PROTOCOL: Concrete Laborer radiograph the pelvis was obtained. Fluoroscopic images of the pelvis were obtained during contrast administration into the bladder through the Moore catheter. COMPARISON: None FINDINGS: Atherosclerotic changes are noted in the pelvis with degenerative changes of the bilateral hips. Contrast fills the bladder with relatively brisk leakage of contrast at the junction of the bladder and urethra into the prostate bed. Cumulative Air Kerma in mGy: 11.44 mGy FL/FL cystogram IMPRESSION: Contrast fills the bladder with relatively brisk leakage of contrast at the junction of the bladder and urethra into the prostate bed. Impression dictated by: Reji Monaco M.D. 02/15/2025 9:58 AM Dictation Location: [place] [address] Transcribed By: [facility] 02/15/25 0958 Dictated By: Reji Monaco II, MD 02/15/25 0957 Signed By: 02/15/25 0958[facility] Physician GroupSurgical Pathology Reporton [id number] [address]- Surgical Pathology Report Collected Date/Time: 02/03/2025 12:56 EDT Pathologist: Willy RICHMOND PhD, Robson aKur Received Date/Time: 02/04/2025 07:38 EDT LETY RICHMOND, LETY RICHMOND, RENATA YANEZ 07 Surgical Pathology Report - 02/11/2025 11:04 EDT - Auth (Verified) Final Diagnosis A: PROSTATE, PROSTATECTOMY: - ACINAR ADENOCARCINOMA OF PROSTATE, DIETER SCORE 3+4=7, BILATERAL AND CONFINED IN PROSTATE (APPROXIMATELY 20-30% OF TISSUE INVOLVEMENT). - PERINEURAL INVASION IDENTIFIED. - SURGICAL MARGIN NEGATIVE FOR MALIGNANCY. B: RIGHT PELVIC LYMPH NODE, EXCISION: - BENIGN LYMPH NODES (0/4). C: LEFT PELVIC LYMPH NODE, EXCISION: - BENIGN LYMPH NODE (0/2). (Electronic Signature) Robson Aguilera MD PhD 02/11/2025 11:04 Diagnosis Comment B and C: AE1/AE3 reviewed, consistent with rendered diagnosis. TUMOR SUMMARY: PROCEDURE: Radical prostatectomy LYMPH NODE SAMPLING: Bilateral pelvic lymph nodes HISTOLOGIC TYPE: Adenocarcinoma (conventional, not otherwise specified) HISTOLOGIC DIETER'S GRADE: 3 + 4 =7, grade group 2 TUMOR QUANTITATION: bilateral lobe involved by tumor, approximately 20-30% Tumor size: Greatest dimension 13 mm EXTRAPROSTATIC EXTENSION: Not identified SEMINAL VESICLE INVASION: Not identified MARGINS: Margins uninvolved by invasive carcinoma Margins examined: apex, base, peripheral and seminal vesicle margin TREATMENT EFFECT ON CARCINOMA: NA LYMPH-VASCULAR INVASION: Not identified PERINEURAL INVASION: Identified PRIMARY TUMOR (pT): PT2: Bilateral disease, confined in prostate REGIONAL LYMPH NODES (pN): PN0 Total lymph node examined: 6 Location of the lymph nodes: Bilateral pelvic Number of metastatic lymph nodes identified: 0 Size of largest metastatic focus: NA Surgical Pathology Report Collected Date/Time: 02/03/2025 12:56 EDT Pathologist: Willy RICHMOND PhD, Robson Kaur Received Date/Time: 02/04/2025 07:38 EDT LETY RICHMOND, LETY RICHMOND, RENATA YANEZ Diagnosis Comment Extracapsular extension: NA DISTANT METASTASIS (pM): Not applicable ADDITIONAL FINDINGS: High-grade prostatic intraepithelial neoplasia (PIN) ANCILLARY STUDIES: Unknown Clinical Information Prostate cancer Pre-Op Diagnosis: Prostate cancer Procedure: Robot assisted prostatectomy Post-Op Diagnosis: Prostate cancer Specimen(s) Received A.prostate B.Right pelvic lymph node C.Left pelvic lymph node Gross Description A: Designated as prostate, robotic-assisted prostatectomy. Received is a pink nodular structure the outer surface of which is partially smooth, glistening; a large part of it, though, is irregular and shaggy particularly on the anterior surface. Posteriorly attached there are two yellowish structures, those on the right extending to a length of 2.2 cm, remaining dimensions of 2.5 and 0.6 cm. On the left the structures are similar but partially fragmented, length 2.5 cm, transverse dimension 2 cm, thickness of 0.4 to 0.5 cm. Remaining nodular , this along the urethral axis, ranges from 3 to 4.5 cm in maximum dimension, transverse dimension at the bladder base roughly 5.5 cm, anteriorly 3 cm, and has a maximum AP dimension of 4.3 cm. It has a total weight of 58 g. The surface of the specimen is secondarily inked, the mid posterior line in black, the right side of the specimen in blue, the left in green. Serially sectioning perpendicular to the urethral axis, the parenchyma is solid becerra/pink and focally radar mechanic becerra. Peripherally it has a more smooth appearance. Centrally there are numerous areas of variably sized nodularity. Nodularity ranges from 1.3 to less than 1 to 2 mm, toward the central periurethral portion of the specimen. Massage Therapy Instructor tissue is submitted. The periurethral aspect and wider base of the specimen are perpendicular to the inked surface, the apical periurethral margins in cassettes 1 and 2 (1 right side, 2 left), the bladder base in 27 and 28, seminal vesicles in cassettes 29 and 30. The remainder of the specimen is representatively sectioned sequentially from the apex to bladder base, right cassettes odd numbers, left cassettes even numbers. Total number of cassettes for the case is 30, this representing greater than 90% of the specimen's volume. B: Designated as right pelvic lymph node. Received is an irregular lobulated segment of pliable yellowish soft tissue which measures 5 x 3 x 0.8 cm, is composed of pliable yellowish soft tissue with at least four areas of becerra nodularity. These areas of nodularity range from 0.6 up to 1.2 cm in maximum dimension. The larger are each bisected and totally submitted in cassettes 2 and 3 , intact in cassette #4. Additionally present in the container within the adipose tissue there are two smaller areas of more ill-defined nodularity, these no greater than 0.5 to 0.7 cm (more content not included)...[facility] HospitalComment on above:Performed By: #### [id number] #### [facility] [address] [place] [id number] Clinical Summaryon [id number] Clinical SummaryED Clinical Summary [address] [address] ED Clinical Summary Person Information Name: ROSY TAYLOR/[facility] Age: 70 Years : 1955 Sex: Male Language: Wolof PCP: REGAN BOTELLO DO Marital Status: Single Visit Id: Visit Reason: Medical problem - minor; Post surgical problem; just had prostate removal surgery, drainage site is leakng Speciality: Acuity: 3 Enc Type: Emergency Med Service: Emergency Arrival: 02/07/2025 16:36:09 Discharge: 02/07/2025 17:56:59 LOS: 000 01:20 Checkin: 02/07/2025 16:36:09 Checkout: 02/07/2025 17:56:59 Dispo Type: Home (Routine DC) EVENTS: Event Name Event Status Request Date/Time Start Date/Time Complete Date/Time Arrive Complete 02/07/2025 16:36:09 02/07/2025 16:36:09 02/07/2025 16:36:09 Document Home Meds Request 02/07/2025 16:36:09 Triage Complete 02/07/2025 16:36:09 02/07/2025 16:47:25 02/07/2025 16:47:25 Bed Assign Complete 02/07/2025 16:39:56 02/07/2025 16:39:56 02/07/2025 16:39:56 Dr Exam Complete 02/07/2025 16:39:56 02/07/2025 17:03:34 02/07/2025 17:03:34 RN Exam Complete 02/07/2025 16:39:56 02/07/2025 17:16:08 02/07/2025 17:16:08 Registration Complete 02/07/2025 16:41:08 02/07/2025 16:41:08 02/07/2025 16:41:08 Reg Complete Request 02/07/2025 16:41:08 Reg Bed Request Complete 02/07/2025 16:41:08 02/07/2025 16:41:08 02/07/2025 16:41:08 Registration Request 02/07/2025 17:03:34 Discharge Complete 02/07/2025 17:51:04 02/07/2025 17:57:04 02/07/2025 17:57:04 Transfer Complete 02/07/2025 17:57:04 02/07/2025 17:57:04 02/07/2025 17:57:04 ADDRESS: [address] [place] [id number] PHYS DOC NOTES: MEDICAL INFORMATION: Prescriptions Given: Medications to Continue with No Changes Other Medications amlodipine 5 Milligram By Mouth every day. aspirin 81 Milligram By Mouth at bedtime. benazepril 20 Milligram By Mouth every day. cephalexin (Keflex 500 mg Cap) 1 Capsules By Mouth 2 times a day for 10 Days. Refills: 0. docusate (Colace 100 mg Cap) 1 Capsules By Mouth 2 times a day as needed for constipation. Refills:0. hyoscyamine (Levsin 0.125 mg SL Tab) 1 Tablets By Mouth 2 times a day as needed for spasm. Refills:0. levothyroxine 100 Microgram By Mouth at bedtime. oxycodone (oxyCODONE 5 mg Cap) 1 Capsules By Mouth every 6 hours as needed for pain for 5 Days. Refills: 0. sodium chloride (Sodium Chloride 1 g oral tablet) 1 tab By Mouth every day. PATIENT EDUCATION INFORMATION: Instructions: Hematuria, Adult Follow up: With: Address: When: RENATA HAMILTON [address] [place] [address] [phone] Business (1) In 3 days 02/10/2025 Comments: Keep the dressing and the pressure dressing over the wound as discussed and as applied in the emergency room. Call the office of . Return to the emergency room if the wound continues to drain or any new symptoms or concerns. With: Address: When: REGAN BOTELLO [address] [place] [address] [employer] (1) In 3 days DIAGNOSIS: 1:Postoperative complication of skin involving drainage from surgical wound; 2:HematuriaNormalFisher Sand Point Medical CenterED Note-Physicianon [id number] Note-PhysicianED Note-Physician Basic Information Time Seen: Ita Vera M.D. 02/07/2025 17:03 Chief Complaint Pt states that he had prostate removal surgery on Saturday. Today around 2pm started leaking around the site on his abdomen. States unable to get it to stop. Denies any pain. History of Present Illness The patient is a 70-year-old male with past medical history of adenocarcinoma of the prostate status post prostatectomy on Saturday by Dr. Cruz who presented to the emergency room with drainage from the site where the JULIETA drain was and blood in urine. The patient states he had a JULIETA drain on the left side of the abdomen and that was removed on . The patient's son states that initially his urine was clear and now is bloody. The patient denies any abdominal pain. He denies anyfever denies any chills. The patient denies any nausea vomiting. The patient denies any other associated symptoms. Review of Systems Additional ROS info: Except as noted in the above Review of Systems and in the History of Present Illness all other systems have been reviewed and are negative or noncontributory. Physical Exam Vitals & Measurements T: 36.5 ???C(Oral) HR: 83(Peripheral) RR: 16 BP: 159/89 SpO2: 98% HT: 170 cm WT: 97 kg BMI: 33.56 General: alert, no acute distress Skin: warm, dry Head: no trauma, normocephalic Neck: Trachea midline Eye: normal conjunctiva, sclera clear Cardiovascular: regular rate and rhythm Respiratory: Lungs CTA, respirations non labored, breath sounds equal Gastrointestinal: soft, non distended, no tenderness, no guarding, ecchymosis throughout the abdominal wall. The surgical sites with no signs of infection and no drainage. The JULIETA drain site with serosanguineous drainage. No erythema around it. Extremities: no deformity, no trauma Neurological: Alert and oriented, speech normal, no focal neuro deficits Psychiatric: cooperative, affect appropriate for age Medical Decision Making MEDICAL DECISION MAKING Number and Complexity of Problems Differential Diagnosis: [] [facility] Data External documents reviewed: [] My EKG interpretation: [] My CT interpretation: [] My X-ray interpretation: [] My Ultrasound interpretation: [] Decision rules/scores evaluated: [] Discussed with: Dr Cruz Treatment and Disposition ED Course: The patient presented with drainage from the JULIETA drain site and hematuria.. The drainage is serosanguineous. No signs of infection. The case was discussed with who recommends putting a pressure dressing over the wound and ABD. He states that hematuria will clear. We agreed patient can be discharged home and will follow-up in the office as scheduled. A pressure dressing applied over the wound with abdominal binder on top of it. Will discharge patient home. He is instructed to return to the emergency room if the drainage persist or any new symptoms. Shared decision making: Patient and his son Code status: [] Assessment/Plan 1. Postoperative complication of skin involving drainage from surgical wound (L76.82: Other postprocedural complications of skin and subcutaneous tissue) 2. Hematuria (R31.9: Hematuria, unspecified) Disposition Plan Patient Discharge Condition Stable Discharge Disposition Discharge home Discharge Prescription List Prescriptions No active prescription medications Follow-up With When Contact Information RENATA HAMILTON In 3 days 02/10/2025 EDT [address] [place] [address]- [phone] Business (1) Additional Instructions: Keep the dressing and the pressure dressing over the wound as discussed and as applied in the emergency room. Call the office of . Return to the emergency room if the wound continues to drain or any new symptoms or concerns. REGAN BOTELLO In 3 days [address] [place] [address]- Business (1) Additional Instructions: Patient Education Hematuria, Adult Problem List/Past Medical History Ongoing At risk for falls BPH with urinary obstruction Elevated PSA Hyperlipidemia Hypertension Hypothyroid Prostate cancer Historical No qualifying data Procedure/Surgical History Prostatectomy (02/03/2025), Transrectal biopsy of prostate using ultrasound (US) guidance (11/17/2024), LASIK - laser assisted in situ keratomileusis. Medications Inpatient No active inpatient medications Home amlodipine, 5 mg, Oral, Daily aspirin, 81 mg, Oral, Bedtime benazepril, 20 mg, Oral, Daily Colace 100 mg Cap, 100 mg= 1 cap(s), Oral, BID, PRN Keflex 500 mg Cap, 500 mg= 1 cap(s), Oral, BID levothyroxine, 100 mcg, Oral, Bedtime Levsin 0.125 mg SL Tab, 0.125 mg= 1 tab(s), Oral, BID, PRN oxyCODONE 5 mg Cap, 5 mg= 1 cap(s), Oral, q6hr, PRN Sodium Chloride 1 g oral tablet, 1 tab, Oral, Daily Allergies No Known Allergies Social History Alcohol Never., 08/17/2024 Substance Abuse Never., 08/17/2024 Tobacco Ne (more content not included)...[facility] HospitalComment on above:Result Comment: Electronically Signed By: Jody Tong, Ita Wahl\.br\Date and Time Signed: 02/07/2518:04 EDTED Patient Summaryon [id number] Patient SummaryED Patient Summary [address] [address] Patient Discharge Instructions Person Information Name: ROSY TAYLOR Age: 70 Years Arrival Date: 02/07/2025 16:36:09 Discharge Diagnosis: 1:Postoperative complication of skin involving drainage from surgical wound; 2:Hematuria Primary Care Physician: REGAN BOTELLO DO Provider Information Primary Provider: Ita Vera M.D. [employer] Concrete Laborer:None The exam and treatment you received in the Emergency Department were for an urgent problem and are not intended as complete care. It is important that you follow up with a doctor, nurse practitioner,or physician???s child center assistant for ongoing care. If your symptoms become worse or you do not improve asexpected and you are unable to reach your usual health care provider, you should return to the Emergency Department. We are available 24 hours a day. ROSY TAYLOR has been given the following list of patient education materials, prescriptions and follow-up instructions: Follow-up Instructions: With: Address: When: RENATA HAMILTON [address] [place] [phone] Business (1) In 3 days 02/10/2025 Comments: Keep the dressing and the pressure dressing over the wound as discussed and as applied in the emergency room. Call the office of . Return to the emergency room if the wound continues to drain or any new symptoms or concerns. With: Address: When: REGAN BOTELLO [address], [place] [phone] Business (1) In 3 days In the event that this physician does not participate in your insurance network, please consult with your insurance company to find a nearby participating provider. Patient Education Materials: Alla, Adult A MESSAGE TO ALL PATIENTS REGARDING OPIOIDS PRESCRIPTION OPIOIDS: WHAT YOU NEED TO KNOW Prescription opioids can be used to help relieve iytjjvxg-pf-bzqgdc pain and are often prescribed following a surgery or injury, or for certain health conditions. These medications can be an important part of the treatment but also come with serious risks. It is important to work with your healthcare provider to make sure you are getting the safest, most effective care. WHAT ARE THE RISKS AND SIDE EFFECTS OF OPIOID USE? Prescription opioids carry serious risks of addiction and overdose, especially with prolonged use. An opioid overdose, often marked by slowed breathing, can cause sudden . The use of prescription opioids can have a number of side effects as well, even when taken as directed: ??? Tolerance???meaning you might need to take more of the medication for the same pain relief ??? Physical dependence???meaning you have symptoms of withdrawal when a medication is stopped ??? Increased sensitivity to pain ??? Constipation ??? Nausea, vomiting, and dry mouth ??? Sleepiness and dizziness ??? Confusion ??? Depression ??? Low levels of testosterone that can result in lower sex drive, energy, and strength ??? Itching and sweating RISKS ARE GREATER WITH: ??? History of drug misuse, substance use disorder, or overdose ??? Mental health conditions (such as depression or anxiety) ??? Sleep apnea ??? Older age (65 years and older) ??? Avoid alcohol while taking prescription opioids. Also, unless specifically advised by your health care provider, medications to avoid include: ??? Benzodiazepines (such as Xanax or Valium) ??? Muscle relaxants (such as Soma or Flexeril) ??? Hypnotics (such as Ambien or Lunesta) ??? Other prescription opioids KNOW YOUR OPTIONS Talk to your health care provider about ways to manage your pain that don???t involve prescription opioids. Some of these options may actually work better and have fewer risks and side effects. Options may include: ??? Pain relievers such as acetaminophen, ibuprofen, and naproxen ??? Some medication that are also used for depression or seizures ??? Physical therapy and exercise ??? Cognitive behavioral therapy, a psychological, goal-directed approach, in which patients learn how to modify physical, behavioral, and emotional triggers of pain and stress. IF YOU ARE PRESCRIBED OPIOIDS FOR PAIN: ??? Never take opioids in greater amounts or more often than prescribed. ??? Follow up with your primary health care provider. o Work together to create a plan on how to manage your pain. o Talk about ways to help manage your pain that don???t involve prescription opioids. o Talk about any and all concerns and side effects. ??? Help prevent misuse and abuse o Never sell or share prescription opioids. o Never use another person???s prescription opioids. ??? Store prescription opioids in a secure place and out of reach of others (this may include visitors, children, friends, and family). ??? Safely dispo (more content not included)...[facility] BMPon 05-78-9659Fydcw gap [Moles/Vol]10 mmol/LNormal6-16[facility] HospitalComment on above:Performed By: #### [id number] #### [facility] [address], [place] [address]GBC/Creat Ratio12 No EhtghNhxaca09-79QyuekzCleveland Clinic Avon HospitalComment on above:Performed By: #### [id number] #### [facility] [address], [place] [address]Ijfznks [Mass/Vol]8.1 mg/dLLow8.9-11.1FMercy Health St. Rita's Medical CenterComment on above:Performed By: #### [id number] #### [facility] [address], [place] [address]Zalingoc [Moles/Vol]98 mmol/IQew542-800JknujqCleveland Clinic Avon HospitalComment on above:Performed By: #### [id number] #### [facility] [address], [place] [address]FU3 [Moles/Vol]24 mmol/ULcphmz81-14EbaihlCleveland Clinic [facility] Hospital Comment on above:Performed By: #### [id number] #### [facility] [address], [place] [address]Hcrwhibgph [Mass/Vol]1.7 mg/dLHigh0.5-1.3FMercy Health St. Rita's Medical CenterComment on above:Performed By: #### [id number] #### [facility] [address], [place] [address]Ckxnwru [Mass/Vol]119 mg/pLWpipan78-199CdxpmdCleveland Clinic Avon HospitalComment on above:Performed By: #### [id number] #### [facility] [address] [place] [address]Vwpgmiapx [Moles/Vol]4.2 mmol/LNormal3.5-5.3FMercy Health St. Rita's Medical CenterComment on above:Performed By: #### [id number] #### [facility] [address] [place] [address]Wlwwba [Moles/Vol]128 mmol/YJva081-309MjnsmvCleveland Clinic Avon HospitalComment on above:Performed By: #### [id number] #### [facility] [address] [place] [address]Pilh nitrogen [Mass/Vol]20 mg/dLNormal5-21[facility] HospitalComment on above:Performed By: #### [id number] #### [facility] [address] [place] [address]MND w/ Auto Diffon 11-04-0154Htlawshs Absolute0.2 E9/LNormal 0.0-0.2FMercy Health St. Rita's Medical CenterComment on above:Performed By: #### [id number] #### [facility] [address] [place] [address]Jghomlfje/100 WBC (Bld)2.3 %High0.0-2.0[facility] HospitalComment on above:Performed By: #### [id number] #### [facility] [address] [place] [address]Awu Absolute0.0 E9/LNormal0.0-0.5FMercy Health St. Rita's Medical Center Comment on above:Performed By: #### [id number] #### [facility] [address] [place] [address]Fuwtwfthnrb/100 WBC (Bld)0.2 %Normal0.0-8.0[facility] HospitalComment on above:Performed By: #### [id number] #### [facility] [address], [place] [address]Geatvarluml distribution width (RBC) [Ratio]14.0 %Normal 10.9-14.2FMercy Health St. Rita's Medical CenterComment on above:Performed By: #### [id number] #### [facility] [address], [place] [address]Lhwxkpdvxj (Bld) [Volume fraction]36.9 %Low37.7-49.0[facility] HospitalComment on above:Performed By: #### [id number] #### [facility] [address], [place] [address]Darlgmlfod (Bld) [Mass/Vol]12.4 g/dLLow13.5-17.5FMercy Health St. Rita's Medical CenterComment on above:Performed By: #### [id number] #### [facility] [address] [place] [address]Lcqyl Absolute0.9 E9/LLow1.0-4.0[facility] Comment on above:Performed By: #### [id number] #### [facility] [address] [place] [address]Tvlnuaawjel/100 WBC (Bld)9.9 %Low14.0-50.0[facility] HospitalComment on above:Performed By: #### [id number] #### [facility] [address], [place] [address]ILX (RBC) [Entitic mass]31.4 xxMwthzj10.0-34.0[facility] HospitalComment on above:Performed By: #### [id number] #### [facility] [address], [place] [address]QNWD (RBC) [Mass/Vol]33.6 g/qXXrqmry45.4-36.0[facility] HospitalComment on above:Performed By: #### [id number] #### [facility] [address], [place] [address]PWO (RBC) [Entitic vol]93.5 pNZfevzm02.0-100.0[facility] HospitalComment on above:Performed By: #### [id number] #### [facility] [address], [place] [address]Yexp Absolute0.9 E9/LNormal0.2-1.0[facility] Comment on above:Performed By: #### [id number] #### [facility] [address], [place] [address]Fszainqcr/100 WBC (Bld)9.7 %Normal4.0-14.0[facility] HospitalComment on above:Performed By: #### [id number] #### [facility] [address] [place] [address]Trqbcn Absolute7.0 E9/LNormal2.0-7.5FMercy Health St. Rita's Medical Center Comment on above:Performed By: #### [id number] #### [facility] [address] [place] [address]Dliynz Auto77.9 %High36.0-75.0[facility] Comment on above:Performed By: #### [id number] #### [facility] [address] [place] [address]819Rtpcyywb956.0 E9/ZIrovar832.0-500.0[facility] Comment on above:Performed By: #### [id number] #### [facility] [address], [place] [address]Yhzetdbf mean volume (Bld) [Entitic vol]6.7 fLNormal6.4-10.8 [facility] HospitalComment on above:Performed By: #### [id number] #### [facility] [address], [place] [address]LGL1.9 E12/LLow4.3-5.9[facility] HospitalComment on above:Performed By: #### [id number] #### [facility] [address], [place] [address]UUX0.0 E9/LNormal4.0-11.0[facility]ther [facility]. Agnes HospitalComment on above:Performed By: #### [id number] #### [facility] [address] [place], [place] [address]NNAGHDCJVFuffeyz By: SYSTEM SYSTEM on 60-42-1871Atkhb gap [Moles/Vol]10 mmol/LNormal6 - 16 mEq/LRemisol ChemCalcium [Mass/Vol]8.1 mg/dLLow 8.9 - 11.1 mg/dLRemisol ChemChloride [Moles/Vol]98 mmol/VHrs210 - 111 mmol/L Remisol ChemCO2 [Moles/Vol]24 mmol/FBfcjdz21 - 31 mmol/LRemisol ChemCreatinine [Mass/Vol]1.7 mg/dLHigh0.5 - 1.3 mg/dLRemisol ChemGFR/1.73 sq M.predicted MDRD (S/P/Bld) [Vol rate/Area]43 mL/min/1.73 m2Low>=59mL/min/1.73 x2Vgjyoxs Chem Glucose [Mass/Vol]119 mg/oESjlakl51 - 199 mg/dLRemisol ChemMagnesium [Mass/Vol] 1.8 mg/dLNormal1.3 - 2.4 mg/dLRemisol ChemPotassium [Moles/Vol]4.2 mmol/LNormal 3.5 - 5.3 mmol/LRemisol ChemSodium [Moles/Vol]128 mmol/EVjw520 - 145 mmol/L Remisol ChemUrea nitrogen [Mass/Vol]20 mg/dLNormal5 - 21 mg/dLRemisol ChemUrea nitrogen/Creatinine [Mass ratio]12 mg/zlFfdhxe42 - 20Remisol ChemCHEMISTRY Ordered By: Lab ROPUser on 98-77-8976Gaqhosc [Mass/Vol]127 mg/hKOvwb49 - 99 mg/dLCOMMUNITY HOSPITAL – [place] POC SubsectionComment on above:Result Comment: Notified RN/MDPOC UsernamLauryn Grady Interpretation CodeCOMMUNITY HOSPITAL – [place] POC SubsectionSodium [Moles/Vol][id number] mmol/LInvalid Interpretation CodeCOMMUNITY HOSPITAL – [place] POC Subsection Sodium [Moles/Vol]993423600 mmol/LInvalid Interpretation CodeCOMMUNITY HOSPITAL – [place] POC Subsection Capillary Glucose POCon 33-18-1283Zpllmaf [Mass/Vol]127 mg/vMCcjk52-89Qkflct St. Agnes HospitalComment on above:Result Comment: Notified RN/MDPerformed By: #### [id number] #### [facility] [address] [place] [address]Ftekagadx Note-Nursingon 36-99-3393Xmwjblvuq Note-Nursing Discharge Note-Nursing ROSY TAYLOR :1955 Visit Date:02/03/2025 Inpatient Discharge Instructions Your Care Team Admitting Physician - RENATA HAMILTON MD Referring Physician - RENATA HAMILTON MD Reason for Your Visit PROSTATE CANCER Your Diagnosis S/P prostatectomy Prostate CA Chronic hyponatremia Hypertension Hypothyroid Obesity Tests Performed BMP -- Results Pending -- CBC w/ Auto Diff -- Results Pending -- Magnesium Level -- Results Pending -- Please visit your patient portal for your results or contact your primary care physician. This Is Your Medications List amlodipine aspirin benazepril cephalexin (Keflex 500 mg Cap) docusate (Colace 100 mg Cap) hyoscyamine (Levsin 0.125 mg SL Tab) levothyroxine oxycodone (oxyCODONE 5 mg Cap) sodium chloride (Sodium Chloride 1 g oral tablet) Procedure History Transrectal biopsy of prostate using ultrasound (US) guidance (11/17/2024), LASIK - laser assisted in situ keratomileusis. Discharge Vitals Temperature (Oral) 36.8 ???C Heart Rate (Monitored) 87 Respiratory Rate 18 Blood Pressure 108/59 What to do next Instructions From Your Doctor Event Name Event Result Discharge Activity Ambulate as tolerated, Arrange for a responsible adult supervision for 24 hours, Expect mild pain, Expect minimal amount of drainage and/or bleeding Discharge Restrictions No driving for 24 hrs, Do not make important decisions for 24 hours, Do not drink alcoholic beverages for 24 hours Discharge Diet(s) Regular Call Your Doctor For Temperature above 101.5 degrees, Redness, swelling, or pus at operative site, Severe pain at the operative site, Persistent vomiting Discharge Instructions Hydrate w/ at least 2L/dayPain control w/ tylenol. Oxycodone for breakthroughLevsin for moore spasmsComplete antibioticNo lifting greater than 10lbs for 6 wksCan shower in 24 hrsLots of walkingCystogram 02/15, Viist 02/16 Previously Scheduled Follow-Up Appointments 2024 2:15 PM EDT With: RENATA HAMILTON MD Where: [facility] [address] [place] [address]- New Follow Up Appointments after Discharge Follow Up with REGAN BOTELLO When: 02/08/2025 01:30 PM EDT Where: [address] [place] [address]- Business (1) Follow Up with RENATA HAMILTON When: Comments: cystogram on 02/15. see me 02/16 Keep February 11 appoinment. Medications What How Much When Instructions Next Dose New cephalexin (Keflex 500 mg Cap) 1 Capsules By Mouth 2 times a day Duration: 10 Days Pickup at [facility]/pharmacy #[id number] 9pm New docusate (Colace 100 mg Cap) 1 Capsules By Mouth 2 times a day as needed for for constipation Pickup at [facility]/pharmacy #[id number] 9pm New hyoscyamine (Levsin 0.125 mg SL Tab) 1 Tablets By Mouth 2 times a day as needed for for spasm Pickup at [facility]/pharmacy #[id number] 9pm New oxycodone (oxyCODONE 5 mg Cap) 1 Capsules By Mouth Every 6 hours as needed for for pain Duration: 5 Days Pickup at [facility]/pharmacy #[id number] Take as needed every 6 hours for severe pain Unchanged amlodipine 5 Milligram By Mouth Every day 02/05 @9am Unchanged aspirin 81 Milligram By Mouth At bedtime 9pm Unchanged benazepril 20 Milligram By Mouth Every day 02/05 @9am Unchanged levothyroxine 100 Microgram By Mouth At bedtime 9pm Unchanged sodium chloride (Sodium Chloride 1 g oral tablet) 1 tab By Mouth Every day 02/05 @9am Pharmacy Information [facility]/pharmacy #[id number]: [address], [place] [id number] [phone] Test Results CBC BMP WBC: 9 E9/L (02/04/25 10:54:00) Glucose Lvl: 119 mg/dL (02/04/25 10:54:00) RBC: 3.9 E12/L Low (02/04/25 10:54:00) BUN: 20 mg/dL (02/04/25 10:54:00) HGB: 12.4 gm/dL Low (02/04/25 10:54:00) Creatinine: 1.7 mg/dL High (02/04/25 10:54:00) Hct: 36.9 % Low (02/04/25 10:54:00) BUN/Creat Ratio: 12 (02/04/25 10:54:00) MCV: 93.5 fL (02/04/25 10:54:00) Sodium Lvl: 128 mmol/L Low (02/04/25 10:54:00) MCH: 31.4 pg (02/04/25 10:54:00) Potassium Lvl: 4.2 mmol/L (02/04/25 10:54:00) MCHC: 33.6 gm/dL (02/04/25 10:54:00) Chloride: 98 mmol/L Low (02/04/25 10:54:00) RDW: 14 % (02/04/25 10:54:00) CO2: 24 mmol/L (02/04/25 10:54:00) Platelet: 265 E9/L (02/04/25 10:54:00) AGAP: 10 mEq/L (02/04/25 10:54:00) MPV: 6.7 fL (02/04/25 10:54:00) Calcium Lvl: 8.1 mg/dL Low (02/04/25 10:54:00) Allergies No Known Allergies Problems Ongoing - Any problem that you are currently receiving treatment for. At risk for falls BPH with urinary obstruction Elevated PSA Hyperlipidemia Hypertension Hypothyroid Prostate cancer Common Emergency Awareness Tips IS IT A STROKE? Act FAST and Check for these signs: FACE Does the face look uneven? ARM Does one arm drift down? SPEECH Does their speech sound strange? TIME Call at any sign of stroke He (more content not included)...[facility] HospitalHEMATOLOGY Ordered By: SYSTEM SYSTEM on 18-01-4707Llqavmoxx/100 WBC (Bld)2.3 %High0.0 - 2.0 %Remisol HemeBasophils/Leukocytes Auto (Bld) [Pure # fraction]0.2 E9/LNormal0.0 - 0.2 E9/LRemisol HemeEosinophils (Bld) [#/Vol]0.0 E9/LNormal0.0 - 0.5 E9/L Remisol HemeEosinophils/100 WBC (Bld)0.2 %Normal0.0 - 8.0 %Remisol Heme Erythrocyte distribution width (RBC) [Ratio]14.0 %Mpbvaz55.9 - 14.2 %Remisol HemeHematocrit (Bld) [Volume fraction]36.9 %Low37.7 - 49.0 %Remisol Heme Hemoglobin (Bld) [Mass/Vol]12.4 g/dLLow13.5 - 17.5 gm/dLRemisol HemeLymphocytes (Bld) [#/Vol]0.9 E9/LLow1.0 - 4.0 E9/LRemisol HemeLymphocytes/100 WBC (Bld)9.9 % Low14.0 - 50.0 %Remisol HemeMCH (RBC) [Entitic mass]31.4 uuCgmpzo31.0 - 34.0 pg Remisol HemeMCHC (RBC) [Mass/Vol]33.6 g/fAOwjued89.4 - 36.0 gm/dLRemisol HemeMCV (RBC) [Entitic vol]93.5 bOEdxfzo97.0 - 100.0 fLRemisol HemeMonocytes (Bld) [#/Vol]0.9 E9/LNormal0.2 - 1.0 E9/LRemisol HemeMonocytes/100 WBC (Bld)9.7 % Normal4.0 - 14.0 %Remisol HemeNeutrophils (Bld) [#/Vol]7.0 E9/LNormal2.0 - 7.5 E9/LRemisol HemeNeutrophils/100 WBC (Bld)77.9 %High36.0 - 75.0 %Remisol Heme Platelet mean volume (Bld) [Entitic vol]6.7 fLNormal6.4 - 10.8 fLRemisol Heme Platelets (Bld) [#/Vol]265.0 E9/TRbqung372.0 - 500.0 E9/LRemisol HemeRBC (Bld) [#/Vol]3.9 E12/LLow4.3 - 5.9 E12/LRemisol HemeWBC corrected for nucl RBC Auto (Bld) [#/Vol]9.0 E9/LNormal4.0 - 11.0 E9/LRemisol HemeInpatient Clinical Summary on [id number] Clinical SummaryInpatient Clinical Summary [place] [address] Clinical Summary Person Information: Name: ROSY TAYLOR Age: 70 Years : 1955 Sex: Male PCP: REGAN BOTELLO DO Marital Status: Single Race: White Ethnicity: Non- or Language: Wolof Visit Id: Visit Reason: PROSTATE CANCER Speciality: Acuity: Enc Type: Outpatient in a Bed Med Service: Surgery Arrival: 02/03/2025 09:00:21 Discharge: Dispo Type: Address: [address] [place] [address] Provider Notes: Patient: ROSY TAYLOR Age: 70 years Sex: Male : 1955 Associated Diagnoses: None Author: RENATA HAMILTON MD Discharge Information Discharge Summary Information: Admitted 02/03/2025, Discharged 02/04/2025. Admitting physician: RENATA HAMILTON MD. Physical Examination General: Alert and oriented x 3, NAD Cardiovascular: Regular rate and rhythm Lungs: Nonlabored breathing on room air Abdomen: Soft, nontender, nondistended with no guarding or rigidity noted incision clean dry intactwith no erythema, induration, palpable fluctuance appreciable : Moore catheter in place with orange-tinged urine Extremities: No peripheral edema, calf tenderness noted Skin: Warm and dry Hospital Course Patient is a 70-year-old male with prostate adenocarcinoma who presented for robotic assisted laparoscopic radical prostatectomy on 02/03. He tolerated procedure well without incident. On postoperative day 1 he was tolerating diet without issue, passing flatus, pain was well-controlled, he was afebrile vital signs stable and thus he was deemed appropriate for discharge to home. His JULIETA drain was removed. He was counseled on limiting how much he lifts, ambulating, drinking at least 2 L of water per day, patient can shower in 24 hours. He will have a cystogram done on 02/15 with Moore catheter removal, office visit review of pathology on 02/16. Discharge Plan Discharge Time Discharge time > 30 min. Discharge Summary Plan Discharge Status: stable. Discharge instructions given: to patient. Discharge disposition: discharge to home self care. Diagnosis: 1:S/P prostatectomy; 3:Chronic hyponatremia; 4:Hypertension; 5:Hypothyroid; 6:Obesity Problems Active Prostate cancer At risk for falls BPH with urinary obstruction Elevated PSA Hypothyroid Hyperlipidemia Hypertension Smoking Status: Functional Status: Sensory Deficits: History of Falls: Mobility Assistance Prior to Admission: ADLs: Minimal assistance Current Level of Assistance for Self-Care/Mobility: Cognitive Status: Allergies No Known Allergies Measurements: Height: Weight: Blood Pressure: 108 mmHg / 59 mmHg BMI: Procedures No Procedures Performed or Documented Immunizations No Immunizations Documented This Visit Final Med List: amlodipine 5 Milligram By Mouth every day. aspirin 81 Milligram By Mouth at bedtime. benazepril 20 Milligram By Mouth every day. cephalexin (Keflex 500 mg Cap) 1 Capsules By Mouth 2 times a day for 10 Days. Refills: 0. docusate (Colace 100 mg Cap) 1 Capsules By Mouth 2 times a day as needed for constipation. Refills:0. hyoscyamine (Levsin 0.125 mg SL Tab) 1 Tablets By Mouth 2 times a day as needed for spasm. Refills:0. levothyroxine 100 Microgram By Mouth at bedtime. oxycodone (oxyCODONE 5 mg Cap) 1 Capsules By Mouth every 6 hours as needed for pain for 5 Days. Refills: 0. sodium chloride (Sodium Chloride 1 g oral tablet) 1 tab By Mouth every day. Care Team Members: Attending Physician: RENATA HAMILTON MD Consulting Physician: Referring Physician: MARIO HAMILTON MDNA Follow up: With: Address: When: REGAN BOTELLO [address] [place] [address] Business (1) 02/08/2025 1:30 PM With: Address: When: RENATA HAMILTON Comments: cystogram on 02/15. see me 02/16 Keep February 11 appoinment. Type Location Start Finish [place] [facility] Office Visit [facility] 02/11/2025 2:15 PM 02/11/2025 2:30 PM Confirmed Patient Education Information:[facility]In[facility] Patient Summaryon [id number] Patient SummaryInpatient Patient Summary [address] [address] Patient Discharge Instructions PERSON INFORMATION Name: ROSY TAYLOR Date of : 1955 Current Date: 02/04/2025 15:07:30 PHYSICIANS Admitting Physician: RENATA HAMILTON MD Primary Care Physician: REGAN BOTELLO DO PCP Comment: Discharge Diagnosis: 1:S/P prostatectomy; 3:Chronic hyponatremia; 4:Hypertension; 5:Hypothyroid; 6:Obesity Condition at Discharge: Stable ROSY TAYLOR has been given the following list of follow-up instructions, prescriptions, and patient education materials: PATIENT FOLLOW-UP INFORMATION Diet: Regular Discharge Activity: Ambulate as tolerated, Arrange for a responsible adult supervision for 24 hours, Expect mild pain, Expect minimal amount of drainage and/or bleeding Discharge Restrictions: No driving for 24 hrs, Do not make important decisions for 24 hours, Do notdrink alcoholic beverages for 24 hours Wound Care Instructions: Remove Your Dressing In Days Call Your Doctor For: Temperature above 101.5 degrees, Redness, swelling, or pus at operative site,Severe pain at the operative site, Persistent vomiting IF UNABLE TO CONTACT YOUR PHYSICIAN AND YOU FEEL IT IS AN EMERGENCY, GO TO THE NEAREST EMERGENCY ROOM OR CALL 911 Home Treatment: Devices/Equipment: Special Services: Additional Instructions: Hydrate w/ at least 2L/day Pain control w/ tylenol. Oxycodone for breakthrough Levsin for moore spasms Complete antibiotic No lifting greater than 10lbs for 6 wks Can shower in 24 hrs Lots of walking Cystogram 02/15, Viist 02/16 Primary Care Physician to provide the following pending test results: Follow up: With: Address: When: REGAN BOTELLO [address] [place] [address] Business (1) 02/08/2025 1:30 PM With: Address: When: RENATA HAMILTON Comments: cystogram on 02/15. see me 02/16 Keep February 11 appoinment. In the event that this physician does not participate in your insurance network, please consult with your insurance company to find a nearby participating provider. Type Location Start Finish [facility] Office Visit [facility] 02/11/2025 2:15 PM 02/11/2025 2:30 PM Confirmed Comment: CLAUDIA Cordova RICHARD, have received the attached patient education materials/instructions and have verbalized understanding: Patient Signature Date Clinican/Nurse Signature Date HERE ARE THE MEDICATION CHANGES THAT OCCURRED DURING YOUR HOSPITAL STAY New Medications [id number], [address] [place] [id number], [phone] cephalexin (Keflex 500 mg Cap) 1 Capsules By Mouth 2 times a day for 10 Days. Refills: 0. Last Dose: Next Dose: docusate (Colace 100 mg Cap) 1 Capsules By Mouth 2 times a day as needed for constipation. Refills:0. Last Dose: Next Dose: hyoscyamine (Levsin 0.125 mg SL Tab) 1 Tablets By Mouth 2 times a day as needed for spasm. Refills:0. Last Dose: Next Dose: oxycodone (oxyCODONE 5 mg Cap) 1 Capsules By Mouth every 6 hours as needed for pain for 5 Days. Refills: 0. Last Dose: Next Dose: Medications to Continue with No Changes Other Medications amlodipine 5 Milligram By Mouth every day. Last Dose: Next Dose: aspirin 81 Milligram By Mouth at bedtime. Last Dose: Next Dose: benazepril 20 Milligram By Mouth every day. Last Dose: Next Dose: levothyroxine 100 Microgram By Mouth at bedtime. Last Dose: Next Dose: sodium chloride (Sodium Chloride 1 g oral tablet) 1 tab By Mouth every day. Last Dose: Next Dose: Comment: MEDICATION LIST PROVIDED FOR YOU IS A LIST OF YOUR CURRENT MEDICATIONS. PLEASE CARRY THIS WITH YOU AT ALL TIMES. amlodipine 5 Milligram By Mouth every day. aspirin 81 Milligram By Mouth at bedtime. benazepril 20 Milligram By Mouth every day. cephalexin (Keflex 500 mg Cap) 1 Capsules By Mouth 2 times a day for 10 Days. Refills: 0. docusate (Colace 100 mg Cap) 1 Capsules By Mouth 2 times a day as needed for constipation. Refills:0. hyoscyamine (Levsin 0.125 mg SL Tab) 1 Tablets By Mouth 2 times a day as needed for spasm. Refills:0. levothyroxine 100 Microgram By Mouth at bedtime. oxycodone (oxyCODONE 5 mg Cap) 1 Capsules By Mouth every 6 hours as needed for pain for 5 Days. Refills: 0. sodium chloride (Sodium Chloride 1 g oral tablet) 1 tab By Mouth every day. Pharmacy Information: Comment: JORDY (more content not included)...[facility] Interdisciplinary Note - Case Manageron [id number] Note - Case ManagerInterdisciplinary Note - Neonatal Intensive Care Nurse Patient awake, alert and oriented up in chair. Patient previously rounded with [facility] GONSALEZ, see notes. Patient was able to participate in dc planning. Patient lives at home alone and is independent with all needs. Son will transport at dc. Has family support. PCP, DME and insurance information confirmed. Patient agreeable to paramedicine, referral sent. Denies any dc needs. White board updated and contact information provided.[facility] Comment on above:Result Comment: Electronically Signed By: Evita Bacon\.br\Date and Time Signed: 02/04/25 11:39 EDTMagnesiumon [id number] [Mass/Vol]1.8 mg/dLNormal1.3-2.4[facility] HospitalComment on above: Performed By: #### [id number] #### [facility] [address], [place] [address]Rbiy OR Intraoperative Recordon [id number] OR Intraoperative RecordMain OR Intraoperative Record IntraOp Document Type FT Summary Primary Physician: RENATA HAMILTON MD Finalized Date/Time: 02/04/25 10:24:31 Pt. Name: ROSY TAYLOR Jerzy/Sex: 1955 Male Med Rec #: [id number] Physician: RENATA HAMILTON MD Financial #: [id number] Pt. Type: O Room/Bed: N317/01 Admit/Disch: 02/03/25 09:00:21 - Institution: Case Times FT Entry 1 Patient Times In Room 02/03/25 11:10:00 Out Room 02/03/25 14:37:00 Procedure Times Start 02/03/25 11:32:00 Stop 02/03/25 14:32:00 Anesthesia Times Start 02/03/25 11:10:00 Stop 02/03/25 14:37:00 Last Modified By: Lokesh Hartmna 02/03/25 14:37:40 Case Attendance FT Entry 1 Entry 2 Entry 3 Case Attendee Jona Celestin MD, Zhou SMITH, Regan YANEZ Role Performed Anesthesiologist Surgeon - Primary RAILROADER/SA Hand Tapper Time In 02/03/25 11:10:00 02/03/25 11:10:00 02/03/25 11:10:00 Time Out 02/03/25 14:37:00 02/03/25 14:37:00 02/03/25 14:37:00 Procedure PROSTATECTOMY, ROBOT PROSTATECTOMY, ROBOT PROSTATECTOMY, ROBOT ASSISTED(., .) ASSISTED(., .) ASSISTED(., .) Comments DR ROBISON SUPERVISING. OUT OF ROOM [id number] Last Modified By: Lokesh Hartman Terry T Sweene, Terry T 02/03/25 14:37:41 02/03/25 14:37:41 02/03/25 14:37:41 Entry 4 Entry 5 Entry 6 Case Attendee Lokesh Hartman CST, Natalie Geiger LPN Role Performed Library Circulation Technician - Primary Scrub - Primary Staff - Other Time In 02/03/25 11:10:00 02/03/25 11:10:00 02/03/25 11:10:00 Time Out 02/03/25 14:37:00 02/03/25 14:37:00 02/03/25 11:13:00 Procedure PROSTATECTOMY, ROBOT PROSTATECTOMY, ROBOT PROSTATECTOMY, ROBOT ASSISTED(., .) ASSISTED(., .) ASSISTED(., .) Comments OUT OF ROOM [id number] LUNCH BREAK AT [id number] Last Modified By: Lokesh Hartman Terry T Sweene, Terry T 02/03/25 14:37:41 02/03/25 14:37:41 02/03/25 14:37:41 Entry 7 Entry 8 Entry 9 Case Attendee Los BECKMAN, Natalie Brooks RN, Neisha Robison MD, [facility] K. Role Performed Scrub - Relief Library Circulation Technician - Relief Anesthesiologist of Record Time In 02/03/25 11:40:00 02/03/25 12:05:00 02/03/25 12:34:00 Time Out 02/03/25 14:37:00 02/03/25 12:45:00 02/03/25 13:10:00 Procedure PROSTATECTOMY, ROBOT PROSTATECTOMY, ROBOT PROSTATECTOMY, ROBOT ASSISTED(., .) ASSISTED(., .) ASSISTED(., .) Comments became 2nd scrub at 1302. Last Modified By: Lokesh Hartman Terry T Sweene, Terry T 02/03/25 14:37:41 02/03/25 14:37:41 02/03/25 14:37:41 Perioperative Protocols FT Pre-Care Text: Implements protective measures prior to operative or invasive procedure, confirms identity before the operative or invasive procedure, verifies operative procedure, surgical site, and laterality Entry 1 Procedure(s) PROSTATECTOMY, ROBOT Patient Identity Birthday, ID Band ASSISTED(., .) Verified (select at Check, Patient least 2): Participation Consents / H and P Anesthesia Consent, Operative Site N/A Verified H&P, Surgery/Procedure Marking Verified Consent Surgical Site Yes Laterality Verified n/a Verified Procedure Verified Yes Correct Patient Yes Position Verified Availability Equipment, Medication Prep Dry n/a Verified (If Applicable) PreOp Antibiotic Yes Time Out Jona Celestin Given Participants LETY Owen MD, Zhou YANEZ CST, Minnie Spears Terry T, Green CST, Samreen Kaur Time Out Complete 02/03/25 11:32:00 Outcomes Met? Yes Last Modified By: Lokesh Hartman 02/03/25 11:51:43 Post-Care Text: The patient is free from signs and symptoms of injury caused by extraneous objects Allergy Information FT Pre-Care Text: Verifies allergies Entry 1 Allergies Reviewed? Yes Allergies Reviewed Self/Patient With Outcomes Met? Yes Last Modified By: Lokesh Hartman 02/03/25 11:51:50 Post-Care Text: The patient received appropriate medication(s) safely administered during the perioperative period Surgical Procedures FT Entry 1 Procedure Description Procedure PROSTATECTOMY, ROBOT Modifiers ., . ASSISTED Surgeon Description ROBOT ASSISTED PROSTATECTOMY Primary Procedure Yes Primary Surgeon LETY RICHMOND, RENAAT Start 02/03/25 11:32:00 Stop 02/03/25 14:32:00 Anesthesia Type General Surgical Service Anesthesia Wound Class 2 - Clean-Contaminated Last Modified By: Lokesh Hartman 02/03/25 14:46:14 General Case Data FT Pre-Care Text: Classifies surgical wound, implements aseptic technique, initiates traffic control Entry 1 Case Information OR OR 6 FT Case Level Level 5 Wound Class 2 - Clean-Contaminated Specialty Anesthesia ASA Class 3 Preop Diagnosis PROSTATE CANCER Postop Same As Preop Yes Postop Diagnosis PROSTATE CANCER Outcomes Met? Yes Last Modified By: Lokesh Hartman 02/03/25 11:52:03 Post-Care Text: The patient is free from signs and symptoms of infection Skin Assessment (Pre Procedure) FT Pre-Care Text: Implement (more content not included)...[facility] HospitalPatient Education - Texton [id number] Education - TextPatient Education - Text [facility] HospitaleGFRon 99-56-1760bNVZ74 mL/min/1.73 m2Low>=59 [facility] HospitalComment on above:Performed By: #### [id number] #### [facility] [address], [place] [address]DPJ/Rhon 82-66-8987UTE/RhPositiveInvalid Interpretation Code [facility] HospitalComment on above:Performed By: #### [id number] #### [facility] [address], [place] [address]GGU/Rh History Checkon 27-33-9475PPS/Rh History CheckVerified Hx Blood TypeNormalCleveland Clinic Avon HospitalComment on above:Performed By: #### [id number] #### [facility] [address], [place] [address]QQSVfq 51-88-7948NVMG Gel InterpNegativeNormalCleveland Clinic Avon HospitalComment on above:Performed By: #### [id number] #### [facility] [address], [place] [address]EQEUZ BANKOrdered By: Gunjan Bradshaw on 37-05-0738ENW/Rh InterpPositiveInvalid Interpretation CodeCOMMUNITY HOSPITAL – [place] BB SubsectionABSC Gel Interp Negative (02/03/25 9:46 AM)NormalCOMMUNITY HOSPITAL – [place] BB SubsectionBMPon 10-44-7652Jyrqg gap [Moles/Vol]13 mmol/LNormal6-16[facility] HospitalComment on above:Order Comment: To be drawn day of surgery.Performed By: #### [id number] #### [facility] [address], [place] [address]ISN/Creat Ratio9 No WwcryJlg41-63TkarieC[facility] Clinic [facility] Hospital Comment on above:Order Comment: To be drawn day of surgery.Performed By: #### [id number] #### [facility] [address], [place] [address]Evdyzrm [Mass/Vol]9.6 mg/dLNormal8.9-11.1FMercy Health St. Rita's Medical CenterComment on above:Order Comment: To be drawn day of surgery.Performed By: #### [id number] #### [facility] [address], [place] [address]Zvbysymy [Moles/Vol]93 mmol/GXjy533-905PzpjvbCleveland Clinic Avon HospitalComment on above:Order Comment: To be drawn day of surgery.Performed By: #### [id number] #### [facility] [address], [place] [address]NU8 [Moles/Vol]24 mmol/PFrvzwq03-15IqggqsC[facility] Clinic [facility] Hospital Comment on above:Order Comment: To be drawn day of surgery.Performed By: #### [id number] #### [facility] [address], [place] [address]Tmlvnlxadm [Mass/Vol]1.0 mg/dLNormal0.5-1.3FMercy Health St. Rita's Medical CenterComment on above:Order Comment: To be drawn day of surgery.Performed By: #### [id number] #### [facility] [address], [place] [address]Nxhluhl [Mass/Vol]96 mg/aMIdhkeo85-102MjeprsCleveland Clinic Avon HospitalComment on above:Order Comment: To be drawn day of surgery.Performed By: #### [id number] #### [facility] [address], [place] [address]Vmgctbbjp [Moles/Vol]4.1 mmol/LNormal3.5-5.3FMercy Health St. Rita's Medical CenterComment on above:Order Comment: To be drawn day of surgery. Performed By: #### [id number] #### [facility] [address] [place] [address]Hwudft [Moles/Vol]126 mmol/RDlj431-209PxrduzCleveland Clinic Avon HospitalComment on above:Order Comment: To be drawn day of surgery.Performed By: #### [id number] #### [facility] [address] [place] [address]Yhvg nitrogen [Mass/Vol]9 mg/dLNormal5-21[facility] HospitalComment on above:Order Comment: To be drawn day of surgery.Performed By: #### [id number] #### [facility] [address] [place] [address]Gqswp Bank ID#on [id number] Interpretation CodeCleveland Clinic Avon HospitalComment on above:Performed By: #### [id number] #### [facility] [address] [place] [address]JLLCVYKXWHzcfdcx By: SYSTEM SYSTEM on 27-22-9663Twhdt gap [Moles/Vol]13 mmol/LNormal6 - 16 mEq/LRemisol ChemCalcium [Mass/Vol]9.6 mg/dL Normal8.9 - 11.1 mg/dLRemisol ChemChloride [Moles/Vol]93 mmol/TXuj372 - 111 mmol/LRemisol ChemCO2 [Moles/Vol]24 mmol/UNklupp41 - 31 mmol/LRemisol Chem Creatinine [Mass/Vol]1.0 mg/dLNormal0.5 - 1.3 mg/dLRemisol ChemGFR/1.73 sq M.predicted MDRD (S/P/Bld) [Vol rate/Area]82 mL/min/1.73 c2Spbouz>=59mL/min/1.73 i0Xzsadpi ChemGlucose [Mass/Vol]96 mg/kRQvhntc77 - 199 mg/dLRemisol Chem Potassium [Moles/Vol]4.1 mmol/LNormal3.5 - 5.3 mmol/LRemisol ChemSodium [Moles/Vol]126 mmol/IFzj499 - 145 mmol/LRemisol ChemUrea nitrogen [Mass/Vol]9 mg/dLNormal5 - 21 mg/dLRemisol ChemUrea nitrogen/Creatinine [Mass ratio]9 mg/mg Low10 - 20Remisol ChemInterdisciplinary Note - Case Manageron 02-03-2025 Interdisciplinary Note - Case ManagerInterdisciplinary Note - Neonatal Intensive Care Nurse Chart review completed Patient is new to room 317 Patient came in and had Robotic radical prostatectomy with bilateral pelvic lymph node dissection. Patient is assigned to Dr Leonard. Patient will remain in hospital today. Patient is a low risk for readmission. Patient is an observation to floor for for normal post operative care. Patient will need trish seen by CRM on 02/04.[facility] HospitalComment on above:Result Comment: Electronically Signed By: Letty Dubon\.br\Date and Time Signed: 02/03/25 16:47 EDTMain OR Intraoperative Recordon [id number] OR Intraoperative Record Main OR Intraoperative Record IntraOp Document Type FT Summary Primary Physician: RENATA HAMILTON MD Finalized Date/Time: 02/03/25 14:51:16 Pt. Name: ROSY TAYLOR/Sex: 1955 Male Med Rec #: [id number] Physician: RENATA HAMILTON MD Financial #: [id number] Pt. Type: O Room/Bed: Admit/Disch: 02/03/25 09:00:21 - Institution: Case Times FT Entry 1 Patient Times In Room 02/03/25 11:10:00 Out Room 02/03/25 14:37:00 Procedure Times Start 02/03/25 11:32:00 Stop 02/03/25 14:32:00 Anesthesia Times Start 02/03/25 11:10:00 Stop 02/03/25 14:37:00 Last Modified By: Lokesh Hartman 02/03/25 14:37:40 Case Attendance FT Entry 1 Entry 2 Entry 3 Case Attendee Jasmyne JORDAN, Jona HAMILTON MD, Zhou SMITH, Regan YANEZ Role Performed Anesthesiologist Surgeon - Primary RAILROADER/SA Hand Tapper Time In 02/03/25 11:10:00 02/03/25 11:10:00 02/03/25 11:10:00 Time Out 02/03/25 14:37:00 02/03/25 14:37:00 02/03/25 14:37:00 Procedure PROSTATECTOMY, ROBOT PROSTATECTOMY, ROBOT PROSTATECTOMY, ROBOT ASSISTED(., .) ASSISTED(., .) ASSISTED(., .) Comments DR ROBISON SUPERVISING. OUT OF ROOM [id number] Last Modified By: Lokesh Hartman Terry T Sweene, Terry T 02/03/25 14:37:41 02/03/25 14:37:41 02/03/25 14:37:41 Entry 4 Entry 5 Entry 6 Case Attendee Lokesh Hartman CST, Natalie Geiger LPN Role Performed Library Circulation Technician - Primary Scrub - Primary Staff - Other Time In 02/03/25 11:10:00 02/03/25 11:10:00 02/03/25 11:10:00 Time Out 02/03/25 14:37:00 02/03/25 14:37:00 02/03/25 11:13:00 Procedure PROSTATECTOMY, ROBOT PROSTATECTOMY, ROBOT PROSTATECTOMY, ROBOT ASSISTED(., .) ASSISTED(., .) ASSISTED(., .) Comments OUT OF ROOM [id number] LUNCH BREAK AT [id number] Last Modified By: Lokesh Hartman Terry T Sweene, Terry T 02/03/25 14:37:41 02/03/25 14:37:41 02/03/25 14:37:41 Entry 7 Entry 8 Entry 9 Case Attendee Los BECKMAN, Natalie Brooks RN, Neisha Robison MD, Nimit K. Role Performed Scrub - Relief Library Circulation Technician - Relief Anesthesiologist of Record Time In 02/03/25 11:40:00 02/03/25 12:05:00 02/03/25 12:34:00 Time Out 02/03/25 14:37:00 02/03/25 12:45:00 02/03/25 13:10:00 Procedure PROSTATECTOMY, ROBOT PROSTATECTOMY, ROBOT PROSTATECTOMY, ROBOT ASSISTED(., .) ASSISTED(., .) ASSISTED(., .) Comments became 2nd scrub at 1302. Last Modified By: Lokesh Hartman Terry T Sweene, Terry T 02/03/25 14:37:41 02/03/25 14:37:41 02/03/25 14:37:41 Perioperative Protocols FT Pre-Care Text: Implements protective measures prior to operative or invasive procedure, confirms identity before the operative or invasive procedure, verifies operative procedure, surgical site, and laterality Entry 1 Procedure(s) PROSTATECTOMY, ROBOT Patient Identity Birthday, ID Band ASSISTED(., .) Verified (select at Check, Patient least 2): Participation Consents / H and P Anesthesia Consent, Operative Site N/A Verified H&P, Surgery/Procedure Marking Verified Consent Surgical Site Yes Laterality Verified n/a Verified Procedure Verified Yes Correct Patient Yes Position Verified Availability Equipment, Medication Prep Dry n/a Verified (If Applicable) PreOp Antibiotic Yes Time Out Jona Celestin Given Participants LETY Owen MD, Zhou YANEZ CST, Minnie Spears Terry T, Green CST, Samreen Kaur Time Out Complete 02/03/25 11:32:00 Outcomes Met? Yes Last Modified By: Lokesh Hartman 02/03/25 11:51:43 Post-Care Text: The patient is free from signs and symptoms of injury caused by extraneous objects Allergy Information FT Pre-Care Text: Verifies allergies Entry 1 Allergies Reviewed? Yes Allergies Reviewed Self/Patient With Outcomes Met? Yes Last Modified By: Lokesh Hartman 02/03/25 11:51:50 Post-Care Text: The patient received appropriate medication(s) safely administered during the perioperative period Surgical Procedures FT Entry 1 Procedure Description Procedure PROSTATECTOMY, ROBOT Modifiers ., . ASSISTED Surgeon Description ROBOT ASSISTED PROSTATECTOMY Primary Procedure Yes Primary Surgeon RENATA HAMILTON MD Start 02/03/25 11:32:00 Stop 02/03/25 14:32:00 Anesthesia Type General Surgical Service Anesthesia Wound Class 2 - Clean-Contaminated Last Modified By: Lokesh Hartman 02/03/25 14:46:14 General Case Data FT Pre-Care Text: Classifies surgical wound, implements aseptic technique, initiates traffic control Entry 1 Case Information OR OR 6 FT Case Level Level 5 Wound Class 2 - Clean-Contaminated Specialty Anesthesia ASA Class 3 Preop Diagnosis PROSTATE CANCER Postop Same As Preop Yes Postop Diagnosis PROSTATE CANCER Outcomes Met? Yes Last Modified By: Lokesh Hartman 02/03/25 11:52:03 Post-Care Text: The patient is free from signs and symptoms of infection Skin Assessment (Pre Procedure) FT Pre-Care Text: Implement (more content not included)...[id number] OR PACU I RecordMain OR PACU I Record PACU Phase I Document Type FT Summary Primary Physician: RENATA HAMILTON MD Finalized Date/Time: 02/03/25 17:13:06 Pt. Name: ROSY TAYLOR/Sex: 1955 Male Med Rec #: [id number] Physician: RENATA HAMILTON MD Financial #: [id number] Pt. Type: O Room/Bed: [facility] Admit/Disch: 02/03/25 09:00:21 - Institution: Case Times PACU I FT Pre-Care Text: Identifies barriers to communication and implements measures to provide psychological support Develops individualized plan of care, and ensures continuity of care Maintains patient's dignity and privacy, and maintains patient confidentiality Identifies and reports philosophical, cultural, and spiritual beliefs and values Identifies individual values and wishes concerning care Implements aseptic technique, and administers prescribed antibiotic therapy and immunizing agents as ordered Evaluates postoperative tissue perfusion Implements thermoregulation measures, and monitors body temperature Evaluates postoperative respiratory status Evaluates postoperative cardiac status Evaluates postoperative neurological status Assesses pain control, collaborated in initiating patient-controlled analgesia and implements alternative methods of pain control Verifies allergies, administers prescribed medications and solutions, evaluates response to medications Entry 1 In PACU I 02/03/25 14:40:00 Discharge from PACU 02/03/25 16:00:00 I Outcomes Met? Yes Last Modified By: Ramona Peña RN 02/03/25 17:12:51 Post-Care Text: The patient demonstrates knowledge of the expected response to the operative or invasive procedure The patient's care is consistent with the individualized perioperative plan of care The patient's rightto privacy is maintained The patient's value system, lifestyle, ethnicity, and culture are considered, respected, and incorporated into the perioperative plan of care The patient participates in decisions affecting his or her perioperative plan of care The patient is free from signs and symptoms of infection The patient has wound/tissue perfusion consistent with or improved from baseline levels established preoperatively The patient is at or returning to normothermia at the conclusion of the immediate postoperative period The patient's respiratory function is consistent with or improved from baseline levels established preoperativelyThe patient's cardiovascular status is consistent with or improved from baseline levels established preoperatively The patient's cardiovascular status is consistent with or improved from baseline levels established preoperatively The patient demonstrates and/or reports adequate pain control throughout the perioperative period The patient received appropriate medication(s), safely administered during the perioperativeperiod Acuity Level PACU I FT Entry 1 Start Time 02/03/25 14:40:00 Stop Time 02/03/25 16:00:00 Acuity Level Acuity Level I Last Modified By: Ramona Peña RN 02/03/25 17:13:04 Finalized By: Ramona Peña RN Document Signatures Signed By: Ramona Peña RN 02/03/25 17:13NoChildren[facility]Main [facility] Preoperative Recordon [id number] OR Preoperative RecordMain OR Preoperative Record PreOp Document Type FT Summary Primary Physician: RENATA HAMILTON MD Finalized Date/Time: 02/03/25 11:47:30 Pt. Name: ROSY TAYLOR /Sex: 1955 Male Med Rec #: [id number] Physician: RENATA HAMILTON MD Financial #: [id number] Pt. Type: A Room/Bed: [facility] Admit/Disch: 02/03/25 09:00:21 - Institution: Case Times PreOp FT Pre-Care Text: Verifies consent for planned procedure, identifies individual values and wishes concerning care, includes family members in perioperative teaching Entry 1 Patient Times. In Pre Surgery 02/03/25 09:50:00 Out Pre Surgery 02/03/25 11:08:00 Outcomes Met? Yes Last Modified By: Lokesh Hartman 02/03/25 11:47:29 Post-Care Text: The patient participates in decisions affecting his or her perioperative plan of care Finalized By: Lokesh Hartamn Document Signatures Signed By: Lokesh Hartman 02/03/25 11:47[facility]Oper[facility] Report on [id number] ReportOperative Report Patient: ROSY TAYLOR Age: 70 years Sex: Male : 1955 Associated Diagnoses: None Author: RENATA HAMILTON MD Procedure SURGEON: Renata Hamilton M.D. PREOPERATIVE DIAGNOSIS: Prostate cancer. POSTOPERATIVE DIAGNOSIS: Prostate cancer. OPERATION: 1. Robotic radical prostatectomy with bilateral pelvic lymph node dissection. ANESTHESIA: General. COMPLICATIONS: None. ESTIMATED BLOOD LOSS: Minimal. FLUIDS: Crystalloid. DRAINS: Urethral moore catheter, 19 Slovak Kobe drain SPECIMENS: Prostate, seminal vesicles, bilateral pelvic lymph nodes FINDINGS: INDICATIONS FOR THE PROCEDURE: Patient is a 70-year-old male with favorable intermediate prostate adenocarcinoma. After treatment options were discussed including risks, benefits, alternatives, goals and possible complications, the patient elected to proceed with today???s procedure. DESCRIPTION OF PROCEDURE: This patient was given preoperative anticoagulation and antibiotics and was brought back to the operating room and positioned in the supine position. General anesthesia was started. He was secured tothe bed and then he was sterilely prepped and draped in standard fashion. An 18 Slovak Moore catheter was placed and a supraumbilical skin incision was made, a Veress needle was placed through this into the peritoneum. Pneumoperitoneum was obtained. An 8 mm port was placed through this incision into the peritoneum. The peritoneum was examined. No injuries were noted. The rest of the ports were placed in the usual fashion. Three robotic 8 mm ports were placed into child center assistant, one 12 mm, one 5 mm ports were placed under direct vision. After this the robot was then docked and the procedure was started by reflecting the bladder in the usual fashion by incising lateral to the medial umbilical ligaments and transecting the urachus. The fat off the anterior aspect of the prostate was excised. Endopelvic fascia on each side was incised. The dorsal vein was ligated with a figure-of-8 stitch of 0-V-Loc. This was pexed to the pubic bone. I then transected the bladder making sure not to enter the prostate and making sure not to enter the ureteral orifices. The anterior Denonvilliers fascia was identified, it was incised. The seminal vesicles and vasa were dissected and lifted anteriorly. The posterior Denonvilliers fascia was incised and the rectum was swept off the posterior lateral aspect of the prostate. The prostatic pedicles were ligated and divided with Hem-o-Garo clips and we performed STANDARD nerve dissection. This progressed on both sides towards the apex of the prostate, then the dorsal venous complex was incised, the urethra was dissected and then transected maintaining urethral length. The rectourethralis was transected, the prostate was free and the pelvis was irrigated,no injuries were noted. There was adequate hemostasis. The right pelvic lymph node dissection was performed by sampling lymph nodes between the iliac vein and the obturator nerve, making sure not to injure the structures, the same was on the left side by sampling the nodes between the iliac vein and the obturator nerve, making sure not to injure the structures. After this the lymph nodes and the prostate were placed into an EndoCatch bag and then the Martín stitch was performed with a 3-0 v-LOCKand a figure-of-8 stitch manner, bringing together posterior Denonvilliers fascia and the rectourethralis was tied down. The bladder urethra anastomosis was performed with a 4-0 quill stitch in a running fashion. This was tied down and new Moore catheter was placed. The bladder was irrigated, therewas no extravasation noted. We decided to leave a drain. Then the robot was undocked, the umbilicalskin incision was elongated, the specimen bag was removed through this incision, this incision was closed with figure-of-8 stitches of 0-Vicryl. All the skin incisions were closed with 4-0 Monocryl. Dermabond was placed and that was the end of the procedure. The patient will be admitted for routine postoperative care. I was present and scrubbed throughout the entire case. Plan: Admission for normal post operative careNoChildren's Hospital of ColumbusComment on above:Result Comment: Electronically Signed By: LETY RICHMOND, RENATA\.br\Date and Time Signed: 02/03/25 14:45 EDTeGFRon 48-66-4048wBZY81 mL/min/1.73 a3Pybghy>=59C[facility] Avon HospitalComment on above:Performed By: #### [id number] #### [facility] [address], [place] [address]Auqgayzou glomerular filtration rate (GFR) non- on 78-33-9521ZWH/1.73 sq M.predicted among non-blacks MDRD (S/P/Bld) [Vol rate/Area]mL/min/{1.73_m2}>=60 mL/min/1.73m 2FGalion Community Hospital Laboratory - Chemistry and Chemistry - challengeon 68-37-5063Ztimxod [Mass/Vol] 9.5 mg/dL8.5-10.1FGalion Community HospitalChloride [Moles/Vol]95 mmol/L Kbi75-833KfroaxqvxCleveland Clinic FoundationCO2 [Moles/Vol]26.7 mmol/L21.0-32.0 [facility] FoundationCreatinine [Mass/Vol]1.19 mg/dL0.70-1.30 [facility] FoundationGFR/1.73 sq M.predicted MDRD (S/P/Bld) [Vol rate/Area]mL/min/{1.73_m2}>=60 mL/min/1.73m [address] [place] [address] Glucose [Mass/Vol]121 mg/nIQrkp30-390RqikavxvaCleveland Clinic FoundationPotassium [Moles/Vol]4.6 mmol/L3.5-5.1FCleveland Clinic Union Hospitalodium [Moles/Vol] 129 mmol/AQgv129-959WeajcbumcCleveland Clinic FoundationTSH Qn4.413 m[IU]/LHigh 0.358-3.740C[facility] Clinic FoundationUrea nitrogen [Mass/Vol]10.0 mg/dL 7.0-18.0C[facility] FoundationUrea nitrogen/Creatinine [Mass ratio] 8.4 mg/mgAccess Hospital Daytonerum or plasma anion gap determinationon 21-45-9459Mjgpm gap [Moles/Vol]11.9 mmol/LFGalion Community HospitalEstimated glomerular filtration rate (GFR) non- Americanon 37-88-6862HZF/1.73 sq M.predicted among non-blacks MDRD (S/P/Bld) [Vol rate/Area]mL/min/{1.73_m2}>=60 mL/min/1.73m [address] [place] [address] Laboratory - Chemistry and Chemistry - challengeon 11-71-1793Exddakb [Mass/Vol] 9.2 mg/dL8.5-10.1FGalion Community HospitalChloride [Moles/Vol]98 mmol/L 98-107C[facility] Clinic FoundationCO2 [Moles/Vol]25.7 mmol/L21.0-32.0 [facility] FoundationCreatinine [Mass/Vol]1.17 mg/dL0.70-1.30 [facility] FoundationGFR/1.73 sq M.predicted MDRD (S/P/Bld) [Vol rate/Area]mL/min/{1.73_m2}>=60 mL/min/1.[address]m [address] [place] [address] Glucose [Mass/Vol]103 mg/nH69-404SoyifgxzxCleveland Clinic FoundationPotassium [Moles/Vol]4.4 mmol/L3.5-5.1FCleveland Clinic Union Hospitalodium [Moles/Vol] 133 mmol/ULsu902-521FghcydnrwCleveland Clinic FoundationUrea nitrogen [Mass/Vol]9.0 mg/dL7.0-18.0C[facility] Clinic FoundationUrea nitrogen/Creatinine [Mass ratio]7.7 mg/mgAccess Hospital Daytonerum or plasma anion gap determinationon 03-14-3681Uuhkz gap [Moles/Vol]13.7 mmol/LFGalion Community HospitalLaboratory - Chemistry and Chemistry - challengeon 01-07-2025 Osmolality [Osmolality]257 mosm/uoLufqsvgu982-639IyqehvfgsCleveland Clinic FoundationComment on above:Performed at: [employer] [facility] [address] [id number] Director: Gaye Rhodes MD, Phone: [phone] [Mass/Vol]5.0 mg/dL3.5-7.2FCleveland Clinic Union Hospitalodium (U) [Moles/Vol]73 mmol/B32-29HnhvkrnviCleveland Clinic FoundationNo Panel Informationon 36-93-6528Dppvm Rbqalkyizw556 mOsmol/kg.[facility] Comment on above:24 hr : 300 - 900 Random: 50 - 1400 After 12hr fluid restriction: >850Performed at: BN - [id number] [id number] Director: Gaye Rhodes MD, Phone: [phone] ABO/Rh Retypeon 84-57-1499XUG/Rh Retype InterpPositiveInvalid Interpretation CodeCleveland Clinic Avon HospitalComment on above:Performed By: #### [id number] #### [facility] [address], [place] [address]PQDJG BANKOrdered By: America Chin on 94-71-0135PGS/Rh Retype InterpPositiveInvalid Interpretation [facility] BB SubsectionBMPon 01-04-2025 Anion gap [Moles/Vol]11 mmol/LNormal6-16C[facility] HospitalComment on above:Performed By: #### [id number] #### [facility] [address], [place] [address]Fnaosql [Mass/Vol]9.4 mg/dLNormal8.9-11.1FMercy Health St. Rita's Medical CenterComment on above:Performed By: #### [id number] #### [facility] [address], [place] [address]Yzrnhmxs [Moles/Vol]90 mmol/VXji660-616MldfwtCleveland Clinic Avon HospitalComment on above:Performed By: #### [id number] #### [facility] [address], [place] [address]RG5 [Moles/Vol]26 mmol/DIdatvs68-74KzfiibCleveland Clinic Avon Hospital Comment on above:Performed By: #### [id number] #### [facility] [address], [place] [address]Gjdafjosvi [Mass/Vol]1.1 mg/dLNormal0.5-1.3FMercy Health St. Rita's Medical CenterComment on above:Performed By: #### [id number] #### [facility] [address], [place] [address]Wzxkmpx [Mass/Vol]122 mg/qETzgzoe48-709PyjqarCleveland Clinic Avon HospitalComment on above:Performed By: #### [id number] #### [facility] [address], [place] [address]Qmdcmebga [Moles/Vol]4.4 mmol/LNormal3.5-5.3FMercy Health St. Rita's Medical CenterComment on above:Performed By: #### [id number] #### [facility] [address], [place] [address]Jbyjyo [Moles/Vol]123 mmol/TDza958-956WtbcaaCleveland Clinic Avon HospitalComment on above:Performed By: #### [id number] #### [facility] [address], [place] [address]Xsli nitrogen [Mass/Vol]9 mg/dLNormal5-21C[facility]on HospitalComment on above:Performed By: #### [id number] #### [facility] [address], [place] [address]Ntwc nitrogen/Creatinine [Mass ratio]8 No VivclTwl92-96TvnmdaCleveland Clinic Avon HospitalComment on above:Performed By: #### [id number] #### [facility] [address], [place] [address]LGB w/ Auto Diffon 47-18-2460Ayubjinfv/100 WBC (Bld)1.1 %Normal 0.0-2.0C[facility] HospitalComment on above:Performed By: #### [id number] #### [facility] [address] [place] [address]Gueplivpm/Leukocytes Auto (Bld) [Pure # fraction]0.1 E9/LNormal 0.0-0.2FMercy Health St. Rita's Medical CenterComment on above:Performed By: #### [id number] #### [facility] [address] [place] [address]Apezlkofaws (Bld) [#/Vol]0.1 E9/LNormal0.0-0.5FMercy Health St. Rita's Medical CenterComment on above:Performed By: #### [id number] #### [facility] [address] [place] [address]Gbdjlbcpunu/100 WBC (Bld)2.0 %Normal0.0-8.0[facility]on HospitalComment on above:Performed By: #### [id number] #### [facility] [address] [place] [address]Gpriezbztne distribution width (RBC) [Ratio]13.2 %Normal 10.9-14.2FMercy Health St. Rita's Medical CenterComment on above:Performed By: #### [id number] #### [facility] [address] [place] [address]Vaxfviwqhv (Bld) [Volume fraction]40.4 %Srgfes76.7-49.0C[facility] HospitalComment on above:Performed By: #### [id number] #### [facility] [address] [place] [address]Kkjycjihke (Bld) [Mass/Vol]14.0 g/nEEdkifj76.5-17.5FMercy Health St. Rita's Medical CenterComment on above:Performed By: #### [id number] #### [facility] [address] [place] [address]Uleefnfbgqp (Bld) [#/Vol]1.1 E9/LNormal1.0-4.0[facility] HospitalComment on above:Performed By: #### [id number] #### [facility] [address] [place] [address]Rimhspofwbk/100 WBC (Bld)19.8 %Lgqwjh21.0-50.0[facility] HospitalComment on above:Performed By: #### [id number] #### [facility] [address] [place] [address]YNZ (RBC) [Entitic mass]31.4 ftRnqpih39.0-34.0[facility] HospitalComment on above:Performed By: #### [id number] #### [facility] [address] [place] [address]HDXG (RBC) [Mass/Vol]34.7 g/tICwiuvo43.4-36.0[facility] HospitalComment on above:Performed By: #### [id number] #### [facility] [address] [place] [address]GAH (RBC) [Entitic vol]90.5 eRAgwynr17.0-100.0[facility] HospitalComment on above:Performed By: #### [id number] #### [facility] [address] [place] [address]Yjjocbijd (Bld) [#/Vol]0.7 E9/LNormal0.2-1.0[facility] HospitalComment on above:Performed By: #### [id number] #### [facility] [address] [place] [address]Mxivqawejmt (Bld) [#/Vol]3.7 E9/LNormal2.0-7.5FMercy Health St. Rita's Medical CenterComment on above:Performed By: #### [id number] #### [facility] [address] [place] [address]Nmgtferttij/100 WBC (Bld)65.1 %Jhcjqq12.0-75.0[facility] HospitalComment on above:Performed By: #### [id number] #### [facility] [address] [place] [address]Wwpqwjpu mean volume (Bld) [Entitic vol]6.6 fLNormal6.4-10.8 [facility] HospitalComment on above:Performed By: #### [id number] #### [facility] [address] [place] [address]Uwqpohljv (Bld) [#/Vol]338.0 E9/XSlglje799.0-500.0[facility] HospitalComment on above:Performed By: #### [id number] #### [facility] [address] [place] [address]XCQ (Bld) [#/Vol]4.5 E12/LNormal4.3-5.9[facility] HospitalComment on above:Performed By: #### [id number] #### [facility] [address] [place] [address]CST corrected for nucl RBC Auto (Bld) [#/Vol]5.7 E9/LNormal 4.0-11.0[facility] HospitalComment on above:Performed By: #### [id number] #### [facility] [address] [place] [address]GILTNKSMZLdfauoj By: SYSTEM SYSTEM on 31-66-5028Xeikj gap [Moles/Vol]11 mmol/LNormal6 - 16 mEq/LRemisol ChemCalcium [Mass/Vol]9.4 mg/dL Normal8.9 - 11.1 mg/dLRemisol ChemChloride [Moles/Vol]90 mmol/CMjq092 - 111 mmol/LRemisol ChemCO2 [Moles/Vol]26 mmol/RYuosta10 - 31 mmol/LRemisol Chem Creatinine [Mass/Vol]1.1 mg/dLNormal0.5 - 1.3 mg/dLRemisol EsdhwTVM25 mL/min/1.73 t9Yhrzdw>=59mL/min/1.73 d3Etpreba ChemGlucose [Mass/Vol]122 mg/dL Szkrqu46 - 199 mg/dLRemisol ChemPotassium [Moles/Vol]4.4 mmol/LNormal3.5 - 5.3 mmol/LRemisol ChemSodium [Moles/Vol]123 mmol/DNsu704 - 145 mmol/LRemisol Chem Urea nitrogen [Mass/Vol]9 mg/dLNormal5 - 21 mg/dLRemisol ChemUrea nitrogen/Creatinine [Mass ratio]8 mg/mgLow10 - 20Remisol ChemCOAGULATIONOrdered By: Bree Villatoro on 86-42-0904jSXY Coag (PPP) [Time]32.4 gJsagvw20.1 - 36.5 second(s)[facility] Auto CoagComment on above:Interpretive Data: Parameter 15 days - 4 weeks 1 [...] the same coagulation reagent and instrumentation as [facility]. Currently there are no coagulation studies available worldwide for children to 14 days, andno normal ranges. Heparin therapeutic range (represented by Anti-Factor Xa activity of 0.2 - 0.4 U/mL) corresponds to PTT of 56.6 - 109.0 sec.INR Coag (PPP) [Relative time]0.94 {INR}Invalid Interpretation CodeCOMMUNITY HOSPITAL – [place] Auto CoagComment on above:Interpretive Data: INR results are specifically intended to assess patients stabilized on long-term Anticoagulation therapy suggested INR s Less Intensive Anticoagulation 2.0 3.0 Conventional Range 3.0 4.5PT Coag (PPP) [Time]10.5 sNormal9.4 - 12.5 second(s) [facility] Auto CoagComment on above:Interpretive Data: 15 days - 4 weeks 1 - 5 months 6 -11 months 1 5 years 6 10 years 11 -17 years Mean: 11.2 (9.5 12.6) Mean: 11.0 (9.7 12.8) Mean: 11.0 (9.8 13.0) Mean: 11.3 (9.9 13.4) Mean: 11.7 (10.0 14.6) Mean: 11.8 (10.0 - 14.1) Pediatric Reference ranges were obtained from a study by Jermaine Ramirez et al. prepared from 1437 samples obtained at 7 different centers using the same coagulation reagent and instrumentation as [facility]. Currently there are no coagulation studies available worldwide for children to 14 days, andno normal ranges.HEMATOLOGYOrdered By: SYSTEM SYSTEM on 46-69-7349Uaqkwsdee/100 WBC (Bld)1.1 %Normal0.0 - 2.0 %Remisol HemeBasophils/Leukocytes Auto (Bld) [Pure # fraction]0.1 E9/LNormal0.0 - 0.2 E9/LRemisol HemeEosinophils (Bld) [#/Vol]0.1 E9/LNormal0.0 - 0.5 E9/LRemisol HemeEosinophils/100 WBC (Bld)2.0 %Normal0.0 - 8.0 %Remisol HemeErythrocyte distribution width (RBC) [Ratio]13.2 %Mjbzew01.9 - 14.2 %Remisol HemeHematocrit (Bld) [Volume fraction]40.4 %Gevmxn37.7 - 49.0 % Remisol HemeHemoglobin (Bld) [Mass/Vol]14.0 g/oJXfzkts68.5 - 17.5 gm/dLRemisol HemeLymphocytes (Bld) [#/Vol]1.1 E9/LNormal1.0 - 4.0 E9/LRemisol Heme Lymphocytes/100 WBC (Bld)19.8 %Yhpyli92.0 - 50.0 %Remisol HemeMCH (RBC) [Entitic mass]31.4 upOhlrfy72.0 - 34.0 pgRemisol HemeMCHC (RBC) [Mass/Vol]34.7 g/dL Tcsqcx16.4 - 36.0 gm/dLRemisol HemeMCV (RBC) [Entitic vol]90.5 eHCjdngf82.0 - 100.0 fLRemisol HemeMonocytes (Bld) [#/Vol]0.7 E9/LNormal0.2 - 1.0 E9/LRemisol HemeMonocytes/100 WBC (Bld)12.0 %Normal4.0 - 14.0 %Remisol HemeNeutrophils (Bld) [#/Vol]3.7 E9/LNormal2.0 - 7.5 E9/LRemisol HemeNeutrophils/100 WBC (Bld)65.1 % Nlqwoa64.0 - 75.0 %Remisol HemePlatelet mean volume (Bld) [Entitic vol]6.6 fL Normal6.4 - 10.8 fLRemisol HemePlatelets (Bld) [#/Vol]338.0 E9/JNkkijx334.0 - 500.0 E9/LRemisol HemeRBC (Bld) [#/Vol]4.5 E12/LNormal4.3 - 5.9 E12/LRemisol HemeWBC corrected for nucl RBC Auto (Bld) [#/Vol]5.7 E9/LNormal4.0 - 11.0 E9/L Remisol HemeLaboratory - Chemistry and Chemistry - challengeOrdered By: SYSTEM SYSTEM on 19-31-6377JGD Qn14.21 m[IU]/LHigh0.34-5.60Remisol ChemPT & PTTon 50-79-8708gOUU Coag (PPP) [Time]32.4 second(s)Urcisn36.1-36.5[facility] HospitalComment on above:Result Comment: Parameter 15 days - 4 weeks 1 - 5 months 6 - 11 months 1 - 5 years 6 - 10 years 11 - 17 years PTT Mean: 35.4 (27.6-45.6) Mean: 33.5 (24.8-40.7) Mean: 32.4 (25.1-40.7) Mean: 31.6 (24.0-39.2) Mean: 31.6 (26.9-38.7) Mean: 31.0 (24.6-38.4) Pediatric Reference ranges were obtained from a study by seymour Fox al. prepared from 1437 samples obtained at 7 different centers using the same coagulation reagent and instrumentation as [facility]. Currently there are no coagulation studies available worldwide for children to 14 days, andno normal ranges. Heparin therapeutic range (represented by Anti-Factor Xa activity of 0.2 - 0.4 U/mL) corresponds to PTT of 56.6 - 109.0 sec.Performed By: #### [id number] #### [facility] [address], [place] [address]DTA Coag (PPP) [Relative time]0.94 {INR}Invalid Interpretation CodeFisher St. Agnes HospitalComment on above:Result Comment: INR results are specifically intended to assess patients stabilized on long-term Anticoagulation therapy suggested INR???s ???Less Intensive Anticoagulation??? 2.0 ??? 3.0 Conventional Range 3.0 ??? 4.5Performed By: #### [id number] #### [facility] [address], [place] [address]WW Coag (PPP) [Time]10.5 second(s)Normal9.4-12.5Fisher St. Agnes HospitalComment on above:Result Comment: 15 days - 4 weeks 1 [...] the same coagulation reagent and instrumentation as [facility]. Currently there are no coagulation studies available worldwide for children to 14 days, andno normal ranges.Performed By: #### [id number] #### [facility] [address], [place] [address]JYOlj 41-78-2450FXF Qn14.21 m[IU]/LHigh0.34-5.60[facility] HospitalComment on above:Performed By: #### [id number] #### [facility] [address], [place] [address]RE with Cult Rflxon 74-92-0021Kpulcstvr Ql (U)NegativeNormal NegativeCleveland Clinic Avon HospitalComment on above:Performed By: #### [id number] #### [facility] [address], [place] [address]Azkxiop (U)ClearNormalClearCleveland Clinic Avon HospitalComment on above:Performed By: #### [id number] #### [facility] [address], [place] [address]Aczis (U)ColorlessAbnormalYellowCleveland Clinic [facility] Comment on above:Result Comment: Microscopic readings are only performed on those samples that meet specific criteria set forth by [facility].Performed By: #### [id number] #### [facility] [address], [place] [address]Gxinpbf Ql (U)NegativeNormalNegativeC[facility] Comment on above:Performed By: #### [id number] #### [facility] [address] [place] [address]Dnqkgpwnzl Auto test strip (U) [Mass/Vol]NegativeNormalNegative [facility] HospitalComment on above:Performed By: #### [id number] #### [facility] [address], [place] [address]Cwnvdqd Auto test strip Ql (U)NegativeNormalNegativeCleveland Clinic Avon HospitalComment on above:Performed By: #### [id number] #### [facility] [address], [place] [address]Pirllahit esterase Auto test strip Ql (U)NegativeNormalNegative [facility] HospitalComment on above:Performed By: #### [id number] #### [facility] [address], [place] [address]Wvbwdfn Auto test strip Ql (U)NegativeNormalNegativeCleveland Clinic Avon HospitalComment on above:Performed By: #### [id number] #### [facility] [address] [place] [address]336nB (U)6.5 [pH]Invalid Interpretation Code5.0-9.0[facility] HospitalComment on above:Performed By: #### [id number] #### [facility] [address] [place] [address]Prfoovr Ql (U)NegativeNormalNegMemorial Health System [facility] Comment on above:Performed By: #### [id number] #### [facility] [address] [place] [address]Voihswxn gravity (U) [Rel density]1.004Invalid Interpretation Code1.005-1.030[facility] HospitalComment on above:Performed By: #### [id number] #### [facility] [address] [place] [address]Uswcdetviulv (U) [Mass/Vol]NegativeNormalNegativeCleveland Clinic Avon HospitalComment on above:Performed By: #### [id number] #### [facility] [address] [place] [address]Uked of Urine collection methodClean CatchPaulding County HospitalComment on above:Performed By: #### [id number] #### [facility] [address] [place] [address]DUEQIUUMCKOkufuug By: SYSTEM SYSTEM on 15-12-9385Wrbkdjeel Ql (U)NegativeNormalNegativemg/dLCOMMUNITY HOSPITAL – [place] UA Auto SSClarity (U)Clear (01/04/25 3:24 PM)NormalClearFTMC UA Auto SSColor (U)Colorless 1 *ABN* (01/04/25 3:24 PM)Invalid Interpretation CodeYellowCOMMUNITY HOSPITAL – [place] UA Auto SSComment on above:Interpretive Data: Microscopic readings are only performed on those samples that meet specific criteria set forth by [facility].Glucose Ql (U)NegativeNormalNegativemg/dLFTMC UA Auto SSHemoglobin Auto test strip (U) [Mass/Vol]NegativeNormalNegativemg/dLCOMMUNITY HOSPITAL – [place] UA Auto SSKetones Auto test strip Ql (U)NegativeNormalNegativemg/dLFT UA Auto SSLeukocyte esterase Auto test strip Ql (U)NegativeNormalNegativeLeu/uLFT UA Auto SS Nitrite Auto test strip Ql (U)NegativeNormalNegativemg/dLCOMMUNITY HOSPITAL – [place] UA Auto SSpH (U) 6.5 *NA* (01/04/25 3:24 PM)Invalid Interpretation Code5.0 - 9.0[facility] [place] UA Auto SSProtein Ql (U)NegativeNormalNegativemg/dLCOMMUNITY HOSPITAL – [place] UA Auto SSSpecific gravity (U) [Rel density] 1.004 *NA* (01/04/25 3:24 PM)Invalid Interpretation Code1.005 - 1.030[facility] UA Auto SS Urobilinogen (U) [Mass/Vol]NegativeNormalNegativemg/dLCOMMUNITY HOSPITAL – [place] UA Auto SSURINALYSIS Ordered By: Ivy Wynne on 23-54-0638PC Spec DescClean Catch (01/04/25 3:24 PM)NormalFT UA Auto SSeGFRon 14-40-2620fUEM82 mL/min/1.73 m2 Normal>=[address] Agnes HospitalComment on above:Performed By: #### [id number] #### [facility] [address], [place] [address]Htinylrzyo Visit Summaryon 25-44-1985Xbzfxcauyw Visit Summary Ambulatory Visit Summary CLAUDIA ROSY :1955 Visit Date:12/17/2024 Ambulatory Visit Instructions Your Diagnosis Prostate cancer BPH with urinary obstruction Your Care Team Attending Physician - LETY RICHMOND, RENATA Primary Care Physician - ROSMERY BECK REGAN This Is Your Medications List Contact prescribing physician if questions or concerns amlodipine aspirin baclofen benazepril levothyroxine Procedures Performed Transrectal biopsy of prostate using ultrasound (US) guidance (11/17/2024). Discharge Vitals Heart Rate (Peripheral) 92 Blood Pressure 171/74 Height 170 cm Height 67 in Weight 100.24 kg Weight 220.991 lb BMI 34.69 What to do next Scheduled Follow-Up Appointments Saturday 3:30 PM EDT Where: [facility] Saturday 12:15 PM EDT Where: [facility] You Need to Schedule the Following Appointments Follow Up with LETY RICHMOND, AVIS YANEZ When: Where: Medications What How Much When [...] Mouth Every day Contact prescribing physician if questionsor concerns Allergies No Known Allergies Problems Ongoing [...] surgery done to remove the entire prostate andnearby tissue. This includes the seminal vesicles, which [...] prostate and nearby tissues. The surgeon uses roboticarms to control these tools while sitting at [...] including vitamins, herbs, eye drops, creams, and oxuc-rvy-csnrtxl medicines. ??? Any problems you or family [...] water, clear fruit juice, black coffee, and (more content not included)...[facility] HospitalUrology Office/Clinic Noteon 76-02-9910Axezukc Office/Clinic NoteUrology Office/Clinic Note Chief Complaint Discuss prostatectomy HPI [...] and history for this patient from Dr. Mednia I have reviewed and verified the staff [...] well nourished, well developed male. Assessment/Plan Dr. Medina pt internally referred to discuss RALP. Pt accompanied by son and D-I-L today. Denies MT/stents or CVA. Not on AC. Denies hx of diabetes. DINESH 4 - no current treatment. Portions of this record may have been created with voice recognition artificial intelligence software, specifically [employer], [employer] and or [employer]. Substitutions may have occurred due to the [...] volume 53 cc. S/p TRUS/bx 11/17/24 - Dieter 7 (3+4), GG2 x2 cores. Dieter 6 (3+3) x4 cores. 2 ANA cores [...] the risk of understaging, undergrading and therefore under- treatment. However,this option is associated with preserved quality of life due to its avoidance of most treatment related side effects. I discussed radical prostatectomy including robot-assisted laparoscopic and open approaches. I discussed the procedure in detail with the patient, including how the AlertMei system operates, setup andpositioning, docking, extirpation of the prostate, both seminal vesicles, and regional lymph nodes.We discussed in details the levels of nerve sparing, continence preservation, and the short-term and long-term outcomes for recovery of stress urinary incontinence, and sexual impotency. Other risks of the procedure were discussed, including but not limited to, bleeding requiring transfusion, infection, bowel/rectal injury, DVT/PE, MT, CVA, hernia, lymphocele requiring drainage, positional injury, [...] treatments and need for further surgeries. Does (more content not included)...[facility] County HospitalComment on above:Result Comment: Electronically Signed By: RENATA HAMILTON MD\.br\Date and Time Signed: 12/17/24 14:52 EDT\.br\Electronically Co- Signed By: Thom, Whit B\.br\Date and Time Co-Signed: 12/17/24 14:30 EDT Ambulatory Visit Summaryon 32-06-8603Nebbkwbxtw Visit SummaryAmbulatory Visit Summary ROSY TAYLOR :1955 Visit Date:12/07/2024 Ambulatory Visit Instructions Your Diagnosis Prostate cancer BPH with urinary obstruction Your Care Team Attending Physician - Jeyson MEDINA MD Primary Care Physician - REGAN BOTELLO DO This Is Your Medications List Contact [...] Appointments 2024 2:00 PM EDT With: RENATA HAMILTON MD Where: [facility] [address], [address] [place] [id number]- You Need to Schedule the Following Appointments Follow Up with LETY RICHMOND, RENATA, AVIS When: Comments: discuss prostatectomy Where: Medications What [...] Mouth Every day Contact prescribing physician if questionsor concerns Allergies No Known Allergies Problems Ongoing [...] such as a bone scan, CT scan, PETscan, or MRI. Stages of prostate cancer The [...] the prostate. ??? Stage 4 (IV). At (more content not included)...[facility] HospitalAmbulatory Visit SummaryAmbulatory Visit Summary ROSY TAYLOR :1955 Visit Date:12/07/2024 Ambulatory Visit Instructions Your Diagnosis Prostate cancer BPH with urinary obstruction Your Care Team Attending Physician - CAROL RICHMOND, Jeyson Orantes Primary Care Physician - REGAN BOTELLO DO This Is Your Medications List Contact [...] Appointments 2024 2:00 PM EDT With: RENATA HAMILTON MD Where: [facility] [address], [address] [place] [id number]- You Need to Schedule the Following Appointments Follow Up with LETY RICHMOND, RENATA, AVIS When: Comments: discuss prostatectomy Where: Medications What [...] Mouth Every day Contact prescribing physician if questionsor concerns Allergies No Known Allergies Problems Ongoing [...] such as a bone scan, CT scan, PETscan, or MRI. Stages of prostate cancer The [...] the prostate. ??? Stage 4 (IV). At th (more content not included)...[facility] HospitalUrology Office/Clinic Noteon 59-57-3581Zuibkfm Office/Clinic NoteUrology Office/Clinic Note Chief Complaint Discuss path HPI [...] and history for this patient from Dr. Medina. I have reviewed and verified the staff [...] Prostate volume 53 cc. TRUS/bx 11/17/24 - [place] 7 (3+4), GG2 x2 cores. [place] 6 (3+3) x4 cores. 2 ANA cores [...] cons of each therapy today, and the [place] prostate cancer book was provided. Advised pt he to proceed with treatment. Recommended prostatectomy given longer life expectancy. Explained possible SEs of prostatectomy vs radiation. Discussed possible referral to [facility] to discuss treatment options. Pt does not feel hewould able to accommodate traveling to [place]. Prefers to stay local if possible. -F/u w/ [facility] to discuss prostatectomy 2. BPH with urinary obstruction (N40.1: Benign prostatic hyperplasia with lower urinary tract symptoms) No BPH meds. UA today shows trace-intact blood (clinically neg), neg for infection. Follow-up With When Contact Information LETY RICHMOND, RENATA, ALESIAL Additional Instructions: discuss prostatectomy Patient Education Prostate Cancer Wanda Cordova, personally scribed for Dr. Medina on 12/07/2024 15:56:29. . Documentation recorded by the scribeWanda, accurately reflects the services(s) I performed and decisions made by me. Authenticated by Dr. Medina on 12/07/2024 16:12:28. Problem List/Past Medical History [...] virus vaccine, inactivated 06/15/2022 Recorded SARS-CoV-2 (COVID-19) mRNAMUL.ORD![id number] 06/15/2022 Recorded SARSCoV2 mRNA(kglzpwojg-enfv-tojgmr) vac 12/03/2021 Recorded influenza virus vaccine, inactivated [...] Protein Urine Dipstick: Negative (12/07/24 14:51:00) Specific G (more content not included)...[facility] Comment on above:Result Comment: Electronically Signed By: Jeyson MEDINA MD\.br\Date and Time Signed: 12/07/24 16:12 EDT\.br\Electronically Co-Signed By: Wanda Archuleta.br\Date and Time Co-Signed: 12/07/24 15:57 EDTProstate Histology ( Labs)on 69-25-0843Jgdyinkx HistologyDiagnosis InfoInvalid Interpretation [facility] HospitalComment on above:Result Comment: A :Prostate,Left Lateral Base:Needle Biopsy Interpretation - - Acinar adenocarcinoma of prostate; Dieter score 6(3+3); Tumor measures 0.32 cm in length; 26% of the core involved by tumor; 1 of 1 core involved. MicroScopic Description - A :Prostate,Left Base:Needle Biopsy Interpretation - - Acinar adenocarcinoma of prostate; [place] score 6(3+3); Tumor measures 0.5 cm in length; 28% of the core involved by tumor; 1 of 1 core involved. MicroScopic Description - A :Prostate,Left Lateral Mid:Needle Biopsy Interpretation - - Acinar adenocarcinoma of prostate; [place] score 6(3+3); Tumor measures 0.83 cm in length; 37% of the core involved by tumor; 1 of 1 core involved. MicroScopic Description - A :Prostate,Left Mid:Needle Biopsy Interpretation - - Acinar adenocarcinoma of prostate; [place] score 7(3+4); Tumor measures 0.55 cm in length; 26% of the core involved by tumor; 1 of 1 core involved. MicroScopic Description - A :Prostate,Left Lateral [place]:Needle Biopsy Interpretation - - Atypical glands suspicious but not diagnostic for adenocarcinoma. MicroScopic Description - A :Prostate,Left [place]:Needle Biopsy Interpretation - - Atypical small acinar [...] prostatic tissue. MicroScopic Description - A :Prostate,Right [place]:Needle Biopsy Interpretation - - Acinar adenocarcinoma of prostate; [place] score 7(3+4); Tumor measures 0.62 cm in length; 30% of the core involved by tumor; 1 of 1 core involved. MicroScopic Description - A :Prostate,Right Lateral [place]:Needle Biopsy Interpretation - - Acinar adenocarcinoma of [...] with the patient???s name labeled Left Lateral [place] consists of a cylindrical fragment of becerra-white soft tissue measuring 1.35 cm. Totally submitted in Left Bx Chip raoul 5 from the arrow outward in alphabetical order.. Site ID:F color becerra-white fixative Formalin cores 1 units cm Received in raoul 6 of 6 of formalin biopsy board with the patient???s name labeled Left [place] consists of a cylindrical fragment of becerra-white [...] Right Lateral Base consists of a cylindrical fragmentof becerra-white soft tissue measuring 1.4 cm. Totally submitted in Right Bx Chip raoul 2 from the arrowoutward in alphabetical order.. Site ID:I color becerra-white fixative Formalin cores 1 units cm Received in raoul 3 of 6 of formalin biopsy board with the patient???s name labeled Right (more content not included)...Performed By: #### [id number] #### [facility] [address], [place] [address]Mohbjcpgfu Visit Summaryon 93-15-6890Nekzpoatbo Visit Summary Ambulatory Visit Summary ROSY TAYLOR :1955 Visit Date:11/17/2024 Ambulatory Visit Instructions Your Diagnosis Elevated PSA BPH with urinary obstruction Your Care Team Attending Physician - Jeyson MEDINA MD Primary Care Physician - REGAN BOTELLO DO This Is Your Medications List Contact prescribing physician if questions or concerns amlodipine aspirin baclofen benazepril levothyroxine Procedures Performed Transrectal biopsy of prostate using ultrasound (US) guidance (11/17/2024). Discharge Vitals Height 170 cm Height 67 in Weight 100.2 kg Weight 220.903 lb BMI 34.67 What to do next Scheduled Follow-Up Appointments Saturday 2:45 PM EDT With: Jeyson MEDINA MD Where: [facility] [place] [address]- You Need to Schedule the Following Appointments Follow Up with Jeyson MEDINA MD, URL When: Where: [facility] [address] [place] [address]- Medications What How Much When Instructions Unchanged [...] Mouth Every day Contact prescribing physician if questionsor concerns Medications and Immunizations Administered Given gentamicin [...] near your rectum, especially while sitting. ??? [place]-colored urine due to small amounts of blood in your urine. ??? A burning feeling while urinating. ??? Blood in your stool (feces) or bleeding from your rectum. ??? Blood in your semen. Follow these instructions at home: Medicines ??? Take phgy-etu-sihiico and prescription medicines only as told by your health care provider. ??? If you were given a sedative during your procedure, it can affect you for several hours. Do not drive or operate machinery until your health care provider says that it is safe. ??? If you were prescribed an antibiotic medicine, take it as told by your health care provider. Do notstop using the antibiotic even if you start [...] ??? After this procedure, it is common (more content not included)...[facility] HospitalProstate Histology ([facility]4 Labs)on 30-00-4866UV Method of ExtractionNeedle BiopsyPaulding County HospitalComment on above: Performed By: #### [id number] #### [facility] [address], [place] [address]TY Number of Eaux9Jpiouxg Interpretation [facility] HospitalComment on above:Performed By: #### [id number] #### [facility] [address], [place] [address]NN Specimen 1R Base [facility] Comment on above:Performed By: #### [id number] #### [facility] [address], [place] [address]BL Specimen 10L Lat Mid [facility] Comment on above:Performed By: #### [id number] #### [facility] [address], [place] [address]FZ Specimen 11L Apx [facility] Comment on above:Performed By: #### [id number] #### [facility] [address], [place] [address]CU Specimen 12L Lat Apx [facility] Comment on above:Performed By: #### [id number] #### [facility] [address], [place] [address]LH Specimen 2R Lat Bse [facility] Comment on above:Performed By: #### [id number] #### [facility] [address] [facility], [place] [address]CH Specimen 3R Mid [facility] Comment on above:Performed By: #### [id number] #### [facility] [address], [place] [address]FT Specimen 4R Lat Mid [facility] Comment on above:Performed By: #### [id number] #### [facility] [address], [place] [address]SK Specimen 5R Apx [facility] Comment on above:Performed By: #### [id number] #### [facility] [address], [place] [address]EE Specimen 6R Lat Apx [facility] Comment on above:Performed By: #### [id number] #### [facility] [address], [place] [address]YI Specimen 7L Base [facility] Comment on above:Performed By: #### [id number] #### [facility] [address], [place] [address]ZB Specimen 8L Lat Bse [facility] Comment on above:Performed By: #### [id number] #### [facility] [address], [place] [address]XI Specimen 9L Mid [facility] Comment on above:Performed By: #### [id number] #### [facility] [address] [facility], [place] [address]MM Type of ServiceTechnical Holzer HospitalComment on above:Performed By: #### [id number] #### [facility] [address] [place], [place] [address]Aaoiwvj Office/Clinic Noteon 22-28-3553Stjhzwe Office/Clinic NoteUrology Office/Clinic Note Chief Complaint TRUS/BX HPI Staff Trus/bx ABX TAKEN History of Present Illness Tests reviewed: MRI I have reviewed the previous health record information and history for this patient from Dr. Medina. I have reviewed and verified the staff [...] and placed in the modified left lateral Simsposition. The patient was draped appropriately. 80 mg [...] _ mm depth (AP), with a calculated volumeof _ cc. The peripheral zone demonstrates: No [...] URL [facility] [address], [place] [address]- Additional Instructions: Follow up as scheduled to review path Patient Education Transrectal Ultrasound-Guided Prostate Biopsy, Care After Eneida Cordova, personally scribed for Dr. Medina on 11/17/2024 15:26:54. . Documentation recorded by the scribe, Eneida Reyes, accurately reflects the services(s) I performed and decisions made by me. Authenticated by Dr. Medina on 11/17/2024 15:43:56. Problem List/Past Medical History [...] virus vaccine, inactivated 06/15/2022 Recorded SARS-CoV-2 (COVID-19) mRNAMUL.ORD![id number] 06/15/2022 Vadim (more content not included)...[facility] HospitalComment on above:Result Comment: Electronically Signed By: CAROL RICHMOND, Jeyson Orantes\.br\Date and Time Signed: 11/17/24 15:44 EDT\.br\Electronically Co-Signed By: Eneida Reyes\.br\Date and Time Co-Signed: 11/17/24 15:42 EDTMR prostate wo/w conon 48-37-8217YQ prostate wo/w [facility] [place] [address] MRI Report Signed Patient: Rosy Taylor MR#: [id number] : 1955 Acct:[id number] Age/Sex: 69 / M ADM Date: 09/16/24 Loc: MR Room: Type: PRE CLI Attending Dr: Jeyson Medina MD Copies to: Jeyson Medina MD Ordering Provider: Jeyson Medina MD Date of Service: 10/06/24 MR/MR prostate [...] Brown Jr., D.O.10/07/2024 9:46 AM Dictation Location: RADIO-PC-22 Transcribed By: CIELO 10/07/2446 Dictated By: Omkar Brown Jr, DO 10/07/2444 Signed By: 10/07/2446[facility] Physician GroupMagnetic resonance imaging reportOrdered By: Omkar Brown on 37-61-4272Tpfaa reportMEM[facility] Main [place] [address] [place] [address] MRI Report Signed Patient: Rosy Taylor MR#: [id number] : 1955 Acct:[id number] Age/Sex: 69 / M ADM Date: 5 Loc: MR Room: Type: PRE CLI Attending Dr: Jeyson Medina MD Copies to: Jeyson Medina MD~ Ordering Provider: Jeyson Medina MD Date of Service: 10/06/24 MR/MR prostate [...] Brown Jr., D.O.10/07/2024 9:46 AM Dictation Location: RADIO-PC-22 Transcribed By: CIELO 10/07/24945 Dictated By: Omkar Brown Jr, DO 10/07/2444 Signed By: 10/07/24945 [facility] FoundationISTAT XRalissa CREon 71-25-0952Zbtluupupn [Mass/Vol]1.4 mg/dLHigh0.6-1.3The [facility] Physician GroupComment on above: Result Comment: ER/ESD physician is notified/shown all ISTAT results. Critical values may be confirmed by laboratory testing if deemed necessary by ER attending doctor.Performed By: #### ISCRE #### [facility] [address] [place] [id number] USAISTAT GFR55.088NoNovant Health Rehabilitation Hospital Physician GroupComment on above:Result Comment: PERFORMED BY: [facility] [address] [place] [id number] PATHOLOGIST PSYCHIATRY INSTRUCTOR ABEL SAM M.D.Performed By: #### ISCRE #### [facility] [address] [place] [id number] USAAmbulatory Visit Summaryon 92-98-0152Sbdmxuibec Visit SummaryAmbulatory Visit Summary ROSY TAYLOR :1955 Visit Date:08/17/2024 Ambulatory Visit Instructions Your Diagnosis Elevated PSA BPH with urinary obstruction Tests Performed MRI Pelvis (Soft Tissue) w/ + w/o contrast -- Results Pending -- Please visit your patient portal for your results or contact your primary care physician. Your Care Team Attending Physician - Jeyson MEDINA MD Primary Care Physician - REGAN BOTELLO DO Referring Physician - REGAN BOTELLO DO This Is Your Medications List Contact prescribing physician if questions or concerns amlodipine aspirin baclofen benazepril levothyroxine Discharge Vitals Temperature (Oral) 37 ???C Heart Rate (Peripheral) 87 Respiratory Rate 18 Blood Pressure 138/84 Height 170 cm Height 67 in Weight 100.2 kg Weight 220.903 lb BMI 34.67 What to do next You Need to Schedule the Following Appointments Follow Up with Jeyson MEDINA MD, URL When: Where: [facility] [address] , [place] [phone] Medications What How Much When Instructions Unchanged [...] Mouth Every day Contact prescribing physician if questionsor concerns Allergies No Known Allergies Problems Ongoing [...] a procedure to remove samples of prostate tissuefor testing. The prostate is a walnut-sized gland that is located below the bladder and in front ofthe rectum. During this procedure, a small device (probe) is lubricated and put inside the rectum. The probe sends out sound waves that make a picture of the prostate and surrounding tissues (transrectal ultrasound). The images are used to help guide the process of removing the samples. The samplesare taken to a lab to be checked [...] including vitamins, herbs, eye drops, creams, and xfza-phb-qqtvatm medicines. ??? Any problems you or family [...] tells you to take them. ??? Taking ykxm-upl-dqpkftx medicines, vitamins, herbs, and supplements. General instructions [...] plan to have a responsible adult: ? (more content not included)...NormalCleveland Clinic Avon HospitalLaboratory - Chemistry and Chemistry - challengeon 69-60-6195BXG Qn13.234 m[IU]/LHigh 0.358-3.740[facility] FoundationGlucose mean value [Mass/volume] in Blood Estimated from glycated hemoglobinon 27-37-1918Oarsugl glucose Estimated from glycated hemoglobin (Bld) [Mass/Vol]Glucose mean value [Mass/volume] in Blood Estimated from glycated hemoglobinCleveland Clinic Foundation Laboratory - Hematology and Cell countson 76-20-6158QuJ7a (Bld) [Mass fraction] 5.4 %4.5-6.2FGalion Community HospitalComment on above:ADA RECOMMENDED LIMIT 4.0 - 6.0ADA THERAPEUTIC TARGET < 7.0ACTION SUGGESTED> 7.0No Panel Informationon 50-49-1616Jqaw Prostate Specific Antigen0.91 ng/mLN/[facility] HospitalComment on above:Diane ECLIA methodology.Prostate Specific Antigen Total6.6 ng/mLAbnormal0.0-4.0[facility] Comment on above:Diane ECLIA methodology.According to the [place] [employer], Serum PSAshould decrease and remain at undetectable levels afterradical prostatectomy. The AUA defines biochemicalrecurrence as an initial PSA value 0.2 ng/mL or greaterfollowed by a subsequent confirmatory PSA value 0.2 ng/mLor greater. Values obtained with different assay methods orkits cannot be used interchangeably. Results cannot beinterpreted as absolute evidence of the presence or absenceof malignant disease.Serum or plasma free prostate specific antigen (PSA)/total PSA ratioon 09-75-2247Xnti PSA/Total PSA [Mass fraction]Serum or plasma free prostate specific antigen (PSA)/total PSA ratio. [facility] FoundationComment on above:The table below lists the probability of prostate cancer formen with non-suspicious RAYMOND results andtotal PSA between4 and 10 ng/mL, by patient age (Baljit et al, ALLY 1998,279:1542). % Free PSA 50-64 yr 65-75 yr 0.00-10.00% 56% 55% 10.01-15.00% 24% 35% 15.01- 20.00% 17% 23% 20.01-25.00% 10% 20% >25.00% 5% 9%Please note: Baljit et al did not make specific recommendations regarding the use of percent free PSA for any other population of men.Performed at: [facility] [id number] Director: Warren Combs PhD, Phone: [phone] Basophils Auto (Bld) [#/Vol]on 27-31-3342Bcokcoidh (Bld) [#/Vol]0.1 10 3/uL 0.0-0.1FGalion Community HospitalBasophils/100 WBC Auto (Bld)on 04-72-1648Spzfsxpvd/100 WBC (Bld)0.7 %0.2-2.0[facility] Cholesterol in LDL Calc [Mass/Vol]on 98-53-2567Mrwohzutfhl in LDL [Mass/Vol] 174.0 mg/dLCleveland Clinic FoundationComment on above:<100 mg/dl YTEPOUR934-587 mg/dl NEAR OR ABOVE VHZUUBL435-187 mg/dl BORDERLINE ZECS021-247 mg/dl HIGH>190 mg/dl VERY HIGHCholesterol in VLDL Calc [Mass/Vol]on 12-18-2023 Cholesterol in VLDL [Mass/Vol]16.0 mg/dLCleveland Clinic Foundation Eosinophils/100 WBC Auto (Bld)on 35-00-2001Fhgtdoiogrq/100 WBC (Bld)1.1 %0.9-7.0 [facility] FoundationErythrocyte distribution width Auto (RBC) [Ratio]on 69-52-0507Hnmvmlxzvhr distribution width (RBC) [Ratio]12.4 %11.0-15.0 [facility] FoundationEstimated glomerular filtration rate (GFR) non- Americanon 86-29-6448AVY/1.73 sq M.predicted among non-blacks MDRD (S/P/Bld) [Vol rate/Area]56 mL/min/{1.73_m2}>=60[facility] FoundationGlobulin Calc (S) [Mass/Vol]on 55-72-8018Adkzjkqo (S) [Mass/Vol]4.2 g/dL [facility] FoundationHematocrit Auto (Bld) [Volume fraction]on 06-56-7335Nxtweiwfty (Bld) [Volume fraction]41.0 %42.0-54.0[facility] FoundationHemoglobin [Mass/volume] in Bloodon 97-06-4161Gytxgvrrcn (Bld) [Mass/Vol]14.2 g/dL14.0-18.0[facility] FoundationLaboratory - Chemistry and Chemistry - challengeon 10-39-1293Aputqwi [Mass/Vol]3.9 g/dL 3.4-5.0[facility] FoundationALP [Catalytic activity/Vol]53 U/L46-116 [facility] FoundationALT [Catalytic activity/Vol]43 U/L16-63 [facility] FoundationAST [Catalytic activity/Vol]36 U/L15-37 [facility] FoundationBilirubin [Mass/Vol]0.5 mg/dL0.2-1.0[facility] FoundationCalcium [Mass/Vol]9.7 mg/dL8.5-10.1FGalion Community HospitalChloride [Moles/Vol]95 mmol/F44-012ObzgnkoxmCleveland Clinic FoundationCholesterol [Mass/Vol]258 mg/dL<=200[facility] Cholesterol in HDL [Mass/Vol]68 mg/lC73-74ZnkiucwzrC[facility] Clinic Foundation Comment on above:> or =60 mg/dl - LOW CARDIOVASCULAR RISK<40 mg/dl - HIGH CARDIOVASCULAR RISKCO2 [Moles/Vol]27.1 mmol/L21.0-32.0[facility] FoundationCreatinine [Mass/Vol]1.29 mg/dL0.70-1.30[facility] GFR/1.73 sq M.predicted MDRD (S/P/Bld) [Vol rate/Area]mL/min/{1.73_m2}>=60 [facility] FoundationGlucose [Mass/Vol]115 mg/gG29-545LmxamdmffCleveland Clinic FoundationPotassium [Moles/Vol]4.5 mmol/L3.5-5.1FGalion Community HospitalProtein [Mass/Vol]8.1 g/dL6.4-8.2FGalion Community Hospital Sodium [Moles/Vol]132 mmol/A824-788WrmamclgoCleveland Clinic FoundationTriglyceride [Mass/Vol]80 mg/dL<=150C[facility] FoundationTSH Qn20.225 m[IU]/L 0.358-3.740[facility] FoundationUrea nitrogen [Mass/Vol]17.0 mg/dL 7.0-18.0[facility] FoundationUrea nitrogen/Creatinine [Mass ratio] 13.2 mg/mgCleveland Clinic FoundationLaboratory - Hematology and Cell countson 04-69-0715Iyawsbnr granulocytes/100 WBC (Bld)0.4 %0.0-0.5FGalion Community HospitalLeukocytes [#/volume] corrected for nucleated erythrocytes in Blood by Automated counon 28-66-1941CCJ corrected for nucl RBC Auto (Bld) [#/Vol]7.5 10 3/uL4.0-11.0[facility] Lymphocytes Auto (Bld) [#/Vol]on 36-86-0287Jizhfrvbbkg (Bld) [#/Vol]1.8 10 3/uL 1.2-3.8[facility] FoundationLymphocytes/100 WBC Auto (Bld)on 35-64-0220Dbyugolivso/100 WBC (Bld)23.7 %20.5-60.0[facility] HospitalH Auto (RBC) [Entitic mass]on 49-44-3929CVT (RBC) [Entitic mass]31.9 pg 25.9-34.0[facility] FoundationMCHC Auto (RBC) [Mass/Vol]on 33-82-4905MBLB (RBC) [Mass/Vol]34.6 g/dL29.9-35.2FGalion Community HospitalMCV Auto (RBC) [Entitic vol]on 39-13-7748UJS (RBC) [Entitic vol]92.1 fL 80.0-94.0[facility] FoundationMonocytes Auto (Bld) [#/Vol]on 82-72-8800Hgikzlfon (Bld) [#/Vol]0.9 10 3/uL0.3-0.8[facility] FoundationMonocytes/100 WBC Auto (Bld)on 46-40-0028Cflroyadk/100 WBC (Bld)11.3 % 1.7-12.0[facility] FoundationNeutrophils Auto (Bld) [#/Vol]on 24-92-1795Zrmforcdcny (Bld) [#/Vol]4.7 10 3/uL1.4-6.5FGalion Community HospitalNeutrophils/100 WBC Auto (Bld)on 20-89-0982Wyiljxrowof/100 WBC (Bld)62.8 % 43.0-75.0[facility] FoundationNo Panel Informationon 12-18-2023 Eosinophils # (Auto)0.1 10 3/uL0.0-0.7FGalion Community HospitalImmature Granulocyte # (Auto)0.03 10 3/uL0.00-0.03[facility] Prostate Specific Antigen Screen6.78 ng/mL<=4.00[facility] FoundationPlatelet mean volume Auto (Bld) [Entitic vol]on 08-97-9440Qqlpludd mean volume (Bld) [Entitic vol]8.9 fL9.5-13.5FGalion Community Hospital Platelets Auto (Bld) [#/Vol]on 16-40-5927Jbcmmnedb (Bld) [#/Vol]289 10 3/uL 150-450[facility] FoundationRBC Auto (Bld) [#/Vol]on 57-14-6933TZH (Bld) [#/Vol]4.45 10 6/uL4.70-6.10[facility] Daytonerum or plasma albumin/globulin mass ratioon 83-56-5611Bqwxnqm/Globulin [Mass ratio]0.9 {ratio}[facility] Daytonerum or plasma anion gap determination on 91-13-6827Gurrz gap [Moles/Vol]14.4 mmol/LFGalion Community Hospital Serum or plasma total cholesterol/high density lipoprotein (HDL) cholesterol mass lien 49-40-9449Nbwtjhogsbz.total/Cholesterol in HDL [Mass ratio]3.8 {ratio}[facility] FoundationComment on above:3.3 - 4.4 LOW RISK4.4 - 7.1 AVERAGE RISK7.1 - 11.0 MODERATE RISK>11.0 HIGH RISK Vital Signs Date TimeVital SignValuePerforming LvnlhpoerRiymziye03-11-3011 14:33-0400Body .18 cmBenjamin Ball DO Work Phone: [facility]07-29-2025 14:33-0400 Body mass index (BMI) [Ratio]31.3 kg/s4Efcyjmak Ball DO Work Phone: [facility]07-29-2025 14:33-0400 Body iuzuoi30.71 kgBenjamin Ball DO Work Phone: [facility]07-29-2025 14:33-0400 Diastolic blood qstgtiuo84 mm[Hg]Regan Ball DO Work Phone: [facility]07-29-2025 14:33-0400 Heart rate97 /minBenjamin Ball DO Work Phone: [facility]07-29-2025 14:33-0400 Respiratory rate12 /minBenjamin Ball DO Work Phone: [phone]07-29-2025 14:33-0400 Systolic blood izlwziml680 mm[Hg]Regan Ball DO Work Phone: [phone]06-18-2025 15:03-0400 Body .18 cmBenjamin Ball DO Work Phone: [phone] [place], [place] [address]6-18-2025 15:03-0400 Body mass index (BMI) [Ratio]32.4 kg/d9Hiiwjizx Ball DO Work Phone: [phone] [place], [place] 5483806-18-2025 15:03-0400 Body byfjdr63.89 kgBenjamin Ball DO Work Phone: [phone]06-18-2025 15:03-0400 Diastolic blood cdgxeuyx06 mm[Hg]Regan Ball DO Work Phone: [phone]06-18-2025 15:03-0400 Heart rate93 /minBenjamin Ball DO Work Phone: [phone]06-18-2025 15:03-0400 Systolic blood ykwcifrc088 mm[Hg]Regan Ball DO Work Phone: [phone]05-13-2025 14:17-0400 Body .18 cmC[facility] Clinic Foundation05-13-2025 14:17-0400Body mass index (BMI) [Ratio]42.5 kg/c8EvtauuibcCleveland Clinic Foundation05-13-2025 14:17-0400Body zjjljo175.37 kgC[facility] Clinic Foundation05-13-2025 14:17-0400Diastolic blood kzjklure99 mm[Hg][facility] 01-05-2025 14:17-0400Heart rate86 /[facility] 01-05-2025 14:17-0400Respiratory rate12 /[facility] 01-05-2025 14:17-0400Systolic blood hpberhfm268 mm[Hg][facility]05-12-2025 15:20-0400Diastolic blood mm[Hg]RENATA NKANSAH-AMANKRA [facility]05-12-2025 15:20-0400Heart rate82 /minKWABENA NKANSAH-AMANKRA [facility]05-12-2025 15:20-0400Mean blood mm[Hg]RENATA NKANSAH-AMANKRA [facility]05-12-2025 15:20-0400 Systolic blood lypuayka606 mm[Hg]RENATA NKANSAH-AMANKRA [address] [place], [place] [address]405-12-2025 15:19-0400Heart rate83 /minKWABENA NKANSAH-AMANKRA [address] [place], [place] [address]05-12-2025 15:19-1161MnA6% (BldA) [Mass fraction]95 %RENATA NKANSAH-AMANKRA [facility]05-12-2025 15:19-0400 Diastolic blood mm[Hg]RENATA NKANSAH-AMANKRA [facility]05-12-2025 15:19-0400Mean blood lawfqgfa01 mm[Hg]RENATA NKANSAH-AMANKRA [facility]05-12-2025 15:19-0400 Systolic blood azmvkyju536 mm[Hg]RENATA NKANSAH-AMANKRA [facility]02-11-2025 07:28-0500Body .18 cmBenjamin Ball DO Work Phone: [facility]02-11-2025 07:28-0500 Body .25 kgBenjamin Ball DO Work Phone: [facility]12-23-2024 14:06-0500 Blood Pressure LocationPafaina MEDINA [facility]12-23-2024 14:06-0500Body vvtvtyworxa95.6 [degF]Jeyson MEDINA [facility]12-23-2024 14:06-0500Diastolic blood tshffotp76 mm[Hg]Jeyson MEDINA [facility]12-23-2024 14:06-0500Heart rate87 /Clarke MEDINA [facility]12-23-2024 14:06-0500Respiratory rate18 /minJeyson MEDINA [facility]12-23-2024 14:06-0500Systolic blood mm[Hg]Jeyson MEDINA [facility]11-20-2024 15:22-0500Body zavgxy416.72 cmC[facility] Clinic Foundation11-20-2024 15:22-0500Body mass index (BMI) [Ratio]33 kg/w1YdwqlpuhnCleveland Clinic Foundation11-20-2024 15:22-0500Body hqfcot19.65 kgC[facility] Clinic Foundation11-20-2024 15:22-0500Diastolic blood vtozotna25 mm[Hg] [facility]11-20-2024 15:22-0500Heart joba276 /min [facility]11-20-2024 15:22-0500Respiratory rate12 /min [facility]11-20-2024 15:22-0500Systolic blood lqrzmoxg270 mm[Hg][facility]05-03-2024 13:48-0400Body iboxng272.72 cmC[facility]05-03-2024 13:48-0400Body mass index (BMI) [Ratio]31.5 kg/a6RkqtdlhtgC[facility] Clinic Foundation05-03-2024 13:48-0400Body kgC[facility]05-03-2024 13:48-0400Diastolic blood zjqzaeqs09 mm[Hg][facility]05-03-2024 13:48-0400Heart rate86 /[facility]05-03-2024 13:48-0400Respiratory rate12 /[facility]05-03-2024 13:48-0400Systolic blood hwidzxey338 mm[Hg][facility]07-05-2023 15:15-0400Body wmbfyq120.72 cmBenjamin Ball Other [employer] Other 07-05-2023 15:15-0400Body mass index (BMI) [Ratio] 29.43 kg/j8Vyvvjzug Ball Other [employer] Other 07-05-2023 15:15-0400Body auxhbx50.82 kgBenjamin Ball Other [employer] Other 07-05-2023 15:15-0400Diastolic blood jbjdjufu05 mm[Hg] Regan Ball Other [employer] Other 07-05-2023 15:15-0400Respiratory rate12 /minBenjamin Ball Other [employer] Other 07-05-2023 15:15-0400Systolic blood oqljeika454 mm[Hg] Regan Ball Other [employer] Other Encounters Encounter DateEncounter TypeCare ProviderFacilityStart: 53-96-9778rascspvobaNV RENATA SY-AMANKRAFacility:[place]kyStart: 11-62-0503ncjqkhllbmGI RENATA NORMAAH-AMANKRAFacility:[place]Start: 03-25-2025 End: 20-60-6514idfdxerrguIX RENATA NKJOHNAH-AMANKRAFacility:FTMCStart: 03-25-2025 End: 95-50-8686cgdipwgwgnSC RENATA SY-AMJONIRAFacility:EU [place]walkStart: 03-25-2025 End: 74-55-9713Obfsvxg encounter procedureRENATA HAMILTON [facility] Start: 03-23-2025 End: 20-29-8504ilftkwkrggDllrtenu Rosmery DO Work Phone: [facility] Work Phone: Start: 03-23-2025 End: 69-25-2353Nyptybz encounter procedureBenoe Rosmery DO-[facility] Work Phone: Start: 95-91-0334Huc-patient / Non-visitBenoe Rosmery DO-[facility] Work Phone: Start: 02-16-2025 End: 85-92-9935qaioglourmXWHXHVUQuincy HAMILTONFacility:EU NorkStart: 02-16-2025 End: 75-16-2707Wtjofrh encounter procedureRENATA HAMILTON [facility] Start: 02-15-2025 End: 61-86-1447Hxboctg encounter procedureRenata [facility] Work Phone: Start: 02-15-2025 End: 80-87-4801iakolnwxiwTzvnfiwj BallFacility:[facility] Start: 02-10-2025 End: 85-64-8395Yqahdrw encounter procedureRegan Botello [facility] Work Phone: Start: 02-09-2025 End: 48-77-7593Ody-admission assessmentRENATA BARRERAUCHE [facility] Start: 02-07-2025 End: 31-83-6539Epovqlhmz department patient visitAstrit Vish KimdignaNationwide Children'S Hospital Start: 46-91-3266Zlg-patient / Non-visitCatherine Scotty [facility]Mad[facility] Work Phone: Start: 02-03-2025 End: 46-01-6234wnzuxqnsgwTXKQPEB NKANSAH-AMANKRAFacility:FTMCStart: 02-03-2025 End: 59-85-7698Ezvmzie encounter procedureRENATA BARRERAUCHE [facility] Start: 56-08-6479Ckb-patient / Non-visitBenoe Botello DOSt. [facility] Work Phone: Start: 01-26-2025 End: 36-68-1919Sgo-admission assessmentDANETTEBERNIE CRISTYUCHE [facility] Start: 78-98-9952Udq-patient / Non-visitBenbradley Botello -[facility] Work Phone: Start: 53-87-6380Uqa-patient / Non-visitBenbradley Botello DO-[facility] Work Phone: Start: 01-05-2025 End: 32-95-2334rifussvpsmXkuqbubgfAkron [facility] Hospital Work Phone: Start: 01-05-2025 End: 58-85-6330Utfeuvhpt for other preprocedural examinationAccess Hospital Daytontart: 01-05-2025 End: 91-81-2853Hmtilvg encounter procedureC[facility] Work Phone: Start: 01-05-2025 End: 39-04-1408Erjcwpm encounter statusBenbradley Botello [facility] Centertart: 77-11-1111Ywl-patient / Non-visitFirsentara [facility]- [facility] Work Phone: Start: 01-04-2025 End: 40-79-5410pcjiwoludfKTMD RENATA HAMILTONFacility:FTMCStart: 01-04-2025 End: 58-21-6376Fxsxiqo encounter procedureRENATA HAMILTON [facility] Start: 12-17-2024 End: 70-63-7313Ptt-admission assessmentRENATA HAMILTON [facility] Start: 12-17-2024 End: 93-83-3302spoviwvtrvKUVenice CLEMENSRAFacility:EU [place]walkStart: 12-07-2024 End: 73-81-3532khzsreunseAyrdnfv R WATERSFacility:EU [place]vueStart: 11-17-2024 End: 01-91-3616ctfibkqgowLkuckyz R WATERSFacility:FTMCStart: 11-17-2024 End: 26-75-7983Txl Drop offPatrick R MEDINA [facility] Start: 11-17-2024 End: 46-09-9857lyzegkkoxqZoxikmh R WATERSFacility:EU [place]Start: 11-03-2024 ambulatoryPatrick R WATERSFacility:EU [place]kyStart: 10-06-2024 End: 68-10-6527vjzywonsyePftcuyaj Ball DO Work Phone: [facility] Work Phone: Start: 10-06-2024 End: 09-73-0762Xgbvncm encounter procedureBenhazelmin Ball DO Work Phone: [facility] [place] Work Phone: Start: 08-17-2024 End: 12-18-5361ykajlaybhuFpoatuj R WATERSFacility:EU AlexandraueStart: 08-17-2024 End: 98-69-9021Yylpwcu encounter procedurePatrick R MEDINA [facility] start: 45-55-5041Ikj-patient / Non-visitBenjamin Ball DO Work Phone: [facility] Work Phone: Start: 23-66-8434Wpy-patient / Non-visitBenjamin Ball DO Work Phone: [facility] GroupSt. [facility] Work Phone: Start: 19-47-0059tgdeznldzhTbygdti WATERSFacility:EU PremakStart: 07-15-2024 End: 39-80-2413Wjprota encounter procedureC[facility] Health Moses [facility] Physician GroupB[facility] Work Phone: Start: 07-15-2024 End: 07-07-1257jtydpsldusMskiepmosAkron Children's Hospital Work Phone: Start: 33-59-0001Lpttudqho encounterBenbradley BotelloMetroHealth [facility] ClinicStart: 67-96-3141Nae-patient / Non-visitC[facility] Health Moses [facility] Physician GroupSt. [facility] Work Phone: Start: 12-27-2023 End: 16-53-2117lhotvkhiuoNnpfsptbdUpper Valley Medical Center Work Phone: Start: 12-27-2023 End: 90-00-6973Ejweegzko for general adult medical examination without abnormal findingsAccess Hospital Daytontart: 12-27-2023 End: 21-88-2640Erfsptt encounter procedureC[facility] Medical [facility] Work Phone: Start: 97-93-0567Jbq-patient / Non-visitC[facility] Health [facility] Work Phone: Start: 55-53-3991Rgh-patient / Non-visitCone Health [facility] Work Phone: Start: 10-01-2023 End: 47-09-7022qvhmtcuejdLwrohlry Ball Other [employer] Other Start: 31-01-2848Jyzqbh outpatient visit 15 minutes Regan Tony Botello [facility]htart: 02-27-2023 End: 62-91-7888rfborwulwoGyyfrtyi Ball Other [employer] Other Start: 18-09-2446Luxmuqzgy for general adult medical examination without abnormal findingsRegan Botello Medical ClinicStart: 13-00-3827Ldjwpnai preventive med est patient 65yrs& olderBenoe Botello Medical ClinicStart: 86-91-0351Njogk health examinationBenoe Botello Other [employer] Other Start: 34-04-4160Vjgkjef encounter procedureBENOE BOTELLOFacility:H1 Procedures DateProcedureProcedure DetailPerforming ClinicianStart: 23-98-0440Ashuqvhyuljhk Astrit HajdariStart: 01-24-2025H/O: surgeryH/O prostatectomyBenbradley Botello DO Start: 78-98-1599Erzqwnxj totalBenjamin Ball DO Work Phone: Comment on above:Please Note: The reference interval and flagging for this test is for an AM collection. If this is a PM collection please use: Cortisol PM: 2.3-11.9Performed at: [facility] LabcoLourdes Specialty HospitalKziidm[address] [place], [place] [id number] Director: Warren Combs PhD, Phone: [phone] Start: 60-84-0791Ggvbokeoagv biopsy of prostate using ultrasound guidanceNorthwest Evaluation Association Start: 94-39-3894VX prostate wo/w conRegan Botello DO Work Phone: Start: 51-78-5921Yegmzptlc for malignant neoplasm of colonRegan Botello Other Start: 63-81-5084Jpmqqizec for malignant neoplasm of prostateRegan Botello Other Start: 93-49-1424Namyrst examination of patient Regan Botello Other Depression screeningRegan Botello Other Laser assisted in situ keratomileusisKRAMONEBERNIE LETY Plan of Treatment DateCare ActivityDeElmhurst Hospital Center 12 channel [facility] Immunizations Immunization DateImmunizationNotesCare FqyhknquAtkqfxdj18-93-7422bagrkpidi virus vaccine, unspecified formulationNorthwest Evaluation Association [facility]12-02-2023influenza virus vaccine, unspecified formulationBevyUp [facility]10-21-2022influenza, high dose seasonal, preservative-freeRegan Botello Other [place] [employer] Other [id number]-13 Pfizer (bivalent)Regan Botello Other [facility]10-21-2022influenza virus vaccine, unspecified formulationC[facility] 48-73-2709EBZZT PfizerBenhazelania Botello Other [facility]04-10-2022SARS-CoV-2 mRNA (zfjfviodnuu-scdu-geuvjza) vaccinePaTransCure bioServicesnicolas MEDINA [facility]ue10-13-2021influenza virus vaccine, split virus (incl. purified surface antigen)Regan Botello Other [place] [employer] Other [id number] virus vaccine, unspecified formulationC[facility]10-06-2021COVID-19 Vaccine Pfizer - Documentation Purposes OnlyBillania Botello Other [facility] FoundationComment on above: Result Comment: 2024-08-17: NBU6639-79-1359nruwlfwuj virus vaccine, unspecified formulationNorthwest Evaluation Association [facility]04-06-2021COVID-19 Vaccine Pfizer - Documentation Purposes OnlyRegan Rosmery Other [facility]03-15-2021COVID-19 Vaccine Pfizer - Documentation Purposes OnlyBepalania Botello Other [facility] Payers DatePayer CategoryPayerPolicy [id number] Health Insurance [id number] [id number]-[id number] [id number] [id number] [id number] [id number] [id number] 2.16.840.1.028893.3.57[id number] 2.16.840.1.394562.3.57[id number] 2.16840.1.036876.3.57[id number] 2.840.1.711535.3.579.[id number] 2.16.840.1.188297.3.57[id number] 2.16.840.1.655620.3.57[id number] 2.16840.1.290956.3.57[id number] 2.840.1.670374.3.57[id number] 2.16.840.1.106300.3.57[id number] 2.16840.1.113705.3.579.[id number] 2.16840.1.217103.3.57[id number] 2.16840.1.856830.3.57[id number] 2..0.1.043770.3.579.[id number] 2.16.840.1.943411.3.57[id number] 2..0.1.604887.3.57[id number] 2..0.1.933376.3.57[id number] 2.0.1.209358.3.57[id number] 2..0.1.833277.3.579.2.727MedicareAARP Medicare Advantage [id number] Health [id number] Social History DateTypeDetailFacilitySex Assigned At [facility]art: [id number] [facility] NHISUnknown if ever [facility] Work Phone: Start: 02-22-2010 End: [id number] (finding)[facility]: 08-17-2024 End: [id number] smoking statusNever smoked tobacco (finding)[facility] smoking statusNever [facility] [place]ual [place] [facility] Functional Status Nvos[id number] StatusNoN[facility]12-23-2024Functional StatusN/AExec[facility] [place] Clinical Notes 02-27-2023 to 03-25-2025 Note Date & [id number] Hospital Discharge instructions Patient Education 03/25/2025 14:41:10 Edema Edema Edema is an abnormal buildup of fluids in the body tissues and under the skin. Swelling of the legs, feet, and ankles is a common symptom that becomes more likely as you get older. Swelling is also common in looser tissues, such as around the eyes. Pressing on the area may make a temporary dent in your skin (pitting edema). This fluid may also accumulate in your lungs (pulmonary edema). There are many possible causes of edema. Eating too much salt (sodium) and being on your feet or sitting for a long time can cause edema in your legs, feet, and ankles. Common causes of edema include: Certain medical conditions, such as heart failure, liver or kidney disease, and cancer. Weak leg blood vessels. An injury. . Medicines. Being obese. Low protein levels in the blood. Hot weather may make edema worse. Edema is usually painless. Your skin may look swollen or shiny. Follow these instructions at home: Medicines Take ljdv-ibd-wrcwdxf and prescription medicines only as told by your health care provider. Your health care provider may prescribe a medicine to help your body get rid of extra water (diuretic). Take this medicine if you are told to take it. Eating and drinking Eat a low-salt (low-sodium) diet to reduce fluid as told by your health care provider. Sometimes, eating less salt may reduce swelling. Depending on the cause of your swelling, you may need to limit how much fluid you drink (fluid restriction). General instructions Raise (elevate) the injured area above the level of your heart while you are sitting or lying down. Do not sit still or stand for long periods of time. Do not wear tight clothing. Do not wear garters on your upper legs. Exercise your legs to get your circulation going. This helps to move the fluid back into your bloodvessels, and it may help the swelling go down. Wear compression stockings as told by your health care provider. These stockings help to prevent blood clots and reduce swelling in your legs. It is important that these are the correct size. These stockings should be prescribed by your health care provider to prevent possible injuries. If elastic bandages or wraps are recommended, use them as told by your health care provider. Contact a health care provider if: Your edema does not get better with treatment. You have heart, liver, or kidney disease and have symptoms of edema. You have sudden and unexplained weight gain. Get help right away if: You develop shortness of breath or chest pain. You cannot breathe when you lie down. You develop pain, redness, or warmth in the swollen areas. You have heart, liver, or kidney disease and suddenly get edema. You have a fever and your symptoms suddenly get worse. These symptoms may be an emergency. Get help right away. Call 911. Do not wait to see if the symptoms will go away. Do not drive yourself to the hospital. Summary Edema is an abnormal buildup of fluids in the body tissues and under the skin. Eating too much salt (sodium)and being on your feet or sitting for a long time can cause edema in your legs, feet, and ankles. Raise (elevate) the injured area above the level of your heart while you are sitting or lying down. Follow your health care provider's instructions about diet and how much fluid you can drink. This information is not intended to replace advice given to you by your health care provider. Make sure you discuss any questions you have with your health care provider. Document Revised: 04/16/2022 Document Reviewed: 04/16/2022 [employer] Patient Education 2023 [employer]. Follow Up Care 02/16/2025 11:08:00 With:LETY RICHMOND, RENATA, URL Address: When: Unknown [facility] 07-31-2025 NotePatient Education Obstetrics and Gynecology Edema Edema is an abnormal buildup of fluids in the body tissues and under the skin. Swelling of the legs, feet, and ankles is a common symptom that becomes more likely as you get older. Swelling is also common in looser tissues, such as around the eyes. Pressing on the area may make a temporary dent in your skin (pitting edema). This fluid may also accumulate in your lungs (pulmonary edema). There are many possible causes of edema. Eating too much salt (sodium) and being on your feet or sitting for a long time can cause edema in your legs, feet, and ankles. Common causes of edema include: ??? Certain medical conditions, such as heart failure, liver or kidney disease, and cancer. ??? Weak leg blood vessels. ??? An injury. ??? . ??? Medicines. ??? Being obese. ??? Low protein levels in the blood. Hot weather may make edema worse. Edema is usually painless. Your skin may look swollen or shiny. Follow these instructions at home: Medicines ??? Take snem-ocb-tbhxrcl and prescription medicines only as told by your health care provider. ??? Your health care provider may prescribe a medicine to help your body get rid of extra water (diuretic). Take this medicine if you are told to take it. Eating and drinking ??? Eat a low-salt (low-sodium) diet to reduce fluid as told by your health care provider. Sometimes, eating less salt may reduce swelling. ??? Depending on the cause of your swelling, you may need to limit how much fluid you drink (fluid restriction). General instructions ??? Raise (elevate) the injured area above the level of your heart while you are sitting or lying down. ??? Do not sit still or stand for long periods of time. ??? Do not wear tight clothing. Do not wear garters on your upper legs. ??? Exercise your legs to get your circulation going. This helps to move the fluid back into your blood vessels, and it may help the swelling go down. ??? Wear compression stockings as told by your health care provider. These stockings help to prevent blood clots and reduce swelling in your legs. It is important that these are the correct size. These stockings should be prescribed by your health care provider to prevent possible injuries. ??? If elastic bandages or wraps are recommended, use them as told by your health care provider. Contact a health care provider if: ??? Your edema does not get better with treatment. ??? You have heart, liver, or kidney disease and have symptoms of edema. ??? You have sudden and unexplained weight gain. Get help right away if: ??? You develop shortness of breath or chest pain. ??? You cannot breathe when you lie down. ??? You develop pain, redness, or warmth in the swollen areas. ??? You have heart, liver, or kidney disease and suddenly get edema. ??? You have a fever and your symptoms suddenly get worse. These symptoms may be an emergency. Get help right away. Call 911. ??? Do not wait to see if the symptoms will go away. ??? Do not drive yourself to the hospital. Summary ??? Edema is an abnormal buildup of fluids in the body tissues and under the skin. ??? Eating too much salt (sodium)and being on your feet or sitting for a long time can cause edema in your legs, feet, and ankles. ??? Raise (elevate) the injured area above the level of your heart while you are sitting or lying down. ??? Follow your health care provider's instructions about diet and how much fluid you can drink. This information is not intended to replace advice given to you by your health care provider. Make sure you discuss any questions you have with your health care provider. Document Revised: 04/16/2022 Document Reviewed: 04/16/2022 [employer] Patient Education ? 2023 [employer] 02-16-2025 Hospital Discharge instructions Patient Education 02/16/2025 10:39:59 Kegel Exercises Kegel Exercises Kegel exercises can help strengthen your pelvic floor muscles. The pelvic floor is a group of muscles that support your rectum, small intestine, and bladder. In females, pelvic floor muscles also help support the uterus. These muscles help you control the flow of urine and stool (feces). Kegel exercises are painless and simple. They do not require any equipment. Your provider may suggest Kegel exercises to: Improve bladder and bowel control. Improve sexual response. Improve weak pelvic floor muscles after surgery to remove the uterus (hysterectomy) or after , in females. Improve weak pelvic floor muscles after prostate gland removal or surgery, in males. Kegel exercises involve squeezing your pelvic floor muscles. These are the same muscles you squeezewhen you try to stop the flow of urine or keep from passing gas. The exercises can be done while sitting, standing, or lying down, but it is best to vary your position. Ask your health care provider which exercises are safe for you. Do exercises exactly as told by your health care provider and adjust them as directed. Do not begin these exercises until told by your health care provider. Exercises How to do Kegel exercises: 1.Squeeze your pelvic floor muscles tight. You should feel a tight lift in your rectal area. If youare a female, you should also feel a tightness in your vaginal area. Keep your stomach, buttocks, and legs relaxed. 2.Hold the muscles tight for up to 10 seconds. 3.Breathe normally. 4.Relax your muscles for up to 10 seconds. 5.Repeat as told by your health care provider. Repeat this exercise daily as told by your health care provider. Continue to do this exercise for at least 4 6 weeks, or for as long as told by your health care provider. You may be referred to a physical therapist who can help you learn more about how to do Kegel exercises. Depending on your condition, your health care provider may recommend: Varying how long you squeeze your muscles. Doing several sets of exercises every day. Doing exercises for several weeks. Making Kegel exercises a part of your regular exercise routine. This information is not intended to replace advice given to you by your health care provider. Make sure you discuss any questions you have with your health care provider. Document Revised: 12/21/2021 Document Reviewed: 12/21/2021 [employer] Patient Education 2023 [employer]. Follow Up Care 01/19/2025 14:44:33 With:LETY RICHMOND, RENATA, URL Address: When: Unknown [facility] 06-24-2025 NotePatient Education Obstetrics and Gynecology Kegel Exercises Kegel exercises can help strengthen your pelvic floor muscles. The pelvic floor is a group of muscles that support your rectum, small intestine, and bladder. In females, pelvic floor muscles also help support the uterus. These muscles help you control the flow of urine and stool (feces). Kegel exercises are painless and simple. They do not require any equipment. Your provider may suggest Kegel exercises to: ??? Improve bladder and bowel control. ??? Improve sexual response. ??? Improve weak pelvic floor muscles after surgery to remove the uterus (hysterectomy) or after , in females. ??? Improve weak pelvic floor muscles after prostate gland removal or surgery, in males. Kegel exercises involve squeezing your pelvic floor muscles. These are the same muscles you squeezewhen you try to stop the flow of urine or keep from passing gas. The exercises can be done while sitting, standing, or lying down, but it is best to vary your position. Ask your health care provider which exercises are safe for you. Do exercises exactly as told by your health care provider and adjust them as directed. Do not begin these exercises until told by your health care provider. Exercises How to do Kegel exercises: 1. Squeeze your pelvic floor muscles tight. You should feel a tight lift in your rectal area. If you are a female, you should also feel a tightness in your vaginal area. Keep your stomach, buttocks, and legs relaxed. 2. Hold the muscles tight for up to 10 seconds. 3. Breathe normally. 4. Relax your muscles for up to 10 seconds. 5. Repeat as told by your health care provider. Repeat this exercise daily as told by your health care provider. Continue to do this exercise for at least 4?6 weeks, or for as long as told by your health care provider. You may be referred to a physical therapist who can help you learn more about how to do Kegel exercises. Depending on your condition, your health care provider may recommend: ??? Varying how long you squeeze your muscles. ??? Doing several sets of exercises every day. ??? Doing exercises for several weeks. ??? Making Kegel exercises a part of your regular exercise routine. This information is not intended to replace advice given to you by your health care provider. Make sure you discuss any questions you have with your health care provider. Document Revised: 12/21/2021 Document Reviewed: 12/21/2021 [employer] Patient Education ? 2023 [employer] 02-07-2025 Hospital Discharge instructions Patient Education 02/07/2025 17:57:04 Hematuria, Adult Hematuria, Adult Hematuria is blood in the urine. Blood may be visible in the urine, or it may be identified with a test. This condition can be caused by infections of the bladder, urethra, kidney, or prostate. Otherpossible causes include: Kidney stones. Cancer of the urinary tract. Too much calcium in the urine. Conditions that are passed from parent to child (inherited conditions). Exercise that requires a lot of energy. Infections can usually be treated with medicine, and a kidney stone usually will pass through your urine. If neither of these is the cause of your hematuria, more tests may be needed to identify the cause of your symptoms. It is very important to tell your health care provider about any blood in your urine, even if it ispainless or the blood stops without treatment. Blood in the urine, when it happens and then stops and then happens again, can be a symptom of a very serious condition, including cancer. There is no pain in the initial stages of many urinary cancers. Follow these instructions at home: Medicines Take rhta-rtp-azqjawx and prescription medicines only as told by your health care provider. If you were prescribed an antibiotic medicine, take it as told by your health care provider. Do notstop taking the antibiotic even if you start to feel better. Eating and drinking Drink enough fluid to keep your urine pale yellow. It is recommended that you drink 3 4 quarts (2.83.8 L) a day. If you have been diagnosed with an infection, drinking cranberry juice in addition tolarge amounts of water is recommended. Avoid caffeine, tea, and carbonated beverages. These tend to irritate the bladder. Avoid alcohol because it may irritate the prostate (in males). General instructions If you have been diagnosed with a kidney stone, follow your health care provider's instructions about straining your urine to catch the stone. Empty your bladder often. Avoid holding urine for long periods of time. If you are female: ?After a bowel movement, wipe from front to back and use each piece of toilet paper only once. ?Empty your bladder before and after sex. Pay attention to any changes in your symptoms. Tell your health care provider about any changes or any new symptoms. It is up to you to get the results of any tests. Ask your health care provider, or the department that is doing the test, when your results will be ready. Keep all follow-up visits. This is important. Contact a health care provider if: You develop back pain. You have a fever or chills. You have nausea or vomiting. Your symptoms do not improve after 3 days. Your symptoms get worse. Get help right away if: You develop severe vomiting and are unable to take medicine without vomiting. You develop severe pain in your back or abdomen even though you are taking medicine. You pass a large amount of blood in your urine. You pass blood clots in your urine. You feel very weak or like you might faint. You faint. Summary Hematuria is blood in the urine. It has many possible causes. It is very important that you tell your health care provider about any blood in your urine, even ifit is painless or the blood stops without treatment. Take hyap-fts-yzqxnyp and prescription medicines only as told by your health care provider. Drink enough fluid to keep your urine pale yellow. This information is not intended to replace advice given to you by your health care provider. Make sure you discuss any questions you have with your health care provider. Document Revised: 04/12/2021 Document Reviewed: 04/12/2021 [employer] Patient Education 2023 [employer]. Follow Up Care 02/07/2025 16:37:15 With:RENATA HAMILTON Address: [address] [place] [address] [phone] Business (1) When:02/10/2025 17:49:59 Comments:Keep the dressing and the pressure dressing over the wound as discussed and as applied in the emergency room. Call the office of . Return to the emergency room if the wound continues to drain or any new symptoms or concerns. With:REGAN BOTELLO Address: [address] [place] [phone] (1) When:Within 3 Day(s) [facility] 06-15-2025 NoteED Patient Education Note Urology Hematuria, Adult Hematuria is blood in the urine. Blood may be visible in the urine, or it may be identified with a test. This condition can be caused by infections of the bladder, urethra, kidney, or prostate. Otherpossible causes include: ??? Kidney stones. ??? Cancer of the urinary tract. ??? Too much calcium in the urine. ??? Conditions that are passed from parent to child (inherited conditions). ??? Exercise that requires a lot of energy. Infections can usually be treated with medicine, and a kidney stone usually will pass through your urine. If neither of these is the cause of your hematuria, more tests may be needed to identify the cause of your symptoms. It is very important to tell your health care provider about any blood in your urine, even if it ispainless or the blood stops without treatment. Blood in the urine, when it happens and then stops and then happens again, can be a symptom of a very serious condition, including cancer. There is no pain in the initial stages of many urinary cancers. Follow these instructions at home: Medicines ??? Take jhoi-mys-yddlywc and prescription medicines only as told by your health care provider. ??? If you were prescribed an antibiotic medicine, take it as told by your health care provider. Donot stop taking the antibiotic even if you start to feel better. Eating and drinking ??? Drink enough fluid to keep your urine pale yellow. It is recommended that you drink 3?4 quarts (2.8?3.8 L) a day. If you have been diagnosed with an infection, drinking cranberry juice in addition to large amounts of water is recommended. ??? Avoid caffeine, tea, and carbonated beverages. These tend to irritate the bladder. ??? Avoid alcohol because it may irritate the prostate (in males). General instructions ??? If you have been diagnosed with a kidney stone, follow your health care provider's instructionsabout straining your urine to catch the stone. ??? Empty your bladder often. Avoid holding urine for long periods of time. ??? If you are female: ? After a bowel movement, wipe from front to back and use each piece of toilet paper only once. ? Empty your bladder before and after sex. ??? Pay attention to any changes in your symptoms. Tell your health care provider about any changesor any new symptoms. ??? It is up to you to get the results of any tests. Ask your health care provider, or the department that is doing the test, when your results will be ready. ??? Keep all follow-up visits. This is important. Contact a health care provider if: ??? You develop back pain. ??? You have a fever or chills. ??? You have nausea or vomiting. ??? Your symptoms do not improve after 3 days. ??? Your symptoms get worse. Get help right away if: ??? You develop severe vomiting and are unable to take medicine without vomiting. ??? You develop severe pain in your back or abdomen even though you are taking medicine. ??? You pass a large amount of blood in your urine. ??? You pass blood clots in your urine. ??? You feel very weak or like you might faint. ??? You faint. Summary ??? Hematuria is blood in the urine. It has many possible causes. ??? It is very important that you tell your health care provider about any blood in your urine, even if it is painless or the blood stops without treatment. ??? Take wshv-wgq-ddzghot and prescription medicines only as told by your health care provider. ??? Drink enough fluid to keep your urine pale yellow. This information is not intended to replace advice given to you by your health care provider. Make sure you discuss any questions you have with your health care provider. Document Revised: 04/12/2021 Document Reviewed: 04/12/2021 [employer] Patient Education ? 2023 [employer].[facility] 02-07-2025 Evaluation + Plan noteExtracted from:Title:ED NoteAuthor:Ita Vera M.D. HDate:02/07/25 1. Postoperative complicatio n of skin involving drainage from surgical wound (L76.82: Other postprocedural complications of skin and subcutaneous tissue) 2. Hematuria (R31.9: Hematuria, unspecified) Future Appointments Appointment Date:02/11/2025 02:15:00 PM Scheduled Provider:RENATA HAMILTON MD Location:[facility] Appointment Type:URO Office Visit Future Scheduled Tests Radiology* XR Cystography Minimum 3 Views 02/15/25 [facility] 06-12-2025 NoteDischarge Summary Patient: ROSY TAYLOR Age: 70 years Sex: Male : 1955 Associated Diagnoses: None Author: RENATA HAMILTON MD Discharge Information Discharge Summary Information: Admitted 02/03/2025, Discharged 02/04/2025. Admitting physician: RENATA HAMILTON MD. Physical Examination General: Alert and oriented x 3, NAD Cardiovascular: Regular rate and rhythm Lungs: Nonlabored breathing on room air Abdomen: Soft, nontender, nondistended with no guarding or rigidity noted incision clean dry intactwith no erythema, induration, palpable fluctuance appreciable : Moore catheter in place with orange-tinged urine Extremities: No peripheral edema, calf tenderness noted Skin: Warm and dry Hospital Course Patient is a 70-year-old male with prostate adenocarcinoma who presented for robotic assisted laparoscopic radical prostatectomy on 02/03. He tolerated procedure well without incident. On postoperative day 1 he was tolerating diet without issue, passing flatus, pain was well-controlled, he was afebrile vital signs stable and thus he was deemed appropriate for discharge to home. His JULIETA drain was removed. He was counseled on limiting how much he lifts, ambulating, drinking at least 2 L of water per day, patient can shower in 24 hours. He will have a cystogram done on 02/15 with Moore catheter removal, office visit review of pathology on 02/16. Discharge Plan Discharge Time Discharge time > 30 min. Discharge Summary Plan Discharge Status: stable. Discharge instructions given: to patient. Discharge disposition: discharge to home self care.[facility] Comment on above:Result Comment: Electronically Signed By: RENATA HAMILTON MD\.br\Date and Time Signed: 02/04/25 14:57 [id number] Evaluation + Plan noteExtracted from:Title:DC SUMMAuthor:RENATA HAMILTON MDDate:02/04/25 Discharge Information Discharge Summary Information: Admitted 02/03/2025, Discharged 02/04/2025. Admitting physician: RENATA HAMILTON MD.Discharge Plan Discharge Time Discharge time > 30 min. Discharge Summary Plan Discharge Status: stable. Discharge instructions given: to patient. Discharge disposition: discharge to home self care. Extracted from:Title:APSO NoteAuthor:Akosua Wright CNP LDate:02/04/25 1. S/P prostatectomy (Z90.79 : Acquired absence of other genital organ(s)) s/p robotic radical prostatectomy with bilateral pelvic lymph node dissection per Dr. Hamilton Post operative management per urology: pain control, IV fluids, antibiotics, bladder irrigation to the urology service 2. Prostate CA (C61: Malignant neoplasm of prostate) See prostatectomy above Defer to outpatient oncology management after discharge 3. 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 -> No BMP is back yet, re-ordered as STAT, d/w nursing Patient is eating/drinking, will DC IVF now given hyponatremia and no recent Na level 4. Hypertension (I10: Essential (primary) hypertension) Home AIDAN on hold due to soft BP post operatively 5. Hypothyroid (E03.9: Hypothyroidism, unspecified) Levothyroxine 125 mcgQD 6. Obesity Patient's BMI >30. Lifestyle modifications encouraged. Obesity is a pro- inflammatory state likely affecting above medical processes. Outpatient follow up. Per nursing, urology states patient may be discharged later today if tolerates ambulation Hospitalist service was consulted for hyponatremia, however, no subsequent sodium levels have been drawn-BMP was ordered stat this morning and is still pending at time of note If sodium level stable, acceptable for discharge, if sodium levels not improved/lower than preoperative, will consult nephrology Extracted from:Title:ANES Post-operative Note - GeneralAuthor:Summer RICHMOND, Riley Cook Date:02/03/25 Plan Transfer/Discharge: Transfer/Discharge Discharge when meets criteria ( From PACU to Ambulatory Surgery Unit, and To home ). Extracted from:Title:Consult NoteAuthor:Radha Phillips ADate:02/03/25 . 1. S/P prostatectomy (Z90.79: Acquired absence of other genital organ(s)) S/p robotic radical prostatectomy with bilateral pelvic lymph node dissection per Dr. Hamilton Defer all postoperative management including pain control, IV fluids, antibiotics, bladder irrigation to the urology service We have been consulted for postoperative medical management and hyponatremia management. We appreciate the consult 2. Prostate CA (C61: Malignant neoplasm of prostate) See prostatectomy above Defer to outpatient oncology management after discharge 3. 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 Continue 1.5 L fluid restriction per PCP recommendations Continue daily 1 g sodium tablet supplementation BMP in a.m. 4. Hypertension (I10: Essential (primary) hypertension) BP currently controlled, slightly soft postoperatively Hold home antihypertensives for now, resume when clinically indicated 5. Hypothyroid (E03.9: Hypothyroidism, unspecified) Continue home levothyroxine once home med rec is completed. Orders: sodium chloride, 1 gram = 1 tab(s), Tab, Oral, Daily, Routine, Start date 02/04/25 9:00:00 EDT, 02/03/25 17:12:00 EDT Regular Diet Extracted from:Title:ANES Pre-operative Note uthor:Summer RICHMOND, Riley Wells.Date: 02/03/25 Plan [place] [employer] (ASA) physical status classification: Class III. Anesthetic Preoperative Plan: Anesthesia General, and Patient educated on benefits, alternatives and inherent risk of anesthesia including, but not all inclusive, Allergic reactions, dental damage, nerve damage and cardio-pulmonary complications and wishes to proceed with anesthetic plan.. Future Appointments Appointment Date:02/11/2025 02:15:00 PM Scheduled Provider:RENATA HAMILTON MD Location:[facility] Appointment Type:URO Office Visit Future Scheduled Tests Radiology* XR Cystography Minimum 3 Views 02/15/25 [facility] 06-12-2025 NoteProgress Note-Physician Basic Information 70 year old male with chronic hyponatremia, s/p robotic radical prostatectomy Assessment/Plan 1. S/P prostatectomy (Z90.79: Acquired absence of other genital organ(s)) s/p robotic radical prostatectomy with bilateral pelvic lymph node dissection per Dr. Hamilton Post operative management per urology: pain control, IV fluids, antibiotics, bladder irrigation to the urology service 2. Prostate CA (C61: Malignant neoplasm of prostate) See prostatectomy above Defer to outpatient oncology management after discharge 3. 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 BMP in a.m. -> No BMP is back yet, re-ordered as STAT, d/w nursing Patient is eating/drinking, will DC IVF now given hyponatremia and no recent Na level 4. Hypertension (I10: Essential (primary) hypertension) Home AIDAN on hold due to soft BP post operatively 5. Hypothyroid (E03.9: Hypothyroidism, unspecified) Levothyroxine 125 mcgQD 6. Obesity Patient's BMI >30. Lifestyle modifications encouraged. Obesity is a pro- inflammatory state likely affecting above medical processes. Outpatient follow up. Per nursing, urology states patient may be discharged later today if tolerates ambulation Hospitalist service was consulted for hyponatremia, however, no subsequent sodium levels have been drawn-BMP was ordered stat this morning and is still pending at time of note If sodium level stable, acceptable for discharge, if sodium levels not improved/lower than preoperative, will consult nephrology Subjective Patient seen this morning. He reports pain overall is well-controlled. He denies fevers or chills. He denies any nausea or vomiting. He tolerated breakfast. He has not been out of bed yet but plans to later. Per patient, surgeon was in earlier today and possible discharge. Per nursing this is confirmed. Review of Systems Additional ROS info: Except as noted in the above Review of Systems and in the History of Present Illness all other systems have been reviewed and are negative or noncontributory Objective Vitals & Measurements T: 36.8 ???C(Oral) TMIN: 36.4 ???C(Temporal Artery) TMAX: 36.8 ???C(Oral) HR: 89(Monitored) RR: 18 BP: 112/57 SpO2: 92% Intake & Output This visit (24 hour periods starting at 07:00 EDT) 02/04/25 * 02/03/25 02/02/25 Total Summary Intake mL 1 2,793.5 -- Output mL -- 600 -- Fluid Balance 1 2,193.5 -- Intake (19) Lactated Ringers Injection mL -- 1,000 -- Oral Intake mL -- -- -- Sodium Chloride 0.9% mL -- 1,000 -- Sodium Chloride 0.9% intravenous solution 1,000 mL mL -- 520.9 -- Sodium Chloride 0.9%, cefazolin mL -- 220.47 -- dexamethasone mL -- 1 -- fentanyl mL -- 2 -- hydrALAZINE mL -- 0.5 -- hydromorphone mL -- 2.6 -- ketorolac mL 1 4 -- labetalol mL -- 3 -- lidocaine mL -- 3 -- midazolam mL -- 2 -- morphine mL -- 1 -- ondansetron mL -- 2 -- phenylephrine mL -- 0.03 -- propofol mL -- 17 -- rocuronium mL -- 12 -- sugammadex mL -- 2 -- Total 1 2,793.5 -- Output (3) EBL Surgery mL -- 25 -- Other: Joseph Salamanca Abdomen Left mL -- 125 -- Urine Catheter mL -- 450 -- Total -- 600 -- Counts (0) * This column has not completed the indicated time period. Physical Exam General: Alert, no acute distress Skin: warm, dry Neck: supple Eye: PERRLA ENMT: oral mucosa moist Cardiovascular: regular rhythm, normal rate, normal peripheral perfusion Respiratory: Lungs CTA, respirations non labored Gastrointestinal: Obese, soft, non distended, no tenderness, no guarding, central obesity. Extremities: noedema Neurological: oriented x 4, LOC appropriate for age speech normal Psychiatric: cooperative, affect appropriate for age, normal judgement, normal psychiatric thoughts. Lab Results Glucose Cap: 127 mg/dL High (02/04/25 08:12:00) POC Device SN: [id number] (02/04/25 08:12:00) POC User ID: [id number] (02/04/25 08:12:00) POC Username: SHIRLEY WRAYSSICA (02/04/25 08:12:00) Problem List/Past Medical History Ongoing At risk for falls BPH with urinary obstruction Elevated PSA Hyperlipidemia Hypertension Hypothyroid Prostate cancer Historical No qualifying data Medications Inpatient acetaminophen 325 mg Tab, 650 mg= 2 tab(s), Oral, q6hr Benadryl 25 mg Cap, 25 mg= 1 cap(s), Oral, q6hr, PRN cefazolin additive + Sodium Chloride 0.9% intravenous solution 50 mL (more content not included)...[facility]:Result Comment: Electronically Signed By: Akosua Wright CNP\.br\Date and Time Signed: 02/04/25 10:37 EDT\.br\Electronically Co-Signed By: Baldev Amor DO\.br\Date and Time Co-Signed:02/04/25 11:28 [id number] Note Consultation Note Chief Complaint Prostate CA Reason for Consultation Post operative hyponatremia and medical management History of Present Illness This is a 70-year-old male patient with a past medical history significant for prostate cancer, hyponatremia, SIADH, hypothyroidism, and hypertension; who is admitted today by the urology service mac elective robotic radical prostatectomy with bilateral pelvic lymph node dissection. Please see the admitting service H&P for clinical course leading to this surgical procedure. We have been consulted by the urology service for medical and hyponatremia management. Physical Exam Vitals & Measurements T: 36.4 ???C(Temporal Artery) TMIN: 36.4 ???C(Temporal Artery) TMAX: 37 ???C(Oral) HR: 72(Monitored) RR: 12 BP: 113/64 SpO2: 95% General: somnolent but arousable to voice, no acute distress Skin: warm, dry Head: no trauma, normocephalic Neck: Trachea midline, no adenopathy, no tenderness Eye: normal conjunctiva, sclera clear ENMT: oral mucosa moist Cardiovascular: regular rhythm, normal rate, normal peripheral perfusion Respiratory: Lungs CTA, respirations non labored Chest wall: no deformity. Gastrointestinal: soft, non distended, no tenderness, no guarding, central obesity. Back: No tenderness, Normal ROM, Normal alignment. Extremities: no deformity, no trauma Neurological: oriented x 4, LOC appropriate for age, CN II-XII intact, motor strength equal & normal bilaterally, sensation equal & normal bilaterally, speech normal Psychiatric: cooperative, affect appropriate for age, normal judgement, normal psychiatric thoughts. Assessment/Plan . 1. S/P prostatectomy (Z90.79: Acquired absence of other genital organ(s)) ??? S/p robotic radical prostatectomy with bilateral pelvic lymph node dissection per Dr. Hamilton ??? Defer all postoperative management including pain control, IV fluids, antibiotics, bladder irrigation to the urology service ??? We have been consulted for postoperative medical management and hyponatremia management. We appreciate the consult 2. Prostate CA (C61: Malignant neoplasm of prostate) ??? See prostatectomy above ??? Defer to outpatient oncology management after discharge 3. Chronic hyponatremia (E87.1: Hypo-osmolality and hyponatremia) ??? 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 Levothyroxine therapy was recently adjusted per PCP ??? Continue home levothyroxine once home med rec is completed. ??? Continue 1.5 L fluid restriction per PCP recommendations ??? Continue daily 1 g sodium tablet supplementation ??? BMP in a.m. 4. Hypertension (I10: Essential (primary) hypertension) ??? BP currently controlled, slightly soft postoperatively ??? Hold home antihypertensives for now, resume when clinically indicated 5. Hypothyroid (E03.9: Hypothyroidism, unspecified) ??? Continue home levothyroxine once home med rec is completed. Orders: sodium chloride, 1 gram = 1 tab(s), Tab, Oral, Daily, Routine, Start date 02/04/25 9:00:00 EDT, 02/03/25 17:12:00 EDT Regular Diet Problem List/Past Medical History Ongoing At risk for falls BPH with urinary obstruction Elevated PSA Hyperlipidemia Hypertension Hypothyroid Prostate cancer Historical No qualifying data Procedure/Surgical History Transrectal biopsy of prostate using ultrasound (US) guidance (11/17/2024), LASIK - laser assisted in situ keratomileusis. Medications Inpatient acetaminophen 325 mg Tab, 650 mg= 2 tab(s), Oral, q6hr Benadryl 25 mg Cap, 25 mg= 1 cap(s), Oral, q6hr, PRN cefazolin additive + Sodium Chloride 0.9% intravenous solution 50 mL hydrALAZINE 20 mg/mL Inj, 10 mg= 0.5 mL, IV Push, q6hr, PRN ketorolac 15 mg/mL Inj, 15 mg= 1 mL, IV Push, q6hr Lactated Ringers IV Tyesha 1000 mL 1,000 mL, 1000 mL, IV Levsin 0.125 mg SL Tab, 0.125 mg= 1 tab(s), SubLingual, TID, PRN melatonin 3 mg Tab, 3 mg= 1 tab(s), Oral, Bedtime, PRN morphine 2 mg/mL Inj, 2 mg= 1 mL, IV Push, q4hr, PRN NS 1000 mL Soln-IV 1,000 mL, 1000 mL, IV oxyCODONE 5 mg Tab, 5 mg= 1 tab(s), Oral, q6hr, PRN Pyridium 100 mg Tab, 100 mg= 1 tab(s), Oral, TIDPC Robaxin 500 mg Tab, 500 mg= 1 tab(s), Oral, TID sodium chloride 1 g Tab, 1 gm= 1 tab(s), Oral, Daily Zofran 4 mg/2 mL Injection, 4 mg= 2 mL, IV Push, q6hr, PRN Home amlodipine, 5 mg, Oral, Daily aspirin, 81 mg, Oral, Bedtime benazepril, 20 mg, Oral, Daily levothyroxine, 100 mcg, Oral, Bedtime Sodium Chloride 1 g oral tablet, 1 tab, Oral, Daily Allergies No Known Allergies Social History Alcohol Never., 08/17/2024 Substance Abuse Never., 08/17/2024 Tobacco Never (less than 100 in lifetime) Tobacco Use:. Never Smokeless Tobacco Use:., 12/17/2024 Family History Dementia: Mother. Immunizations Vaccine Date Status Comments influenza virus vaccine, inactivated 05/28/2024 Recorded influenza virus vaccine, inactivated 07/27/2023 Re (more content not included)...[facility] HospitalComment on above:Result Comment: Electronically Signed By: Radha Phillips\.br\Date and Time Signed: 02/03/2517:47 EDT\.br\Electronically Co-Signed By: Enio Hills III, DO.br\Date and Time Co-Signed:02/03/25 20:09 [id number] NoteProgress Note-Physician Patient: ROSY TAYLOR Age: 70 years Sex: Male : 1955 Associated Diagnoses: None Author: Riley Robison MD Postoperative Information Postoperative disposition: Postoperative disposition: Home. Optimetrix number: Optimetrix number [id number]. Anesthetic utilized: General. Health Status Allergies: Allergic Reactions (Selected) No Known Allergies Current medications: (Selected) Inpatient Medications Ordered Benadryl 25 mg Cap: 25 mg = 1 cap(s), Cap, Oral, q6hr PRN Itching, Routine, Start date 02/03/25 14:38:00 EDT, 02/03/25 14:38:00 EDT Lactated Ringers IV Tyesha 1000 mL 1,000 mL: 1,000 mL, IV, 150 mL/hr, Routine, Start date 02/03/25 10:00:00 EDT, 6.7 hour(s), Total volume (mL): 1,000, 97 kg, 2.14, m2 Levsin 0.125 mg SL Tab: 0.125 mg = 1 tab(s), Tab, SubLingual, TID PRN Spasm, Routine, Start date 02/03/25 14:30:00 EDT NS 1000 mL Soln-IV 1,000 mL: 1,000 mL, IV, 100 mL/hr, Routine, Start date 02/03/25 14:38:00 EDT, 10hour(s), Total volume (mL): 1,000, 97 kg, 2.14, m2 Pyridium 100 mg Tab: 100 mg = 1 tab(s), Tab, Oral, TIDPC, Routine, Start date 02/03/25 18:30:00 EDT, 02/03/25 14:31:00 EDT Robaxin 500 mg Tab: 500 mg = 1 tab(s), Tab, Oral, TID, Routine, Start date 02/03/25 22:00:00 EDT Zofran 4 mg/2 mL Injection: 4 mg = 2 mL, Injection, IV Push, q6hr PRN Nausea, Routine, Start date 02/03/25 14:38:00 EDT, 02/03/25 14:38:00 EDT acetaminophen 325 mg Tab: 650 mg = 2 tab(s), Tab, Oral, q6hr, Routine, Start date 02/03/25 15:00:00EDT, 02/03/25 14:31:00 EDT cefazolin additive + Sodium Chloride 0.9% intravenous solution 50 mL: 1 gm = 1 EA, Injection, IV Piggyback, q12hr, Routine, Start date 02/03/25 15:00:00 EDT, 100 mL/hr, Infuse over 30 minute(s) hydrALAZINE 20 mg/mL Inj: 10 mg = 0.5 mL, Injection, IV Push, q6hr PRN Other (see comment), Routine, Start date 02/03/25 14:38:00 EDT, 02/03/25 14:38:00 EDT ketorolac 15 mg/mL Inj: 15 mg = 1 mL, Injection, IV Push, q6hr for 1 day(s), Stop date 02/04/25 14:59:00 EDT, Routine, Start date 02/03/25 15:00:00 EDT, 02/03/25 14:39:00 EDT melatonin 3 mg Tab: 3 mg = 1 tab(s), Tab, Oral, Bedtime PRN Sleep, Routine, Start date 02/03/25 14:31:00 EDT morphine 2 mg/mL Inj: 2 mg = 1 mL, Injection, IV Push, q4hr PRN Pain for 5 day(s), Stop date 02/08/25 14:37:00 EDT, Routine, Start date 02/03/25 14:38:00 EDT oxyCODONE 5 mg Tab: 5 mg = 1 tab(s), Tab, Oral, q6hr PRN Pain for 5 day(s), Stop date 02/08/25 14:33:00 EDT, Routine, Start date 02/03/25 14:34:00 EDT, 02/03/25 14:34:00 EDT sodium chloride 1 g Tab: 1 gram = 1 tab(s), Tab, Oral, Daily, Routine, Start date 02/04/25 9:00:00 EDT, 02/03/25 17:12:00 EDT Documented Medications Documented Sodium Chloride 1 g oral tablet: 1 tab, Oral, Daily, Refills(s) 0 amlodipine: 5 mg, Oral, Daily, Refills(s) 0 aspirin: 81 mg, Oral, Bedtime, Refills(s) 0 benazepril: 20 mg, Oral, Daily, Refills(s) 0 levothyroxine: 100 mcg, Oral, Bedtime, Refills(s) 0, Home Medications (5) Active amlodipine 5 mg, Oral, Daily aspirin 81 mg, Oral, Bedtime benazepril 20 mg, Oral, Daily levothyroxine 100 mcg, Oral, Bedtime Sodium Chloride 1 g oral tablet 1 tab, Oral, Daily Problem list: All Problems At risk for falls / SNOMED CT 980538468 / Possible BPH with urinary obstruction / SNOMED CT 0353777535 / Confirmed Elevated PSA / SNOMED CT 7897967626 / Confirmed Hyperlipidemia / SNOMED CT 95073512 / Confirmed Hypertension / SNOMED CT 2782034049 / Confirmed Hypothyroid / SNOMED CT 56820720 / Confirmed Prostate cancer / SNOMED CT 9667942122 / Confirmed Physical Examination Vital Signs 02/03/2025 17:00 EDT Hourly Rounding Yes Promise to Return Yes 02/03/2025 15:55 EDT SpO2 95 % 02/03/2025 15:50 EDT Respiratory Rate Monitored 12 br/min 02/03/2025 15:50 EDT SpO2 92 % 02/03/2025 15:50 EDT Heart Rate Monitored 72 bpm 02/03/2025 15:50 EDT Temperature Temporal Artery 36.4 DegC Systolic Blood Pressure 113 mmHg Diastolic Blood Pressure 64 mmHg Mean Arterial Pressure, Cuff 80 mmHg 02/03/2025 15:45 EDT Heart Rate Monitored 68 bpm Respiratory Rate Monitored 10 br/min 02/03/2025 15:45 EDT SpO2 96 % 02/03/2025 15:45 EDT Systolic Blood Pressure 142 mmHg HI Diastolic Blood Pressure 65 mmHg Mean Arterial Pressure, Cuff 91 mmHg 02/03/2025 15:40 EDT SpO2 95 % 02/03/2025 15:40 EDT Heart Rate Monitored 61 bpm 02/03/2025 15:40 EDT Respiratory Rate Monitored 11 br/min 02/03/2025 15:40 EDT Systolic Blood Pressure 125 mmHg Diastolic Blood Pressure 77 mmHg Mean Arterial Pressure, Cuff 93 mmHg 02/03/2025 15:35 EDT Respiratory Rate Monitored 12 br/min 02/03/2025 15:35 EDT SpO2 92 % 02/03/2025 15:35 EDT Heart Rate Monitored 62 bpm 02/03/2025 15:35 EDT Systolic Blood Pressure 143 mmHg HI Diastolic Blood Pressure 81 mmHg Mean Arterial Pressure, Cuff 102 mmHg 02/03/2025 15:28 EDT SpO2 88 % LOW 02/03/2025 15:25 EDT Heart Rate Monitored 69 bpm 02/03/2025 15:25 EDT SpO2 87 % LOW 02/03/2025 15:25 EDT Resp (more content not included)...[facility] HospitalComment on above:Result Comment: Electronically Signed By: Riley Robison MD\.br\Date and Time Signed: 02/03/25 18:09 [id number] NoteProgress Note-Physician Patient: ROSY TAYLOR Age: 70 years Sex: Male : 1955 Associated Diagnoses: None Author: Riley Robison MD Preoperative Information Anesthesia Preop Info: Time patient last ate or drank 02/03/2025 00:00:00. Anesthesia history: Patient history: None. Family history+: None. Anesthesia results: Anesthesia results from flowsheet 02/03/2025 9:31 EDT Heart Rate Monitored 98 bpm Systolic Blood Pressure 147 mmHg HI Diastolic Blood Pressure 74 mmHg Mean Arterial Pressure, Cuff 99 mmHg 02/03/2025 9:31 EDT Blood Pressure Location Left arm 02/03/2025 9:31 EDT Heart Rate Monitored 95 bpm SpO2 95 % 02/03/2025 9:30 EDT Respiratory Rate 16 br/min 02/03/2025 9:30 EDT Systolic Blood Pressure 158 mmHg HI Diastolic Blood Pressure 80 mmHg Mean Arterial Pressure, Cuff 106 mmHg 02/03/2025 9:30 EDT Temperature Oral 37 DegC 02/03/2025 9:29 EDT Blood Pressure Location Right arm . Informed consent: Signed by patient. Including risks, benefits, and alternatives related to the: Anesthetic plan, Postoperative pain management plan. Re-evaluation prior to induction: Initial evaluation reviewed: No significant change. Review of Systems Eye: Negative except as documented in history of present illness. Ear/Nose/Mouth/Throat: Negative except as documented in history of present illness. Respiratory: Negative except as documented in history of present illness. Cardiovascular: Negative except as documented in history of present illness. Musculoskeletal: Negative except as documented in history of present illness. Neurologic: Negative except as documented in history of present illness. Health Status Allergies: Allergic Reactions (Selected) No Known Allergies, Allergies (1) Active Severity Reaction No Known Allergies None Documented Current medications: (Selected) Inpatient Medications Ordered Lactated Ringers IV Tyesha 1000 mL 1,000 mL: 1,000 mL, IV, 150 mL/hr, Routine, Start date 02/03/25 10:00:00 EDT, 6.7 hour(s), Total volume (mL): 1,000, 97 kg, 2.14, m2 cefazolin additive + Sodium Chloride 0.9% intravenous solution 50 mL: 2 gm = 1 EA, Powder-Inj, IV Piggyback, Once, Stop date 02/03/25 10:00:00 EDT, Routine, Start date 02/03/25 10:00:00 EDT, 100 mL/hr, Infuse over 30 minute(s), HOLD if patient has history of anaphylactic allergic reaction to Penicillin. Documented Medications Documented Sodium Chloride 1 g oral tablet: 1 tab, Oral, Daily, Refills(s) 0 amlodipine: 5 mg, Oral, Daily, Refills(s) 0 aspirin: 81 mg, Oral, Bedtime, Refills(s) 0 benazepril: 20 mg, Oral, Daily, Refills(s) 0 levothyroxine: 100 mcg, Oral, Bedtime, Refills(s) 0, Home Medications (5) Active amlodipine 5 mg, Oral, Daily aspirin 81 mg, Oral, Bedtime benazepril 20 mg, Oral, Daily levothyroxine 100 mcg, Oral, Bedtime Sodium Chloride 1 g oral tablet 1 tab, Oral, Daily , Medications (2) Active Scheduled: (1) ceFAZolin + Sodium Chloride 0.9% Minibag 50 mL 2 gm 1 EA, IV Piggyback, Once Continuous: (1) Lactated Ringers 1,000 mL 1,000 mL, IV, 150 mL/hr PRN: (0) Problem list: All Problems At risk for falls / SNOMED CT 400603605 / Possible BPH with urinary obstruction / SNOMED CT 2760570472 / Confirmed Elevated PSA / SNOMED CT 3568226540 / Confirmed Hyperlipidemia / SNOMED CT 05842263 / Confirmed Hypertension / SNOMED CT 4482218437 / Confirmed Hypothyroid / SNOMED CT 94428793 / Confirmed Prostate cancer / SNOMED CT 5587433048 / Confirmed, Active Problems (7) At risk for falls BPH with urinary obstruction Elevated PSA Hyperlipidemia Hypertension Hypothyroid Prostate cancer Histories Past Medical History: No active or resolved past medical history items have been selected or recorded. Family History: Dementia Mother Procedure history: Transrectal biopsy of prostate using ultrasound (US) guidance ([id number]) on 11/17/2024 at 69 Years. LASIK - laser assisted in situ keratomileusis ([id number]). Social History Social & Psychosocial Habits Tobacco 02/03/2025 Tobacco Use: Never (less than 100 in l Smokeless tobacco use: Never . Physical Examination Vital Signs 02/03/2025 9:31 EDT Heart Rate Monitored 98 bpm Systolic Blood Pressure 147 mmHg HI Diastolic Blood Pressure 74 mmHg Mean Arterial Pressure, Cuff 99 mmHg 02/03/2025 9:31 EDT Blood Pressure Location Left arm 02/03/2025 9:31 EDT Heart Rate Monitored 95 bpm SpO2 95 % 02/03/2025 9:30 EDT Respiratory Rate 16 br/min 02/03/2025 9:30 EDT Systolic Blood Pressure 158 mmHg HI Diastolic Blood Pressure 80 mmHg Mean Arterial Pressure, Cuff 106 mmHg 02/03/2025 9:30 EDT Temperature Oral 37 DegC 02/03/2025 9:29 EDT Blood Pressure Location Right arm Vital Signs (last 24 hrs) Last Charted Temp Oral 37 DegC (FEB 03 09:30) Heart Rate Monitored 98 bpm (FEB 03 09:31) SBP H 147 mmHg (FEB 03:31) DBP 74 mmHg (FEB 03:31) Measurements from (more content not included)...[facility] Comment on above:Result Comment: Electronically Signed By: Summer RICHMOND, Riley Cook\.br\Date and Time Signed: 02/03/25 10:17 [id number] Hospital Discharge instructions Follow Up Care 01/26/2025 16:30:02 With:REGAN BOTELLO Address: [address] [place] [address] [phone] Business (1) When:02/08/2025 13:30:00 With:RENATA HAMILTON Address:Unknown When: Unknown Comments:cystogram on 02/15. see me 02/16Keep February 11 appoinment. [facility] 05-13-2025 Evaluation note* Diagnosis Onset Date Resolution Status Admit Date Essential (primary) hypertension acuteMay 2024 2:11pmHypercholesterolemiaacuteMay 2024 2:11pm HyponatremiaacuteMay 2024 2:11pmIFG (impaired fasting glucose)acuteMay 2024 2:11pmMucopurulent chronic bronchitisacuteMay 2024 2:11pm Nicotine addictionacuteMay 2024 2:11pmProstate canceracuteMay 2024 2:11pmPreop exam for internal medicinenoneactiveMay 2024 2:11pmEssential (primary) hypertensionacuteJune 2024 2:50pmH/O prostatectomyJune, 2024 acuteJune 2024 2:50pmHypercholesterolemiaacuteJune 2024 2:50pm HyponatremiaacuteJune 2024 2:50pmHypothyroidacuteJune 2024 2:50pmIFG (impaired fasting glucose)acuteJune 2024 2:50pmMucopurulent chronic bronchitisacuteJune 2024 2:50pmNicotine addictionacuteJune 2024 2:50pmProstate canceracuteJune 2024 2:50pmFoley catheter in place noneactiveJune 2024 2:50pmEssential (primary) hypertensionacuteJuly 2024 2:13pmH/O prostatectomyJune, uteJuly 2024 2:13pm HypercholesterolemiaacuteJuly 2024 2:13pmHyponatremiaacuteJuly 2024 2:13pmHypothyroidacuteJuly 2024 2:13pmIFG (impaired fasting glucose)acute March 23, 2025 2:13pmMucopurulent chronic bronchitisacuteJuly 2024 2:13pm Nicotine addictionacuteJuly 2024 2:13pmProstate canceracuteJuly 2024 2:13pmFoley catheter in placenoneactiveJuly 2024 2:13pm [facility] Work Phone: 1(178) 511-680004-24-2025 NotePatient Education Urology Robot-Assisted Laparoscopic Radical Prostatectomy Robot-assisted laparoscopic radical prostatectomy is surgery done to remove the entire prostate andnearby tissue. This includes the seminal vesicles, which [...] prostate and nearby tissues. The surgeon uses roboticarms to control these tools while sitting at [...] including vitamins, herbs, eye drops, creams, and rcpe-obk-ldpkzmm medicines. ??? Any problems you or family [...] tells you to take them. ? Taking zqyp-vmy-xeirjho medicines, vitamins, herbs, and supplements. ??? Follow [...] blood or urine samples, or imaging tests suchas a CT scan or an MRI. What happens during the procedure? An IV will be put into a vein in your hand or arm. ??? You may be given: ? A medicine to help you relax (sedative). ? A medicine to make you fall aslee (more content not included)...[facility]04-14-2025 NotePatient Education Oncology Prostate Cancer The prostate is [...] such as a bone scan, CT scan, PETscan, or MRI. Stages of prostate cancer The stages of prostate cancer are as follows: ??? Stage 1 (I). At this stage, the cancer is found in the prostate only. The cancer is not visibleon imaging tests, and it is usually found [...] under a microscope. This is called the [place] score and the total score can range from 6?10, indicating how likely it is that the cancer will spread (metastasize) to other parts of the body. The higher the score, the greater thelikelihood that the cancer will spread. ??? Dieter [...] This type uses radioactive needles, seeds, wires, o (more content not included)...[facility]03-25-2025 NotePatient Education Oncology Transrectal Ultrasound-Guided Prostate Biopsy, Care [...] near your rectum, especially while sitting. ??? [place]-colored urine due to small amounts of blood in your urine. ??? A burning feeling while urinating. ??? Blood in your stool (feces) or bleeding from your rectum. ??? Blood in your semen. Follow these instructions at home: Medicines ??? Take umtc-czd-yjmrdco and prescription medicines only as told by your health care provider. ??? If you were given a sedative during your procedure, it can affect you for several hours. Do notdrive or operate machinery until your health care provider says that it is safe. ??? If you were prescribed an antibiotic medicine, take it as told by your health care provider. Donot stop using the antibiotic even if you [...] provider. Document Revised: 02/05/2022 Document Reviewed: 02/05/2022 [employer] Patient Education ? 2023 [employer].[facility] 08-17-2024 Hospital Discharge instructions Patient Education 08/17/2024 15:45:20 Transrectal Ultrasound-Guided Prostate Biopsy Transrectal Ultrasound-Guided Prostate Biopsy A transrectal ultrasound-guided prostate biopsy is a procedure to remove samples of prostate tissuefor testing. The prostate is a walnut-sized gland that is located below the bladder and in front ofthe rectum. During this procedure, a small device (probe) is lubricated and put inside the rectum. The probe sends out sound waves that make a picture of the prostate and surrounding tissues (transrectal ultrasound). The images are used to help guide the process of removing the samples. The samplesare taken to a lab to be checked for prostate cancer. This procedure is usually done to evaluate the prostate gland of men who have raised (elevated) levels of prostate-specific antigen (PSA), which can be a sign of prostate cancer or prostate enlargement related to aging (benign prostatic hyperplasia, or BPH). Tell a health care provider about: Any allergies you have. All medicines you are taking, including vitamins, herbs, eye drops, creams, and rmyu-dua-rthtwsb medicines. Any problems you or family members have had with anesthetic medicines. Any bleeding problems you have. Any surgeries you have had. Any medical conditions you have. Any prostate infections you have had. What are the risks? Generally, this is a safe procedure. However, problems may occur, including: Prostate infection. Bleeding from the rectum. Blood in the urine. Allergic reactions to medicines. Damage to surrounding structures such as blood vessels, organs, or muscles. Difficulty passing urine. Nerve damage. This is usually temporary. What happens before the procedure? Medicines Ask your health care provider about: Changing or stopping your regular medicines. This is especially important if you are taking diabetes medicines or blood thinners. Taking medicines such as aspirin and ibuprofen. These medicines can thin your blood. Do not take these medicines unless your health care provider tells you to take them. Taking ktxu-jws-osqkpaq medicines, vitamins, herbs, and supplements. General instructions Follow instructions from your health care provider about eating and drinking. In most instances, you will not need to stop eating and drinking completely before the procedure. You will be given an enema. During an enema, a liquid is injected into your rectum to clear out waste. You may have a blood or urine sample taken. Ask your health care provider what steps will be taken to help prevent infection. These steps may include: ?Washing skin with a germ-killing soap. ?Taking antibiotic medicine. If you will be going home right after the procedure, plan to have a responsible adult: ?Take you home from the hospital or clinic. You will not be allowed to drive. ?Care for you for the time you are told. What happens during the procedure? An IV will be inserted into one of your veins. You will be given one or both of the following: ?A medicine to help you relax (sedative). ?A medicine to numb the area (local anesthetic). You will be placed on your left side, and your knees will be bent toward your chest. A probe with lubricated gel will be placed into your rectum, and images will be taken of your prostate and surrounding structures. Numbing medicine will be injected into your prostate. A biopsy needle will be inserted through your rectum or perineum and guided to your prostate using the ultrasound images. Prostate tissue samples will be removed, and the needle and probe will then be removed. The biopsy samples will be sent to a lab to be tested. The procedure may vary among health care providers and hospitals. What happens after the procedure? Your blood pressure, heart rate, breathing rate, and blood oxygen level will be monitored until youleave the hospital or clinic. You may have some discomfort in the rectal area. You will be given pain medicine as needed. If you were given a sedative during the procedure, it can affect you for several hours. Do not drive or operate machinery until your health care provider says that it is safe. It is up to you to get the results of your procedure. Ask your health care provider, or the department that is doing the procedure, when your results will be ready. Keep all follow-up visits. This is important. Summary A transrectal ultrasound-guided biopsy removes samples of tissue from your prostate using ultrasound-guided sound waves to help guide the process. This procedure is usually done to evaluate the prostate gland of men who have raised (elevated) levels of prostate-specific antigen (PSA), which can be a sign of prostate cancer or prostate enlargement related to aging. After your procedure, you may feel some discomfort in the rectal area. Plan to have a responsible adult take you home from the hospital or clinic, and follow up with yourhealth care provider for your results. This information is not intended to replace advice given to you by your health care provider. Make sure you discuss any questions you have with your health care provider. Document Revised: 02/05/2022 Document Reviewed: 02/05/2022 [employer] Patient Education 2023 [employer]. 08/17/2024 15:36:35 Prostate Cancer Screening Prostate Cancer Screening Prostate cancer screening is testing that is done to check for the presence of prostate cancer in men. The prostate gland is a walnut-sized gland that is located below the bladder and in front of therectum in males. The function of the prostate is to add fluid to semen during ejaculation. Prostatecancer is one of the most common types of cancer in men. Who should have prostate cancer screening? Screening recommendations vary based on age and other risk factors, as well as between the professional organizations who make the recommendations. In general, screening is recommended if: You are age 50 to 70 and have an average risk for prostate cancer. You should talk with your healthcare provider about your need for screening and how often screening should be done. Because most prostate cancers are slow growing and will not cause , screening in this age group is generally reserved for men who have a 10- to 15-year life expectancy. You are younger than age 50, and you have these risk factors: ?Having a father, brother, or uncle who has been diagnosed with prostate cancer. The risk is higherif your family member's cancer occurred at an early age or if you have multiple family members withprostate cancer at an early age. ?Being a male who is Black or is of [place] or sub-Saharan descent. In general, screening is not recommended if: You are younger than age 40. You are between the ages of 40 and 49 and you have no risk factors. You are 70 years of age or [...] is a blood test called the prostate-specific antigen(PSA) test. PSA is a protein that is made in the prostate. As you age, your prostate naturally produces more PSA. Abnormally high PSA levels may be caused by: Prostate cancer. An enlarged prostate that is not caused by cancer (benign prostatic hyperplasia, or BPH). This condition is very common in older men. A prostate gland infection (prostatitis) or urinary tract infection. Certain medicines such as male hormones (like [...] you may need more tests, such as: A physical exam to check the size of your prostate gland, if not done as part of screening. Blood and imaging tests. A procedure to remove tissue samples from your prostate gland for testing (biopsy). This is the only way to know for certain if you have prostate cancer. What are the benefits of prostate cancer screening? Screening can help to identify cancer at an early stage, before symptoms start and when the cancer can be treated more easily. There is a small chance that screening [...] Questions to ask your health care provider When should I start prostate cancer screening? What is my risk for prostate cancer? How often do I need screening? What type of screening tests do I need? How do I get my test results? What do my results mean? Do I need treatment? Where to find more information The [place] [employer]: www.cancer.org [place] [employer]: www.auanet.org Contact a health care provider if: You have difficulty urinating. You have pain when you urinate or ejaculate. You have blood in your urine or semen. You have pain in your back or in the area of your prostate. Summary Prostate cancer is a common type of cancer in men. The prostate gland is located below the bladder and in front of the rectum. This gland adds fluid to semen during ejaculation. Prostate cancer screening may identify cancer at an early stage, when the cancer can be treated more easily and is less likely to have spread to other areas of the body. The prostate-specific antigen (PSA) test is the recommended screening test for prostate cancer, butit has associated risks. Discuss the risks and benefits of prostate [...] provider. Document Revised: 02/05/2022 Document Reviewed: 02/05/2022 [employer] Patient Education 2023 [employer]. Follow Up Care 07/20/2024 14:29:22 With:CAROL RICHMOND, Jeyson Orantes, URL Address: [facility] [address], [place] [address]- [phone] When: Unknown [facility] 12-23-2024 NoteUrology Office/Clinic Note Chief Complaint referral HPI Staff [...] for age, normal judgement, euthymic mood. Assessment/Plan Rosy is a 69 yo male new pt referred by Dr. Regan Botello for elevated PSA. DINESH 3. 1. Elevated [...] on the table, swelling and bruising of theskin, and need for further procedures. Will order [...] sx monitoring Follow-up With When Contact Information Jeyson MEDINA MD, URL [facility] [address] [place] [address] [phone] Additional Instructions: sched MRI and TRUS/bx Patient Education Transrectal Ultrasound-Guided Prostate Biopsy Prostate Cancer Screening I, Wanda Archuleta, personally scribed for Dr. Medina on 08/17/2024 15:47:12. . Documentation recorded by the scribe, Wanda Archuleta, accurately reflects the services(s) I performed and decisions made by me. Authenticated by Dr. Medina on 08/17/2024 15:49:23. Problem List/Past Medical History Ongoing BPH with urinary obstruction Elevated PSA Hyperlipidemia Hypertension Hypothyroid Historical No qualifying data Medications amlodipine, 5 mg, Oral, Daily aspirin, 81 mg, Oral, Daily baclofen, 20 mg, Not taking benazepril, 20 mg, Oral, Daily levothyroxine, 100 mcg, Oral, Daily Allergies No Known Allergies Social Hist (more content not included)...[facility]Result Comment: Electronically Signed By: Jeyson MEDINA MD\.br\Date and Time Signed: 08/17/24 15:49 EST\.br\Electronically Co-Signed By: Wanda Archuleta\.br\Date and Time Co-Signed: 08/17/24 15:47 [id number] NoteUrology Office/Clinic Note Chief Complaint referral HPI Staff [...] for age, normal judgement, euthymic mood. Assessment/Plan Rosy is a 69 yo male new pt referred by Dr. Regan Botello for elevated PSA. DINESH 3. 1. Elevated [...] on the table, swelling and bruising of theskin, and need for further procedures. Will order [...] Jeyson Orantes, URL [facility] [address] [place] [address] [phone] Additional Instructions: sched MRI and TRUS/bx Patient Education Transrectal Ultrasound-Guided Prostate Biopsy Prostate Cancer Screening Wanda Cordova, personally scribed for Dr. Medina on 08/17/2024 15:47:12. . Documentation recorded by the scribe, Wanda Archuleta, accurately reflects the services(s) I performed and decisions made by me. Authenticated by Dr. Medina on 08/17/2024 15:49:23. Problem List/Past Medical History Ongoing BPH with urinary obstruction Elevated PSA Hyperlipidemia Hypertension Hypothyroid Historical No qualifying data Medications amlodipine, 5 mg, Oral, Daily aspirin, 81 mg, Oral, Daily baclofen, 20 mg, Not taking benazepril, 20 mg, Oral, Daily levothyroxine, 100 mcg, Oral, Daily Allergies No Known Allergies Social Hist (more content not included)...[facility]Result Comment: Electronically Signed By: Jeyson MEDINA MD\.br\Date and Time Signed: 08/17/24 15:49 EST\.br\Electronically Co-Signed By: Wanda Archuleta\.br\Date and Time Co-Signed: 08/17/24 15:47 [id number] NotePatient Education Oncology Transrectal Ultrasound-Guided Prostate Biopsy A transrectal ultrasound-guided prostate biopsy is a procedure to remove samples of prostate tissuefor testing. The prostate is a walnut-sized gland that is located below the bladder and in front ofthe rectum. During this procedure, a small device (probe) is lubricated and put inside the rectum. The probe sends out sound waves that make a picture of the prostate and surrounding tissues (transrectal ultrasound). The images are used to help guide the process of removing the samples. The samplesare taken to a lab to be checked [...] including vitamins, herbs, eye drops, creams, and ukod-fqe-kqfdcrp medicines. ??? Any problems you or family [...] tells you to take them. ??? Taking buua-sjo-isawfma medicines, vitamins, herbs, and supplements. General instructions ??? Follow instructions from your health care provider about eating and drinking. In most instances, you will not need to stop eating and drinking completely before the procedure. ??? You will be given an enema. During an enema, a liquid is injected into your rectum to clear outwaste. ??? You may have a blood or [...] and blood oxygen level will be monitored untilyou leave the hospital or clinic. ??? You [...] prostate gland of men who have raised (elevated)levels of prostate-specific antigen (PSA), which can be a sign of prostate cancer or prostate enlargement related to aging. ??? After your procedure, you may feel some discomfort in the rectal area. ?? (more content not included)...[facility]12-23-2024 Note Patient Education Oncology Transrectal Ultrasound-Guided Prostate Biopsy A transrectal ultrasound-guided prostate biopsy is a procedure to remove samples of prostate tissuefor testing. The prostate is a walnut-sized gland that is located below the bladder and in front ofthe rectum. During this procedure, a small device (probe) is lubricated and put inside the rectum. The probe sends out sound waves that make a picture of the prostate and surrounding tissues (transrectal ultrasound). The images are used to help guide the process of removing the samples. The samplesare taken to a lab to be checked [...] including vitamins, herbs, eye drops, creams, and lmad-msn-bokdoeu medicines. ??? Any problems you or family [...] tells you to take them. ??? Taking vdcy-smu-tmdxqxi medicines, vitamins, herbs, and supplements. General instructions ??? Follow instructions from your health care provider about eating and drinking. In most instances, you will not need to stop eating and drinking completely before the procedure. ??? You will be given an enema. During an enema, a liquid is injected into your rectum to clear outwaste. ??? You may have a blood or [...] and blood oxygen level will be monitored untilyou leave the hospital or clinic. ??? You [...] prostate gland of men who have raised (elevated)levels of prostate-specific antigen (PSA), which can be a sign of prostate cancer or prostate enlargement related to aging. ??? After your procedure, you may feel some discomfort in the rectal area. ?? (more content not included)...[facility]11-20-2024 Evaluation note* Diagnosis Onset Date Resolution Status Admit Date Elevated PSA acuteJuly 15, 2024 3:09pmEssential (primary) hypertensionacuteJuly 15, 2024 3:09pmHypercholesterolemiaacuteNovember 2023 3:09pmHypothyroid acuteJuly 15, 2024 3:09pmIFG (impaired fasting glucose)acuteJuly 15, 2024 3:09pmMucopurulent chronic bronchitisacuteJuly 15, 2024 3:09pm Nicotine addictionacuteJuly 15, 2024 3:09pm [facility] Work Phone: 1(422) 953-902702-06-2024 Evaluation note* Encounter Date Diagnosis Assessment Notes Treatment Notes Treatment Clinical Notes Sep, Acute bronchitis due to other sp ecified organisms (ICD-10 - J20.8) Instructed to use Robitussin or Mucinex for cough, saline or Flonase NS for congestion, Tylenol forpain and fever. Sep,hronic obstructive pulmonary disease with (acute) exacerbation (ICD-10 - J44.1)Mucolytics and push fluids ER for CP or worsening dyspnea. Call for IP OV if not improving over the next several days as expected. [employer] Other 07-05-2023 Evaluation note* Encounter Date Diagnosis Assessment Notes Treatment Notes Treatment Clinical Notes Feb, Primary hypertension (ICD-10 - I 10) This patient is instructed to consume a healthy, low-fat, low-salt diet. They are also encouraged to continue exercise to achieve/maintain a normal BMI. Feb,Wellness examination (ICD-10 - Z00.00)Healthy diet and exercise. Reviewed age-appropriate preventive testing recommended. Feb,igarette nicotine dependence without complication (ICD-10 - F17.210)This patient has been encouraged to quit tobacco use immediately. They are aware of the hazards associated with tobacco use, including but not limited to respiratory infections, vascular disease and cancers. Feb,Elevated cholesterol (ICD-10 - E78.00)Instructed on diet and exercise with continued statin therapy.Discussed the beneficial effects of lo wering cholesterol in reducing the risk for cerebrovascular and cardiovascular disease. Feb,Simple chronic bronchitis (ICD-10 - J41.0)Smoking cessation discussed. No ER visits for AECOPD No use of inhalers for symptoms Feb,Other specified hypothyroidism (ICD-10 - E03.8)Euthyroid, yearly TSH Feb,utoimmune thyroiditis (ICD-10 - E06.3) Feb,Lumbar spondylosis (ICD-10 - M47.816)The patient is instructed to avoid bending, twisting or lifting. They are to use intermittent heat and ice as needed. They may schedule a massage or gentle manipulation. They may safely use Tylenol as needed. [employer] Other Evaluation + Plan note No data available for this section [facility] evaluation + Plan note Future Appointments Appointment Date:12/07/2024 02:45:00 PM Scheduled Provider:Jeyson MEDINA MD Location:[facility] Appointment Type:URO Office Visit Diagnostic Tests Pending * Prostate Histology ([facility]) 11/17/24 [facility] evaluation + Plan note Future Appointments Appointment Date:01/12/2025 12:15:00 PM Scheduled Provider: Location:[facility] Appointment Type:Surgery FT [facility] evaluation + Plan note Future Appointments Appointment Date:02/03/2025 12:00:00 PM Scheduled Provider: Location:[facility] Appointment Type:Surgery FT Appointment Date:02/11/2025 02:15:00 PM Scheduled Provider:RENATA HAMILTON MD Location:[facility] Appointment Type:URO Office Visit [facility] evaluation + Plan note Future Appointments Appointment Date:03/25/2025 02:15:00 PM Scheduled Provider:RENATA HAMILTON MD Location:[facility] Appointment Type:URO Office Visit Diagnostic Tests Pending * PSA Total 04/26/25 Future Scheduled Tests Radiology* XR Cystography Minimum 3 Views 02/15/25 [facility] evaluation + Plan note Future Appointments Appointment Date:03/25/2025 02:15:00 PM Scheduled Provider:RENATA HAMILTON MD Location:[facility] Appointment Type:URO Office Visit Future Scheduled Tests Radiology* XR Cystography Minimum 3 Views 02/15/25 [facility] evaluation + Plan note Future Appointments Appointment Date:06/25/2025 10:15:00 AM Scheduled Provider:RENATA HAMILTON MD Location:[facility] Appointment Type:URO Office Visit Diagnostic Tests Pending * PSA Total 05/10/25 Future Scheduled Tests Radiology* XR Cystography Minimum 3 Views 02/15/25 [facility] evaluation note* Diagnosis Onset Date Resolution Status Benign prostatic hyperplasia with lower urinary tract symptoms acuteCigarette nicotine dependence without complicationacuteElevated PSAacute Essential (primary) hypertensionacuteHypercholesterolemiaacuteHypothyroidacute Mucopurulent chronic bronchitisacuteWellness examinationnoneactive [facility] Work Phone: Evaluation note* Diagnosis Onset Date Resolution Status Admit Date Cigarette nicotine dependence without co mplication acuteNovember 2023 3:09pmElevated PSAacuteNovember 2023 3:09pm Essential (primary) hypertensionacuteNovember 2023 3:09pm HypercholesterolemiaacuteNovember 2023 3:09pmHypothyroidacuteNovember 2023 3:09pmIFG (impaired fasting glucose)acuteNovember 2023 3:09pm Mucopurulent chronic bronchitisacuteNovember 2023 3:09pm [facility] Work Phone: Evaluation noteNo InformationNortLifec[facility] Other Evaluation note* Diagnosis Onset Date Resolution Status Admit Date Essential (primary) hypertension acuteMay 2024 2:11pmHypercholesterolemiaacuteMay 2024 2:11pmIFG (impaired fasting glucose)acuteMay 2024 2:11pmMucopurulent chronic bronchitisacuteMay 2024 2:11pmNicotine addictionacuteMay 2024 2:11pm Prostate canceracuteMay 2024 2:11pmPreop exam for internal medicine noneactiveMay 2024 2:11pm [facility] Work Phone: History general Narrative - Reported* Type Description Date Medical History Hyperlipidemia type II Medical HistoryMucopurulent chronic bronchitisMedical HistoryCigarette nicotine dependence without complicationMedical HistoryTobacco userMedical History HypertensionMedical HistoryBenign prostatic hyperplasia with lower urinary tract symptomsMedical HistoryAutoimmune hypothyroidismMedical HistoryLumbar spondylosis with myelopathy [facility] Other History general Narrative - Reported* Type Description Date Medical History Hyperlipidemia type II Medical HistoryMucopurulent chronic bronchitisMedical HistoryCigarette nicotine dependence without complicationMedical HistoryTobacco userMedical History HypertensionMedical HistoryBenign prostatic hyperplasia with lower urinary tract symptomsMedical HistoryAutoimmune hypothyroidismMedical HistoryLumbar spondylosis with myelopathySurgical HistoryProblem Title : Non-Contributory Past Surgical History, Problem Status : Active,Surgical HistoryProblem Title : past surgical history reviewed, Problem Description : past surgical history reviewed, Problem Comment : reviewed - no changes required, Problem Status : Resolved, [employer] Other Hospital Discharge instructions No data available for this section [facility] Progress note No data available for this section [facility] reason for referral (narrative)No reason for referral information availableK[facility] Work Phone: Summary Purpose Family History No Family History [...] Reason for Visit Chief Complaint Amb Documentation wellnessReason for VisitBenign prostatic hyperplasia with lower urinary tract symptoms Cigarette nicotine [...] Mucopurulent chronic bronchitis July 15, 2024 3:09pm Chief Complaint Admit Date discuss recent testing results July 15, 2024 3:09pm R97.20 October 06, 2024 4:45pm Reason for Visit Admit Date Elevated PSA July 15, 2024 3:09pm Essential (primary) hypertension Novembe r 2023 3:09pm Hypercholesterolemia July 15, 2024 3:09pm Hypothyroid July 15, 2024 3:09pm IFG (impaired fasting glucose) July 15, 2024 3:09pm Mucopurulent chronic bronchitis July 15, 2024 3:09pm Nicotine addiction July 15, 2024 3:09pm Chief Complaint Admit Date pre surgical clearance January 05, 2025 2: 11pm Reason for Visit Admit Date Essential (primary) hypertension December 2:11pm Hypercholesterolemia January 05, 2025 2:11 pm IFG (impaired fasting glucose) January 05, 2025 2:11pm Mucopurulent chronic bronchitis December 2:11pm Nicotine addiction January 05, 2025 2:11p m Prostate cancer January 05, 2025 2:11p m Preop exam for internal medicine December 2:11pm Chief Complaint Admit Date pre surgical clearance January 05, 2025 2: 11pm Amb Documentation February 05, 2025 9:44 am [facility]:Protectomy February 10, 2025 2:50 pm Z90.79 February 15, 2025 8:01 am bump on stomach March 23, 2025 2:13 pm Reason for Visit Admit Date Essential (primary) hypertension December 2:11pm Hypercholesterolemia January 05, 2025 2:11 pm Hyponatremia January 05, 2025 2:11p m IFG (impaired fasting glucose) January 05, 2025 2:11pm Mucopurulent chronic bronchitis December 2:11pm Nicotine addiction January 05, 2025 2:11p m Prostate cancer January 05, 2025 2:11p m Preop exam for internal medicine December 2:11pm Essential (primary) hypertension February 102024 2:50pm H/O prostatectomy February 10, 2025 2:50 pm Hypercholesterolemia February 10, 2025 2:5 0pm Hyponatremia February 10, 2025 2:50 pm Hypothyroid February 10, 2025 2:50 pm IFG (impaired fasting glucose) Erica 18th , 2025 2:50pm Mucopurulent chronic bronchitis January 2:50pm Nicotine addiction February 10, 2025 2:50 pm Prostate cancer February 10, 2025 2:50 pm [address] catheter [address] February 10, 2025 2:50pm Essential (primary) hypertension March 232024 2:13pm H/O prostatectomy March 23, 2025 2:13 pm Hypercholesterolemia March 23, 2025 2:1 3pm Hyponatremia March 23, 2025 2:13 pm Hypothyroid March 23, 2025 2:13 pm IFG (impaired fasting glucose) February 2:13pm Mucopurulent chronic bronchitis February 2:13pm Nicotine addiction March 23, 2025 2:13 pm Prostate cancer March 23, 2025 2:13 pm [address] catheter in place March 23, 2025 2:13pm Additional Source Comments (unrecognized sect ion and content) No Status Records FoundNo Status Records FoundNo Status Records FoundNo Status Records FoundNo Status Records FoundNo Status Records FoundNo Status Records FoundNo Status Records FoundNo Status Records FoundNo Status Records FoundNo Status Records FoundNo Status Records FoundNo Status Records FoundNo Status Records FoundNo Status Records FoundNo Status Records FoundNo Status Records FoundNo Status Records FoundNo Status Records FoundNo Status Records FoundNo Status Records FoundNo Status Records FoundNo Status Records FoundNo Status Records Found INFORMATION SOURCE (unrecogn ized section and content) DATE CREATED AUTHOR 05/06/2020 [facility] DATE CREATED AUTHOR AUTHOR'S ORGANIZ ATION 08/18/2024 [facility] DATE CREATED AUTHOR AUTHOR'S ORGANIZ ATION 12/08/2024 [facility] DATE CREATED AUTHOR AUTHOR'S ORGANIZ ATION 01/05/2025 [facility] DATE CREATED AUTHOR AUTHOR'S ORGANIZ ATION 02/05/2025 [facility] DATE CREATED AUTHOR AUTHOR'S ORGANIZ ATION 02/06/2025 [facility] DATE CREATED AUTHOR AUTHOR'S ORGANIZ ATION 02/07/2025 [facility] DATE CREATED AUTHOR AUTHOR'S ORGANIZ ATION 02/13/2025 [facility] DATE CREATED AUTHOR AUTHOR'S ORGANIZ ATION 02/17/2025 [facility] DATE CREATED AUTHOR AUTHOR'S ORGANIZ ATION 03/08/2025 [facility] DATE CREATED AUTHOR AUTHOR'S ORGANIZ ATION 06/23/2025 [facility] REASON FOR VISIT (unrecogniz ed section and content) Medications-Check Uppossible sinus infection, testing for covid [phone] Information Care Teams (unrecognized sec tion and content) Team Status: Active Member Role Status Dates Regan Botello DO Primary Care Provider Active Team Status: Active Member Role Status Dates Regan Botello DO Primary Care Provide r, Attending Provider Active Start: January 04, 2025 Team Status: Inactive Member Role Status Ezequiel Botello DO Primary Care Provide r, Attending Provider Active Start: January 05, 2025 End: January 05, 2025 Team Status: Inactive Member Role Status Ezequiel Botello DO Primary Care Provide r, Attending Provider Active Start: July 15, 2024 End: July 15, 2024 Team Status: Active Member Role Status Ezequiel Botello DO Primary Care Provide r, Attending Provider Active Start: July 29, 2024 Team Status: Inactive Member Role Status Ezequiel Botello DO Primary Care Provider Active Start: October 06, 2024 End: October 06, 2024PaOtilia Garduno ProviderActiveStart: October 06, 2024 End: October 06, 2024 Team Status: Active Member Role Status Ezequiel Botello DO Primary Care Provider Active Start: October 28, 2023 Kaley Grover ProviderActiveStart: October 28, 2023 Team Status: Active Member Role Status Ezequiel Botello DO Primary Care Provide r, Attending Provider Active Start: December 18, 2023 Team Status: Inactive Member Role Status Ezequiel Botello DO Primary Care Provide r, Attending Provider Active Start: December 27, 2023 End: December 27, 2023 Team Status: Active Member Role Status Ezequiel Botello DO Primary Care Provide r, Attending Provider Active Start: July 08, 2024 Team Status: Active Member Role Status Ezequiel Botello DO Primary Care Provider Active Start: January 04, 2025 Regan Botello DOAttleonel ProviderActiveStart: January 04, 2025 Team Status: Inactive Member Role Status Ezequiel Botello DO Primary Care Provider Active Start: January 05, 2025 End: January 05enjamin Ball , DOAttending ProviderActiveStart: January 05, 2025 End: January 05, 2025 Team Status: Active Member Role Status Dates Regan Botello , DO Primary Care Provider Active Start: January 07, 2025 Regan Botello DOAttending ProviderActiveStart: January 07, 2025 Team Status: Active Member Role Status Dates Regan Botello , DO Primary Care Provider Active Start: January 14, 2025 Regan Botello DOAttending ProviderActiveStart: January 14, 2025 Team Status: Active Member Role Status Dates Regan Botello , DO Primary Care Provider Active Start: 2025 Regan Botello DOAttending ProviderActiveStart: 2025 Team Status: Active Member Role Status Dates Regan Botello Primary Care Provider Active Start: February 05, 2025 Caterina Fajardo CMAAttending ProviderActiveStart: February 05, 2025 Team Status: Inactive Member Role Status Dates Regan Botello , DO Primary Care Provider Active Start: February 10, 2025 End: February 10sudheer Botello , DOAttending ProviderActiveStart: February 10, 2025 End: February 10, 2025 Team Status: Inactive Member Role Status Dates Regan Botello DO Primary Care Provider Active Start: February 15, 2025 End: February 15, 2025Mariocorby BarreraelliReyna MDAttending ProviderActiveStart: February 15, 2025 End: February 15, 2025 Team Status: Active Member Role Status Dates Regan Botello DO Primary Care Provider Active Start: March 17, 2025 Regan Botello DOAttending ProviderActiveStart: March 17, 2025 Team Status: Inactive Member Role Status Dates Regan Botello , Primary Care Provider Active Start: March 23, 2025 End: March 23sudheer Botello , DOAttending ProviderActiveStart: March 23, 2025 End: March 23, 2025 Goals (unrecognized section and content) Goals may [...] BE BASED ON THE PRIMARY CLINICAL RECORDS. [employer] [facility]. provides no warranty or guarantee of the accuracy or completeness of information in this document.
[2025-06-23 17:21] LABS: Prostate Specific Antigen Dx <0.13 ng/mL (<=4.00)
== END 2025-06-23 15:45 | disposition home or self-care (01) ==
LOC: LAB 15:46
PROVIDERS: PCP Internal Medicine; Visit Provider Student in an Organized Health Care Education/Training Program
DX: N40.1 Benign prostatic hyperplasia with lower urinary tract symptoms (principal)
CPT/HCPCS: 36415; 84153

== ENCOUNTER 2025-06-23 15:49 | Outpatient (OUT) | payer MEDICARE, SELFPAY ==
--- OUTSIDE RECORDS SUMMARY | 2025-06-23 15:56 | XMS_ITS | CCD ---
Author Organization [facility] Care Team Providers Care Pressure Sealer And Tester Name Role Phone REGAN BOTELLO Admitting Unavailable REGAN BOTELLO Attending Unavailable Regan Botello Unavailable REGAN BOTELLO Primary Care Physician [phone] Jeyson MEDINA Attending Unavailable REGAN BOTELLO Referring [...] able Regan Botello DO Primary Care Provider Regan Botello DO Attending Provider [phone] Caterina Fajardo CMA Attending Provider Renata Smith [...] (20 sources)Dihydropyridine Calcium Channel BlockerStart: 07-15-2024 End: 38-80-9836ferg 5 mg by mouth once dailyamlodipine 5 mg, Oral, Daily, Refills(s) 0 Start Date: 08/17/24 Status: Ordered Repeat number: 1Start: 03-28-2024 End: 13-06-7650Vwggrqckak 5 mg tablet Discontinued 0 .ROUTE .COMPLEX March 28, 2024 8:38am July 15, 2024 4:45pm TAKE 1 TABLET EVERY DAYStart: 03-28-2024 End: 43-31-8274Yapxbaldpo 5 mg tablet Discontinued 0 .ROUTE .COMPLEX March 28, 2024 7:38am July 15, 2024 3:45pm TAKE 1 TABLET EVERY DAYStart: 01-26-2024 End: 73-05-7748Ldpkmsacux 5 mg tablet Discontinued 0 .ROUTE .COMPLEX March 28, 2024 8:38am July 15, 2024 4:45pm TAKE 1 TABLET EVERY DAYStart: 12-24-2023 End: 98-07-5683wuop 1 tablet by mouth once dailyAmlodipine 5 mg tablet Discontinued 5 MG PO Daily January 14, 2024 8:33am January 26, 2024 8:37am aspirin 81 mg oral tablet (10 sources)Platelet Aggregation Inhibitor, Nonsteroidal Anti-inflammatory Drug Start: 77-85-5311savk 81 mg by mouth at bedtimeaspirin 81 mg, Oral, Bedtime, Refills(s) 0 Start Date: 08/17/24 Status: Ordered Repeat number: 1Baclofen (20 sources)gamma-Aminobutyric Acid-ergic AgonistStart: 96-60-1766tpameabb 20 mg, Refills(s) 0 Start Date: 08/17/24 Status: Ordered Repeat number: 1Start: 44-87-5723spsahwni 20 mg, Refills(s) 0 Start Date: 08/17/24 Status: Ordered Start: 29-22-1013onio 1 tablet by mouth once dailyBaclofen 20 mg tablet Active 20 MG PO Daily July 15, 2024 4:44pm Complies with drug therapyStart: 01-24-2024 End: 23-61-8878Pwtdhzsm 20 mg tablet Discontinued 0 .ROUTE .COMPLEX June 11, 2024 6:57am July 15, 2024 4:45pm TAKE 1 TABLET AT BEDTIMEStart: 10-28-2023 End: 43-44-5078xoam 1 tablet by mouth once daily at [...] (20 sources)Angiotensin Converting Enzyme InhibitorStart: 07-15-2024 End: 66-10-0967mwfg 20 mg by mouth once dailybenazepril 20 mg, Oral, Daily, Refills(s) 0 Start Date: 08/17/24 Status: Ordered Repeat number: 1Start: 03-28-2024 End: 39-71-5744Marzthcqhk 20 mg tablet Discontinued 0 .ROUTE .COMPLEX March 28, 2024 8:38am July 15, 2024 4:45pm TAKE 1 TABLET EVERY DAYStart: 12-24-2023 End: 73-76-1486wsnk 1 tablet by mouth once dailyBenazepril 20 mg tablet Discontinued 20 MG PO Daily January 14, 2024 8:33am [place] 3rd, 2024 8:39am cephalexin 500 mg oral capsule (5 sources)Cephalosporin AntibacterialStart: 13-69-3629pbre 1 capsule by mouth once dailyKeflex 500 mg Cap 500 mg = 1 cap(s), Oral, Daily, # 7 cap(s), Refills(s) 0, Pharmacy: [facility]/pharmacy #[id number], 170, cm, 02/16/25 10:37:00 EDT, Height/Length Dosing, 90.3, kg, 02/16/25 10:37:00 EDT, WeightDosing Start Date: 02/16/25 Status: Ordered Quantity: 7.0 Unit: cap(s) Repeat number: 1Start: 02-04-2025 End: 59-29-4865bxgi 1 capsule by mouth twice dailyCephalexin 500 mg capsule Active 500 MG PO Twice daily February 10, 2025 12:00am Complies with drug therapy ciprofloxacin 500 mg oral tablet (1 source)Quinolone AntimicrobialStart: 08-17-2024 End: 59-01-5662Jlwab 500 mg Tab 500 mg = 1 tab(s), Oral, BID, start 3 days prior to procedure, X 7 day(s), # 14 tab(s), Refills(s) 0, Pharmacy: [facility]/pharmacy #[id number], 170, cm, 08/17/24 14:45:00 EST, Height/Length Dosing, 100.2, kg, 08/17/24 14:45:00 EST, Weight Dosing Start Date: 08/17/24 Stop Date: 08/24/24 Status: Ordereddocusate sodium 100 mg oral capsule (5 sources)Start: 76-72-9940tlqm 1 capsule by mouth twice daily as needed Docusate Sodium 100 mg capsule Active 100 MG PO Twice daily as needed February 10, 2025 12:00am Complies with drug therapydoxycycline hyclate 100 mg oral capsule (2 sources)Tetracycline-class DrugStart: 71-49-0503pmwo 1 capsule by mouth twice dailyDoxycycline Hyclate 100 MG 1 capsule Orally twice daily for 5 days Sep, Activehyoscyamine sulfate 0.125 mg oral tablet (3 sources)Start: 36-95-8378Hhlhjznygxr Sulfate 0.125 mg tablet Active 0.125 MG PO 2-4 TIMES PER DAY as needed February 10, 2025 12:00am Complies with drug therapyStart: 29-88-1493cbzu 1 tablet by mouth twice daily as needed for muscle spasmsLevsin 0.125 mg SL Tab 0.125 mg = 1 tab(s), Oral, BID, PRN for spasm, # 40 tab(s), Refills(s) 0, Pharmacy: [facility]/pharmacy #[id number], 170, cm, 01/27/25 8:15:00 EDT, Height/Length Dosing, 97, kg, 01/27/25 8:15:00 EDT, Weight Dosing Start Date: 02/04/25 Status: Ordered Quantity: 40.0 Unit: tab(s) Repeat number: 1 levothyroxine sodium 0.125 mg oral tablet (20 sources)l-ThyroxineStart: 03-18-2025 End: 46-37-8346xxsd 1 tablet by mouth once dailyLevothyroxine 125 mcg tablet Active 125 MCG PO Daily 90 90 March 23, 2025 2:48pm Complies with drug therapy Start: 02-10-2025 End: 62-14-5924Exbcitzdgvpcg 125 mcg tablet Discontinued 100 MCG PO Daily February 10, 2025 3:08pm March 18, 2025 4:39pmStart: 01-05-2025 End: 42-50-7382wvst 1 tablet by mouth once dailyLevothyroxine 125 mcg tablet Discontinued 125 MCG PO Daily 90 90 January 05, 2025 3:08pm February 10, 2025 3:11pm Start: 76-21-9188cprt 100 ug by mouth at bedtimelevothyroxine 100 mcg, Oral, Bedtime, Refills(s) 0 Start Date: 08/17/24 Status: Ordered Repeat number: 1 Start: 16-14-7036cxwu 100 ug by mouth once dailylevothyroxine 100 mcg, Oral, Daily, Refills(s) 0 Start Date: 08/17/24 Status: Ordered Repeat number: 1Start: 20-81-8337wkou 100 ug by mouth once dailylevothyroxine 100 mcg, Oral, Daily, Refills(s) 0 Start Date: 08/17/24 Status: OrderedStart: 07-30-2024 End: 29-57-7522cgml 1 tablet by mouth once dailyLevothyroxine 112 mcg tablet Discontinued 112 MCG PO Daily October 13, 2024 12:08am January 05, 2025 2:42pmStart: 07-15-2024 End: 05-15-2936rceb 1 tablet by mouth once dailyLevothyroxine 100 mcg tablet Discontinued 100 MCG PO Daily July 15, 2024 4:45pm July 3:15pmStart: 03-28-2024 End: 60-91-1878Imabvztrwwyts 100 mcg tablet Discontinued 0 .ROUTE .COMPLEX March 28, 2024 8:39am July 15, 2024 4:45pm TAKE 1 TABLET EVERY DAYStart: 12-24-2023 End: 12-12-7807euil 1 tablet by mouth once dailyLevothyroxine 100 mcg tablet Discontinued 100 MCG PO Daily January 14, 2024 8:33am March 28, 2024 8:39amtake 1 tablet by mouth once daily in the morningLevothyroxine Sodium 100 MCG 1 tablet in the morning on an empty stomach Orally Once a day ActiveSodium Chloride (9 sources)Start: 37-09-6179qblc 1 tablet by mouth once dailySodium Chloride 1 g oral tablet 1 tab, Oral, Daily, Refills(s) 0 Start Date: 02/03/25 Status: Ordered Repeat number: 1Start: 66-06-9245coqu 1 tablet by mouth once dailySodium Chloride 1,000 mg tablet,soluble Active 1000 MG PO Daily January 29, 2025 2:43pm Complies with drug therapyStart: 01-10-2025 End: 73-86-3171Vfsfek Chloride 1,000 mg tablet,soluble Discontinued 1000 MG PO 1 to 4 times daily as needed for electrolyte replenishment January 15, 2025 12:29pm January 29, 2025 2:43pmtadalafil 10 mg oral tablet (1 source)Phosphodiesterase 5 InhibitorStart: 11-27-6669Yvtrgc 10 mg Tab 10 mg = 1 tab(s), Oral, As Directed, PRN for erectile dysfunction, Do not exceed 20 mg within 24 hours., # 30 tab(s), Refills(s) 3, Pharmacy: [facility]/pharmacy #[id number], 170, cm, 03/25/25 14:19:00 EDT, Height/Length Dosing, 91.3, kg, 03/25/25 14:19:00 EDT, Weight Dosing Start Date: 03/25/25Status: Ordered Quantity: 30.0 Unit: tab(s) Repeat number: 4 Completed/Discontinued Medications MedicationDrug Class(es)DatesSig (Normalized)Sig (Original)levoFLOXacin 500 mg oral tablet (4 sources)Quinolone AntimicrobialStart: 12-27-2023 End: 44-17-6068vwjl 1 tablet by mouth once dailyLevofloxacin 500 mg tablet Discontinued 500 MG PO Daily December 27, 2023 12:00am July 15, 2024 4:39pmoxyCODONE hydrochloride 5 mg oral capsule (3 sources)Opioid AgonistStart: 02-04-2025 End: 84-60-7187mrhe 1 capsule by mouth every six hours as neededOxycodone 5 mg capsule Discontinued 5 MG PO Every 6 hours as needed February 10, 2025 12:00am February 10, 2025 3:45pm Problems Active Problems Problem ClassificationProblemDateDocumented DateEpisodic/ChronicAcute posthemorrhagic anemia (1 source)Acute posthemorrhagic anemia; Translations: [Acute posthemorrhagic anemia]40-57-3005KgafcvubHbvzmr of prostate (17 sources)Malignant tumor of prostate; Translations: [Malignant neoplasm of prostate]Onset: 228808-64-3610QxvrdehKslcldt on above:MRI: no nodules - 09/2024,TRUS/bx: Edmonson 3+4, grp II - 10/2024,Prostatectomy:MRI: no nodules - 09/2024,TRUS/bx: Edmonson 3+4, grp II - 10/2024,Prostatectomy: 02/03/25Cardiac dysrhythmias (1 source)Tachycardia; Translations: [Tachycardia, unspecified]07-15-2024 EpisodicChronic kidney disease (2 sources)Chronic kidney disease stage 3; Translations: [Chronic kidney disease, stage 3 unspecified]Onset: 10-04-0376YhazwknZgghsms obstructive pulmonary disease and bronchiectasis (20 sources)Mucopurulent chronic bronchitis; Translations: [Mucopurulent chronic bronchitis]ChronicComplications of surgical procedures or medical care (1 source)Postoperative complication; Translations: [Other postprocedural complications of skin and subcutaneous tissue]Onset: 75-52-5453ZmdcqbbqBeyqyxaq mellitus without complication (10 sources)Impaired fasting glycemia; Translations: [Impaired fasting glucose] 11-46-7221PzwthwkaFzhgmochu of lipid metabolism (20 sources)Hypercholesterolemia; Translations: [Pure hypercholesterolemia, unspecified]Onset: 76-44-1024MhiqjloHdmervhhq hypertension (20 sources)Essential hypertension; Translations: [Essential (primary) hypertension]Onset: 35-51-5902GbekqntXlxjrym on above:Carotid US: <50% B/L - 06/2024Fluid and electrolyte disorders (6 sources)Hyponatremia; Translations: [Hypo-osmolality and hyponatremia]Onset: 310365-82-3078KkqwvqkuHhyjftvdzxqjg symptoms and ill-defined conditions (1 source)Blood in urine; Translations: [Hematuria, unspecified]Onset: 67-31-2603QcgafgjqLgvkjugagjf of prostate (20 sources)Lower urinary tract symptoms due to benign prostatic hypertrophy; Translations: [Benign prostatic hyperplasia with lower urinary tract symptoms] Onset: 369138-46-9607NekoaibFdmidgruypoz with complications and secondary hypertension (2 sources)Benign hypertensive renal disease; Translations: [Hypertensive chronic kidney disease, benign, withchronic kidney disease stage I through stage IV, or unspecified]Onset: 57-45-2866RvrtpgyCxwvt male genital disorders (2 sources)Male erectile dysfunction, unspecified; Translations: [Erectile dysfunction]Onset: 89-74-1836WjvimzqSqkvf nutritional; endocrine; and metabolic disorders (1 source)Obesity; Translations: [Obesity, unspecified]Onset: 61-74-4875Jdgwaay Other nutritional; endocrine; and metabolic disorders (2 sources)Overweight; Translations: [Overweight]EpisodicOther screening for suspected conditions (not mental disorders or infectious disease) (20 sources)Screening for malignant neoplasm of respiratory tract; Translations: [Encounter for screening for malignant neoplasm of respiratory organs]Onset: 878841-60-9750EskcnphpIkodykg on above:PSA: 2.29 - 04/2019, 6.78 - 11/2023, 6.6 - 4Residual codes; unclassified (5 sources)Tobacco user; Translations: [Tobacco use]EpisodicResidual codes; unclassified (1 source)Pelvic organ finding; Translations: [Acquired absence of other genital organ(s)]Onset: 88-63-6468KfpgjegrKjgdzisr codes; unclassified (1 source)Acquired absence of other genital organ(s); Translations: [Acquired absence of other genital organ(s)]Onset: 99-22-3029UdixklkjQodrizon codes; unclassified (2 sources)Urinary catheter in situ; Translations: [Presence of other specified devices]16-53-2111DiugxyvqJidmuzvk codes; unclassified (1 source)Localized edema; Translations: [Localized edema]Onset: 03-25-2025 EpisodicResidual codes; unclassified (1 source)Edema of lower xhfrtervf89-04-3650XgdzkheeZglwjuuwerf; intervertebral disc disorders; other back problems (11 sources)Lumbar spondylosis with myelopathy; Translations: [Other spondylosis with myelopathy, lumbar region]Onset: 84-54-5502KqqvqxzTgmmfnnbb-related disorders (20 sources)Nicotine dependence; Translations: [Nicotine dependence, cigarettes, uncomplicated]Onset: 60-67-1073PgtkzylIzfouki on above:Age started 20, PPD1, Age stopped 68Age started 20, PPD1, Age stopped 68.LDCT: w/o suspicious nodules 10/2024Systemic lupus erythematosus and connective tissue disorders (2 sources)Autoimmune disease; Translations: [Autoimmune disease, not elsewhere classified]Onset: 49-74-7134XuidfndNqhmcih disorders (20 sources)Autoimmune hypothyroidism; Translations: [Hypothyroidism, unspecified]Onset: 57-00-1797MypnjdsCfouokvvz cerebral ischemia (1 source)Amaurosis fugax of left eye; Translations: [Amaurosis fugax]12-27-2023 Chronic Past or Other Problems Problem ClassificationProblemDateDocumented DateEpisodic/ChronicAcute bronchitis (3 sources)Acute bronchitis; Translations: [Acute bronchitis, unspecified]Onset: 20-29-6005KocloqloZgqyurtl reactions (2 sources)Contact dermatitis; Translations: [Contact dermatitis and other eczema, due to unspecified cause]Onset: 02-07-9347MryeosztCrhzase and fatigue (2 sources)Malaise and fatigue; Translations: [Other malaise and fatigue]Onset: 16-58-7003YoebqjhlTqvsvkbwvthao gastroenteritis (2 sources)Non-infective enteritis and colitis; Translations: [Noninfective gastroenteritis and colitis, unspecified]Onset: 65-97-4368FgflnxcsBnmlwhyitkz; intervertebral disc disorders; other back problems (2 sources)Low back pain; Translations: [Lumbago]Onset: 22-27-1494RwalvrdoLqzhd infection (2 sources)Viremia; Translations: [Unspecified viremia]Onset: 20-59-7298Achdascj Results Test NameValueInterpretationReference RangeFacilityAmbulatory Visit Summaryon 29-94-9544Qxtavoybmn Visit SummaryAmbulatory Visit Summary ROSY TAYLOR :1955 [...] RENATA HAMILTON MD Where: [facility] [address] [place] [address]- You Need to Schedule the Following Appointments Follow Up with RENATA HAMILTON MD, [place] When: Where: Medications What How Much When Instructions New tadalafil (Cialis 10 mg Tab) 1 Tablets By Mouth As Directed as needed for for erectile dysfunction Refills: 3 Do not exceed 20 mg within 24 hours. Pickup at [facility]/pharmacy #[id number] Unchanged amlodipine 5 Milligram By Mouth Every [...] physician if questions or concerns Pharmacy Information [facility]/pharmacy #[id number]: [address], [place] [id number] [phone] What How Much When Comments Stop Taking [...] these instructions at home: Medicines ??? Take mhgs-rjn-tqftmxz and prescription medicines only as told by [...] fluid back into y (more content not included)...[facility] TownshipUS Lower Extremity Venous Duplex Bilateralon 16-22-7060UZ Lower Extremity Venous Duplex BilateralExam Date/Time: 03/25/2025 [...] Mcclendon MD Transcribed by: JULIET Technologist: Jai [facility] CenterUrology Office/Clinic Noteon 23-41-4155Jskexvr Office/Clinic NoteUrology Office/Clinic Note Chief Complaint fu [...] RALP here for f/up to RALP. Denies UT/stents or CVA. Not on AC. Denies hx of diabetes. Portions of this record may have been created with voice recognition artificial intelligence software, specifically Bandhappy, Geniuzz and or Dragon Ambient Experience. Substitutions may [...] S/p TRUS/bx 11/17/[address] Medina - Edmonson 7 (3+4), GG2 x2 cores. Dieetr 6 (3+3) x4 cores. 2 ANA cores [...] invasion identified. PT2. Results discussed with pt. [facility] ER 02/07/25 with drainage from drain site and gross hematuria. XR cystogram 02/15/25 [facility] - contrast fills the bladder with relatively brisk leakage of contrast at the junction of the bladder and urethra into the prostate bed. Moore removed in office today without difficulty. Will extend ATB course to avoid infection. Moore removed IO 02/16/25. Referred to [facility] PFPT. UA today shows small leuks. IPSS [...] tightness. -Schedule STAT lower extremity US at [facility] 3. Erectile dysfunction [...] PSA Erectile dysfunction H (more content not included)...[facility] TownshipComment on above:Result Comment: Electronically Signed By: RENATA HAMILTON MD\.br\Date and Time Signed: 03/25/25 15:09 EDT\.br\Electronically Co- Signed By: Whit Tomas\.br\Date and Time Co-Signed: 03/25/25 14:45 EDT Basophils Auto (Bld) [#/Vol]Ordered By: Regan Botello on 64-87-7006Qtzaofwpb (Bld) [#/Vol]0.0 10 3/uL0.0-0.1FSt. Francis HospitalBasophils/100 WBC Auto (Bld)Ordered By: Regan Botello on 15-15-5113Otsbisjbs/100 WBC (Bld)0.6 %0.2-2.0[facility] HospitalEosinophils/100 WBC Auto (Bld)Ordered By: Regan Botello on 60-17-9875Ailtkwjxtci/100 WBC (Bld)2.2 %0.9-7.0[facility] HospitalErythrocyte distribution width Auto (RBC) [Ratio]Ordered By: Regan Botello on 09-18-6277Miiovdsuruj distribution width (RBC) [Ratio]11.9 %11.0-15.0[facility] HospitalEstimated glomerular filtration rate (GFR) non- AmericanOrdered By: Regan Botello on 88-78-5500CPC/1.73 sq M.predicted among non-blacks MDRD (S/P/Bld) [Vol rate/Area]50 mL/min/{1.73_m2} Low>=60 mL/min/1.73m [address] [place], [place] [address]Hematocrit Auto (Bld) [Volume fraction]Ordered By: Regan Botello on 86-39-3993Sqlycoykru (Bld) [Volume fraction]40.5 %Low42.0-54.0[facility] HospitalHemoglobin [Mass/volume] in BloodOrdered By: Regan Botello on 12-30-2024Ubihuvqjwh (Bld) [Mass/Vol]13.9 g/dLLow14.0-18.0[facility] HospitalLaboratory - Chemistry and Chemistry - challengeOrdered By: Regan Botello on 03-17-2025 Calcium [Mass/Vol]9.3 mg/dL8.5-10.1FSt. Francis HospitalChloride [Moles/Vol]97 mmol/ARpj98-662MxpaoktqaMercy Health – The Jewish HospitalCO2 [Moles/Vol] 23.4 mmol/L21.0-32.0[facility] HospitalCreatinine [Mass/Vol]1.42 mg/dLHigh0.70-1.30[facility] HospitalGFR/1.73 sq M.predicted MDRD (S/P/Bld) [Vol rate/Area]mL/min/{1.73_m2}>=60 mL/min/1.[address]m [address] [place], [place] [address]Glucose [Mass/Vol]103 mg/gE86-053QkmwkgujdMercy Health – The Jewish Hospital Potassium [Moles/Vol]4.7 mmol/L3.5-5.1FCleveland Clinic Euclid Hospitalodium [Moles/Vol]132 mmol/GPyz694-308KsukhbqzmMercy Health – The Jewish HospitalTSH Qn5.736 m[IU]/LHigh0.358-3.740[facility] HospitalUrea nitrogen [Mass/Vol] 16.0 mg/dL7.0-18.0[facility] HospitalUrea nitrogen/Creatinine [Mass ratio]11.3 mg/mgMercy Health – The Jewish HospitalLaboratory - Hematology and Cell countsOrdered By: Regan Botello on 03-52-8666Ebedumel granulocytes/100 WBC (Bld)0.5 %0.0-0.5FSt. Francis HospitalLeukocytes [#/volume] corrected for nucleated erythrocytes in Blood by Automated counOrdered By: Regan Botello on 68-15-6832XFQ corrected for nucl RBC Auto (Bld) [#/Vol]6.3 10 3/uL4.0-11.0[facility] HospitalLymphocytes Auto (Bld) [#/Vol] Ordered By: Regan Botello on 15-50-4970Xcagtxhizoz (Bld) [#/Vol]1.8 10 3/uL 1.2-3.8[facility] HospitalLymphocytes/100 WBC Auto (Bld)Ordered By: Regan Botello on 79-16-9476Myfnizbcqpm/100 WBC (Bld)27.6 %20.5-60.0[facility] Auto (RBC) [Entitic mass]Ordered By: Regan Botello on 75-38-5851HVC (RBC) [Entitic mass]31.1 pg25.9-34.0[facility] Jewish HospitalMCHC Auto (RBC) [Mass/Vol]Ordered By: Regan Botello on 48-00-5549QJHZ (RBC) [Mass/Vol]34.3 g/dL29.9-35.2FSt. Francis HospitalMCV Auto (RBC) [Entitic vol]Ordered By: Regan Botello on 62-24-9258QLW (RBC) [Entitic vol]90.6 fL80.0-94.0[facility] HospitalMonocytes Auto (Bld) [#/Vol]Ordered By: Regan Botello on 08-00-6386Addrdikua (Bld) [#/Vol]0.9 10 3/uL High0.3-0.8[facility] HospitalMonocytes/100 WBC Auto (Bld)Ordered By: Regan Botello on 82-44-4354Zrautpfoj/100 WBC (Bld)13.6 %High1.7-12.0 [facility] Jewish HospitalNeutrophils Auto (Bld) [#/Vol]Ordered By: Regan Botello on 00-51-2818Rugyogbwcou (Bld) [#/Vol]3.5 10 3/uL1.4-6.5FSt. Francis HospitalNeutrophils/100 WBC Auto (Bld)Ordered By: Regan Botello on 83-64-2985Tfxpexudcre/100 WBC (Bld)55.5 %43.0-75.0[facility] HospitalNo Panel InformationOrdered By: Regan Botello on 69-23-3295Kymzhsxccrl # (Auto)0.1 10 3/uL0.0-0.7FSt. Francis HospitalImmature Granulocyte # (Auto)0.03 10 3/uL0.00-0.03[facility] HospitalPlatelet mean volume Auto (Bld) [Entitic vol]Ordered By: Regan Botello on 42-20-7752Jnzktyhy mean volume (Bld) [Entitic vol]8.5 fLLow9.5-13.5FSt. Francis Hospital Platelets Auto (Bld) [#/Vol]Ordered By: Regan Botello on 13-76-5168Kogzrowwk (Bld) [#/Vol]354 10 3/eA986-515JsxdqwsjdMercy Health – The Jewish HospitalRBC Auto (Bld) [#/Vol]Ordered By: Regan Botello on 09-26-4407HRI (Bld) [#/Vol]4.47 10 6/uLLow 4.70-6.10[facility] Allen Hospitalerum or plasma anion gap determinationOrdered By: Regan Botello on 92-23-7207Dstxj gap [Moles/Vol]16.3 mmol/LFSt. Francis HospitalAmbulatory Visit Summaryon 02-16-2025 Ambulatory Visit SummaryAmbulatory [...] Someone Will Contact You Regarding These Appointments [facility] External Ambulatory Referral, Physical Therapy, PFPT at [facility], 02/16/25 10:54:00 EDT, Prostate cancer Medications What [...] your health care provid (more content not included)...[facility]rology Office/Clinic Noteon 58-34-9048Nxzehyj Office/Clinic NoteUrology Office/Clinic Note Chief Complaint fu [...] Pt accompanied by daughter in law. Denies UT/stents or CVA. Not on AC. Denies hx of diabetes. Prior DINESH 4 - no current treatment. Portions of this record may have been created with voice recognition artificial intelligence software, specifically Bandhappy, Geniuzz and or [employer] Substitutions may have occurred due to the [...] physical exam. No signs of infection. Path ~Edmonson 7 (3+4), Grade Group 2. Bilateral lobe involved by tumor, 20-30%. Margins uninvolved by invasive carcinoma. Perineural invasion identified. PT2. Results discussed with pt. [facility] ER 02/07/25 with drainage from drain site and gross hematuria. XR cystogram 02/15/25 [facility] - contrast fills the bladder with relatively brisk leakage of contrast at the junction of the bladder and urethra into the prostate bed. Moore removed in office today without difficulty. Will extend ATB course to avoid infection. Stressed the importance of kegel exercises. Recommended referral to PFPT, pt favors [facility]. -Refer to [facility] PFPT, start Kegel exercises now -Start Keflex [...] mg, Oral, Daily C (more content not included)...[facility] TownshipComment on above:Result Comment: Electronically Signed By: RENATA HAMILTON MD\.br\Date and Time Signed: 02/16/25 12:14 EDT\.br\Electronically Co- Signed By: Whit Tomas\.br\Date and Time Co-Signed: 02/16/25 11:02 EDT [place] cystogramon 07-28-3237WS [place] [address] Fluoroscopy Report Signed Patient: Rosy Taylor MR#: [id number] : 1955 Acct:[id number] Age/Sex: 70 / M ADM Date: 02/15/25 Loc: XD Room: Type: [facility] Attending Dr: Renata Hamilton MD Copies to: Renata Hamilton MD Ordering Provider: Renata Hamilton MD Date of Service: 02/15/25 FL/FL cystogram: Z90.79 [place] cystogram 02/15/2025 8:37 AM SIGNS AND SYMPTOMS: Prostatectomy, evaluate for leak PROTOCOL: Chandelier Maker radiograph the pelvis was obtained. Fluoroscopic images [...] Monaco M.D. 02/15/2025 9:58 AM Dictation Location: [place] [address] Transcribed By: [facility] 02/15/25 0958 Dictated By: Reji Monaco II, MD 02/15/25 0957 Signed By: 02/15/25 0958[facility] Physician GroupSurgical Pathology Reporton [id number] [address]- Surgical Pathology Report Collected Date/Time: 02/03/2025 12:56 [...] the parenchyma is solid becerra/pink and focally ticket broker becerra. Peripherally it has a more smooth appearance. Centrally there are numerous areas of variably sized nodularity. Nodularity ranges from 1.3 to less than 1 to 2 mm, toward the central periurethral portion of the specimen. Wringer Operator tissue is submitted. The periurethral aspect and [...] 0.5 to 0.7 cm (more content not included)...[facility] TownshipComment on above:Performed By: #### [id number] #### [facility] [address] [place] [id number] Clinical Summaryon [id number] Clinical SummaryED Clinical Summary [address] [address] ED Clinical Summary Person Information Name: ROSY TAYLOR/[facility] Age: 70 Years : 1955 Sex: Male Language: Bulgarian PCP: REGAN BOTELLO DO Marital Status: Single [...] 02/07/2025 17:57:04 02/07/2025 17:57:04 02/07/2025 17:57:04 ADDRESS: [address] [place] [phone] PHYS DOC NOTES: MEDICAL INFORMATION: Prescriptions Given: [...] Address: When: RENATA HAMILTON [address] [place] [phone] Business (1) In 3 days 02/10/2025 Comments: Keep the dressing and the pressure dressing over the wound as discussed and as applied in the emergency room. Call the office of . Return to the emergency room if the wound continues to drain or any new symptoms or concerns. With: Address: When: REGAN BOTELLO [address] [place] [address] Microlaunchers (1) In 3 days DIAGNOSIS: 1:Postoperative complication of skin involving drainage from surgical wound; 2:HematuriaNormalFisher Scotland Medical CenterED Note-Physicianon [id number] Note-PhysicianED Note-Physician Basic Information Time Seen: Ita [...] and Complexity of Problems Differential Diagnosis: [] [facility] Data External documents reviewed: [] My EKG [...] 3 days 02/10/2025 EDT [address] [place] [address]- [phone] Business (1) Additional Instructions: Keep the dressing and the pressure dressing over the wound as discussed and as applied in the emergency room. Call the office of . Return to the emergency room if the wound continues to drain or any new symptoms or concerns. REGAN BOTELLO In 3 days [address] [place] [address]- Business (1) Additional Instructions: Patient Education Hematuria, [...] Never., 08/17/2024 Tobacco Ne (more content not included)...[facility] TownshipComment on above:Result Comment: Electronically Signed By: Jody Tong, Ita Wahl\.br\Date and Time Signed: 02/07/2518:04 EDTED Patient Summaryon [id number] Patient SummaryED Patient Summary [address] [address] Patient Discharge Instructions Person Information Name: ROSY TAYLOR Age: 70 Years Arrival Date: 02/07/2025 16:36:09 Discharge Diagnosis: 1:Postoperative complication of skin involving drainage from surgical wound; 2:Hematuria Primary Care Physician: REGAN BOTELLO DO Provider Information Primary Provider: Ita Vera M.D. Advanced Senior Interaction Designer:None The exam and treatment you received in the Emergency Department were for an urgent problem and are not intended as complete care. It is important that you follow up with a doctor, nurse practitioner,or physician???s fitter's assistant for ongoing care. If your symptoms become worse or you do not improve asexpected and you are unable to reach your usual health care provider, you should return to the Emergency Department. We are available 24 hours a day. ROSY TAYLOR has been given the following list of patient education materials, prescriptions and follow-up instructions: Follow-up Instructions: With: Address: When: RENATA HAMILTON [address] [place] [phone] Business (1) In 3 days 02/10/2025 Comments: Keep the dressing and the pressure dressing over the wound as discussed and as applied in the emergency room. Call the office of . Return to the emergency room if the wound continues to drain or any new symptoms or concerns. With: Address: When: REGAN BOTELLO [address] [place], [place] [phone] Business (1) In 3 days In the event that this physician does not participate in your insurance network, please consult with your insurance company to find a nearby participating provider. Patient Education Materials: Alla, Adult A MESSAGE TO ALL PATIENTS REGARDING OPIOIDS PRESCRIPTION OPIOIDS: WHAT YOU NEED TO KNOW Prescription opioids can be used to help relieve hcukhvpu-am-vnbjqu pain and are often prescribed following a [...] family). ??? Safely dispo (more content not included)...NormalUniversity [facility]als [facility] BMPon 24-60-2045Ifoso gap [Moles/Vol]10 mmol/LNormal6-16[facility] Medical CenterComment on above:Performed By: #### [id number] #### [facility] [address] [place], [place] [address]VBK/Creat Ratio12 No DsmzxWocmzv97-41EvmgkvUniversity Hospitals St. John Medical CenterComment on above:Performed By: #### [id number] #### [facility] [address] [place], [place] [address]Olajdzk [Mass/Vol]8.1 mg/dLLow8.9-11.1FDelaware County HospitalComment on above:Performed By: #### [id number] #### [facility] [address] [place], [place] [address]Dmgiiodw [Moles/Vol]98 mmol/WFeb748-286RxprzzUniversity Hospitals St. John Medical CenterComment on above:Performed By: #### [id number] #### [facility] [address] [place], [place] [address]EQ9 [Moles/Vol]24 mmol/JAmqmvl31-45ZymeltUniversity Hospitals St. John Medical Center Comment on above:Performed By: #### [id number] #### [facility] [address] [place], [place] [address]Gnayhigjth [Mass/Vol]1.7 mg/dLHigh0.5-1.3FDelaware County HospitalComment on above:Performed By: #### [id number] #### [facility] [address] [place], [place] [address]Vltafyc [Mass/Vol]119 mg/fCWfgynu58-343SxswcyUniversity Hospitals St. John Medical CenterComment on above:Performed By: #### [id number] #### [facility] Laboratory [address] [place] [address]Zzftjjtbs [Moles/Vol]4.2 mmol/LNormal3.5-5.3FDelaware County HospitalComment on above:Performed By: #### [id number] #### [facility] [address] [place] [address]Sqbktp [Moles/Vol]128 mmol/FCai697-991BzvsnlUniversity Hospitals St. John Medical CenterComment on above:Performed By: #### [id number] #### [facility] [address] [place] [address]Duem nitrogen [Mass/Vol]20 mg/dLNormal5-21[facility] John Medical CenterComment on above:Performed By: #### [id number] #### [facility] [address] [place] [address]RXK w/ Auto Diffon 60-93-4438Stwstsmc Absolute0.2 E9/LNormal 0.0-0.2FDelaware County HospitalComment on above:Performed By: #### [id number] #### [facility] [address] [place] [address]Xssxmuoni/100 WBC (Bld)2.3 %High0.0-2.0[facility] John Medical CenterComment on above:Performed By: #### [id number] #### [facility] [address] [place] [address]Kho Absolute0.0 E9/LNormal0.0-0.5FDelaware County Hospital Comment on above:Performed By: #### [id number] #### [facility] [address] [place] [address]Hmkaubckljw/100 WBC (Bld)0.2 %Normal0.0-8.0[facility] John Medical CenterComment on above:Performed By: #### [id number] #### [facility] [address] [place], [place] [address]Edcyvlwysye distribution width (RBC) [Ratio]14.0 %Normal 10.9-14.2FDelaware County HospitalComment on above:Performed By: #### [id number] #### [facility] [address] [place], [place] [address]Otnbcmjwmi (Bld) [Volume fraction]36.9 %Low37.7-49.0[facility] Medical CenterComment on above:Performed By: #### [id number] #### [facility] [address] [place], [place] [address]Ratssylzdx (Bld) [Mass/Vol]12.4 g/dLLow13.5-17.5FDelaware County HospitalComment on above:Performed By: #### [id number] #### [facility] [address] [place] [address]Vyoiu Absolute0.9 E9/LLow1.0-4.0[facility] Comment on above:Performed By: #### [id number] #### [facility] [address] [place] [address]Okcdthublku/100 WBC (Bld)9.9 %Low14.0-50.0[facility] Medical CenterComment on above:Performed By: #### [id number] #### [facility] [address] [place], [place] [address]EHJ (RBC) [Entitic mass]31.4 loNpalqh08.0-34.0[facility] Medical CenterComment on above:Performed By: #### [id number] #### [facility] [address] [place], [place] [address]GMJD (RBC) [Mass/Vol]33.6 g/hQVxpxao07.4-36.0[facility] Medical CenterComment on above:Performed By: #### [id number] #### [facility] [address] [place], [place] [address]FSI (RBC) [Entitic vol]93.5 rHAmszvi46.0-100.0[facility] Medical CenterComment on above:Performed By: #### [id number] #### [facility] [address] [place], [place] [address]Likm Absolute0.9 E9/LNormal0.2-1.0[facility] Comment on above:Performed By: #### [id number] #### [facility] [address] [place], [place] [address]Ihfttgrep/100 WBC (Bld)9.7 %Normal4.0-14.0[facility] Medical CenterComment on above:Performed By: #### [id number] #### [facility] [address] [place] [address]Ciovxk Absolute7.0 E9/LNormal2.0-7.5FDelaware County Hospital Comment on above:Performed By: #### [id number] #### [facility] [address] [place] [address]Yvgrns Auto77.9 %High36.0-75.0[facility] Comment on above:Performed By: #### [id number] #### [facility] [address] [place] [address]Adpoyysh085.0 E9/ICtscrf624.0-500.0[facility] Comment on above:Performed By: #### [id number] #### [facility] Laboratory [address] [place], [place] [address]Yekselxu mean volume (Bld) [Entitic vol]6.7 fLNormal6.4-10.[address] [facility] Medical CenterComment on above:Performed By: #### [id number] #### [facility] [address] [place], [place] [address]BTX2.9 E12/LLow4.3-5.9[facility] Medical CenterComment on above:Performed By: #### [id number] #### [facility] [address] [place], [place] [address]UQS8.0 E9/LNormal4.0-11.0On License Of [facility] Cente[facility] Psychiatric CenterComment on above:Performed By: #### [id number] #### [facility] [address] [place], [place] [address]NZMGRHFPVMmyrsbs By: SYSTEM SYSTEM on 38-44-2875Uworq gap [Moles/Vol]10 mmol/LNormal6 - 16 mEq/LRemisol ChemCalcium [Mass/Vol]8.1 mg/dLLow 8.9 - 11.1 mg/dLRemisol ChemChloride [Moles/Vol]98 mmol/QYqm899 - 111 mmol/L Remisol ChemCO2 [Moles/Vol]24 mmol/LFawwil72 - 31 mmol/LRemisol ChemCreatinine [Mass/Vol]1.7 mg/dLHigh0.5 - 1.3 mg/dLRemisol ChemGFR/1.73 sq M.predicted MDRD (S/P/Bld) [Vol rate/Area]43 mL/min/1.73 m2Low>=59mL/min/1.73 c4Cezocnc Chem Glucose [Mass/Vol]119 mg/hHMrnkph51 - 199 mg/dLRemisol ChemMagnesium [Mass/Vol] 1.8 mg/dLNormal1.3 - 2.4 mg/dLRemisol ChemPotassium [Moles/Vol]4.2 mmol/LNormal 3.5 - 5.3 mmol/LRemisol ChemSodium [Moles/Vol]128 mmol/WJbj146 - 145 mmol/L Remisol ChemUrea nitrogen [Mass/Vol]20 mg/dLNormal5 - 21 mg/dLRemisol ChemUrea nitrogen/Creatinine [Mass ratio]12 mg/liJyyptv13 - 20Remisol ChemCHEMISTRY Ordered By: Lab ROPUser on 27-05-4427Cheoqyc [Mass/Vol]127 mg/zRYstz34 - 99 mg/dLBONE AND JOINT HOSPITAL – [place] POC SubsectionComment on above:Result Comment: Notified RN/MDPOC UsernamLauryn Grady Interpretation CodeBONE AND JOINT HOSPITAL – [place] POC SubsectionSodium [Moles/Vol]809594236307 mmol/LInvalid Interpretation CodeBONE AND JOINT HOSPITAL [facility] [place] POC Subsection Sodium [Moles/Vol]710371123 mmol/LInvalid Interpretation CodeBONE AND JOINT HOSPITAL – [place] POC Subsection Capillary Glucose POCon 50-23-5010Ndmzjje [Mass/Vol]127 mg/vNCtyq79-94Lsgnmk [facility] Psychiatric CenterComment on above:Result Comment: Notified RN/MDPerformed By: #### [id number] #### [facility] [address] [place] [address]Gwcsjwegk Note-Nursingon 95-98-3550Spbawalms Note-Nursing Discharge Note-Nursing ROSY TAYLOR :1955 Visit [...] RENATA HAMILTON MD Where: [facility] [address] [place] [address]- New Follow Up Appointments after Discharge Follow Up with REGAN BOTELLO When: 02/08/2025 01:30 PM EDT Where: [address] [place] [address]- Business (1) Follow Up with RENATA HAMILTON When: Comments: cystogram on 02/15. see me 02/16 Keep February 11 appoinment. Medications What How Much When Instructions Next Dose New cephalexin (Keflex 500 mg Cap) 1 Capsules By Mouth 2 times a day Duration: 10 Days Pickup at [id number] 9pm New docusate (Colace 100 mg Cap) 1 Capsules By Mouth 2 times a day as needed for for constipation Pickup at [facility] 9pm New hyoscyamine (Levsin 0.125 mg SL Tab) 1 Tablets By Mouth 2 times a day as needed for for spasm Pickup at [facility] 9pm New oxycodone (oxyCODONE 5 mg Cap) 1 Capsules By Mouth Every 6 hours as needed for for pain Duration: 5 Days Pickup at [id number] Take as needed every 6 hours [...] Mouth Every day 02/05 @9am Pharmacy Information [id number]: [address] [place], [place] [id number] [phone] Test Results CBC BMP WBC: 9 E9/L [...] sign of stroke He (more content not included)...[facility] TownshipHEMATOLOGY Ordered By: SYSTEM SYSTEM on 06-45-2905Fziedhuob/100 WBC (Bld)2.3 %High0.0 - 2.0 %Remisol HemeBasophils/Leukocytes Auto (Bld) [Pure # fraction]0.2 E9/LNormal0.0 - 0.2 E9/LRemisol HemeEosinophils (Bld) [#/Vol]0.0 E9/LNormal0.0 - 0.5 E9/L Remisol HemeEosinophils/100 WBC (Bld)0.2 %Normal0.0 - 8.0 %Remisol Heme Erythrocyte distribution width (RBC) [Ratio]14.0 %Lwiczq52.9 - 14.2 %Remisol HemeHematocrit (Bld) [Volume fraction]36.9 %Low37.7 - 49.0 %Remisol Heme Hemoglobin (Bld) [Mass/Vol]12.4 g/dLLow13.5 - 17.5 gm/dLRemisol HemeLymphocytes (Bld) [#/Vol]0.9 E9/LLow1.0 - 4.0 E9/LRemisol HemeLymphocytes/100 WBC (Bld)9.9 % Low14.0 - 50.0 %Remisol HemeMCH (RBC) [Entitic mass]31.4 jeNyfrfk23.0 - 34.0 pg Remisol HemeMCHC (RBC) [Mass/Vol]33.6 g/eZUzidkk76.4 - 36.0 gm/dLRemisol HemeMCV (RBC) [Entitic vol]93.5 nRTzqcdu14.0 - 100.0 fLRemisol HemeMonocytes (Bld) [#/Vol]0.9 E9/LNormal0.2 - 1.0 E9/LRemisol HemeMonocytes/100 WBC (Bld)9.7 % Normal4.0 - 14.0 %Remisol HemeNeutrophils (Bld) [#/Vol]7.0 E9/LNormal2.0 - 7.5 E9/LRemisol HemeNeutrophils/100 WBC (Bld)77.9 %High36.0 - 75.0 %Remisol Heme Platelet mean volume (Bld) [Entitic vol]6.7 fLNormal6.4 - 10.8 fLRemisol Heme Platelets (Bld) [#/Vol]265.0 E9/DGohdta752.0 - 500.0 E9/LRemisol HemeRBC (Bld) [#/Vol]3.9 E12/LLow4.3 - 5.9 E12/LRemisol HemeWBC corrected for nucl RBC Auto (Bld) [#/Vol]9.0 E9/LNormal4.0 - 11.0 E9/LRemisol HemeInpatient Clinical Summary on 02-44-1303Emlgfujsm Clinical SummaryInpatient Clinical Summary [place] [address] Clinical Summary Person Information: Name: ROSY TAYLOR Age: 70 Years : 1955 Sex: Male PCP: REGAN BOTELLO DO Marital Status: Single Race: White Ethnicity: Non- or Language: Bulgarian Visit Id: Visit Reason: PROSTATE CANCER Speciality: Acuity: Enc Type: Outpatient in a Bed Med Service: Surgery Arrival: 02/03/2025 09:00:21 Discharge: Dispo Type: Address: [address] [place] [address] Provider Notes: Patient: ROSY TAYLOR Age: 70 [...] up: With: Address: When: REGAN BOTELLO [address] [place] [address] Business (1) 02/08/2025 1:30 PM With: Address: When: RENATA HAMILTON Comments: cystogram on 02/15. see me 02/16 Keep February 11 appoinment. Type Location Start Finish State [facility] Office Visit [facility] 02/11/2025 2:15 PM 02/11/2025 2:30 PM Confirmed Patient Education Information:[facility] TownshipInpatient Patient Summaryon 09-43-5265Krtqgrmhu Patient SummaryInpatient Patient Summary [address] [address] Patient Discharge Instructions PERSON INFORMATION [...] With: Address: When: REGAN BOTELLO [address] [place] [address] Business (1) 02/08/2025 1:30 PM With: Address: When: RENATA HAMILTON Comments: cystogram on 02/15. see me 02/16 Keep February 11 appoinment. In the event that this physician does not participate in your insurance network, please consult with your insurance company to find a nearby participating provider. Type Location Start Finish [facility] Office Visit [facility] 02/11/2025 2:15 PM 02/11/2025 2:30 PM Confirmed Comment: CLAUDIA Cordova RICHARD, have received the attached patient education materials/instructions and have verbalized understanding: Patient Signature Date Clinican/Nurse Signature Date HERE ARE THE MEDICATION CHANGES THAT OCCURRED DURING YOUR HOSPITAL STAY New Medications [id number], [address] [place] [phone], [phone] cephalexin (Keflex 500 mg Cap) 1 Capsules [...] Pharmacy Information: Comment: JORDY (more content not included)...[facility] Interdisciplinary Note - Case Manageron 36-99-1332Xzoqphcdvciekhsob Note - Case ManagerInterdisciplinary Note - Sales Vice President Patient awake, alert and oriented up in [...] needs. White board updated and contact information provided.[facility] Comment on above:Result Comment: Electronically Signed By: Evita Bacon\.br\Date and Time Signed: 02/04/25 11:39 EDTMagnesiumon 99-48-2408Rjdxuaclh [Mass/Vol]1.8 mg/dLNormal1.3-2.4Fisher [facility] Psychiatric CenterComment on above: Performed By: #### [id number] #### [facility] [address] [place], [place] [address]Sagt OR Intraoperative Recordon 50-66-9695Dmhp OR Intraoperative RecordMain OR Intraoperative Record IntraOp Document Type FT Summary Primary Physician: RENATA HAMILTON MD Finalized Date/Time: 02/04/25 10:24:31 Pt. Name: ROSY TAYLOR Jerzy/Sex: 1955 Male Med Rec #: [id number] Physician: RENATA HAMILTON MD Financial #: [id number] Pt. Type: O Room/Bed: N317/01 Admit/Disch: 02/03/25 [...] YANEZ Role Performed Anesthesiologist Surgeon - Primary JERSEY KNITTER/SA Bi Data Architect Time In 02/03/25 11:10:00 02/03/25 11:10:00 02/03/25 11:10:00 Time Out 02/03/25 14:37:00 02/03/25 14:37:00 02/03/25 14:37:00 Procedure PROSTATECTOMY, ROBOT PROSTATECTOMY, ROBOT PROSTATECTOMY, ROBOT ASSISTED(., .) ASSISTED(., .) ASSISTED(., .) Comments DR ROBISON SUPERVISING. OUT OF ROOM [id number] Last Modified By: Lokesh Hartman Terry T Sweene, Terry T 02/03/25 14:37:41 02/03/25 14:37:41 02/03/25 14:37:41 Entry 4 Entry 5 Entry 6 Case Attendee Lokesh Hartman CST, Natalie Geiger LPN Role Performed Upholstery Department Supervisor - Primary Scrub - Primary Staff - Other Time In 02/03/25 11:10:00 02/03/25 11:10:00 02/03/25 11:10:00 Time Out 02/03/25 14:37:00 02/03/25 14:37:00 02/03/25 11:13:00 Procedure PROSTATECTOMY, ROBOT PROSTATECTOMY, ROBOT PROSTATECTOMY, ROBOT ASSISTED(., .) ASSISTED(., .) ASSISTED(., .) Comments OUT OF ROOM [id number] LUNCH BREAK AT [id number] Last Modified By: Lokesh Hartman Terry T Sweene, Terry T 02/03/25 14:37:41 02/03/25 14:37:41 02/03/25 14:37:41 Entry 7 Entry 8 Entry 9 Case Attendee Los BECKMAN, Natalie Brooks RN, Neisha Robison MD, [facility]. Role Performed Scrub - Relief Upholstery Department Supervisor - Relief Anesthesiologist of Record Time In [...] Primary Procedure Yes Primary Surgeon LETY RICHMOND, RENATA Start 02/03/25 11:32:00 Stop 02/03/25 14:32:00 Anesthesia [...] FT Pre-Care Text: Implement (more content not included)...[facility] TownshipPatient Education - Texton 04-49-4304Oannxhw Education - TextPatient Education - Text [facility] Washington TownshipeGFRon 99-98-9745hLPT11 mL/min/1.73 m2Low>=[address] [facility] CenterComment on above:Performed By: #### [id number] #### [facility] [address] [place], [place] [address]IBJ/Rhon 00-98-5468FBL/RhPositiveInvalid Interpretation Code [facility] CenterComment on above:Performed By: #### [id number] #### [facility] [address] [place], [place] [address]VKJ/Rh History Checkon 25-78-0952BOC/Rh History CheckVerified Hx Blood TypeNormalUniversity Hospitals St. John Medical CenterComment on above:Performed By: #### [id number] #### [facility] [address], [place] [address]KYWJpe 79-83-7631RMUF Gel InterpNegativeNormalUniversity Hospitals St. John Medical CenterComment on above:Performed By: #### [id number] #### [facility] [address] [place], [place] [address]JXAPM BANKOrdered By: Gunjan Bradshaw on 81-68-2123WIW/Rh InterpPositiveInvalid Interpretation CodeB[facility] AND [facility] [place] BB SubsectionABSC Gel Interp Negative (02/03/25 9:46 AM)NormalBONE AND JOINT HOSPITAL [facility] [place] BB SubsectionBMPon 73-01-1283Dmpeb gap [Moles/Vol]13 mmol/LNormal6-16[facility] Medical CenterComment on above:Order Comment: To be drawn day of surgery.Performed By: #### [id number] #### [facility] [address] [place], [place] [address]VPV/Creat Ratio9 No DnoaaJhb96-38MvlfcqUniversity Hospitals St. John Medical Center Comment on above:Order Comment: To be drawn day of surgery.Performed By: #### [id number] #### [facility] [address], [place] [address]Wiznahu [Mass/Vol]9.6 mg/dLNormal8.9-11.1FDelaware County HospitalComment on above:Order Comment: To be drawn day of surgery.Performed By: #### [id number] #### [facility] [address], [place] [address]Fcmlidjz [Moles/Vol]93 mmol/DDqm877-636JhuxumUniversity Hospitals St. John Medical CenterComment on above:Order Comment: To be drawn day of surgery.Performed By: #### [id number] #### [facility] [address], [place] [address]BD9 [Moles/Vol]24 mmol/QMznzyk42-02XhypijUniversity Hospitals St. John Medical Center Comment on above:Order Comment: To be drawn day of surgery.Performed By: #### [id number] #### [facility] [address], [place] [address]Jqhcsdbibc [Mass/Vol]1.0 mg/dLNormal0.5-1.3FDelaware County HospitalComment on above:Order Comment: To be drawn day of surgery.Performed By: #### [id number] #### [facility] [address], [place] [address]Onalcdy [Mass/Vol]96 mg/pQAvmytp41-091TylfpwUniversity Hospitals St. John Medical CenterComment on above:Order Comment: To be drawn day of surgery.Performed By: #### [id number] #### [facility] [address], [place] [address]Vbjpggsbs [Moles/Vol]4.1 mmol/LNormal3.5-5.3FDelaware County HospitalComment on above:Order Comment: To be drawn day of surgery. Performed By: #### [id number] #### [facility] [address] [place] [address]Voypbq [Moles/Vol]126 mmol/ABvm454-326TmohvyUniversity Hospitals St. John Medical CenterComment on above:Order Comment: To be drawn day of surgery.Performed By: #### [id number] #### [facility] [address] [place] [address]Ejhx nitrogen [Mass/Vol]9 mg/dLNormal5-21[facility] John Medical CenterComment on above:Order Comment: To be drawn day of surgery.Performed By: #### [id number] #### [facility] [address] [place] [address] [address] ID#on [id number]#[id number] Interpretation CodeUniversity Hospitals St. John Medical CenterComment on above:Performed By: #### [id number] #### [facility] [address] [place] [address] [id number] By: SYSTEM SYSTEM on 87-66-8464Vnlrb gap [Moles/Vol]13 mmol/LNormal6 - 16 mEq/LRemisol ChemCalcium [Mass/Vol]9.6 mg/dL Normal8.9 - 11.1 mg/dLRemisol ChemChloride [Moles/Vol]93 mmol/AThb182 - 111 mmol/LRemisol ChemCO2 [Moles/Vol]24 mmol/TQukatf38 - 31 mmol/LRemisol Chem Creatinine [Mass/Vol]1.0 mg/dLNormal0.5 - 1.3 mg/dLRemisol ChemGFR/1.73 sq M.predicted MDRD (S/P/Bld) [Vol rate/Area]82 mL/min/1.73 a1Ltywlc>=59mL/min/1.73 s3Inelrbh ChemGlucose [Mass/Vol]96 mg/oFRubxow37 - 199 mg/dLRemisol Chem Potassium [Moles/Vol]4.1 mmol/LNormal3.5 - 5.3 mmol/LRemisol ChemSodium [Moles/Vol]126 mmol/BWxh313 - 145 mmol/LRemisol ChemUrea nitrogen [Mass/Vol]9 mg/dLNormal5 - 21 mg/dLRemisol ChemUrea nitrogen/Creatinine [Mass ratio]9 mg/mg Low10 - 20Remisol ChemInterdisciplinary Note - Case Manageron 02-03-2025 Interdisciplinary Note - Case ManagerInterdisciplinary Note - Sales Vice President Chart review completed Patient is new to room 317 Patient came in and had Robotic radical prostatectomy with bilateral pelvic lymph node dissection. Patient is assigned to Dr Leonard. Patient will remain in hospital today. Patient is a low risk for readmission. Patient is an observation to floor for for normal post operative care. Patient will need trish seen by CRM on 02/04.[facility] TownshipComment on above:Result Comment: Electronically Signed By: Letty Dubon\.br\Date and Time Signed: 02/03/25 16:47 EDTMain OR Intraoperative Recordon [id number] OR Intraoperative Record Main OR Intraoperative Record IntraOp Document Type FT Summary Primary Physician: RENATA HAMILTON MD Finalized Date/Time: 02/03/25 14:51:16 Pt. Name: ROSY TAYLOR/Sex: 1955 Male Med Rec #: [id number] Physician: RENATA HAMILTON MD Financial #: [id number] Pt. Type: O Room/Bed: Admit/Disch: 02/03/25 09:00:21 [...] YANEZ Role Performed Anesthesiologist Surgeon - Primary JERSEY KNITTER/SA Bi Data Architect Time In 02/03/25 11:10:00 02/03/25 11:10:00 02/03/25 11:10:00 Time Out 02/03/25 14:37:00 02/03/25 14:37:00 02/03/25 14:37:00 Procedure PROSTATECTOMY, ROBOT PROSTATECTOMY, ROBOT PROSTATECTOMY, ROBOT ASSISTED(., .) ASSISTED(., .) ASSISTED(., .) Comments DR ROBISON SUPERVISING. OUT OF ROOM [id number] Last Modified By: Lokesh Hartman Terry T Sweene, Terry T 02/03/25 14:37:41 02/03/25 14:37:41 02/03/25 14:37:41 Entry 4 Entry 5 Entry 6 Case Attendee Lokesh Hartman CST, Natalie Geiger LPN Role Performed Upholstery Department Supervisor - Primary Scrub - Primary Staff - Other Time In 02/03/25 11:10:00 02/03/25 11:10:00 02/03/25 11:10:00 Time Out 02/03/25 14:37:00 02/03/25 14:37:00 02/03/25 11:13:00 Procedure PROSTATECTOMY, ROBOT PROSTATECTOMY, ROBOT PROSTATECTOMY, ROBOT ASSISTED(., .) ASSISTED(., .) ASSISTED(., .) Comments OUT OF ROOM [id number] LUNCH BREAK AT [phone] Last Modified By: Lokesh Hartman Terry T Sweene, Terry T 02/03/25 14:37:41 02/03/25 14:37:41 02/03/25 14:37:41 Entry 7 Entry 8 Entry 9 Case Attendee Los BECKMAN, Natalie Brooks RN, Neisha Robison MD, Nimit K. Role Performed Scrub - Relief Upholstery Department Supervisor - Relief Anesthesiologist of Record Time In [...] FT Pre-Care Text: Implement (more content not included)...[facility] TownshipMain OR PACU I Recordon [id number] OR PACU I RecordMain OR PACU I Record PACU Phase I Document Type FT Summary Primary Physician: RENATA HAMILTON MD Finalized Date/Time: 02/03/25 17:13:06 Pt. Name: ROSY TAYLOR/Sex: 1955 Male Med Rec #: [id number] Physician: RENATA HAMILTON MD Financial #: [id number] Pt. Type: O Room/Bed: [facility] Admit/Disch: 02/03/25 09:00:21 - Institution: Case Times [...] Signatures Signed By: Ramona Peña RN 02/03/25 17:13NoSheltering Arms HospitalMain OR Preoperative Recordon [id number] OR Preoperative RecordMain OR Preoperative Record PreOp Document Type FT Summary Primary Physician: RENATA HAMILTON MD Finalized Date/Time: 02/03/25 11:47:30 Pt. Name: ROSY TAYLOR /Sex: 1955 Male Med Rec #: [id number] Physician: RENATA HAMILTON MD Financial #: [id number] Pt. Type: A Room/Bed: [facility] Admit/Disch: 02/03/25 09:00:21 - Institution: Case Times [...] perioperative plan of care Finalized By: Lokesh Hartman Document Signatures Signed By: Lokesh Hartman 02/03/25 11:47[facility] TownshipOperative Report on 21-30-1938Ymtpzhnri ReportOperative Report Patient: ROSY TAYLOR Age: 70 years Sex: Male : 1955 Associated Diagnoses: None Author: RENATA HAMILTON MD Procedure SURGEON: Renata Hamilton M.D. PREOPERATIVE DIAGNOSIS: Prostate cancer. POSTOPERATIVE DIAGNOSIS: Prostate cancer. OPERATION: 1. Robotic radical prostatectomy with bilateral pelvic lymph node dissection. ANESTHESIA: General. COMPLICATIONS: None. ESTIMATED BLOOD LOSS: Minimal. FLUIDS: Crystalloid. DRAINS: Urethral moore catheter, 19 Ukrainian Kobe drain SPECIMENS: Prostate, seminal vesicles, bilateral [...] and draped in standard fashion. An 18 Ukrainian Moore catheter was placed and a supraumbilical skin incision was made, a Veress needle was placed through this into the peritoneum. Pneumoperitoneum was obtained. An 8 mm port was placed through this incision into the peritoneum. The peritoneum was examined. No injuries were noted. The rest of the ports were placed in the usual fashion. Three robotic 8 mm ports were placed into fitter's assistant, one 12 mm, one 5 mm [...] case. Plan: Admission for normal post operative careNoSheltering Arms HospitalComment on above:Result Comment: Electronically Signed By: LETY RICHMOND, RENATA\.br\Date and Time Signed: 02/03/25 14:45 EDTeGFRon 50-34-0336zWKP97 mL/min/1.73 n0Timspg>=59[facility] John Medical CenterComment on above:Performed By: #### [id number] #### [facility] [address] [place], [place] [address]Ptqdcgnto glomerular filtration rate (GFR) non- on 51-21-9625PEM/1.73 sq M.predicted among non-blacks MDRD (S/P/Bld) [Vol rate/Area]mL/min/{1.73_m2}>=60 mL/min/1.73m 2FSt. Francis Hospital Laboratory - Chemistry and Chemistry - challengeon 12-21-4000Kevawvc [Mass/Vol] 9.5 mg/dL8.5-10.1FSt. Francis HospitalChloride [Moles/Vol]95 mmol/L Lza65-063MkfiwcadtMercy Health – The Jewish HospitalCO2 [Moles/Vol]26.7 mmol/L21.0-32.0 [facility] HospitalCreatinine [Mass/Vol]1.19 mg/dL0.70-1.30 [facility] HospitalGFR/1.73 sq M.predicted MDRD (S/P/Bld) [Vol rate/Area]mL/min/{1.73_m2}>=60 mL/min/1.[address]m [address] [place] [address] Glucose [Mass/Vol]121 mg/gGKgzk47-452MmgavqwfyMercy Health – The Jewish HospitalPotassium [Moles/Vol]4.6 mmol/L3.5-5.1FCleveland Clinic Euclid Hospitalodium [Moles/Vol] 129 mmol/VAyo237-007HshhipfosMercy Health – The Jewish HospitalTSH Qn4.413 m[IU]/LHigh 0.358-3.740Mer[facility] Jewish HospitalUrea nitrogen [Mass/Vol]10.0 mg/dL 7.0-18.0[facility] Jewish HospitalUrea nitrogen/Creatinine [Mass ratio] 8.4 mg/mgMercy Health Allen Hospitalerum or plasma anion gap determinationon 20-67-8892Lccdh gap [Moles/Vol]11.9 mmol/LFSt. Francis HospitalEstimated glomerular filtration rate (GFR) non- Americanon 54-58-9503THJ/1.73 sq M.predicted among non-blacks MDRD (S/P/Bld) [Vol rate/Area]mL/min/{1.73_m2}>=60 mL/min/1.[address]m [address] [place] [address] Laboratory - Chemistry and Chemistry - challengeon 24-06-1388Zoizmqc [Mass/Vol] 9.2 mg/dL8.5-10.1FSt. Francis HospitalChloride [Moles/Vol]98 mmol/L 98-107Mer[facility] Jewish HospitalCO2 [Moles/Vol]25.7 mmol/L21.0-32.0 [facility] HospitalCreatinine [Mass/Vol]1.17 mg/dL0.70-1.30 [facility] HospitalGFR/1.73 sq M.predicted MDRD (S/P/Bld) [Vol rate/Area]mL/min/{1.73_m2}>=60 mL/min/1.[address]m [address] [place] [address] Glucose [Mass/Vol]103 mg/xS62-331UoaviibnqMercy Health – The Jewish HospitalPotassium [Moles/Vol]4.4 mmol/L3.5-5.1FCleveland Clinic Euclid Hospitalodium [Moles/Vol] 133 mmol/YYyc775-294AftzruesiMercy Health – The Jewish HospitalUrea nitrogen [Mass/Vol]9.0 mg/dL7.0-18.0Mer[facility] Jewish HospitalUrea nitrogen/Creatinine [Mass ratio]7.7 mg/mgMercy Health Allen Hospitalerum or plasma anion gap determinationon 33-37-9315Rkvgj gap [Moles/Vol]13.7 mmol/LFSt. Francis HospitalLaboratory - Chemistry and Chemistry - challengeon 01-07-2025 Osmolality [Osmolality]257 mosm/djAygfmbzx261-390GcolbcrtnMercy Health – The Jewish HospitalComment on above:Performed at: [employer] [facility] [address] [id number] Director: Gaye Rhodes MD, Phone: [phone] [Mass/Vol]5.0 mg/dL3.5-7.2FCleveland Clinic Euclid Hospitalodium (U) [Moles/Vol]73 mmol/S39-77KohxcoitsMercy Health – The Jewish HospitalNo Panel Informationon 77-25-2015Jisyy Tszintbelu790 mOsmol/kg.[facility] Comment on above:24 hr : 300 - 900 Random: 50 - 1400 After 12hr fluid restriction: >850Performed at: [facility] - [address] [id number] Director: Gaye Rhodes MD, Phone: [phone] ABO/Rh Retypeon 37-56-4292OQN/Rh Retype InterpPositiveInvalid Interpretation CodeUniversity Hospitals St. John Medical CenterComment on above:Performed By: #### [id number] #### [facility] [address], [place] [address]GKYDJ BANKOrdered By: America Chin on 17-56-5289EVZ/Rh Retype InterpPositiveInvalid Interpretation [facility] BB SubsectionBMPon 01-04-2025 Anion gap [Moles/Vol]11 mmol/LNormal6-16[facility] John Medical CenterComment on above:Performed By: #### [id number] #### [facility] [address], [place] [address]Oecxrja [Mass/Vol]9.4 mg/dLNormal8.9-11.1FDelaware County HospitalComment on above:Performed By: #### [id number] #### [facility] [address], [place] [address]Knlnylot [Moles/Vol]90 mmol/KEbt366-998ZlyrzzUniversity Hospitals St. John Medical CenterComment on above:Performed By: #### [id number] #### [facility] [address], [place] [address]YZ9 [Moles/Vol]26 mmol/TEnxpae47-29GzwcmpUniversity Hospitals St. John Medical Center Comment on above:Performed By: #### [id number] #### [facility] [address], [place] [address]Mslovjtuot [Mass/Vol]1.1 mg/dLNormal0.5-1.3FDelaware County HospitalComment on above:Performed By: #### [id number] #### [facility] [address], [place] [address]Qztlbea [Mass/Vol]122 mg/hPTztcre82-775XepfqsUniversity Hospitals St. John Medical CenterComment on above:Performed By: #### [id number] #### [facility] [address], [place] [address]Nressbjah [Moles/Vol]4.4 mmol/LNormal3.5-5.3FDelaware County HospitalComment on above:Performed By: #### [id number] #### [facility] [address], [place] [address]Ormwyz [Moles/Vol]123 mmol/OPam914-336VyqoyiUniversity Hospitals St. John Medical CenterComment on above:Performed By: #### [id number] #### [facility] [address], [place] [address]Xwab nitrogen [Mass/Vol]9 mg/dLNormal5-21[facility] John Medical CenterComment on above:Performed By: #### [id number] #### [facility] [address], [place] [address]Hdsc nitrogen/Creatinine [Mass ratio]8 No CytplXut86-18FwcrbnUniversity Hospitals St. John Medical CenterComment on above:Performed By: #### [id number] #### [facility] [address], [place] [address]CAO w/ Auto Diffon 96-93-8478Nsibgifky/100 WBC (Bld)1.1 %Normal 0.0-2.0[facility] John Medical CenterComment on above:Performed By: #### [id number] #### [facility] [address] [place] [address]Lwzkdxltg/Leukocytes Auto (Bld) [Pure # fraction]0.1 E9/LNormal 0.0-0.2FDelaware County HospitalComment on above:Performed By: #### [id number] #### [facility] [address] [place] [address]Ykkohwjeymh (Bld) [#/Vol]0.1 E9/LNormal0.0-0.5FDelaware County HospitalComment on above:Performed By: #### [id number] #### [facility] [address] [place] [address]Wvecchdyrdb/100 WBC (Bld)2.0 %Normal0.0-8.0[facility] John Medical CenterComment on above:Performed By: #### [id number] #### [facility] [address] [place] [address]Ziapncsipxv distribution width (RBC) [Ratio]13.2 %Normal 10.9-14.2FDelaware County HospitalComment on above:Performed By: #### [id number] #### [facility] [address] [place] [address]Pecmkhaxce (Bld) [Volume fraction]40.4 %Snfmxa16.7-49.0[facility] Medical CenterComment on above:Performed By: #### [id number] #### [facility] [address] [place] [address]Ghkpovfucg (Bld) [Mass/Vol]14.0 g/fXQetntf51.5-17.5FDelaware County HospitalComment on above:Performed By: #### [id number] #### [facility] [address] [place] [address]Zebgixsshbg (Bld) [#/Vol]1.1 E9/LNormal1.0-4.0[facility] John Medical CenterComment on above:Performed By: #### [id number] #### [facility] [address] [place] [address]Lbjlitimfxi/100 WBC (Bld)19.8 %Yygbmh71.0-50.0[facility] John Medical CenterComment on above:Performed By: #### [id number] #### [facility] [address] [place] [address]OUK (RBC) [Entitic mass]31.4 duKjlkpe67.0-34.0[facility] Medical CenterComment on above:Performed By: #### [id number] #### [facility] [address] [place] [address]BDBP (RBC) [Mass/Vol]34.7 g/vXUdukay78.4-36.0[facility] Medical CenterComment on above:Performed By: #### [id number] #### [facility] [address] [place] [address] 605[address]GCX (RBC) [Entitic vol]90.5 pXJkgwxw32.0-100.0[facility] John Medical CenterComment on above:Performed By: #### [id number] #### [facility] [address] [place] [address]Vvviwiywm (Bld) [#/Vol]0.7 E9/LNormal0.2-1.0[facility] Medical CenterComment on above:Performed By: #### [id number] #### [facility] [address] [place] [address]Pumrzcmvevy (Bld) [#/Vol]3.7 E9/LNormal2.0-7.5FDelaware County HospitalComment on above:Performed By: #### [id number] #### [facility] [address] [place] [address]Aknsncsnsfs/100 WBC (Bld)65.1 %Xoimcs76.0-75.0[facility] John Medical CenterComment on above:Performed By: #### [id number] #### [facility] [address] [place] [address]Ryksaoto mean volume (Bld) [Entitic vol]6.6 fLNormal6.4-10.[address] [facility] Medical CenterComment on above:Performed By: #### [id number] #### [facility] [address] [place] [address]Pzfmvurmg (Bld) [#/Vol]338.0 E9/GYjllqv756.0-500.0[facility] Medical CenterComment on above:Performed By: #### [id number] #### [facility] [address] [place] [address] 00147PBF (Bld) [#/Vol]4.5 E12/LNormal4.3-5.9[facility] Medical CenterComment on above:Performed By: #### [id number] #### [facility] [address] [place] [address]QQQ corrected for nucl RBC Auto (Bld) [#/Vol]5.7 E9/LNormal 4.0-11.0[facility] CenterComment on above:Performed By: #### [id number] #### [facility] [address] [place] [address]MFERBKWFODitrpmm By: SYSTEM SYSTEM on 22-83-5581Vbhko gap [Moles/Vol]11 mmol/LNormal6 - 16 mEq/LRemisol ChemCalcium [Mass/Vol]9.4 mg/dL Normal8.9 - 11.1 mg/dLRemisol ChemChloride [Moles/Vol]90 mmol/KVqb635 - 111 mmol/LRemisol ChemCO2 [Moles/Vol]26 mmol/GNiiymd74 - 31 mmol/LRemisol Chem Creatinine [Mass/Vol]1.1 mg/dLNormal0.5 - 1.3 mg/dLRemisol SmmfvFVQ10 mL/min/1.73 a3Fedune>=59mL/min/1.73 a2Rwlkpib ChemGlucose [Mass/Vol]122 mg/dL Ywxjdc31 - 199 mg/dLRemisol ChemPotassium [Moles/Vol]4.4 mmol/LNormal3.5 - 5.3 mmol/LRemisol ChemSodium [Moles/Vol]123 mmol/MZtn165 - 145 mmol/LRemisol Chem Urea nitrogen [Mass/Vol]9 mg/dLNormal5 - 21 mg/dLRemisol ChemUrea nitrogen/Creatinine [Mass ratio]8 mg/mgLow10 - 20Remisol ChemCOAGULATIONOrdered By: Bree Villatoro on 94-91-7362dGKN Coag (PPP) [Time]32.4 sGqngao43.1 - 36.5 second(s)[facility] Auto CoagComment on [...] the same coagulation reagent and instrumentation as [facility]. Currently there are no coagulation studies available worldwide for children to 14 days, andno normal ranges. Heparin therapeutic range (represented by Anti-Factor Xa activity of 0.2 - 0.4 U/mL) corresponds to PTT of 56.6 - 109.0 sec.INR Coag (PPP) [Relative time]0.94 {INR}Invalid Interpretation CodeB[facility] AND [facility] [place] Auto CoagComment on above:Interpretive Data: INR results are specifically intended to assess patients stabilized on long-term Anticoagulation therapy suggested INR s Less Intensive Anticoagulation 2.0 3.0 Conventional Range 3.0 4.5PT Coag (PPP) [Time]10.5 sNormal9.4 - 12.5 second(s) [facility] Auto CoagComment on [...] the same coagulation reagent and instrumentation as [facility]. Currently there are no coagulation studies available worldwide for children to 14 days, andno normal ranges.HEMATOLOGYOrdered By: SYSTEM SYSTEM on 77-49-6309Txzrawmbk/100 WBC (Bld)1.1 %Normal0.0 - 2.0 %Remisol HemeBasophils/Leukocytes Auto (Bld) [Pure # fraction]0.1 E9/LNormal0.0 - 0.2 E9/LRemisol HemeEosinophils (Bld) [#/Vol]0.1 E9/LNormal0.0 - 0.5 E9/LRemisol HemeEosinophils/100 WBC (Bld)2.0 %Normal0.0 - 8.0 %Remisol HemeErythrocyte distribution width (RBC) [Ratio]13.2 %Diqpvo38.9 - 14.2 %Remisol HemeHematocrit (Bld) [Volume fraction]40.4 %Qtzibq50.7 - 49.0 % Remisol HemeHemoglobin (Bld) [Mass/Vol]14.0 g/rVIrbhdp17.5 - 17.5 gm/dLRemisol HemeLymphocytes (Bld) [#/Vol]1.1 E9/LNormal1.0 - 4.0 E9/LRemisol Heme Lymphocytes/100 WBC (Bld)19.8 %Exdfwx89.0 - 50.0 %Remisol HemeMCH (RBC) [Entitic mass]31.4 rcRvykpn20.0 - 34.0 pgRemisol HemeMCHC (RBC) [Mass/Vol]34.7 g/dL Lmprgn83.4 - 36.0 gm/dLRemisol HemeMCV (RBC) [Entitic vol]90.5 zBLbzxlk88.0 - 100.0 fLRemisol HemeMonocytes (Bld) [#/Vol]0.7 E9/LNormal0.2 - 1.0 E9/LRemisol HemeMonocytes/100 WBC (Bld)12.0 %Normal4.0 - 14.0 %Remisol HemeNeutrophils (Bld) [#/Vol]3.7 E9/LNormal2.0 - 7.5 E9/LRemisol HemeNeutrophils/100 WBC (Bld)65.1 % Mwiiyc02.0 - 75.0 %Remisol HemePlatelet mean volume (Bld) [Entitic vol]6.6 fL Normal6.4 - 10.8 fLRemisol HemePlatelets (Bld) [#/Vol]338.0 E9/LZvlecc992.0 - 500.0 E9/LRemisol HemeRBC (Bld) [#/Vol]4.5 E12/LNormal4.3 - 5.9 E12/LRemisol HemeWBC corrected for nucl RBC Auto (Bld) [#/Vol]5.7 E9/LNormal4.0 - 11.0 E9/L Remisol HemeLaboratory - Chemistry and Chemistry - challengeOrdered By: SYSTEM SYSTEM on 07-75-7767JSI Qn14.21 m[IU]/LHigh0.34-5.60Remisol ChemPT & PTTon 65-22-3058aHLN Coag (PPP) [Time]32.4 second(s)Hsxjqo87.1-36.5[facility]iatric CenterComment on above:Result Comment: Parameter 15 days - [...] the same coagulation reagent and instrumentation as [facility]. Currently there are no coagulation studies available worldwide for children to 14 days, andno normal ranges. Heparin therapeutic range (represented by Anti-Factor Xa activity of 0.2 - 0.4 U/mL) corresponds to PTT of 56.6 - 109.0 sec.Performed By: #### [id number] #### [facility] [address], [place] [address]JLY Coag (PPP) [Relative time]0.94 {INR}Invalid Interpretation CodeFisher Brook Lane Psychiatric CenterComment on above:Result Comment: INR results are specifically intended to assess patients stabilized on long-term Anticoagulation therapy suggested INR???s ???Less Intensive Anticoagulation??? 2.0 ??? 3.0 Conventional Range 3.0 ??? 4.5Performed By: #### [id number] #### [facility] [address], [place] [address]MM Coag (PPP) [Time]10.5 second(s)Normal9.4-12.5[facility] Psychiatric CenterComment on above:Result Comment: 15 days - 4 [...] the same coagulation reagent and instrumentation as [facility]. Currently there are no coagulation studies available worldwide for children to 14 days, andno normal ranges.Performed By: #### [id number] #### [facility] [address], [place] [address]SZVkb 53-10-5441PDC Qn14.21 m[IU]/LHigh0.34-5.60[facility] Medical CenterComment on above:Performed By: #### [id number] #### [facility] [address], [place] [address]DV with Cult Rflxon 36-96-1626Yhsjteqlx Ql (U)NegativeNormal NegativeUniversity Hospitals St. John Medical CenterComment on above:Performed By: #### [id number] #### [facility] [address], [place] [address]Plnvddw (U)ClearNormalClearUniversity Hospitals St. John Medical CenterComment on above:Performed By: #### [id number] #### [facility] [address], [place] [address]Thzkf (U)ColorlessAbnormalYellowUniversity Hospitals St. John Medical Center Comment on above:Result Comment: Microscopic readings are only performed on those samples that meet specific criteria set forth by [facility].Performed By: #### [id number] #### [facility] [address], [place] [address]Wubqpfw Ql (U)NegativeNormalNegativeUniversity Hospitals St. [facility] Comment on above:Performed By: #### [id number] #### [facility] [address] [place] [address]Dwtwxmhlol Auto test strip (U) [Mass/Vol]NegativeNormalNegative [facility] Medical CenterComment on above:Performed By: #### [id number] #### [facility] [address], [place] [address]Ksrdsvf Auto test strip Ql (U)NegativeNormalNegativeUniversity Hospitals St. John Medical CenterComment on above:Performed By: #### [id number] #### [facility] [address], [place] [address]Ruoxovxaz esterase Auto test strip Ql (U)NegativeNormalNegative [facility] Medical CenterComment on above:Performed By: #### [id number] #### [facility] [address] [place], [place] [address]Mzuskbm Auto test strip Ql (U)NegativeNormalNegativeUniversity Hospitals St. John Medical CenterComment on above:Performed By: #### [id number] #### [facility] [address] [place] [address] 86199wK (U)6.5 [pH]Invalid Interpretation Code5.0-9.0[facility] Medical CenterComment on above:Performed By: #### [id number] #### [facility] [address] [place] [address]Bgfovlr Ql (U)NegativeNormalNegSelect Medical Specialty [facility] [place] Comment on above:Performed By: #### [id number] #### [facility] [address] [place] [address]Hvsadkpn gravity (U) [Rel density]1.004Invalid Interpretation Code1.005-1.030[facility] Medical CenterComment on above:Performed By: #### [id number] #### [facility] [address] [place] [address]Gtmnyqjnzckx (U) [Mass/Vol]NegativeNormalNegativeUniversity Hospitals St. John Medical CenterComment on above:Performed By: #### [id number] #### [facility] [address] [place] [id number] of Urine collection methodClean CatchKettering Health Washington TownshipComment on above:Performed By: #### [id number] #### [facility] [address] [place] [address] [id number] By: SYSTEM SYSTEM on 99-80-3685Lhecuqskm Ql (U)NegativeNormalNegativemg/dLB[facility] AND [facility] [place] UA Auto SSClarity (U)Clear (01/04/25 3:24 PM)NormalClearFTMC UA Auto SSColor (U)Colorless 1 *ABN* (01/04/25 3:24 PM)Invalid Interpretation CodeYellowBONE AND JOINT HOSPITAL – [place] UA Auto SSComment on above:Interpretive Data: Microscopic readings are only performed on those samples that meet specific criteria set forth by [facility].Glucose Ql (U)NegativeNormalNegativemg/dLFTMC UA Auto SSHemoglobin Auto test strip (U) [Mass/Vol]NegativeNormalNegativemg/dLBONE AND JOINT [facility] [place] UA Auto SSKetones Auto test strip Ql (U)NegativeNormalNegativemg/dLFT UA Auto SSLeukocyte esterase Auto test strip Ql (U)NegativeNormalNegativeLeu/uLFT UA Auto SS Nitrite Auto test strip Ql (U)NegativeNormalNegativemg/dLBONE AND JO[facility] [place] UA Auto SSpH (U) 6.5 *NA* (01/04/25 3:24 PM)Invalid Interpretation Code5.0 - 9.0[facility] [place] UA Auto SSProtein Ql (U)NegativeNormalNegativemg/dLBONE AND JOINT [facility] [place] UA Auto SSSpecific gravity (U) [Rel density] 1.004 *NA* (01/04/25 3:24 PM)Invalid Interpretation Code1.005 - 1.030[facility] [place] UA Auto SS Urobilinogen (U) [Mass/Vol]NegativeNormalNegativemg/dLBONE AND JOINT [facility] [place] UA Auto SSURINALYSIS Ordered By: Ivy Wynne on 31-86-0308ZW Spec DescClean Catch (01/04/25 3:24 PM)NormalFT UA Auto SSeGFRon 38-64-6701nEFA57 mL/min/1.73 m2 Normal>=59[address] Psychiatric CenterComment on above:Performed By: #### [id number] #### [facility] [address] [place], [place] [address]Nabomiuqoo Visit Summaryon 65-48-5270Niikzmrfbs Visit Summary Ambulatory Visit Summary CLAUDIA ROSY [...] including vitamins, herbs, eye drops, creams, and ksew-rso-xldqwwl medicines. ??? Any problems you or family [...] juice, black coffee, and (more content not included)...[facility] TownshipUrology Office/Clinic Noteon 40-74-6082Krfsazt Office/Clinic NoteUrology Office/Clinic Note Chief Complaint Discuss [...] and history for this patient from Dr. Medina I have reviewed and verified the staff [...] accompanied by son and D-I-L today. Denies UT/stents or CVA. Not on AC. Denies hx of diabetes. DINESH 4 - no current treatment. Portions of this record may have been created with voice recognition artificial intelligence software, specifically [employer] and or [employer] Substitutions may have occurred due to the [...] detail with the patient, including how the Skwibli system operates, setup andpositioning, docking, extirpation of the prostate, both seminal vesicles, and regional lymph nodes.We discussed in details the levels of nerve sparing, continence preservation, and the short-term and long-term outcomes for recovery of stress urinary incontinence, and sexual impotency. Other risks of the procedure were discussed, including but not limited to, bleeding requiring transfusion, infection, bowel/rectal injury, DVT/PE, UT, CVA, hernia, lymphocele requiring drainage, positional injury, [...] for further surgeries. Does (more content not included)...[facility] TownshipComment on above:Result Comment: Electronically Signed By: RENATA HAMILTON MD\.br\Date and Time Signed: 12/17/24 14:52 EDT\.br\Electronically Co- Signed By: Thom, Whit B\.br\Date and Time Co-Signed: 12/17/24 14:30 EDT Ambulatory Visit Summaryon 07-06-6111Iluvlmruxj Visit SummaryAmbulatory Visit Summary ROSY TAYLOR :1955 [...] RENATA HAMILTON MD Where: [facility] [address], [address] [place] [id number]- You Need to Schedule the Following Appointments [...] Stage 4 (IV). At (more content not included)...[facility] TownshipAmbulatory Visit SummaryAmbulatory Visit Summary ROSY TAYLOR :1955 [...] RENATA HAMILTON MD Where: [facility] [address], [address] [place] [id number]- You Need to Schedule the Following Appointments Follow Up with LETY RICHMODN, RENATA, AVIS When: Comments: discuss prostatectomy Where: [...] 4 (IV). At th (more content not included)...[facility] TownshipUrology Office/Clinic Noteon 67-88-1915Eghsmml Office/Clinic NoteUrology Office/Clinic Note Chief Complaint Discuss [...] Prostate volume 53 cc. TRUS/bx 11/17/24 - Edmonson 7 (3+4), GG2 x2 cores. Edmonson 6 (3+3) x4 cores. 2 ANA cores [...] cons of each therapy today, and the [place] prostate cancer book was provided. Advised pt he to proceed with treatment. Recommended prostatectomy given longer life expectancy. Explained possible SEs of prostatectomy vs radiation. Discussed possible referral to [facility] to discuss treatment options. Pt does not feel hewould able to accommodate traveling to [place]. Prefers to stay local if possible. -F/u w/ [facility] to discuss prostatectomy 2. BPH with urinary obstruction (N40.1: Benign prostatic hyperplasia with lower urinary tract symptoms) No BPH meds. UA today shows trace-intact blood (clinically neg), neg for infection. Follow-up With When Contact Information LETY RICHMOND, RENATA, ALESIAL Additional Instructions: discuss prostatectomy Patient Education Prostate Cancer Wanda Codrova, personally scribed for Dr. Medina on 12/07/2024 [...] virus vaccine, inactivated 06/15/2022 Recorded SARS-CoV-2 (COVID-19) mRNAMUL.ORD![id number] 06/15/2022 Recorded SARSCoV2 mRNA(kkdoiyiwf-zvzv-ssaxro) vac 12/03/2021 Recorded influenza virus vaccine, inactivated [...] (12/07/24 14:51:00) Specific G (more content not included)...[facility] Comment on above:Result Comment: Electronically Signed By: Jeyson MEDINA MD\.br\Date and Time Signed: 12/07/24 16:12 EDT\.br\Electronically Co-Signed By: Wanda Archuleta.br\Date and Time Co-Signed: 12/07/24 15:57 EDTProstate Histology ( Labs)on 99-64-4482Gpbboqmq HistologyDiagnosis InfoInvalid Interpretation [facility] Psychiatric CenterComment on above:Result Comment: A :Prostate,Left Lateral Base:Needle Biopsy Interpretation - - Acinar adenocarcinoma of prostate; Dieter score 6(3+3); Tumor measures 0.32 cm in length; 26% of the core involved by tumor; 1 of 1 core involved. MicroScopic Description - A :Prostate,Left Base:Needle Biopsy Interpretation - - Acinar adenocarcinoma of prostate; Edmonson score 6(3+3); Tumor measures 0.5 cm in length; 28% of the core involved by tumor; 1 of 1 core involved. MicroScopic Description - A :Prostate,Left Lateral Mid:Needle Biopsy Interpretation - - Acinar adenocarcinoma of prostate; Edmonson score 6(3+3); Tumor measures 0.83 cm in length; 37% of the core involved by tumor; 1 of 1 core involved. MicroScopic Description - A :Prostate,Left Mid:Needle Biopsy Interpretation - - Acinar adenocarcinoma of prostate; Edmonson score 7(3+4); Tumor measures 0.55 cm in length; 26% of the core involved by tumor; 1 of 1 core involved. MicroScopic Description - A :Prostate,Left Lateral Hamlin:Needle Biopsy Interpretation - - Atypical glands suspicious but not diagnostic for adenocarcinoma. MicroScopic Description - A :Prostate,Left Hamlin:Needle Biopsy Interpretation - - Atypical small acinar [...] prostatic tissue. MicroScopic Description - A :Prostate,Right Hamlin:Needle Biopsy Interpretation - - Acinar adenocarcinoma of prostate; Edmonson score 7(3+4); Tumor measures 0.62 cm in length; 30% of the core involved by tumor; 1 of 1 core involved. MicroScopic Description - A :Prostate,Right Lateral Hamlin:Needle Biopsy Interpretation - - Acinar adenocarcinoma of [...] with the patient???s name labeled Left Lateral Hamlin consists of a cylindrical fragment of becerra-white soft tissue measuring 1.35 cm. Totally submitted in Left Bx Chip raoul 5 from the arrow outward in alphabetical order.. Site ID:F color becerra-white fixative Formalin cores 1 units cm Received in raoul 6 of 6 of formalin biopsy board with the patient???s name labeled Left Hamlin consists of a cylindrical fragment of becerra-white [...] Right (more content not included)...Performed By: #### [id number] #### [facility] [address] [place], [place] [address]Xyzqopaygp Visit Summaryon 43-34-5959Vybahwbolg Visit Summary Ambulatory Visit Summary ROSY TAYLOR [...] Jeyson MEDINA MD Where: [facility] [place] [address]- You Need to Schedule the Following Appointments Follow Up with Jeyson MEDINA MD, URL When: Where: [facility] [address] [place] [address]- Medications What How Much When Instructions Unchanged [...] near your rectum, especially while sitting. ??? Elburn-colored urine due to small amounts of blood in your urine. ??? A burning feeling while urinating. ??? Blood in your stool (feces) or bleeding from your rectum. ??? Blood in your semen. Follow these instructions at home: Medicines ??? Take mlyt-dhk-xmcjuvb and prescription medicines only as told by [...] procedure, it is common (more content not included)...[facility] TownshipProstate Histology (P4 Labs)on 54-74-2017OH Method of ExtractionNeedle BiopsyKettering Health Washington TownshipComment on above: Performed By: #### [id number] #### [facility] [address] [place], [place] [address]FQ Number of Ofcw7Rdmkefz Interpretation [facility], IncComment on above:Performed By: #### [id number] #### [facility] [address] [place], [place] [address]XS Specimen 1R Base [facility] Comment on above:Performed By: #### [id number] #### [facility] [address], [place] [address]YW Specimen 10L Lat Mid [facility] Comment on above:Performed By: #### [id number] #### [facility] [address], [place] [address]QW Specimen 11L Apx [facility] Comment on above:Performed By: #### [id number] #### [facility] [address], [place] [address]LD Specimen 12L Lat Apx [facility] Comment on above:Performed By: #### [id number] #### [facility] [address] [place], [place] [address]ZL Specimen 2R Lat Bse [facility] Comment on above:Performed By: #### [id number] #### [facility] [address] [facility] [place] [address]VU Specimen 3R Mid [facility] Comment on above:Performed By: #### [id number] #### [facility] [address] [place], [place] [address]JC Specimen 4R Lat Mid [facility] Comment on above:Performed By: #### [id number] #### [facility] [address], [place] [address]KG Specimen 5R Apx [facility] Comment on above:Performed By: #### [id number] #### [facility] [address] [place], [place] [address]EV Specimen 6R Lat Apx [facility] Comment on above:Performed By: #### [id number] #### [facility] [address], [place] [address]JH Specimen 7L Base [facility] Comment on above:Performed By: #### [id number] #### [facility] [address] [place], [place] [address]FD Specimen 8L Lat Bse [facility] Comment on above:Performed By: #### [id number] #### [facility] [address], [place] [address]ST Specimen 9L Mid [facility] Comment on above:Performed By: #### [id number] #### [facility] [address] [facility], [place] [address]ZY Type of ServiceTechnical [facility] Bryan HospitalComment on above:Performed By: #### [id number] #### [facility] [address] [place], [place] [address]Yybcoxc Office/Clinic Noteon 62-51-7773Iroqpzg Office/Clinic NoteUrology Office/Clinic Note Chief Complaint TRUS/BX [...] [facility] [address], [place] [address]- Additional Instructions: Follow up as scheduled to [...] virus vaccine, inactivated 06/15/2022 Recorded SARS-CoV-2 (COVID-19) mRNAMUL.ORD![id number] 06/15/2022 Vadim (more content not included)...[facility] TownshipComment on above:Result Comment: Electronically Signed By: CAROL RICHMOND, Jeyson Orantes\.br\Date and Time Signed: 11/17/24 15:44 EDT\.br\Electronically Co-Signed By: Eneida Reyes\.br\Date and Time Co-Signed: 11/17/24 15:42 EDTMR prostate wo/w conon 38-30-9437KM prostate wo/w [facility] [place] [address] MRI Report Signed Patient: Rosy Taylor MR#: [id number] : 1955 Acct:[id number] Age/Sex: 69 / M ADM Date: 09/16/24 [...] Omkar Brown Jr, DO 10/07/2444 Signed By: 10/07/2446[facility] Physician GroupMagnetic resonance imaging reportOrdered By: Omkar Brown on 39-03-9632Iiebv reportCENTERVILLE Main [place] [address] [place] [address] MRI Report Signed Patient: Rosy Taylor MR#: [id number] : 1955 Acct:[id number] Age/Sex: 69 / M ADM Date: 5 [...] Brown Jr, DO 10/07/2444 Signed By: 10/07/24945 [facility] Jewish HospitalISTAT XRalissa CREon 94-35-5912Tntkuhyifx [Mass/Vol]1.4 mg/dLHigh0.6-1.3The [facility] Physician GroupComment on above: Result Comment: ER/ESD physician is notified/shown all ISTAT results. Critical values may be confirmed by laboratory testing if deemed necessary by ER attending doctor.Performed By: #### ISCRE #### [facility] [address] [place] [address] USAISTAT GFR55.088NoUNC Health Physician GroupComment on above:Result Comment: PERFORMED BY: [facility] [address] [place] [id number] PATHOLOGIST [employer] TEACHER ABEL SAM M.D.Performed By: #### ISCRE #### [facility] [address] [place] [address] USAAmbulatory Visit Summaryon 60-13-3552Juypjmpned Visit SummaryAmbulatory Visit Summary ROSY TAYLOR :1955 [...] Where: [facility] [address] , [place] [id number] Medications What How Much When Instructions Unchanged [...] including vitamins, herbs, eye drops, creams, and nraj-amt-qsaxofw medicines. ??? Any problems you or family [...] tells you to take them. ??? Taking piaa-gss-klxijsp medicines, vitamins, herbs, and supplements. General instructions [...] a responsible adult: ? (more content not included)...NormalUniversity Hospit[facility] St. [facility] CenterLaboratory - Chemistry and Chemistry - challengeon 35-55-3314QPF Qn13.234 m[IU]/LHigh 0.358-3.740[facility] HospitalGlucose mean value [Mass/volume] in Blood Estimated from glycated hemoglobinon 75-39-4064Igigaal glucose Estimated from glycated hemoglobin (Bld) [Mass/Vol]Glucose mean value [Mass/volume] in Blood Estimated from glycated hemoglobinMercy Health – The Jewish Hospital Laboratory - Hematology and Cell countson 29-01-8457YsV3g (Bld) [Mass fraction] 5.4 %4.5-6.2FSt. Francis HospitalComment on above:ADA RECOMMENDED LIMIT 4.0 - 6.0ADA THERAPEUTIC TARGET < 7.0ACTION SUGGESTED> 7.0No Panel Informationon 51-48-0764Ebpe Prostate Specific Antigen0.91 ng/mLN/Wilson Street HospitalComment on above:Diane ECLIA methodology.Prostate Specific Antigen Total6.6 ng/mLAbnormal0.0-4.0[facility] Comment on above:Diane ECLIA methodology.According to the [employer], Serum PSAshould decrease and remain [...] free prostate specific antigen (PSA)/total PSA ratioon 51-65-9300Rmci PSA/Total PSA [Mass fraction]Serum or plasma free prostate specific antigen (PSA)/total PSA ratio. [facility] Jewish HospitalComment on above:The table below lists the probability [...] for any other population of men.Performed at: [facility] [id number] Director: Warren Combs PhD, Phone: [phone] Basophils Auto (Bld) [#/Vol]on 40-69-2008Hhmvungty (Bld) [#/Vol]0.1 10 3/uL 0.0-0.1FSt. Francis HospitalBasophils/100 WBC Auto (Bld)on 10-20-7755Ibsxfqjdy/100 WBC (Bld)0.7 %0.2-2.0[facility] Cholesterol in LDL Calc [Mass/Vol]on 93-45-6553Lytcfswswsy in LDL [Mass/Vol] 174.0 mg/dLMercy Health – The Jewish HospitalComment on above:<100 mg/dl TAKLOAS723-926 mg/dl NEAR OR ABOVE MMBXCAA690-790 mg/dl BORDERLINE JPEN685-469 mg/dl HIGH>190 mg/dl VERY HIGHCholesterol in VLDL Calc [Mass/Vol]on 12-18-2023 Cholesterol in VLDL [Mass/Vol]16.0 mg/dLMercy Health – The Jewish Hospital Eosinophils/100 WBC Auto (Bld)on 32-18-3165Yqqludcqdre/100 WBC (Bld)1.1 %0.9-7.0 [facility] HospitalErythrocyte distribution width Auto (RBC) [Ratio]on 16-59-4812Mjhveegpdrq distribution width (RBC) [Ratio]12.4 %11.0-15.0 [facility] HospitalEstimated glomerular filtration rate (GFR) non- Americanon 82-61-6120HZQ/1.73 sq M.predicted among non-blacks MDRD (S/P/Bld) [Vol rate/Area]56 mL/min/{1.73_m2}>=60[facility] HospitalGlobulin Calc (S) [Mass/Vol]on 09-85-3148Rzorvhdu (S) [Mass/Vol]4.2 g/dL [facility] HospitalHematocrit Auto (Bld) [Volume fraction]on 43-72-5319Vwdecuxeow (Bld) [Volume fraction]41.0 %42.0-54.0[facility] HospitalHemoglobin [Mass/volume] in Bloodon 24-67-6190Zbytbqncyq (Bld) [Mass/Vol]14.2 g/dL14.0-18.0[facility] HospitalLaboratory - Chemistry and Chemistry - challengeon 38-05-7802Hwlhglr [Mass/Vol]3.9 g/dL 3.4-5.0[facility] HospitalALP [Catalytic activity/Vol]53 U/L46-116 [facility] HospitalALT [Catalytic activity/Vol]43 U/L16-63 [facility] HospitalAST [Catalytic activity/Vol]36 U/L15-37 [facility] HospitalBilirubin [Mass/Vol]0.5 mg/dL0.2-1.0[facility] HospitalCalcium [Mass/Vol]9.7 mg/dL8.5-10.1FSt. Francis HospitalChloride [Moles/Vol]95 mmol/C27-567GftvmsrmkMercy Health – The Jewish HospitalCholesterol [Mass/Vol]258 mg/dL<=200[facility] Cholesterol in HDL [Mass/Vol]68 mg/fU04-89ZomiwyfeaMercy Health – The Jewish Hospital Comment on above:> or =60 mg/dl - LOW CARDIOVASCULAR RISK<40 mg/dl - HIGH CARDIOVASCULAR RISKCO2 [Moles/Vol]27.1 mmol/L21.0-32.0[facility] HospitalCreatinine [Mass/Vol]1.29 mg/dL0.70-1.30[facility] GFR/1.73 sq M.predicted MDRD (S/P/Bld) [Vol rate/Area]mL/min/{1.73_m2}>=60 [facility] HospitalGlucose [Mass/Vol]115 mg/xX93-817IoiwpotpuMercy Health – The Jewish HospitalPotassium [Moles/Vol]4.5 mmol/L3.5-5.1FSt. Francis HospitalProtein [Mass/Vol]8.1 g/dL6.4-8.2FSt. Francis Hospital Sodium [Moles/Vol]132 mmol/H921-429YxythwsnqMercy Health – The Jewish HospitalTriglyceride [Mass/Vol]80 mg/dL<=150[facility] HospitalTSH Qn20.225 m[IU]/L 0.358-3.740[facility] HospitalUrea nitrogen [Mass/Vol]17.0 mg/dL 7.0-18.0[facility] HospitalUrea nitrogen/Creatinine [Mass ratio] 13.2 mg/mgMercy Health – The Jewish HospitalLaboratory - Hematology and Cell countson 09-29-7650Fownzvsn granulocytes/100 WBC (Bld)0.4 %0.0-0.5FSt. Francis HospitalLeukocytes [#/volume] corrected for nucleated erythrocytes in Blood by Automated counon 47-19-1809AVR corrected for nucl RBC Auto (Bld) [#/Vol]7.5 10 3/uL4.0-11.0[facility] Lymphocytes Auto (Bld) [#/Vol]on 07-62-7396Nztsfvniyrw (Bld) [#/Vol]1.8 10 3/uL 1.2-3.8[facility] HospitalLymphocytes/100 WBC Auto (Bld)on 95-17-3846Vkuatvljysx/100 WBC (Bld)23.7 %20.5-60.0[facility] CenterH Auto (RBC) [Entitic mass]on 76-71-2529ELE (RBC) [Entitic mass]31.9 pg 25.9-34.0[facility] HospitalMCHC Auto (RBC) [Mass/Vol]on 72-62-3877AAIH (RBC) [Mass/Vol]34.6 g/dL29.9-35.2FSt. Francis HospitalMCV Auto (RBC) [Entitic vol]on 56-03-4795DUG (RBC) [Entitic vol]92.1 fL 80.0-94.0[facility] HospitalMonocytes Auto (Bld) [#/Vol]on 97-88-4429Cinszmide (Bld) [#/Vol]0.9 10 3/uL0.3-0.8[facility] HospitalMonocytes/100 WBC Auto (Bld)on 63-27-4183Iwsclbqjd/100 WBC (Bld)11.3 % 1.7-12.0[facility] HospitalNeutrophils Auto (Bld) [#/Vol]on 30-92-2943Dukcsvwzrne (Bld) [#/Vol]4.7 10 3/uL1.4-6.5FSt. Francis HospitalNeutrophils/100 WBC Auto (Bld)on 23-45-5433Fnjbapwdryd/100 WBC (Bld)62.8 % 43.0-75.0[facility] HospitalNo Panel Informationon 12-18-2023 Eosinophils # (Auto)0.1 10 3/uL0.0-0.7FSt. Francis HospitalImmature Granulocyte # (Auto)0.03 10 3/uL0.00-0.03[facility] Prostate Specific Antigen Screen6.78 ng/mL<=4.00[facility] HospitalPlatelet mean volume Auto (Bld) [Entitic vol]on 27-38-4215Oihpfuvx mean volume (Bld) [Entitic vol]8.9 fL9.5-13.5FSt. Francis Hospital Platelets Auto (Bld) [#/Vol]on 61-26-1453Fwmycosoz (Bld) [#/Vol]289 10 3/uL 150-450[facility] Jewish HospitalRBC Auto (Bld) [#/Vol]on 52-83-9231EUG (Bld) [#/Vol]4.45 10 6/uL4.70-6.10[facility] Hospitalerum or plasma albumin/globulin mass ratioon 77-14-6758Xsfznfb/Globulin [Mass ratio]0.9 {ratio}[facility] Hospitalerum or plasma anion gap determination on 84-98-1999Ywmir gap [Moles/Vol]14.4 mmol/LFSt. Francis Hospital Serum or plasma total cholesterol/high density lipoprotein (HDL) cholesterol mass lien 61-46-8495Fqirhjxomij.total/Cholesterol in HDL [Mass ratio]3.8 {ratio}[facility] HospitalComment on above:3.3 - 4.4 LOW RISK4.4 - 7.1 AVERAGE RISK7.1 - 11.0 MODERATE RISK>11.0 HIGH RISK Vital Signs Date TimeVital SignValuePerforming IzasshxkgUdoowppl76-13-7585 14:33-0400Body xqgoop811.18 cmBenjamin Ball DO Work Phone: [facility]07-29-2025 14:33-0400 Body mass index (BMI) [Ratio]31.3 kg/u4Plbhwfiz Ball DO Work Phone: [facility]07-29-2025 14:33-0400 Body .71 kgBenjamin Ball DO Work Phone: [facility]07-29-2025 14:33-0400 Diastolic blood mnjiaish93 mm[Hg]Regan Ball DO Work Phone: [facility]07-29-2025 14:33-0400 Heart rate97 /minBenjamin Ball DO Work Phone: [facility]07-29-2025 14:33-0400 Respiratory rate12 /minBenjamin Ball DO Work Phone: [phone]07-29-2025 14:33-0400 Systolic blood hdhaxafk719 mm[Hg]Regan Ball DO Work Phone: [phone]06-18-2025 15:03-0400 Body fwscic808.18 cmBenjamin Ball DO Work Phone: [phone] [place], [place] [address]806-18-2025 15:03-0400 Body mass index (BMI) [Ratio]32.4 kg/y9Algxlpdn Ball DO Work Phone: [phone] [place], [place] [address]806-18-2025 15:03-0400 Body ikkhyd53.89 kgBenjamin Ball DO Work Phone: [phone]06-18-2025 15:03-0400 Diastolic blood nallapyb54 mm[Hg]Regan Ball DO Work Phone: [phone]06-18-2025 15:03-0400 Heart rate93 /minBenjamin Ball DO Work Phone: [phone]06-18-2025 15:03-0400 Systolic blood mm[Hg]Regan Ball DO Work Phone: [phone]05-13-2025 14:17-0400 Body .18 cmMercy Health – The Jewish Hospital05-13-2025 14:17-0400Body mass index (BMI) [Ratio]42.5 kg/c5DnmjruobdMercy Health – The Jewish Hospital05-13-2025 14:17-0400Body aqpsxn163.37 kgMercy Health – The Jewish Hospital05-13-2025 14:17-0400Diastolic blood xuttzphj68 mm[Hg][facility] 01-05-2025 14:17-0400Heart rate86 /[facility] 01-05-2025 14:17-0400Respiratory rate12 /[facility] 01-05-2025 14:17-0400Systolic blood izyzhlem484 mm[Hg][facility]05-12-2025 15:20-0400Diastolic blood tfcpyzda97 mm[Hg]RENATA NKANSAH-AMANKRA [facility]05-12-2025 15:20-0400Heart rate82 /minKWABENA NKANSAH-AMANKRA [facility] [facility] 15:20-0400Mean blood mm[Hg]RENATA NKANSAH-AMANKRA [facility]05-12-2025 15:20-0400 Systolic blood mbozrirj063 mm[Hg]RENATA NKANSAH-AMANKRA [address] [place], [place] 0137805-12-2025 15:19-0400Heart rate83 /minKWABENA NKANSAH-AMANKRA [address] [place], [place] 9176305-12-2025 15:19-3667HsB7% (BldA) [Mass fraction]95 %RENATA NKANSAH-AMANKRA [facility]05-12-2025 15:19-0400 Diastolic blood mm[Hg]RENATA NKANSAH-AMANKRA [facility]05-12-2025 15:19-0400Mean blood mm[Hg]RENATA NKANSAH-AMANKRA [facility]05-12-2025 15:19-0400 Systolic blood bejwucpp335 mm[Hg]RENATA NKANSAH-AMANKRA [facility]02-11-2025 07:28-0500Body psnqsa116.18 cmBenjamin Ball DO Work Phone: [facility]02-11-2025 07:28-0500 Body .25 kgBenjamin Ball DO Work Phone: [facility]12-23-2024 14:06-0500 Blood Pressure LocationPafaina MEDINA [facility]12-23-2024 14:06-0500Body svhmeckarvz19.6 [degF]Jeyson MEDINA [facility]12-23-2024 14:06-0500Diastolic blood mm[Hg]Jeyson MEDINA [facility]12-23-2024 14:06-0500Heart rate87 /Clarke MEDINA [facility]12-23-2024 14:06-0500Respiratory rate18 /minJeyson MDEINA [facility]12-23-2024 14:06-0500Systolic blood utxpuidg890 mm[Hg]Jeyson MEDINA [facility]11-20-2024 15:22-0500Body wfzowz609.72 [facility]20[facility]2024 15:22-0500Body mass index (BMI) [Ratio]33 kg/u5VbwzhswbkMercy Health – [facility]11-20-2024 15:22-0500Body rdyate51.65 kgMer[facility]11-20-2024 15:22-0500Diastolic blood bulgppmj13 mm[Hg] [facility]11-20-2024 15:22-0500Heart gapb996 /min [facility]11-20-2024 15:22-0500Respiratory rate12 /min [facility]11-20-2024 15:22-0500Systolic blood bttfospc466 mm[Hg][facility]05-03-2024 13:48-0400Body wgcfjo021.72 cmMer[facility]05-03-2024 13:48-0400Body mass index (BMI) [Ratio]31.5 kg/f5OigamqrzzMer[facility] Health [facility]05-03-2024 13:48-0400Body ynhckj27 kgMer[facility]05-03-2024 13:48-0400Diastolic blood mm[Hg][facility]05-03-2024 13:48-0400Heart rate86 /[facility]05-03-2024 13:48-0400Respiratory rate12 /[facility]05-03-2024 13:48-0400Systolic blood bsyjdrlt663 mm[Hg][facility]07-05-2023 15:15-0400Body .72 cmBenjamin Ball Other [employer] Other 07-05-2023 15:15-0400Body mass index (BMI) [Ratio] 29.43 kg/u7Ahaztgwt Ball Other [employer] Other 07-05-2023 15:15-0400Body znasnb56.82 kgBenjamin Ball Other [employer] Other 07-05-2023 15:15-0400Diastolic blood uqeuuxbt12 mm[Hg] Regan Ball Other [employer] Other 07-05-2023 15:15-0400Respiratory rate12 /minBenjamin Ball Other [employer] Other 07-05-2023 15:15-0400Systolic blood mxdvnadh194 mm[Hg] Regan Ball Other [employer] Other Encounters Encounter DateEncounter TypeCare ProviderFacilityStart: 95-20-5107gebwwlixugRY RENATA SY-AMANKRAFacility:EU [place]uskyStart: 15-69-2351pjyysrwvjhXK RENATA NORMAAH-AMANKRAFacility:EU [place]kyStart: 03-25-2025 End: 84-49-1769lprgbpvusgLE RENATA NKJOHNAH-AMANKRAFacility:FTMCStart: 03-25-2025 End: 14-56-9185bbzrxlewdvZJ RENATA SY-AMJONIRAFacility:EU NorwalkStart: 03-25-2025 End: 59-87-3230Nxldwwp encounter procedureRENATA HAMILTON [facility] Start: 03-23-2025 End: 14-53-3332azqlazxvplWfrietyp Rosmery DO Work Phone: [facility] Work Phone: Start: 03-23-2025 End: 75-29-2608Rwhloth encounter procedureBenoe Rosmery DO-[facility] Work Phone: Start: 30-29-1699Frn-patient / Non-visitBenoe Rosmery DO-[facility] Work Phone: Start: 02-16-2025 End: 12-37-3024gublnfgdgqNPGYQZPQuincy HAMILTONFacility:EU NorkStart: 02-16-2025 End: 10-57-3086Wwzjmlk encounter procedureRENATA HAMILTON [facility] Start: 02-15-2025 End: 92-85-7132Cctykvn encounter procedureRenata Hamilton [facility] Work Phone: Start: 02-15-2025 End: 93-39-8918ekbwxnecogBkiulbbj BallFacility:[facility] Start: 02-10-2025 End: 49-15-9142Rxlcvei encounter procedureRegan Botello [facility] Work Phone: Start: 02-09-2025 End: 19-96-3760Kym-admission assessmentRENATA BARRERAUCHE [facility] Start: 02-07-2025 End: 47-68-1187Aatqqibma department patient visitAstrit Vish KimdignaThe Surgical [facility] Start: 47-88-3079Ezd-patient / Non-visitCatherine Scotty [facility] Work Phone: Start: 02-03-2025 End: 24-36-5711eehqxnofxkRZUMMPK NKANSAH-AMANKRAFacility:FTMCStart: 02-03-2025 End: 73-24-8458Bnrlhbl encounter procedureRENATA BARRERAUCHE [facility] Start: 95-41-4612Wjp-patient / Non-visitBenoe Botello DOFormerly [facility] Work Phone: Start: 01-26-2025 End: 87-20-4964Yyv-admission assessmentDANETTEBERNIE CRISTYUCHE [facility] Start: 74-41-2717Iwf-patient / Non-visitBenbradley Botello -[facility] Work Phone: Start: 98-92-5616Vsj-patient / Non-visitBenbradley Botello DO-[facility] Work Phone: Start: 01-05-2025 End: 31-37-5775nhmxpihngrXqfftipuzDiley Ridge Medical Center Work Phone: Start: 01-05-2025 End: 89-07-5951Fflyjjjtp for other preprocedural examinationMercy Health Allen Hospitaltart: 01-05-2025 End: 22-38-4211Bvuhxis encounter procedureHighsmith-[facility] Work Phone: Start: 01-05-2025 End: 57-60-8062Eusejgn encounter statusBenbradley Botello [facility] Hospitaltart: 96-26-4585Jxq-patient / Non-visitFirrappahannock general hospital Physician [facility]- [facility] Work Phone: Start: 01-04-2025 End: 94-76-8081xxkhnnbfszOMMD RENATA HAMILTONFacility:FTMCStart: 01-04-2025 End: 08-44-5227Fltuzad encounter procedureRENATA HAMILTON [facility] Start: 12-17-2024 End: 45-39-4356Tsa-admission assessmentRENATA HAMILTON [facility] Start: 12-17-2024 End: 39-42-8601hbkgczakrpNZVenice CLEMENSRAFacility:EU [place]walkStart: 12-07-2024 End: 81-16-8252taoidrkdquWkqkszd R WATERSFacility:EU BellevueStart: 11-17-2024 End: 57-02-4314nlukqgvtxzMktssav R WATERSFacility:FTMCStart: 11-17-2024 End: 21-15-6745Fbr Drop offPatrick R MEDINA [facility] Start: 11-17-2024 End: 80-12-3484vxhzdjscbpFngykud R WATERSFacility:EU [place]kyStart: 11-03-2024 ambulatoryPatrick R WATERSFacility:EU [place]kyStart: 10-06-2024 End: 37-49-1198whlwycyckkYqencdmx Ball DO Work Phone: [facility] Work Phone: Start: 10-06-2024 End: 48-02-3679Xjbvzmt encounter procedureBenhazelmin Ball DO Work Phone: [facility] [place] Work Phone: Start: 08-17-2024 End: 78-37-3522tpueknzprfYdupdmx R WATERSFacility:EU AlexandraueStart: 08-17-2024 End: 07-16-6620Ibffugq encounter procedurePatrick R MEDINA [facility] start: 74-84-3318Pul-patient / Non-visitBenjamin Ball DO Work Phone: [facility] Work Phone: Start: 05-66-4587Eaa-patient / Non-visitBenjamin Ball DO Work Phone: [facility] Phys[facility] GroupFormerly [facility] Work Phone: Start: 52-42-8901ufsdsidjxcSuzyviu WATERSFacility:EU PremakStart: 07-15-2024 End: 80-70-1490Naeicrp encounter procedureHighsmith-Rain[facility]ty Hospital Physician GroupTempe [facility] Work Phone: Start: 07-15-2024 End: 47-11-0509qifaoewxpyPmtwgxnooDiley Ridge Medical Center Work Phone: Start: 24-11-5496Zhyjouaxj encounterBenbradley BotelloWadsworth-Rittman Hospital ClinicStart: 35-44-7485Bir-patient / Non-visitHighsmith-Rain[facility] Hospital Physician GroupFormerly [facility] Work Phone: Start: 12-27-2023 End: 52-47-2364tflrjaskjrTbeewhzhhAshtabula [facility] Work Phone: Start: 12-27-2023 End: 36-08-2394Pwmonxwhl for general adult medical examination without abnormal findingsMercy Health Allen Hospitaltart: 12-27-2023 End: 18-94-0247Mmmuhdx encounter procedureHighsmith-[facility] Work Phone: Start: 26-16-5443Cqu-patient / Non-visitHighsmith-[facility] Work Phone: Start: 29-04-4026Ymd-patient / Non-visitHighsmith-Rainey [facility] Work Phone: Start: 10-01-2023 End: 44-06-9966epjyglrojrXrforntw Ball Other [employer] Other Start: 95-61-9211Fdyfxb outpatient visit 15 minutes Regan Tony Botello [facility]art: 02-27-2023 End: 75-27-1813huzwlhdlqxTqsrctgs Ball Other [employer] Other Start: 21-99-2467Ynqofmerl for general adult medical examination without abnormal findingsRegan Botello Medical ClinicStart: 60-96-1051Ajburnld preventive med est patient 65yrs& olderBenoe Botello Medical ClinicStart: 33-30-8518Nrzuv health examinationBenoe Botello Other [employer] Other Start: 53-40-5210Sviyfam encounter procedureBENOE BOTELLOFacility:H1 Procedures DateProcedureProcedure DetailPerforming ClinicianStart: 41-53-5784Lcxhgndkqmzxs Astrit HajdariStart: 01-24-2025H/O: surgeryH/O prostatectomyBenbradlye Botello DO Start: 12-58-5958Vejzuvwk totalBenjamin Ball DO Work Phone: Comment on above:Please Note: The reference interval and flagging for this test is for an AM collection. If this is a PM collection please use: Cortisol PM: 2.3-11.9Performed at: [facility] LabcoSaint [facility] Hospital [facility] Boonton TownshipCulnve[address] [place], [place] [address]kx Director: Warren Combs PhD, Phone: [phone] Start: 87-21-0806Cbwtprcegdh biopsy of prostate using ultrasound guidanceOP3Nvoice Start: 06-31-2551LZ prostate wo/w conRegan Botello DO Work Phone: Start: 84-55-6607Pijtinjmq for malignant neoplasm of colonRegan Botello Other Start: 44-69-8230Jglwhwxhf for malignant neoplasm of prostateRegan Botello Other Start: 44-83-9896Zgvqjjd examination of patient Regan Botello Other Depression screeningRegan Botello Other Laser assisted in situ keratomileusisKRAMONEBERNIE LETY Plan of Treatment DateCare ActivityDeJewish Memorial Hospital 12 channel [facility] Immunizations Immunization DateImmunizationNotesCare RbeqzzjfTbnqrsye48-82-8091udgrlsqvv virus vaccine, unspecified formulationOP3Nvoice [facility]12-02-2023influenza virus vaccine, unspecified formulationAditive [facility]10-21-2022influenza, high dose seasonal, preservative-freeRegan Botello Other [employer] Other 10133531-35-8416RCMYH-58 Pfizer (bivalent)Regan Botello Other [facility]10-21-2022influenza virus vaccine, unspecified formulationMercy Health – [facility] 66-10-3640RNAPY PfizerBenhazelania Botello Other [facility]04-10-2022SARS-CoV-2 mRNA (krtvdxgtgli-xeex-qqbwodv) vaccinePashopatplacesnicolas MEDINA [facility]ue10-13-2021influenza virus vaccine, split virus (incl. purified surface antigen)Regan Botello Other [employer] Other 165551-73-0720pxieutvwp virus vaccine, unspecified formulationMer[facility] Health – [facility]10-06-2021COVID-19 Vaccine Pfizer - Documentation Purposes OnlyBillania Botello Other [facility] HospitalComment on above: Result Comment: 2024-08-17: GXF4022-50-2845gqevxzxqe virus vaccine, unspecified formulationOP3Nvoice [facility]04-06-2021COVID-19 Vaccine Pfizer - Documentation Purposes OnlyRegan Rosmery Other [facility]03-15-2021COVID-19 Vaccine Pfizer - Documentation Purposes OnlyBepalania Botello Other [facility] Payers DatePayer CategoryPayerPolicy [id number] Health Insurance [id number] [id number] [id number] [id number] [id number] [id number] [id number] 2.16.840.1.320482.3.57[id number] 2.16.840.1.709203.3.57[id number] 2.16840.1.116967.3.579.2.[id number] 2.840.1.872143.3.57[id number] 2.16.840.1.569650.3.579.2.16080-32-6465Dtdoatw85344072 2.16.840.1.478588.3.579.2.16646-04-6690Cewcbou07458463 2.16840.1.542756.3.579.[id number] 2.840.1.977527.3.579.2.00715-65-1556Tjpidwn94766587 2.16.840.1.764948.3.579.2.95862-97-2359Bseexjo59860910 2.16840.1.852690.3.579.[id number] 2.16840.1.733751.3.579.2.34171-25-8678Lwfzrnk17322356 2.16840.1.974663.3.579.2.45229-04-5493Kgzeohj90941198 2..0.1.861938.3.579.2.23048-93-2152Uusnpnj61996897 2.16.840.1.776544.3.579.2.29733-07-0748Wjhrcib66112548 2..0.1.242072.3.579.2.14794-25-2382Kqwsdbp99618203 2..0.1.130430.3.579.2.89146-92-3773Cqcrkcv37835298 2.0.1.269691.3.579.2.64335-42-2520Tvkfzcz56209496 2..0.1.054881.3.579.2.727MedicareAARP Medicare Advantage [id number] Health [id number] [id number] 2..1.155267.3.579.2.562Orlvgdb42125007 2.0.1.546923.3.579.2.531 Social History DateTypeDetailFacilitySex Assigned At [facility]tart: 74-25-7294Ygu Assigned At [facility]aw[facility] smoking status NHISUnknown if ever smokedShelby Memorial Hospital Work Phone: Start: 02-22-2010 End: 40-45-0101GvoXtzf (finding)[facility] Hospitaltart: 08-17-2024 End: 37-05-5045[place] smoking statusNever smoked tobacco (finding)[facility] HospitalTobadrumright regional hospital – [facility] smoking statusNever [facility] BellevueSexual Orientation [facility] Functional Status QfzpSkynrkppcaHlkuzyRxwmchxb82-79-7073Vnologlfot StatusNoThe [facility]12-23-2024Functional StatusN/AExec[facility] [place] Clinical Notes 02-27-2023 to 03-25-2025 Note Date & SztqDvbkLpnvcavq61-56-0625 Hospital Discharge instructions Patient Education 03/25/2025 14:41:10 [...] Follow these instructions at home: Medicines Take kdxj-yrp-mqnnbvr and prescription medicines only as told by [...] provider. Document Revised: 04/16/2022 Document Reviewed: 04/16/2022 [employer] Patient Education 2023 [email or web address]. Follow Up Care 02/16/2025 11:08:00 With:LETY RICHMOND, RENATA, URL Address: When: Unknown [facility] 07-31-2025 NotePatient Education Obstetrics and Gynecology Edema [...] these instructions at home: Medicines ??? Take ssuq-hgy-kpzddxi and prescription medicines only as told by [...] provider. Document Revised: 04/16/2022 Document Reviewed: 04/16/2022 [employer] Patient Education ? [address] [email or web address] 02-16-2025 Hospital Discharge instructions Patient Education 02/16/2025 [...] provider. Document Revised: 12/21/2021 Document Reviewed: 12/21/2021 [employer] Patient Education 2023 [email or web address]. Follow Up Care 01/19/2025 14:44:33 With:LETY RICHMOND, RENATA, URL Address: When: Unknown [facility] 06-24-2025 NotePatient Education Obstetrics and Gynecology Kegel [...] provider. Document Revised: 12/21/2021 Document Reviewed: 12/21/2021 [employer] Patient Education ? [address] [email or web address] 02-07-2025 Hospital Discharge instructions Patient Education 02/07/2025 [...] Follow these instructions at home: Medicines Take yfrp-bjb-etsklxn and prescription medicines only as told by [...] or the blood stops without treatment. Take gfec-cqk-kpkwtah and prescription medicines only as told by your health care provider. Drink enough fluid to keep your urine pale yellow. This information is not intended to replace advice given to you by your health care provider. Make sure you discuss any questions you have with your health care provider. Document Revised: 04/12/2021 Document Reviewed: 04/12/2021 [employer] Patient Education 2023 [email or web address]. Follow Up Care 02/07/2025 16:37:15 With:RENATA HAMILTON Address: [address] [place] [phone] Business (1) When:02/10/2025 17:49:59 Comments:Keep the dressing and the pressure dressing over the wound as discussed and as applied in the emergency room. Call the office of . Return to the emergency room if the wound continues to drain or any new symptoms or concerns. With:REGAN BOTELLO Address: [address] [place] [address]- Business (1) When:Within 3 Day(s) [facility] 06-15-2025 NoteED Patient Education Note Urology Hematuria, [...] these instructions at home: Medicines ??? Take jxmw-lew-akddoyb and prescription medicines only as told by [...] the blood stops without treatment. ??? Take kjqo-ykz-lmvysga and prescription medicines only as told by your health care provider. ??? Drink enough fluid to keep your urine pale yellow. This information is not intended to replace advice given to you by your health care provider. Make sure you discuss any questions you have with your health care provider. Document Revised: 04/12/2021 Document Reviewed: 04/12/2021 [employer] Patient Education ? [address] [email or web address] 02-07-2025 Evaluation + Plan noteExtracted from:Title:ED NoteAuthor:Ita Vera M.D. HDate:02/07/25 1. Postoperative complicatio n of skin involving drainage from surgical wound (L76.82: Other postprocedural complications of skin and subcutaneous tissue) 2. Hematuria (R31.9: Hematuria, unspecified) Future Appointments Appointment Date:02/11/2025 02:15:00 PM Scheduled Provider:RENATA HAMILTON MD Location:[facility] Appointment Type:URO Office Visit Future Scheduled Tests Radiology* XR Cystography Minimum 3 Views 02/15/25 [facility] 06-12-2025 NoteDischarge Summary Patient: ROSY TAYLOR Age: [...] patient. Discharge disposition: discharge to home self care.[facility] Comment on above:Result Comment: Electronically Signed By: RENATA HAMILTON MD\.br\Date and Time Signed: 02/04/25 14:57 [id number] Evaluation + Plan noteExtracted from:Title:DC SUMMAuthor:RENATA HAMILTON [...] Note uthor:Summer RICHMOND, Riley Wells.Date: 02/03/25 Plan [place] [employer] Anesthesiologists (ASA) physical status classification: Class III. Anesthetic Preoperative Plan: Anesthesia General, and Patient educated on benefits, alternatives and inherent risk of anesthesia including, but not all inclusive, Allergic reactions, dental damage, nerve damage and cardio-pulmonary complications and wishes to proceed with anesthetic plan.. Future Appointments Appointment Date:02/11/2025 02:15:00 PM Scheduled Provider:RENATA HAMILTON MD Location:[facility] Appointment Type:URO Office Visit Future Scheduled Tests Radiology* XR Cystography Minimum 3 Views 02/15/25 [facility] 06-12-2025 NoteProgress Note-Physician Basic Information 70 year [...] mg/dL High (02/04/25 08:12:00) POC Device SN: [id number] (02/04/25 08:12:00) POC User ID: [id number] (02/04/25 08:12:00) POC Username: SHIRLEY WRAYSSICA (02/04/25 [...] intravenous solution 50 mL (more content not included)...[facility] CenterComment on above:Result Comment: Electronically Signed By: Akosua Wright CNP\.br\Date and Time Signed: 02/04/25 10:37 EDT\.br\Electronically Co-Signed By: Baldev Amor DO\.br\Date and Time Co-Signed:02/04/25 11:28 [id number] Note Consultation Note Chief Complaint Prostate CA [...] vaccine, inactivated 07/27/2023 Re (more content not included)...[facility] CenterComment on above:Result Comment: Electronically Signed By: Radha Phillips\.br\Date and Time Signed: 02/03/2517:47 EDT\.br\Electronically Co-Signed By: Enio Hills III, DO.br\Date and Time Co-Signed:02/03/25 20:09 [id number] NoteProgress Note-Physician Patient: ROSY TAYLOR Age: 70 [...] At risk for falls / SNOMED CT 544329492 / Possible BPH with urinary obstruction / SNOMED CT 8190326716 / Confirmed Elevated PSA / SNOMED CT 5912499895 / Confirmed Hyperlipidemia / SNOMED CT 61204573 / Confirmed Hypertension / SNOMED CT 2495138660 / Confirmed Hypothyroid / SNOMED CT 08046016 / Confirmed Prostate cancer / SNOMED CT 5335925300 / Confirmed Physical Examination Vital Signs 02/03/2025 [...] 02/03/2025 15:25 EDT Resp (more content not included)...[facility] CenterComment on above:Result Comment: Electronically Signed By: Riley Robison MD\.br\Date and Time Signed: 02/03/25 18:09 [id number] NoteProgress Note-Physician Patient: ROSY TAYLOR Age: 70 [...] At risk for falls / SNOMED CT 811536577 / Possible BPH with urinary obstruction / SNOMED CT 6711596009 / Confirmed Elevated PSA / SNOMED CT 1214874740 / Confirmed Hyperlipidemia / SNOMED CT 04464038 / Confirmed Hypertension / SNOMED CT 4228200242 / Confirmed Hypothyroid / SNOMED CT 28857862 / Confirmed Prostate cancer / SNOMED CT 9597748364 / Confirmed, Active Problems (7) At risk for falls BPH with urinary obstruction Elevated PSA Hyperlipidemia Hypertension Hypothyroid Prostate cancer Histories Past Medical History: No active or resolved past medical history items have been selected or recorded. Family History: Dementia Mother Procedure history: Transrectal biopsy of prostate using ultrasound (US) guidance ([id number]) on 11/17/2024 at 69 Years. LASIK - laser assisted in situ keratomileusis ([id number]). Social History Social & Psychosocial Habits Tobacco [...] (FEB 03:31) Measurements from (more content not included)...[facility] Comment on above:Result Comment: Electronically Signed By: Summer RICHMOND, Riley Cook\.br\Date and Time Signed: 02/03/25 10:17 [id number] Hospital Discharge instructions Follow Up Care 01/26/2025 16:30:02 With:REGAN BOTELLO Address: [address] [place] [phone] Business (1) When:02/08/2025 13:30:00 With:RENATA HAMILTON Address:Unknown When: Unknown Comments:cystogram on 02/15. see me 02/16Keep February 11 appoinment. [facility] 05-13-2025 Evaluation note* Diagnosis Onset Date Resolution [...] 2024 2:13pmFoley catheter in placenoneactiveJuly 2024 2:13pm [facility] Work Phone: 1(268) 338-708704-24-2025 NotePatient Education Urology Robot-Assisted Laparoscopic Radical Prostatectomy [...] including vitamins, herbs, eye drops, creams, and ukbl-frf-hxebyhf medicines. ??? Any problems you or family [...] tells you to take them. ? Taking lqre-vuw-kcnuavi medicines, vitamins, herbs, and supplements. ??? Follow [...] make you fall aslee (more content not included)...[facility]04-14-2025 NotePatient Education Oncology Prostate Cancer The prostate [...] under a microscope. This is called the Edmonson score and the total score can range [...] needles, seeds, wires, o (more content not included)...[facility]03-25-2025 NotePatient Education Oncology Transrectal Ultrasound-Guided Prostate Biopsy, [...] near your rectum, especially while sitting. ??? [place]burn-colored urine due to small amounts of blood in your urine. ??? A burning feeling while urinating. ??? Blood in your stool (feces) or bleeding from your rectum. ??? Blood in your semen. Follow these instructions at home: Medicines ??? Take uihw-aqf-xijifyt and prescription medicines only as told by [...] provider. Document Revised: 02/05/2022 Document Reviewed: 02/05/2022 [employer] Patient Education ? 2023 [email or web address] 08-17-2024 Hospital Discharge instructions Patient Education 08/17/2024 [...] including vitamins, herbs, eye drops, creams, and mvup-yqv-cxuyxpm medicines. Any problems you or family members [...] provider tells you to take them. Taking dzpe-tdk-nigremz medicines, vitamins, herbs, and supplements. General instructions [...] provider. Document Revised: 02/05/2022 Document Reviewed: 02/05/2022 [employer] Patient Education 2023 [email or web address]. 08/17/2024 15:36:35 Prostate Cancer Screening Prostate Cancer [...] treatment? Where to find more information [employer]: www.cancer.org [employer]: www.auanet.org Contact a health care [...] provider. Document Revised: 02/05/2022 Document Reviewed: 02/05/2022 [employer] Patient Education 2023 [email or web address]. Follow Up Care 07/20/2024 14:29:22 With:CAROL RICHMOND, Jeyson Orantes, URL Address: [facility] [address], [place] [id number]- [phone] When: Unknown [facility] 12-23-2024 NoteUrology Office/Clinic Note Chief Complaint referral [...] URL [facility] [address] [place] [address] [phone] Additional Instructions: sched MRI and TRUS/bx Patient [...] Known Allergies Social Hist (more content not included)...[facility]Result Comment: Electronically Signed By: Jeyson MEDINA MD\.br\Date and Time Signed: 08/17/24 15:49 EST\.br\Electronically Co-Signed By: Wanda Archuleta\.br\Date and Time Co-Signed: 08/17/24 15:47 [id number] NoteUrology Office/Clinic Note Chief Complaint referral HPI [...] Orantes, URL [facility] [address] [place] [address]- [phone] Additional Instructions: sched MRI and TRUS/bx Patient [...] Known Allergies Social Hist (more content not included)...[facility]:Result Comment: Electronically Signed By: Jeyson MEDINA MD\.br\Date and Time Signed: 08/17/24 15:49 EST\.br\Electronically Co-Signed By: Wanda Archuleta\.br\Date and Time Co-Signed: 08/17/24 15:47 [id number] NotePatient Education Oncology Transrectal Ultrasound-Guided Prostate Biopsy [...] including vitamins, herbs, eye drops, creams, and edkv-fbz-ifclewf medicines. ??? Any problems you or family [...] tells you to take them. ??? Taking sbtk-zsz-gzlxmiw medicines, vitamins, herbs, and supplements. General instructions [...] the rectal area. ?? (more content not included)...[facility]12-23-2024 Note Patient Education Oncology Transrectal Ultrasound-Guided Prostate [...] including vitamins, herbs, eye drops, creams, and xcag-wgh-kkmvdav medicines. ??? Any problems you or family [...] tells you to take them. ??? Taking ctda-adv-ctamrje medicines, vitamins, herbs, and supplements. General instructions [...] the rectal area. ?? (more content not included)...[facility]11-20-2024 Evaluation note* Diagnosis Onset Date Resolution Status Admit Date Elevated PSA acuteJuly 15, 2024 3:09pmEssential (primary) hypertensionacuteJuly 15, 2024 3:09pmHypercholesterolemiaacuteNovember 2023 3:09pmHypothyroid acuteJuly 15, 2024 3:09pmIFG (impaired fasting glucose)acuteJuly 15, 2024 3:09pmMucopurulent chronic bronchitisacuteJuly 15, 2024 3:09pm Nicotine addictionacuteJuly 15, 2024 3:09pm [facility] Work Phone: 1(331) 255-629502-06-2024 Evaluation note* Encounter Date Diagnosis Assessment Notes [...] over the next several days as expected. [employer] Other 07-05-2023 Evaluation note* Encounter Date Diagnosis [...] They may safely use Tylenol as needed. [facility] Other Evaluation + Plan note No data available for this section [facility] evaluation + Plan note Future Appointments Appointment Date:12/07/2024 02:45:00 PM Scheduled Provider:Jeyson MEDINA MD Location:[facility] Appointment Type:URO Office Visit Diagnostic Tests Pending * Prostate Histology ([facility]) 11/17/24 [facility] evaluation + Plan note Future Appointments Appointment Date:01/12/2025 12:15:00 PM Scheduled Provider: Location:[facility] Appointment Type:Surgery FT [facility] evaluation + Plan note Future Appointments Appointment Date:02/03/2025 12:00:00 PM Scheduled Provider: Location:[facility] Appointment Type:Surgery FT Appointment Date:02/11/2025 02:15:00 PM Scheduled Provider:RENATA HAMILTON MD Location:[facility] Appointment Type:URO Office Visit [facility] evaluation + Plan note Future Appointments Appointment Date:03/25/2025 02:15:00 PM Scheduled Provider:RENATA HAMILTON MD Location:[facility] Appointment Type:URO Office Visit Diagnostic Tests Pending * PSA Total 04/26/25 Future Scheduled Tests Radiology* XR Cystography Minimum 3 Views 02/15/25 [facility] evaluation + Plan note Future Appointments Appointment Date:03/25/2025 02:15:00 PM Scheduled Provider:RENATA HAMILTON MD Location:[facility] Appointment Type:URO Office Visit Future Scheduled Tests Radiology* XR Cystography Minimum 3 Views 02/15/25 [facility] evaluation + Plan note Future Appointments Appointment Date:06/25/2025 10:15:00 AM Scheduled Provider:RENATA HAMILTON MD Location:[facility] Appointment Type:URO Office Visit Diagnostic Tests Pending * PSA Total 05/10/25 Future Scheduled Tests Radiology* XR Cystography Minimum 3 Views 02/15/25 [facility] evaluation note* Diagnosis Onset Date Resolution Status Benign prostatic hyperplasia with lower urinary tract symptoms acuteCigarette nicotine dependence without complicationacuteElevated PSAacute Essential (primary) hypertensionacuteHypercholesterolemiaacuteHypothyroidacute Mucopurulent chronic bronchitisacuteWellness examinationnoneactive [facility] Work Phone: Evaluation note* Diagnosis Onset Date Resolution Status Admit Date Cigarette nicotine dependence without co mplication acuteNovember 2023 3:09pmElevated PSAacuteNovember 2023 3:09pm Essential (primary) hypertensionacuteNovember 2023 3:09pm HypercholesterolemiaacuteNovember 2023 3:09pmHypothyroidacuteNovember 2023 3:09pmIFG (impaired fasting glucose)acuteNovember 2023 3:09pm Mucopurulent chronic bronchitisacuteNovember 2023 3:09pm [facility] Work Phone: Evaluation noteNo InformationNortShriners Hospitals for [facility] - [facility] [employer] Other Evaluation note* Diagnosis Onset Date Resolution Status Admit Date Essential (primary) hypertension acuteMay 2024 2:11pmHypercholesterolemiaacuteMay 2024 2:11pmIFG (impaired fasting glucose)acuteMay 2024 2:11pmMucopurulent chronic bronchitisacuteMay 2024 2:11pmNicotine addictionacuteMay 2024 2:11pm Prostate canceracuteMay 2024 2:11pmPreop exam for internal medicine noneactiveMay 2024 2:11pm [facility] Work Phone: History general Narrative - Reported* Type Description Date Medical History Hyperlipidemia type II Medical HistoryMucopurulent chronic bronchitisMedical HistoryCigarette nicotine dependence without complicationMedical HistoryTobacco userMedical History HypertensionMedical HistoryBenign prostatic hyperplasia with lower urinary tract symptomsMedical HistoryAutoimmune hypothyroidismMedical HistoryLumbar spondylosis with myelopathy [facility] [employer] Other History general Narrative - Reported* Type [...] no changes required, Problem Status : Resolved, [facility] Other Hospital Discharge instructions No data available for this section [facility] Progress note No data available for this section [facility] reason for referral (narrative)No reason for referral information availableShelby Memorial Hospital Work Phone: Summary Purpose Family History No [...] Amb Documentation February 05, 2025 9:44 am [facility]:Protectomy February 10, 2025 [...] section and content) DATE CREATED AUTHOR 05/06/2020 [facility] DATE CREATED AUTHOR AUTHOR'S ORGANIZ ATION 08/18/[address] [facility] DATE CREATED AUTHOR AUTHOR'S ORGANIZ ATION 12/08/[address] [facility] DATE CREATED AUTHOR AUTHOR'S ORGANIZ ATION 01/05/[address] [facility] DATE CREATED AUTHOR AUTHOR'S ORGANIZ ATION 02/05/[address] [facility] DATE CREATED AUTHOR AUTHOR'S ORGANIZ ATION 02/06/[address] [facility] DATE CREATED AUTHOR AUTHOR'S ORGANIZ ATION 02/07/[address] [facility] DATE CREATED AUTHOR AUTHOR'S ORGANIZ ATION 02/13/[address] [facility] DATE CREATED AUTHOR AUTHOR'S ORGANIZ ATION 02/17/[address] [facility] DATE CREATED AUTHOR AUTHOR'S ORGANIZ ATION 03/08/2025 [facility] DATE CREATED AUTHOR AUTHOR'S ORGANIZ ATION 06/23/[address] [facility] REASON FOR VISIT (unrecogniz ed section and content) Medications-Check Uppossible sinus infection, testing for covid [phone] Information Care Teams (unrecognized sec tion and [...] Status: Active Member Role Status Dates Regan Boetllo DO Primary Care Provider Active Start: March [...] BE BASED ON THE PRIMARY CLINICAL RECORDS. [employer] [facility]. provides no warranty or guarantee of the accuracy or completeness of information in this document.
[2025-06-23 16:20] LABS: Hematocrit 42.8 % (42.0-54.0); Hemoglobin 14.1 g/dL (14.0-18.0); Immature Granulocytes Abs Auto 0.04 10^3/uL (0.00-0.03); Immature Granulocytes Pct Auto 0.5 % (0.0-0.5); Lymphocytes Absolute Auto 1.6 10^3/uL (1.2-3.8); Mean Corpuscular HGB Conc 32.9 g/dL (29.9-35.2); Mean Corpuscular Hemoglobin 29.6 pg (25.9-34.0); Mean Corpuscular Volume 89.9 fL (80.0-94.0); Platelet Count 273 10^3/uL (150-450); Red Blood Count 4.76 10^6/uL (4.70-6.10); White Blood Count 7.3 10^3/uL (4.0-11.0)
[2025-06-23 17:14] LABS: Alanine Aminotransferase 41 U/L (16-63); Albumin Globulin Ratio 0.9; Albumin Level 3.8 g/dL (3.4-5.0); Alkaline Phosphatase 54 U/L (46-116); Anion Gap 13.5; Aspartate Amino Transferase 48 U/L (15-37); Blood Urea Nitrogen 18.0 mg/dL (7.0-18.0); Calcium 9.3 mg/dL (8.5-10.1); Carbon Dioxide 25.1 mmol/L (21.0-32.0); Chloride 94 mmol/L (98-107); Cholesterol 186 mg/dL (<=200); Estimated GFR (African America >60 (>=60 mL/min/1.73m^2); Estimated GFR (Non-African Ame 54 (>=60 mL/min/1.73m^2); Globulin 4.1 g/dL; Glucose 92 mg/dL (74-106); HDL Cholesterol 39 mg/dL (40-60); Potassium 4.6 mmol/L (3.5-5.1); Sodium 128 mmol/L (136-145); Thyroid Stimulating Hormone 9.957 uIU/mL (0.358-3.740); Total Protein 7.9 g/dL (6.4-8.2); Triglycerides 110 mg/dL (<=150); VLDL CHOLESTEROL 22.0 mg/dL
== END 2025-06-23 15:50 | disposition home or self-care (01) ==
LOC: LAB 15:51
PROVIDERS: PCP Internal Medicine; Visit Provider Internal Medicine
DX: N40.1 Benign prostatic hyperplasia with lower urinary tract symptoms (principal); E87.1 Hypo-osmolality and hyponatremia; R73.01 Impaired fasting glucose; E03.8 Other specified hypothyroidism; E06.3 Autoimmune thyroiditis; E78.00 Pure hypercholesterolemia, unspecified; N18.9 Chronic kidney disease, unspecified; I12.9 Hypertensive chronic kidney disease with stage 1 through stage 4 chronic kidney disease, or unspecified chronic kidney disease
CPT/HCPCS: 36415; 80053; 80061; 82043; 82570; 83036; 84153; 84443; 85025